=== PATIENT | male | born 1950 | race Caucasian/White ===

== ENCOUNTER → 2020-01-30 09:46 | Outpatient (BNVA) | payer MEDICARE, SELFPAY | PROVIDERS: PCP Internal Medicine; Visit Provider Internal Medicine | DX: I82.401 Acute embolism and thrombosis of unspecified deep veins of right lower extremity (principal); Z51.81 Encounter for therapeutic drug level monitoring; Z79.01 Long term (current) use of anticoagulants | CPT/HCPCS: 85610 ==

== ENCOUNTER → 2020-02-27 09:08 | Outpatient (BNVA) | payer MEDICARE, SELFPAY | PROVIDERS: PCP Internal Medicine; Visit Provider Internal Medicine | DX: I82.401 Acute embolism and thrombosis of unspecified deep veins of right lower extremity (principal); Z51.81 Encounter for therapeutic drug level monitoring; Z79.01 Long term (current) use of anticoagulants | CPT/HCPCS: 85610; 99211 ==

== ENCOUNTER → 2020-03-26 09:13 | Outpatient (BNVA) | payer MEDICARE, SELFPAY | PROVIDERS: PCP Internal Medicine; Visit Provider Internal Medicine | DX: I82.401 Acute embolism and thrombosis of unspecified deep veins of right lower extremity (principal); Z51.81 Encounter for therapeutic drug level monitoring; Z79.01 Long term (current) use of anticoagulants | CPT/HCPCS: 85610; 99211 ==

== ENCOUNTER → 2020-04-23 08:38 | Outpatient (BNVA) | payer MEDICARE, SELFPAY | PROVIDERS: PCP Internal Medicine; Visit Provider Internal Medicine | DX: I82.401 Acute embolism and thrombosis of unspecified deep veins of right lower extremity (principal); Z51.81 Encounter for therapeutic drug level monitoring; Z79.01 Long term (current) use of anticoagulants | CPT/HCPCS: 85610; 99211 ==

== ENCOUNTER → 2020-05-20 08:34 | Outpatient (BNVA) | payer MEDICARE, SELFPAY | PROVIDERS: PCP Internal Medicine; Visit Provider Internal Medicine | DX: I82.401 Acute embolism and thrombosis of unspecified deep veins of right lower extremity (principal); Z51.81 Encounter for therapeutic drug level monitoring; Z79.01 Long term (current) use of anticoagulants | CPT/HCPCS: 85610; 99211 ==

== ENCOUNTER → 2020-06-17 08:17 | Outpatient (BNVA) | payer MEDICARE, SELFPAY | PROVIDERS: PCP Internal Medicine; Visit Provider Internal Medicine | DX: I82.401 Acute embolism and thrombosis of unspecified deep veins of right lower extremity (principal); Z51.81 Encounter for therapeutic drug level monitoring; Z79.01 Long term (current) use of anticoagulants | CPT/HCPCS: 85610; 99211 ==

== ENCOUNTER → 2020-07-15 08:39 | Outpatient (BNVA) | payer MEDICARE, SELFPAY | PROVIDERS: PCP Internal Medicine; Visit Provider Internal Medicine | DX: I82.401 Acute embolism and thrombosis of unspecified deep veins of right lower extremity (principal); I48.0 Paroxysmal atrial fibrillation; Z79.01 Long term (current) use of anticoagulants; Z51.81 Encounter for therapeutic drug level monitoring | CPT/HCPCS: 85610; 99211 ==

== ENCOUNTER 2020-07-21 07:46 | Emergency (ER) | payer MEDICARE, SELFPAY ==
[2020-07-21 08:03] VITALS: BP 143/82; PULSE 135; RESP 19; O2SAT 95; BMI 30.5
[2020-07-21 08:18] LABS: MANUAL DIFF FLAG NO
[2020-07-21 08:21] LABS: Basophils Percent Auto 0.3 % (0-2); Eosinophils Absolute Auto 0.1 X10*3/uL (0.0-0.4); Eosinophils Percent Auto 2.4 % (0-4); Hematocrit 40.5 % (42-52); Hemoglobin 13.4 g/dl (14.0-18.0); Imm Gran Abs Auto 0.02 X10*3/uL (0.00-0.03); Imm Gran Pct Auto 0.3 % (0.0-0.4); Lymphocytes Absolute Auto 1.4 X10*3/uL (1.2-4.9); Lymphocytes Percent Auto 23.5 % (20-40); Mean Corpuscular HGB Conc 33.1 g/dl (31.0-36.0); Mean Corpuscular Hemoglobin 28.9 pg (27.0-33.0); Mean Corpuscular Volume 87.5 fL (80-98); Mean Platelet Volume 10.5 fL (9.4-12.4); Monocytes Absolute Auto 0.6 X10*3/uL (0.1-1.2); Monocytes Percent Auto 10.2 % (2-11); Neutrophils Absolute Auto 3.7 X10*3/uL (2.0-8.3); Neutrophils Percent Auto 63.3 % (45-73); Platelet Count 148 X10*3/uL (160-400); Red Blood Count 4.63 X10*6/uL (4.60-5.80); Red Cell Distribution Width 14.3 % (11.0-16.0); White Blood Count 5.9 X10*3/uL (4.8-10.8)
[2020-07-21 08:34] VITALS: BP 131/78; PULSE 73; RESP 17; O2SAT 96
--- NOTE | 2020-07-21 08:34 | PC.NURSE ---
RN NOTICED PT HR ON TELE WAS IN 70'S. REPEAT EKG BEING DONE AT THIS TIME. PATIENT FEELING IMPROVED.
[2020-07-21 08:49] LABS: Troponin-I High Sensitivity 6.7 ng/L (<3.5-35.0)
[2020-07-21 08:57] LABS: Anion Gap 13 (12-20); Blood Urea Nitrogen 24 mg/dL (9-16); Calcium 8.8 mg/dL (8.4-10.2); Carbon Dioxide 24 mmol/L (22-29); Chloride 107 mmol/L (96-108); Estimated Glomerular Filt Rate > 60; Glucose Fasting 102 mg/dL (60-99); Potassium 3.9 mmol/L (3.3-5.1); Sodium 140 mmol/L (135-145)
[2020-07-21 09:06] LABS: INTERNATIONAL NORM RATIO 2.8 (0.9-1.1); Prothrombin Time 33.2 SEC (10.8-13.0)
--- NOTE | 2020-07-21 09:15 | ED.GENADULT ---
HPI - General Adult General Chief complaint: Arrhythmia/Palpitations Stated complaint: rapid heartbeat Time Seen by Provider: 07/21/20 08:56 Source: patient Mode of arrival: ambulatory Limitations: no limitations History of Present Illness HPI narrative: 69-year-old male who presents emergency department for evaluation palpitations. Patient states that he got at 6:00 a.m. to go to the bathroom when he felt like his heart was beating fast and irregularly. He states that he has a history of atrial fibrillation but had an ablation and has not had any sustained episodes since the ablation. He states that he occasionally gets several beats palpitations that are irregular but has not had a sustained episode in some time. He states that he could feel his heart beat and it was rapid and irregular, he denied any associated chest pain, lightheadedness, dizziness, shortness of breath, dyspnea on exertion, neck, jaw, back or arm pain. His symptoms persisted therefore came to emergency department for evaluation. He denied being ill prior to the onset of his palpitations. Denied fever, chills, cough and myalgias or arthralgias. Related Data Home Medications Medication Instructions Recorded Confirmed colesevelam 625 mg tablet 1,250 mg PO BID 02/05/20 07/15/20 donepezil 5 mg tablet 5 mg PO DAILY 02/05/20 06/17/20 lisinopril 10 mg tablet 10 mg PO DAILY 02/05/20 07/15/20 metoprolol tartrate 25 mg tablet 25 mg PO BID 02/05/20 07/15/20 zmtedtqn-vby-zhogv acid 300 1 tab PO DAILY 02/05/20 07/15/20 mcg-lycopene 600 mcg-lutein 300 mcg tablet naproxen sodium 220 mg tablet 220 mg PO BID PRN 02/05/20 07/15/20 omeprazole 20 mg capsule,delayed 20 mg PO DAILY 02/05/20 07/15/20 release Previous Rx's Medication Instructions Recorded warfarin 2 mg tablet 8 mg PO DAILY #120 tab 06/07/20 Allergies Allergy/AdvReac Type Severity Reaction Status Date / Time Sgygoyd-Uhn-Nmp Reductase Allergy Intermediate MUSCULAR Verified 06/17/20 08:23 Inhibitor PAIN [[id number] REDUCTASE INHIBITOR] atorvastatin Allergy Unknown UNKNOWN Verified 06/17/20 08:23 pravastatin Allergy Unknown UNKNOWN Verified 06/17/20 08:23 simvastatin Allergy Unknown UNKNOWN Verified 06/17/20 08:23 Review of Systems Review of Systems: Yes all other systems are reviewed and are negative [facility] Past Medical History [facility] Narrative: The patient denies alcohol, tobacco or drug use. Medical History Carpal tunnel syndrome Chronic idiopathic thrombocytopenia Cognitive decline Colon cancer Depression GERD (gastroesophageal reflux disease) Hypercholesterolemia Hypertension Impaired fasting glucose Iron deficiency anemia Paroxysmal atrial fibrillation Peripheral neuropathy Rotator cuff tear Thrombocytopenia Surgical History H/O repair of rotator cuff History of appendectomy History of cardiac radiofrequency ablation History of carpal tunnel release History of cholecystectomy History of knee replacement procedure of right knee History of laminectomy History of left knee replacement History of neck surgery History of partial colectomy History of right hip replacement Family History Family History Father No problems noted. Mother Diabetes Social History Social History Smoking Status: Never smoker Smoked in Last 30 Days: No Use of substances other than those prescribed or required for medical reasons: No Advance Directives: No Advance Directives Information Provided: No Physical Exam Vital Signs: Vital Signs: Last Vital Signs Pulse 63 07/21/20 11:12 Resp 15 07/21/20 11:12 BP 109/68 07/21/20 11:12 Pulse Ox 96 07/21/20 11:12 Body Mass Index 30.5 Const: General: cooperative and healthy appearing Orientation/consciousness: oriented to person and oriented to place Limitations: no limitations HENMT: Head: Yes normal to inspection, Yes normocephalic and Yes atraumatic Ears: external ears normal General nose exam: Normal external nose present Face and sinus: Yes normal facial exam Mouth: Normal oral and palatal mucosa present Throat: Yes posterior oropharynx normal Eyes: Periorbital: periorbital findings normal Eyelids: Yes eyelids normal Conjunctivae: conjunctivae normal Sclerae: sclerae normal Corneas: corneas normal Pupils: Equal, round and reactive pupils present Direct Ophthalmoscopy: normal light reflex Neck: Neck: Yes full ROM, Yes no lymphadenopathy, Yes no meningeal signs, Yes trachea midline and Yes supple Chest: Chest palpation & inspection: normal inspection of the chest and normal palpation of entire chest wall Resp: Effort & Inspection: normal respiratory effort and able to speak in complete sentences Auscultation: clear to auscultation bilaterally Cardio: Rate: regular rate Rhythm: regular rhythm Heart sounds: S1 normal heart sound present, S2 normal heart sound present and no murmurs GI: Inspection: Yes normal to inspection Palpation (GI): Soft to palpation, nontender, no guarding, not rigid and No hepatosplenomegaly present : General: Yes no CVA tenderness Back/Spine/Pelvis: Back: no CVA tenderness Cervical Spine: normal cervical lordosis Thoracic/Lumbar Spine: thoracic and lumbar spine normal to inspection Skin: Lesions: no lesions Rashes: no rashes Wounds: no wounds Neuro: General: oriented to person, oriented to place and no meningeal signs Cranial nerves: Yes CN's II-XII intact bilaterally and Yes Equal, round and reactive pupils present Cognition (Neuro): normal cognition Motor exam (neuro): 5/5 motor strength present throughout Extrem: General: Yes normal to inspection and Yes full ROM Psych: Appearance: well kempt Mental Status: mental status grossly normal Speech and movement: Normal speech and movement present Affect: normal affect Attitude: cooperative Thought process: Normal thought process present Thought content: Normal thought content present Course Course Course Narrative: 69-year-old male who presents emergency department for evaluation palpitations which occurred this morning at 6:00 a.m. when he woke up. On presentation, the patient was found to have tachycardia with a pulse of 135 and a slightly elevated blood pressure of 143/82. By the time I evaluated the patient, his heart exam was normal however his initial EKG was consistent with atrial fibrillation with a ventricular response of 134. The patient spontaneously converted without treatment and his 2nd EKG revealed normal sinus rhythm with a rate of 74. The patient's laboratory evaluation revealed a non elevated, detectable troponin of 6 otherwise was unremarkable. The patient will be monitored and we will check a 3 hour troponin at 1115 to evaluate for possible cardiac injury. 1206: Patient's repeat 3 hour high sensitivity troponin was unchanged at 6.9. INR was therapeutic at 2.8. Patient had no other arrhythmias noted on the monitoring specialist and remains in normal sinus rhythm. 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 Medical Decision Making Lab Data Result diagrams: 07/21/20 08:14 07/21/20 08:12 Labs: Lab Results 07/21/20 07/21/20 07/21/20 Range/Units 08:12 08:13 08:13 WBC (4.8-10.8) X10*3/uL RBC (4.60-5.80) X10*6/uL Hgb (14.0-18.0) g/dl Hct (42-52) % MCV (80-98) fL MCH (27.0-33.0) pg MCHC (31.0-36.0) g/dl RDW (11.0-16.0) % Plt Count (160-400) X10*3/uL MPV (9.4-12.4) fL Immature Gran % (Auto) (0.0-0.4) % Neut % (Auto) (45-73) % Lymph % (Auto) (20-40) % [place] % (Auto) (2-11) % Eos % (Auto) (0-4) % Baso % (Auto) (0-2) % Lymph # (Auto) (1.2-4.9) X10*3/uL [place] # (Auto) (0.1-1.2) X10*3/uL Eos # (Auto) (0.0-0.4) X10*3/uL Baso # (Auto) (0.0-0.2) X10*3/uL Abs Immat Gran (auto) (0.00-0.03) X10*3/uL Absolute Neuts (auto) (2.0-8.3) X10*3/uL Absolute Nucleated RBC (0.0-0.012) X10*3/uL Nucleated RBC % (auto) (0.0-0.2) /100WBC PT 33.2 H (10.8-13.0) SEC INR 2.8 H (0.9-1.1) Hold Blue Top SEE NOTE Sodium 140 (135-145) mmol/L Potassium 3.9 (3.3-5.1) mmol/L Chloride 107 (96-108) mmol/L Carbon Dioxide 24 (22-29) mmol/L Anion Gap 13 (12-20) BUN 24 H (9-16) mg/dL Creatinine 0.90 (0.5-1.4) mg/dL Estim Creat Clear Calc 93.0 Estimated GFR > 60 Fasting Glucose 102 H (60-99) mg/dL Calcium 8.8 (8.4-10.2) mg/dL Troponin I High Sens 6.7 (<3.5-35.0) ng/L 07/21/20 07/21/20 Range/Units 08:14 11:16 WBC 5.9 (4.8-10.8) X10*3/uL RBC 4.63 (4.60-5.80) X10*6/uL Hgb 13.4 L (14.0-18.0) g/dl Hct 40.5 L (42-52) % MCV 87.5 (80-98) fL MCH 28.9 (27.0-33.0) pg MCHC 33.1 (31.0-36.0) g/dl RDW 14.3 (11.0-16.0) % Plt Count 148 L (160-400) X10*3/uL MPV 10.5 (9.4-12.4) fL Immature Gran % (Auto) 0.3 (0.0-0.4) % Neut % (Auto) 63.3 (45-73) % Lymph % (Auto) 23.5 (20-40) % [place] % (Auto) 10.2 (2-11) % Eos % (Auto) 2.4 (0-4) % Baso % (Auto) 0.3 (0-2) % Lymph # (Auto) 1.4 (1.2-4.9) X10*3/uL [place] # (Auto) 0.6 (0.1-1.2) X10*3/uL Eos # (Auto) 0.1 (0.0-0.4) X10*3/uL Baso # (Auto) 0.0 (0.0-0.2) X10*3/uL Abs Immat Gran (auto) 0.02 (0.00-0.03) X10*3/uL Absolute Neuts (auto) 3.7 (2.0-8.3) X10*3/uL Absolute Nucleated RBC 0.000 (0.0-0.012) X10*3/uL Nucleated RBC % (auto) 0.0 (0.0-0.2) /100WBC PT (10.8-13.0) SEC INR (0.9-1.1) Hold Blue Top Sodium (135-145) mmol/L Potassium (3.3-5.1) mmol/L Chloride (96-108) mmol/L Carbon Dioxide (22-29) mmol/L Anion Gap (12-20) BUN (9-16) mg/dL Creatinine (0.5-1.4) mg/dL Estim Creat Clear Calc Estimated GFR Fasting Glucose (60-99) mg/dL Calcium (8.4-10.2) mg/dL Troponin I High Sens 6.9 (<3.5-35.0) ng/L ECG Data Interpretation: EKG 1.: 0753: Atrial fibrillation with a rapid ventricular rate of 134, normal QRS and QTC intervals, no ST segment elevation or depression, no T-wave abnormalities, no old EKG for comparison EKG 2.: 0852: Normal sinus rhythm with a rate of 74, normal CT, S prolonged QRS of 100 milliseconds, normal QTC interval, no T-wave abnormalities, no ST segment elevation depression, this is a normal EKG. Discharge Plan Discharge Clinical Impression: AF (paroxysmal atrial fibrillation) Patient Disposition: Home, Self-Care Instructions: A-fib (Atrial Fibrillation) (ED) Additional Instructions: Your initial EKG revealed that your in atrial fibrillation with a ventricular rate of 134. Without any treatment, he spontaneously converted to a normal sinus rhythm with a rate of 74. Your laboratory evaluation revealed a detectable high sensitivity troponin at 6.7 but not elevated (less than 35), your repeat 3 hour high sensitivity troponin was 6.9 which is unchanged suggesting that you did not have any cardiac injury from your atrial fibrillation with rapid ventricular response. Your INR was therapeutic at 2.8. You should follow-up with the assembly line inspector discuss further treatment and management of your paroxysmal atrial tachycardia. Follow-up with your doctor in 2 days. Please return to the emergency department if your symptoms get worse or if you develop any symptoms that are concerning to you. Prescriptions: No Action warfarin 2 mg tablet 8 mg PO DAILY Qty: 120 RF: 3 metoprolol tartrate 25 mg tablet 25 mg PO BID RF: 0 lisinopril 10 mg tablet 10 mg PO DAILY RF: 0 omeprazole 20 mg capsule,delayed release(DR/EC) 20 mg PO DAILY RF: 0 Centrum Silver Ultra Men's 300-600-300 mcg tablet 1 tab PO DAILY RF: 0 naproxen sodium [Aleve] 220 mg tablet 220 mg PO BID PRN (Reason: Pain) RF: 0 colesevelam 625 mg tablet 1,250 mg PO BID RF: 0 donepezil [Aricept] 5 mg tablet 5 mg PO DAILY RF: 0
[2020-07-21 11:12] VITALS: BP 109/68; PULSE 63; RESP 15; O2SAT 96
[2020-07-21 11:46] LABS: Troponin-I High Sensitivity 6.9 ng/L (<3.5-35.0)
--- NOTE | 2020-07-21 12:04 | ECG_ITS ---
Test Reason : RAPID HEATRATE Blood Pressure : / mmHG Vent. Rate : 134 BPM Atrial Rate : 076 BPM P-R Int : 000 ms QRS Dur : 088 ms QT Int : 308 ms P-R-T Axes : 000 011 -25 degrees QTc Int : 459 ms Atrial fibrillation with rapid ventricular response Nonspecific ST and T wave abnormality Abnormal ECG When compared with ECG of 03-NOV-2014 20:20, Atrial fibrillation has replaced Sinus rhythm Vent. rate has increased BY [address] now depressed in Anterior leads T wave inversion more evident in Inferior leads Referred By: Narayan Corley Electronically Signed By:TERESA MALDONADO
--- NOTE | 2020-07-21 12:05 | ECG_ITS ---
Test Reason : RAPID HEARTRATE Blood Pressure : / mmHG Vent. Rate : 070 BPM Atrial Rate : 070 BPM P-R Int : 152 ms QRS Dur : 092 ms QT Int : 370 ms P-R-T Axes : 029 006 012 degrees QTc Int : 399 ms Normal sinus rhythm Normal ECG When compared with ECG of 21-JUL-2020 07:53, Sinus rhythm has replaced Atrial fibrillation Vent. rate has decreased BY 64 BPM T wave inversion less evident in Inferior leads Referred By: Narayan Corley Electronically Signed By:TERESA MALDONADO
== END 2020-07-21 12:25 | disposition home or self-care (01) ==
PROVIDERS: Emergency Provider Emergency Medicine Emergency Medical Services; PCP Internal Medicine
DX: I48.0 Paroxysmal atrial fibrillation (principal); R00.0 Tachycardia, unspecified; I10 Essential (primary) hypertension; K21.9 Gastro-esophageal reflux disease without esophagitis; Z85.038 Personal history of other malignant neoplasm of large intestine; Z79.01 Long term (current) use of anticoagulants; Z79.899 Other long term (current) drug therapy
CPT/HCPCS: 36415; 80048; 84484; 85025; 85610; 93005; 99283; 99284

== ENCOUNTER → 2020-07-31 09:09 | Outpatient (BNVA) | payer MEDICARE, SELFPAY | PROVIDERS: PCP Internal Medicine; Visit Provider Internal Medicine | DX: I82.401 Acute embolism and thrombosis of unspecified deep veins of right lower extremity (principal); Z79.01 Long term (current) use of anticoagulants; Z51.81 Encounter for therapeutic drug level monitoring | CPT/HCPCS: 85610; 99211 ==

== ENCOUNTER 2020-08-14 07:56 | Outpatient (REF) | payer MEDICARE, SELFPAY ==
[2020-08-14 09:10] LABS: MANUAL DIFF FLAG NO
[2020-08-14 09:22] LABS: Basophils Percent Auto 0.4 % (0-2); Eosinophils Absolute Auto 0.1 X10*3/uL (0.0-0.4); Eosinophils Percent Auto 2.6 % (0-4); Hematocrit 41.1 % (42-52); Hemoglobin 13.4 g/dl (14.0-18.0); Imm Gran Abs Auto 0.01 X10*3/uL (0.00-0.03); Imm Gran Pct Auto 0.2 % (0.0-0.4); Lymphocytes Absolute Auto 1.1 X10*3/uL (1.2-4.9); Lymphocytes Percent Auto 21.4 % (20-40); Mean Corpuscular HGB Conc 32.6 g/dl (31.0-36.0); Mean Corpuscular Hemoglobin 28.5 pg (27.0-33.0); Mean Corpuscular Volume 87.3 fL (80-98); Mean Platelet Volume 11.4 fL (9.4-12.4); Monocytes Absolute Auto 0.4 X10*3/uL (0.1-1.2); Monocytes Percent Auto 8.5 % (2-11); Neutrophils Absolute Auto 3.4 X10*3/uL (2.0-8.3); Neutrophils Percent Auto 66.9 % (45-73); Platelet Count 164 X10*3/uL (160-400); Red Blood Count 4.71 X10*6/uL (4.60-5.80); Red Cell Distribution Width 13.6 % (11.0-16.0); White Blood Count 5.1 X10*3/uL (4.8-10.8)
[2020-08-14 09:30] LABS: Estimated Average Glucose 114 mg/dL; Hemoglobin A1c % 5.6 %
[2020-08-14 10:08] LABS: Free T4 (Free Thyroxine) 1.06 ng/dL (0.71-1.85); Thyroid Stimulating Hormone 0.52 uIU/mL (0.32-4.0); Vitamin D 25-OH Total 24.1 ng/mL (>30)
[2020-08-14 10:14] LABS: Alanine Aminotransferase 26 U/L (0-40); Alkaline Phosphatase 87 U/L (39-117); Anion Gap 12 (12-20); Aspartate Amino Transferase 28 U/L (5-37); Bilirubin Total 0.6 mg/dL (0.0-1.0); Blood Urea Nitrogen 18 mg/dL (9-16); Calcium 9.1 mg/dL (8.4-10.2); Carbon Dioxide 26 mmol/L (22-29); Chloride 108 mmol/L (96-108); Cholesterol 175 mg/dL; Estimated Glomerular Filt Rate > 60; Glucose Random 98 mg/dL (60-115); HDL Cholesterol 31 mg/dL; LDL Cholesterol Calculated 108 mg/dl; Potassium 4.6 mmol/L (3.3-5.1); Sodium 141 mmol/L (135-145); Total Protein 6.9 g/dL (6.5-8.0); Triglycerides 181 mg/dL
[2020-08-14 11:21] LABS: Folate 19.1 ng/mL (> or = 4.0); Vitamin B12 654 pg/mL (200-900)
== END 2020-08-14 07:57 | disposition home or self-care (01) ==
LOC: HO.LAB 07:56
PROVIDERS: Absent Provider Internal Medicine; PCP Internal Medicine; Visit Provider Internal Medicine
DX: I82.401 Acute embolism and thrombosis of unspecified deep veins of right lower extremity (principal); E78.00 Pure hypercholesterolemia, unspecified; R73.01 Impaired fasting glucose; D69.3 Immune thrombocytopenic purpura; Z51.81 Encounter for therapeutic drug level monitoring; Z79.01 Long term (current) use of anticoagulants
CPT/HCPCS: 36415; 80053; 80061; 82306; 82607; 82746; 83036; 84439; 84443; 85025; 85610; 99211

== ENCOUNTER → 2020-08-28 08:55 | Outpatient (BNVA) | payer MEDICARE, SELFPAY | PROVIDERS: PCP Internal Medicine; Visit Provider Internal Medicine | DX: I82.401 Acute embolism and thrombosis of unspecified deep veins of right lower extremity (principal); Z51.81 Encounter for therapeutic drug level monitoring; Z79.01 Long term (current) use of anticoagulants | CPT/HCPCS: 85610; 99211 ==

== ENCOUNTER → 2020-09-11 08:01 | Outpatient (BNVA) | payer MEDICARE, SELFPAY | PROVIDERS: PCP Internal Medicine; Visit Provider Internal Medicine | DX: I82.401 Acute embolism and thrombosis of unspecified deep veins of right lower extremity (principal); Z51.81 Encounter for therapeutic drug level monitoring; Z79.01 Long term (current) use of anticoagulants | CPT/HCPCS: 85610; 99211 ==

== ENCOUNTER → 2020-10-09 09:13 | Outpatient (BNVA) | payer MEDICARE, SELFPAY | PROVIDERS: PCP Internal Medicine; Visit Provider Internal Medicine | DX: I82.401 Acute embolism and thrombosis of unspecified deep veins of right lower extremity (principal); Z51.81 Encounter for therapeutic drug level monitoring; Z79.01 Long term (current) use of anticoagulants | CPT/HCPCS: 85610; 99211 ==

== ENCOUNTER → 2020-11-06 09:21 | Outpatient (BNVA) | payer MEDICARE, SELFPAY | PROVIDERS: PCP Internal Medicine; Visit Provider Internal Medicine | DX: I82.401 Acute embolism and thrombosis of unspecified deep veins of right lower extremity (principal); Z51.81 Encounter for therapeutic drug level monitoring; Z79.01 Long term (current) use of anticoagulants | CPT/HCPCS: 85610; 99211 ==

== ENCOUNTER → 2020-12-04 09:17 | Outpatient (BNVA) | payer MEDICARE, SELFPAY | PROVIDERS: PCP Internal Medicine; Visit Provider Internal Medicine | DX: I82.401 Acute embolism and thrombosis of unspecified deep veins of right lower extremity (principal); Z51.81 Encounter for therapeutic drug level monitoring; Z79.01 Long term (current) use of anticoagulants | CPT/HCPCS: 85610; 99211 ==

== ENCOUNTER → 2021-01-01 09:13 | Outpatient (BNVA) | payer MEDICARE, SELFPAY | PROVIDERS: PCP Internal Medicine; Visit Provider Internal Medicine | DX: I82.401 Acute embolism and thrombosis of unspecified deep veins of right lower extremity (principal); Z51.81 Encounter for therapeutic drug level monitoring; Z79.01 Long term (current) use of anticoagulants | CPT/HCPCS: 85610; 99211 ==

== ENCOUNTER → 2021-01-29 09:17 | Outpatient (BNVA) | payer MEDICARE, SELFPAY | PROVIDERS: PCP Internal Medicine; Visit Provider Internal Medicine | DX: I82.401 Acute embolism and thrombosis of unspecified deep veins of right lower extremity (principal); Z51.81 Encounter for therapeutic drug level monitoring; Z79.01 Long term (current) use of anticoagulants | CPT/HCPCS: 85610; 99211 ==

== ENCOUNTER → 2021-02-05 09:41 | Outpatient (BNVA) | payer MEDICARE, SELFPAY | PROVIDERS: PCP Internal Medicine; Visit Provider Internal Medicine | DX: I82.401 Acute embolism and thrombosis of unspecified deep veins of right lower extremity (principal); Z51.81 Encounter for therapeutic drug level monitoring; Z79.01 Long term (current) use of anticoagulants | CPT/HCPCS: 85610; 99211 ==

== ENCOUNTER → 2021-02-12 09:51 | Outpatient (BNVA) | payer MEDICARE, SELFPAY | PROVIDERS: PCP Internal Medicine; Visit Provider Internal Medicine | DX: I82.401 Acute embolism and thrombosis of unspecified deep veins of right lower extremity (principal); Z51.81 Encounter for therapeutic drug level monitoring; Z79.01 Long term (current) use of anticoagulants | CPT/HCPCS: 85610; 99211 ==

== ENCOUNTER → 2021-02-26 10:50 | Outpatient (BNVA) | payer MEDICARE, SELFPAY | PROVIDERS: PCP Internal Medicine; Visit Provider Internal Medicine | DX: I82.401 Acute embolism and thrombosis of unspecified deep veins of right lower extremity (principal); Z51.81 Encounter for therapeutic drug level monitoring; Z79.01 Long term (current) use of anticoagulants | CPT/HCPCS: 85610; 99211 ==

== ENCOUNTER 2021-02-28 09:01 | Emergency (ER) | payer MEDICARE, SELFPAY ==
[2021-02-28 09:18] VITALS: BP 149/80; PULSE 68; RESP 18; TEMP 36.9; O2SAT 96; BMI 28.5
--- NOTE | 2021-02-28 11:53 | ED.MALEGU ---
HPI - Male Genitourinary General Chief complaint: Urogenital-Male Stated complaint: genital bleeding Time Seen by Provider: 02/28/21 11:51 Source: patient Mode of arrival: ambulatory Limitations: no limitations History of Present Illness HPI Narrative: 70 y/o male with a history paroxysmal afib on Coumadin, HTN, HLD, neuropathy with history of both bladder and bowel incontinence, hx colon cancer, iron deficiency anemia, RLE DVT after neck surgery s/p IVC filter placement 02/2018, hx thrombocytopenia who presents to the ER for evaluation of acute onset of hematuria that started 2 days ago. He reports he noticed small drops of blood in his underwear 2 days ago that progressed to red urine yesterday. It cleared last night and then restarted this morning. He denies history of the same. No dysuria, urgency or frequency. He also reports 2 days of non-bloody diarrhea. He was incontinent of stool this morning because he could not get to the bathroom in time. He reports this happens from time to time with his history of colon cancer. He denies fever, chills, N/V, abdominal pain. He reports he just had his Coumadin level drawn last week and it was therapeutic. MD Complaint: other (hematuria) Onset (ago): day(s) (2) Duration: intermittent Location: penis Severity: moderate Severity scale (1-10): 5 Relieving factors: none Exacerbating factors: urination Associated symptoms: Reports blood in urine and incontinence (chronic) Related Data Sexually active: No Home Medications Medication Instructions Recorded Confirmed metoprolol tartrate 25 mg tablet 25 mg PO BID 02/05/20 02/26/21 yyesxsbr-ggu-kryng acid 300 1 tab PO DAILY 02/05/20 02/26/21 mcg-lycopene 600 mcg-lutein 300 mcg tablet (Centrum Silver Ultra Men's) naproxen sodium 220 mg tablet 220 mg PO BID PRN 02/05/20 02/26/21 (Aleve) Previous Rx's Medication Instructions Recorded colesevelam 625 mg tablet 1,875 mg PO BID #540 tab 07/22/20 lisinopril 10 mg tablet 10 mg PO DAILY 90 Days #90 tab 10/17/20 omeprazole 20 mg capsule,delayed 20 mg PO DAILY #90 cap 01/16/21 release warfarin 2 mg tablet 8 mg PO DAILY #120 tab 02/15/21 Allergies Allergy/AdvReac Type Severity Reaction Status Date / Time Cvjqibq-LKN-StD Reductase Allergy Intermediate MUSCULAR Verified 02/28/21 09:18 Inhibitor PAIN [OVPLPNP-AFU-QKM REDUCTASE INHIBITOR] atorvastatin Allergy Unknown UNKNOWN Verified 02/28/21 09:18 pravastatin Allergy Unknown UNKNOWN Verified 02/28/21 09:18 simvastatin Allergy Unknown UNKNOWN Verified 02/28/21 09:18 Review of Systems Review of Systems: Constitutional: No Fever, No Chills ENT/Mouth: No sore throat, No Rhinorrhea, No Swallowing Difficulty Cardiovascular: No Chest Pain, No SOB, No Orthopnea, No Edema Respiratory: No Cough, No Sputum, No Wheezing, No dyspnea Gastrointestinal: No Nausea, No Vomiting, + Diarrhea, No abdominal Pain, No Hematochezia, No Melena Genitourinary: No Dysuria, No Urinary Frequency, + Hematuria Musculoskeletal: No joint pain, No Myalgias Skin: No Skin Lesions, No rash Neuro: No Weakness, No Numbness, No Dizziness, No Headache Psych: No Anxiety/Panic, No Depression Heme/Lymph: No Bruising, No Lymphadenopathy Endocrine: No Polyuria, No Polydipsia [facility] Past Medical History Medical History (Updated 02/28/21 @ 13:45 by SAMY Dietrich) Carpal tunnel syndrome Chronic idiopathic thrombocytopenia Cognitive decline Colon cancer Depression GERD (gastroesophageal reflux disease) Hypercholesterolemia Hypertension Impaired fasting glucose Iron deficiency anemia Paroxysmal atrial fibrillation Peripheral neuropathy Rotator cuff tear Thrombocytopenia Surgical History H/O repair of rotator cuff History of appendectomy History of cardiac radiofrequency ablation History of carpal tunnel release History of cholecystectomy History of knee replacement procedure of right knee History of laminectomy History of left knee replacement History of neck surgery History of partial colectomy History of right hip replacement Family History Family History Father No problems noted. Mother Diabetes Social History Social History (System 12/31/20 @ 15:37 by Lidia Flores) Housing: House Alcohol intake: current Alcohol intake frequency: holidays/special occasions only Patient Tobacco Use Status: Never used Tobacco e-Cigarette/Vaping Use: Never Used Second Hand Smoke Exposure: No Advance Directives: Yes Advance Directives Information Provided: Yes Advance Directives on File: No Current occupational status: retired Physical Exam Vital Signs: Vital Signs: Last Vital Signs Temp 98.4 F 02/28/21 09:18 Pulse 68 02/28/21 09:18 Resp 18 02/28/21 09:18 BP 149/80 H 02/28/21 09:18 Pulse Ox 96 02/28/21 09:18 Body Mass Index 28.5 Appearance: Alert. Oriented X3. No acute distress. Eyes: Pupils equal, round and reactive to light. ENT: Pharynx normal. Neck: Normal inspection. Neck supple. CVS: Normal heart rate and rhythm. Pulses normal. Respiratory: No respiratory distress. Breath sounds normal. Abdomen: Soft and nontender. +BS x4. Normal inspection of the external genitalia Skin: Skin warm and dry. Normal skin color. Normal skin turgor. No rashes. Extremities: No lower extremity edema. Neuro: Oriented X 3. No motor deficit. + sensory deficit LE>UE, chronic Course Course Course Narrative: 70 y/o male presenting with acute onset of painless hematuria x2 days, now resolved. He is on Coumadin with last INR 2.7 on 02/26. His urine here is clear yellow. He has no signs of symptoms of acute blood loss anemia. Will check basic labs and send urinalysis. Reevaluation(s) Reevaluation #1: UA with microscopic blood, clear yellow without signs of infection. H/H is stable. No further hematuria here. No symptoms of infection or other urinary symptoms. INR 2.8. Bleeding could have been from anticoagulation. No trauma. He has a Urologist in [place] that he just saw last week. He denies every having a cystoscopy in the past. Nonsmoker. At this time here is no indication for antibiotics and bleeding has significantly improved. He is stable for d/c home with plan to follow up with his Urologist and PCP. Pt and agreeable with plan. MDM - Male Genitourinary Lab Data Result diagrams: 02/28/21 12:54 02/28/21 12:54 Labs: Lab Results 02/28/21 02/28/21 02/28/21 Range/Units 12:54 12:54 12:54 WBC 5.7 (4.8-10.8) X10*3/uL RBC 4.58 L (4.60-5.80) X10*6/uL Hgb 13.4 L (14.0-18.0) g/dl Hct 39.4 L (42.0-52.0) % MCV 86.0 (80.0-98.0) fL MCH 29.3 (27.0-33.0) pg MCHC 34.0 (31.0-36.0) g/dl RDW 13.4 (11.0-16.0) % Plt Count 149 L (160-400) X10*3/uL MPV 11.2 (9.4-12.4) fL Immature Gran % (Auto) 0.2 (0.0-0.4) % Neut % (Auto) 71.2 (45-73) % Lymph % (Auto) 19.0 L (20-40) % [place] % (Auto) 8.5 (2-11) % Eos % (Auto) 0.9 (0-4) % Baso % (Auto) 0.2 (0-2) % Lymph # (Auto) 1.1 L (1.2-4.9) X10*3/uL [place] # (Auto) 0.5 (0.1-1.2) X10*3/uL Eos # (Auto) 0.1 (0.0-0.4) X10*3/uL Baso # (Auto) 0.0 (0.0-0.2) X10*3/uL Abs Immat Gran (auto) 0.01 (0.00-0.03) X10*3/uL Absolute Neuts (auto) 4.1 (2.0-8.3) x10*3/uL Absolute Nucleated RBC 0.000 (0.0-0.012) X10*3/uL Nucleated RBC % (auto) 0.0 (0.0-0.2) /100WBC PT 27.1 H (9.9-13.0) SEC INR 2.3 H (0.9-1.1) APTT 42.2 H (24.1-38.0) SEC Sodium 142 (135-145) mmol/L Potassium 4.1 (3.3-5.1) mmol/L Chloride 110 H (96-108) mmol/L Carbon Dioxide 25 (22-29) mmol/L Anion Gap 11 L (12-20) BUN 18 H (9-16) mg/dL Creatinine 0.79 (0.5-1.4) mg/dL Estim Creat Clear Calc 101.2 Estimated GFR > 60 Random Glucose 106 (60-115) mg/dL Calcium 9.0 (8.4-10.2) mg/dL Magnesium 2.1 (1.6-2.6) mg/dL Total Bilirubin 0.5 (0.0-1.0) mg/dL Direct Bilirubin 0.2 (0.0-0.5) mg/dL AST 33 (5-37) U/L ALT 42 H (0-40) U/L Alkaline Phosphatase 70 (39-117) U/L Total Protein 6.6 (6.5-8.0) g/dL Albumin 3.8 (3.5-5.0) g/dL Urine Color Urine Appearance Urine pH (5.0-8.0) Ur Specific [place] (1.005-1.025) Urine Protein (NEG-TRACE) MG/DL Urine Glucose (UA) (NEG) MG/DL Urine Ketones (NEG) MG/DL Urine Blood (NEG) Urine Nitrite (NEG) Ur Leukocyte Esterase (NEG) Urine RBC (0) /HPF Urine WBC (0-4) /HPF Ur Squamous Epith Cells /LPF Urine Bacteria /LPF COVID-19 (SHAWNA) (Negative) COVID-19 Clin Com 02/28/21 02/28/21 Range/Units 12:54 12:54 WBC (4.8-10.8) X10*3/uL RBC (4.60-5.80) X10*6/uL Hgb (14.0-18.0) g/dl Hct (42.0-52.0) % MCV (80.0-98.0) fL MCH (27.0-33.0) pg MCHC (31.0-36.0) g/dl RDW (11.0-16.0) % Plt Count (160-400) X10*3/uL MPV (9.4-12.4) fL Immature Gran % (Auto) (0.0-0.4) % Neut % (Auto) (45-73) % Lymph % (Auto) (20-40) % [place] % (Auto) (2-11) % Eos % (Auto) (0-4) % Baso % (Auto) (0-2) % Lymph # (Auto) (1.2-4.9) X10*3/uL [place] # (Auto) (0.1-1.2) X10*3/uL Eos # (Auto) (0.0-0.4) X10*3/uL Baso # (Auto) (0.0-0.2) X10*3/uL Abs Immat Gran (auto) (0.00-0.03) X10*3/uL Absolute Neuts (auto) (2.0-8.3) x10*3/uL Absolute Nucleated RBC (0.0-0.012) X10*3/uL Nucleated RBC % (auto) (0.0-0.2) /100WBC PT (9.9-13.0) SEC INR (0.9-1.1) APTT (24.1-38.0) SEC Sodium (135-145) mmol/L Potassium (3.3-5.1) mmol/L Chloride (96-108) mmol/L Carbon Dioxide (22-29) mmol/L Anion Gap (12-20) BUN (9-16) mg/dL Creatinine (0.5-1.4) mg/dL Estim Creat Clear Calc Estimated GFR Random Glucose (60-115) mg/dL Calcium (8.4-10.2) mg/dL Magnesium (1.6-2.6) mg/dL Total Bilirubin (0.0-1.0) mg/dL Direct Bilirubin (0.0-0.5) mg/dL AST (5-37) U/L ALT (0-40) U/L Alkaline Phosphatase (39-117) U/L Total Protein (6.5-8.0) g/dL Albumin (3.5-5.0) g/dL Urine Color YELLOW Urine Appearance CLEAR Urine pH 6.0 (5.0-8.0) Ur Specific [place] <= 1.005 (1.005-1.025) Urine Protein NEG (NEG-TRACE) MG/DL Urine Glucose (UA) NEG (NEG) MG/DL Urine Ketones NEG (NEG) MG/DL Urine Blood 2+ H (NEG) Urine Nitrite NEG (NEG) Ur Leukocyte Esterase NEG (NEG) Urine RBC 1-4 (0) /HPF Urine WBC 0 (0-4) /HPF Ur Squamous Epith Cells NONE /LPF Urine Bacteria NONE /LPF COVID-19 (SHAWNA) Negative (Negative) COVID-19 Clin Com See Note Discharge Plan Discharge Clinical Impression: Hematuria Qualifiers: Hematuria type: unspecified type Qualified Code(s): R31.9 - Hematuria, unspecified Patient Disposition: Home, Self-Care Instructions: Hematuria (ED) Additional Instructions: Your lab workup today was unremarkable. Your urine test did not show any evidence of infection and bleeding had improved. Your INR ws 2.8. Being on blood thinners can cause spontaneous bleeding. Monitor your urine output. Drink plenty of water and stay hydrated. Recommend following up with your Urologist for further evaluation. If you develop new or worsening symptoms call 911 or come back to the ER for further evaluation. Prescriptions: No Action colesevelam 625 mg tablet 1,875 mg PO BID Qty: 540 RF: 3 lisinopril 10 mg tablet 10 mg PO DAILY 90 Days Qty: 90 RF: 3 omeprazole 20 mg capsule,delayed release(DR/EC) 20 mg PO DAILY Qty: 90 RF: 3 warfarin 2 mg tablet 8 mg PO DAILY Qty: 120 RF: 3 metoprolol tartrate 25 mg tablet 25 mg PO BID RF: 0 Centrum Silver Ultra Men's 300-600-300 mcg tablet 1 tab PO DAILY RF: 0 naproxen sodium [Aleve] 220 mg tablet 220 mg PO BID PRN (Reason: Pain) RF: 0
[2021-02-28 12:58] LABS: MANUAL DIFF FLAG NO
[2021-02-28 13:00] LABS: Appearance Urine CLEAR; Basophils Percent Auto 0.2 % (0-2); Color Urine YELLOW; Eosinophils Absolute Auto 0.1 X10*3/uL (0.0-0.4); Eosinophils Percent Auto 0.9 % (0-4); Glucose Urine UA NEG (NEG); Hematocrit 39.4 % (42.0-52.0); Hemoglobin 13.4 g/dl (14.0-18.0); Imm Gran Abs Auto 0.01 X10*3/uL (0.00-0.03); Imm Gran Pct Auto 0.2 % (0.0-0.4); Leukocyte Esterase Urine NEG (NEG); Lymphocytes Absolute Auto 1.1 X10*3/uL (1.2-4.9); Mean Corpuscular Hemoglobin 29.3 pg (27.0-33.0); Mean Platelet Volume 11.2 fL (9.4-12.4); Monocytes Absolute Auto 0.5 X10*3/uL (0.1-1.2); Monocytes Percent Auto 8.5 % (2-11); Neutrophils Absolute Auto 4.1 x10*3/uL (2.0-8.3); Neutrophils Percent Auto 71.2 % (45-73); Nitrite Urine NEG (NEG); Platelet Count 149 X10*3/uL (160-400); Red Blood Count 4.58 X10*6/uL (4.60-5.80); Red Cell Distribution Width 13.4 % (11.0-16.0); Specific Gravity - Urine <= 1.005 (1.005-1.025); UACC Culture Trigger NO; Urine Blood 2+ (NEG); Urine Ketones NEG (NEG); Urine Protein NEG (NEG-TRACE); White Blood Count 5.7 X10*3/uL (4.8-10.8)
[2021-02-28 13:07] LABS: INTERNATIONAL NORM RATIO 2.3 (0.9-1.1); Prothrombin Time 27.1 SEC (9.9-13.0)
[2021-02-28 13:09] LABS: WBC Urine 0 /HPF (0-4)
[2021-02-28 13:10] LABS: Partial Thromboplastin Time 42.2 SEC (24.1-38.0)
[2021-02-28 13:14] LABS: COVID-19 Test Negative (Negative)
[2021-02-28 13:19] LABS: Alanine Aminotransferase 42 U/L (0-40); Albumin Level 3.8 g/dL (3.5-5.0); Alkaline Phosphatase 70 U/L (39-117); Anion Gap 11 (12-20); Aspartate Amino Transferase 33 U/L (5-37); Bilirubin Direct 0.2 mg/dL (0.0-0.5); Bilirubin Total 0.5 mg/dL (0.0-1.0); Blood Urea Nitrogen 18 mg/dL (9-16); Carbon Dioxide 25 mmol/L (22-29); Chloride 110 mmol/L (96-108); Creatinine Clr Calc Pharmacy 101.2; Estimated Glomerular Filt Rate > 60; Glucose Random 106 mg/dL (60-115); Magnesium 2.1 mg/dL (1.6-2.6); Potassium 4.1 mmol/L (3.3-5.1); Sodium 142 mmol/L (135-145); Total Protein 6.6 g/dL (6.5-8.0)
[2021-02-28 13:56] VITALS: BP 138/84; PULSE 63; RESP 20; O2SAT 96
== END 2021-02-28 14:12 | disposition home or self-care (01) ==
PROVIDERS: Physician Assistant; Emergency Provider Emergency Medicine; PCP Internal Medicine
DX: R31.9 Hematuria, unspecified (principal); Z20.822 Contact with and (suspected) exposure to COVID-19; I10 Essential (primary) hypertension; I48.0 Paroxysmal atrial fibrillation; Z79.01 Long term (current) use of anticoagulants; Z79.02 Long term (current) use of antithrombotics/antiplatelets
CPT/HCPCS: 36415; 80048; 80076; 81001; 81003; 83735; 85025; 85610; 85730; 87635; 99283; 99284

== ENCOUNTER → 2021-03-26 09:40 | Outpatient (BNVA) | payer MEDICARE, SELFPAY | PROVIDERS: PCP Internal Medicine; Visit Provider Internal Medicine | DX: I82.401 Acute embolism and thrombosis of unspecified deep veins of right lower extremity (principal); Z51.81 Encounter for therapeutic drug level monitoring; Z79.01 Long term (current) use of anticoagulants | CPT/HCPCS: 85610; 99211 ==

== ENCOUNTER → 2021-04-23 09:35 | Outpatient (BNVA) | payer MEDICARE, SELFPAY | PROVIDERS: PCP Internal Medicine; Visit Provider Internal Medicine | DX: I82.401 Acute embolism and thrombosis of unspecified deep veins of right lower extremity (principal); Z51.81 Encounter for therapeutic drug level monitoring; Z79.01 Long term (current) use of anticoagulants | CPT/HCPCS: 85610; 99211 ==

== ENCOUNTER 2021-04-24 14:41 | Outpatient (REF) | payer MEDICARE, SELFPAY ==
--- NOTE | ~2021-04-24 | MR_ITS ---
MR LUMBAR SPINE WITHOUT IV CONTRAST CLINICAL INFORMATION: The patient reports no feeling from the waist down and bilateral hands. COMPARISON: None available. TECHNIQUE: MRI of the lumbar spine was obtained using routine sequences without contrast. FINDINGS: There are 5 nonrib-bearing lumbar-type vertebral bodies. There is grade 1 degenerative anterolisthesis of L4 on L5 and to a lesser extent L5 on S1. There is grade 1 retrolisthesis of L1 on L2, L2 on L3, and L3 on L4. Artifact from a right hip prosthesis on the localizer series. Modic type I endplate signal changes at L4-L5. There is no additional bone marrow edema. There are no acute fractures. Vertebral body heights overall maintained. Mild disc volume loss at L4-L5 and L5-S1. Disc desiccation at all lumbar levels. L1-L2: There is grade 1 retrolisthesis. Diffuse annular disc bulge and mild to moderate bilateral facet arthropathy. Findings in concert result in left greater than right subarticular zone stenosis with mass effect on the traversing left L2 nerve root. No central canal stenosis. Mild foraminal encroachment bilaterally. L2-L3: There is grade 1 retrolisthesis. Diffuse annular disc bulge and moderate bilateral facet arthropathy and ligamentum thickening. Prominent dorsal epidural fat. Findings in concert result in moderate central canal stenosis, severe bilateral subarticular zone stenosis with resolution of the traversing L3 nerve roots bilaterally, and mild bilateral foraminal encroachment. L3-L4: Grade 1 retrolisthesis. Diffuse annular disc bulge and severe bilateral that arthropathy and ligamentum flavum giving. Findings in concert result in moderate to severe central canal stenosis, severe bilateral subarticular zone stenosis with mass effect on the traversing L4 nerve roots bilaterally, and mild to moderate bilateral foraminal stenosis with disc likely contacting the extraforaminal L3 nerve roots bilaterally. L4-L5: There is grade 1 degenerative anterolisthesis with uncovered disc osteophyte. Severe bilateral facet arthropathy and ligamentum flavum thickening. Findings in concert result in moderate central canal stenosis, left greater than right subarticular zone stenosis with compression of the traversing left greater than right L5 nerve roots, and severe bilateral foraminal stenosis with compression of the exiting L4 nerve roots bilaterally secondary to left greater than right foraminal disc protrusions and advanced facet arthropathy. L5-S1: Diffuse disc osteophyte complex and advanced bilateral facet arthropathy. Moderate bilateral foraminal stenosis with mass effect on the exiting L5 nerve roots bilaterally. No central canal stenosis. MR/MR lumbar spine wo con IMPRESSION: - At L5-S1, multifactorial degenerative changes result in moderate bilateral foraminal stenosis with mass effect on the exiting L5 nerve roots bilaterally. - At L4-L5, grade 1 degenerative anterolisthesis and advanced multifactorial degenerative changes result in moderate central canal stenosis, left greater than right subarticular zone stenosis with compression of the traversing left greater than right L5 nerve roots, and severe bilateral foraminal stenosis with compression of the exiting L4 nerve roots bilaterally secondary to left greater than right foraminal disc protrusions and advanced facet arthropathy. - At L3-L4, grade 1 retrolisthesis and multifactorial degenerative changes result in moderate to severe central canal stenosis, severe bilateral subarticular zone stenosis with mass effect on the traversing L4 nerve roots bilaterally, and mild to moderate bilateral foraminal stenosis with disc likely contacting the extraforaminal L3 nerve roots bilaterally. - At L2-L3, grade 1 retrolisthesis and multifactorial degenerative changes result in moderate central canal stenosis, severe bilateral subarticular zone stenosis with resolution of the traversing L3 nerve roots bilaterally, and mild bilateral foraminal encroachment. - At L1-L2, grade 1 retrolisthesis and multifactorial degenerative changes result in left greater than right subarticular zone stenosis with mass effect on the traversing left L2 nerve root.
== END 2021-04-24 14:42 | disposition home or self-care (01) ==
LOC: HO.MRI 14:41
PROVIDERS: Visit Provider Internal Medicine
DX: R29.898 Other symptoms and signs involving the musculoskeletal system (principal)
CPT/HCPCS: 72148

== ENCOUNTER → 2021-05-21 13:07 | Outpatient (BNVA) | payer MEDICARE, SELFPAY | PROVIDERS: PCP Internal Medicine; Visit Provider Internal Medicine | DX: I82.401 Acute embolism and thrombosis of unspecified deep veins of right lower extremity (principal); Z51.81 Encounter for therapeutic drug level monitoring; Z79.01 Long term (current) use of anticoagulants | CPT/HCPCS: 85610; 99211 ==

== ENCOUNTER → 2021-06-04 13:26 | Outpatient (BNVA) | payer MEDICARE, SELFPAY | PROVIDERS: PCP Internal Medicine; Visit Provider Internal Medicine | DX: I82.401 Acute embolism and thrombosis of unspecified deep veins of right lower extremity (principal); Z51.81 Encounter for therapeutic drug level monitoring; Z79.01 Long term (current) use of anticoagulants | CPT/HCPCS: 85610; 99211 ==

== ENCOUNTER 2021-06-26 09:37 | Outpatient (REF) | payer MEDICARE, SELFPAY ==
--- NOTE | 2021-06-26 09:41 | EMG_ITS ---
Bilateral median and ulnar motor and sensory studies were performed. Bilateral radial sensory studies were performed and paraspinal muscles were tested. IMPRESSION: 1. Moderate to severe bilateral median neuropathy across carpal tunnel. 2. 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 3. 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 MD CHAYITO Culp/RITU / [id number]
== END 2021-06-26 09:38 | disposition home or self-care (01) ==
LOC: HO.NEURO 09:37
PROVIDERS: Visit Provider Internal Medicine
DX: R20.0 Anesthesia of skin (principal)
CPT/HCPCS: 95886; 95911

== ENCOUNTER → 2021-07-18 08:51 | Outpatient (BNVA) | payer MEDICARE, SELFPAY | PROVIDERS: PCP Internal Medicine; Visit Provider Internal Medicine | DX: I82.401 Acute embolism and thrombosis of unspecified deep veins of right lower extremity (principal); Z51.81 Encounter for therapeutic drug level monitoring; Z79.01 Long term (current) use of anticoagulants | CPT/HCPCS: 85610; 99211 ==

== ENCOUNTER → 2021-08-11 09:21 | Outpatient (BNVA) | payer MEDICARE, SELFPAY | PROVIDERS: PCP Internal Medicine; Visit Provider Internal Medicine | DX: I82.401 Acute embolism and thrombosis of unspecified deep veins of right lower extremity (principal); Z79.01 Long term (current) use of anticoagulants; Z51.81 Encounter for therapeutic drug level monitoring | CPT/HCPCS: 85610; 99212 ==

== ENCOUNTER → 2021-09-12 10:00 | Outpatient (BNVA) | payer MEDICARE, SELFPAY | PROVIDERS: PCP Internal Medicine; Visit Provider Internal Medicine | DX: I82.401 Acute embolism and thrombosis of unspecified deep veins of right lower extremity (principal); Z79.01 Long term (current) use of anticoagulants; Z51.81 Encounter for therapeutic drug level monitoring | CPT/HCPCS: 85610; 99211 ==

== ENCOUNTER → 2021-09-15 14:33 | Outpatient (BNVA) | payer MEDICARE, SELFPAY | PROVIDERS: PCP Internal Medicine; Visit Provider Internal Medicine | DX: I82.401 Acute embolism and thrombosis of unspecified deep veins of right lower extremity (principal); Z79.01 Long term (current) use of anticoagulants; Z51.81 Encounter for therapeutic drug level monitoring | CPT/HCPCS: Q3014 ==

== ENCOUNTER → 2021-09-19 16:13 | Outpatient (BNVA) | payer MEDICARE, SELFPAY | PROVIDERS: PCP Internal Medicine; Visit Provider Internal Medicine | DX: I82.401 Acute embolism and thrombosis of unspecified deep veins of right lower extremity (principal); Z79.01 Long term (current) use of anticoagulants; Z51.81 Encounter for therapeutic drug level monitoring | CPT/HCPCS: Q3014 ==

== ENCOUNTER → 2021-09-22 11:34 | Outpatient (BNVA) | payer MEDICARE, SELFPAY | PROVIDERS: PCP Internal Medicine; Visit Provider Internal Medicine | DX: I82.401 Acute embolism and thrombosis of unspecified deep veins of right lower extremity (principal); Z79.01 Long term (current) use of anticoagulants; Z51.81 Encounter for therapeutic drug level monitoring | CPT/HCPCS: Q3014 ==

== ENCOUNTER → 2021-09-29 16:06 | Outpatient (BNVA) | payer MEDICARE, SELFPAY | PROVIDERS: PCP Internal Medicine; Visit Provider Internal Medicine | DX: I82.401 Acute embolism and thrombosis of unspecified deep veins of right lower extremity (principal); Z79.01 Long term (current) use of anticoagulants; Z51.81 Encounter for therapeutic drug level monitoring | CPT/HCPCS: Q3014 ==

== ENCOUNTER 2021-09-30 10:42 | Outpatient (REF) | payer MEDICARE, SELFPAY ==
[2021-09-30 11:07] LABS: Ammonia 22 umol/L (13-55)
[2021-09-30 11:54] LABS: Immature Retic Fraction 18.8 % (2.3-13.4); Retic HGB Equivalent 30.8 pg (30.0-35.0); Reticulocyte Percent 2.1 % (0.5-1.8); Reticulocytes Absolute 0.079 X10*6/uL (0.026-0.095)
[2021-09-30 12:16] LABS: B Type Natriuretic Peptide 47 pg/mL (<100)
[2021-09-30 12:34] LABS: Free T4 (Free Thyroxine) 1.07 ng/dL (0.71-1.85); Thyroid Stimulating Hormone 0.75 uIU/mL (0.32-4.0)
[2021-09-30 12:53] LABS: Folate 16.8 ng/mL (> or = 4.0); Vitamin B12 625 pg/mL (200-900)
[2021-09-30 13:27] LABS: Alanine Aminotransferase 28 U/L (0-40); Albumin Level 3.5 g/dL (3.5-5.0); Alkaline Phosphatase 71 U/L (39-117); Anion Gap 11 (12-20); Aspartate Amino Transferase 15 U/L (5-37); Bilirubin Total 0.4 mg/dL (0.0-1.0); Blood Urea Nitrogen 17 mg/dL (9-16); Calcium 8.6 mg/dL (8.4-10.2); Carbon Dioxide 25 mmol/L (22-29); Chloride 110 mmol/L (96-108); Estimated Glomerular Filt Rate > 60; Glucose Random 103 mg/dL (60-115); Iron 35 mcg/dL (45-160); Percent Iron Saturation 13 % (15-50); Potassium 4.8 mmol/L (3.3-5.1); Sodium 141 mmol/L (135-145); Total Iron Binding Capacity 277 mcg/dL (228-428); Total Protein 6.6 g/dL (6.5-8.0); Unsaturated Iron Binding 242 ug/dL
== END 2021-09-30 10:43 | disposition home or self-care (01) ==
LOC: HO.LAB 10:42
PROVIDERS: PCP Internal Medicine; Visit Provider Internal Medicine
DX: R79.89 Other specified abnormal findings of blood chemistry (principal); I10 Essential (primary) hypertension; R06.02 Shortness of breath
CPT/HCPCS: 36415; 80053; 82140; 82607; 82746; 83540; 83880; 84439; 84443; 85045

== ENCOUNTER → 2021-10-06 11:02 | Outpatient (BNVA) | payer MEDICARE, SELFPAY | PROVIDERS: PCP Internal Medicine; Visit Provider Internal Medicine | DX: I82.401 Acute embolism and thrombosis of unspecified deep veins of right lower extremity (principal); Z79.01 Long term (current) use of anticoagulants; Z51.81 Encounter for therapeutic drug level monitoring | CPT/HCPCS: 85610; 99211 ==

== ENCOUNTER → 2021-10-14 14:45 | Outpatient (BNVA) | payer MEDICARE, SELFPAY | PROVIDERS: PCP Internal Medicine; Visit Provider Internal Medicine | DX: I82.401 Acute embolism and thrombosis of unspecified deep veins of right lower extremity (principal); Z51.81 Encounter for therapeutic drug level monitoring; Z79.01 Long term (current) use of anticoagulants | CPT/HCPCS: Q3014 ==

== ENCOUNTER → 2021-10-22 15:12 | Outpatient (BNVA) | payer MEDICARE, SELFPAY | PROVIDERS: PCP Internal Medicine; Visit Provider Internal Medicine | DX: I82.401 Acute embolism and thrombosis of unspecified deep veins of right lower extremity (principal); Z51.81 Encounter for therapeutic drug level monitoring; Z79.01 Long term (current) use of anticoagulants | CPT/HCPCS: Q3014 ==

== ENCOUNTER 2021-10-29 11:48 | Outpatient (REF) | payer MEDICARE, SELFPAY ==
[2021-10-29 13:41] LABS: MANUAL DIFF FLAG NO
[2021-10-29 13:45] LABS: Basophils Percent Auto 0.3 % (0-2); Eosinophils Absolute Auto 0.1 X10*3/uL (0.0-0.4); Eosinophils Percent Auto 1.7 % (0-4); Hematocrit 39.4 % (42.0-52.0); Hemoglobin 12.8 g/dl (14.0-18.0); Imm Gran Abs Auto 0.01 X10*3/uL (0.00-0.03); Imm Gran Pct Auto 0.2 % (0.0-0.4); Lymphocytes Absolute Auto 1.3 X10*3/uL (1.2-4.9); Lymphocytes Percent Auto 22.2 % (20-40); Mean Corpuscular HGB Conc 32.5 g/dl (31.0-36.0); Mean Corpuscular Hemoglobin 28.7 pg (27.0-33.0); Mean Corpuscular Volume 88.3 fL (80.0-98.0); Mean Platelet Volume 10.7 fL (9.4-12.4); Monocytes Absolute Auto 0.6 X10*3/uL (0.1-1.2); Monocytes Percent Auto 10.4 % (2-11); Neutrophils Absolute Auto 3.9 x10*3/uL (2.0-8.3); Neutrophils Percent Auto 65.2 % (45-73); Platelet Count 171 X10*3/uL (160-400); Red Blood Count 4.46 X10*6/uL (4.60-5.80); Red Cell Distribution Width 14.5 % (11.0-16.0)
[2021-10-29 14:08] LABS: Alanine Aminotransferase 23 U/L (0-40); Albumin Level 3.9 g/dL (3.5-5.0); Alkaline Phosphatase 76 U/L (39-117); Anion Gap 9 (12-20); Aspartate Amino Transferase 20 U/L (5-37); Bilirubin Total 0.5 mg/dL (0.0-1.0); Blood Urea Nitrogen 17 mg/dL (9-16); Calcium 8.7 mg/dL (8.4-10.2); Carbon Dioxide 25 mmol/L (22-29); Chloride 111 mmol/L (96-108); Estimated Glomerular Filt Rate > 60; Glucose Random 96 mg/dL (60-115); Potassium 4.2 mmol/L (3.3-5.1); Sodium 141 mmol/L (135-145)
== END 2021-10-29 11:49 | disposition home or self-care (01) ==
LOC: HO.HMGCLDS 11:48
PROVIDERS: Visit Provider Physician Assistant
DX: R31.9 Hematuria, unspecified (principal)
CPT/HCPCS: 36415; 80053; 85025

== ENCOUNTER → 2021-11-05 13:18 | Outpatient (BNVA) | payer MEDICARE, SELFPAY | PROVIDERS: PCP Internal Medicine; Visit Provider Internal Medicine | DX: I82.401 Acute embolism and thrombosis of unspecified deep veins of right lower extremity (principal); Z79.01 Long term (current) use of anticoagulants; Z51.81 Encounter for therapeutic drug level monitoring | CPT/HCPCS: Q3014 ==

== ENCOUNTER → 2021-11-12 09:58 | Outpatient (BNVA) | payer MEDICARE, SELFPAY | PROVIDERS: PCP Internal Medicine; Visit Provider Internal Medicine | DX: I82.401 Acute embolism and thrombosis of unspecified deep veins of right lower extremity (principal); Z79.01 Long term (current) use of anticoagulants; Z51.81 Encounter for therapeutic drug level monitoring | CPT/HCPCS: 85610; 99211 ==

== ENCOUNTER → 2021-11-26 08:50 | Outpatient (BNVA) | payer MEDICARE, SELFPAY | PROVIDERS: PCP Internal Medicine; Visit Provider Internal Medicine | DX: I82.401 Acute embolism and thrombosis of unspecified deep veins of right lower extremity (principal); Z79.01 Long term (current) use of anticoagulants; Z51.81 Encounter for therapeutic drug level monitoring | CPT/HCPCS: 85610; 99211 ==

== ENCOUNTER → 2021-12-09 08:25 | Outpatient (BNVA) | payer MEDICARE, SELFPAY | PROVIDERS: PCP Internal Medicine; Visit Provider Internal Medicine | DX: I82.401 Acute embolism and thrombosis of unspecified deep veins of right lower extremity (principal); Z51.81 Encounter for therapeutic drug level monitoring; Z79.01 Long term (current) use of anticoagulants | CPT/HCPCS: 85610; 99211 ==

== ENCOUNTER → 2021-12-17 08:27 | Outpatient (BNVA) | payer MEDICARE, SELFPAY | PROVIDERS: PCP Internal Medicine; Visit Provider Internal Medicine | DX: I82.401 Acute embolism and thrombosis of unspecified deep veins of right lower extremity (principal); Z79.01 Long term (current) use of anticoagulants; Z51.81 Encounter for therapeutic drug level monitoring | CPT/HCPCS: 85610; 99211 ==

== ENCOUNTER → 2021-12-29 08:03 | Outpatient (BNVA) | payer MEDICARE, SELFPAY | PROVIDERS: PCP Internal Medicine; Visit Provider Internal Medicine | DX: I82.401 Acute embolism and thrombosis of unspecified deep veins of right lower extremity (principal); Z79.01 Long term (current) use of anticoagulants; Z51.81 Encounter for therapeutic drug level monitoring | CPT/HCPCS: 85610; 99211 ==

== ENCOUNTER 2022-01-12 07:22 | Outpatient (REF) | payer MEDICARE, SELFPAY ==
[2022-01-12 07:43] LABS: MANUAL DIFF FLAG NO
[2022-01-12 07:56] LABS: Basophils Percent Auto 0.3 % (0-2); Eosinophils Absolute Auto 0.1 X10*3/uL (0.0-0.4); Hematocrit 41.2 % (42.0-52.0); Hemoglobin 13.7 g/dl (14.0-18.0); Imm Gran Abs Auto 0.01 X10*3/uL (0.00-0.03); Imm Gran Pct Auto 0.2 % (0.0-0.4); Immature Retic Fraction 6.4 % (2.3-13.4); Lymphocytes Absolute Auto 1.3 X10*3/uL (1.2-4.9); Lymphocytes Percent Auto 22.1 % (20-40); Mean Corpuscular HGB Conc 33.3 g/dl (31.0-36.0); Mean Corpuscular Hemoglobin 28.9 pg (27.0-33.0); Mean Corpuscular Volume 86.9 fL (80.0-98.0); Mean Platelet Volume 10.4 fL (9.4-12.4); Monocytes Absolute Auto 0.6 X10*3/uL (0.1-1.2); Monocytes Percent Auto 9.3 % (2-11); Neutrophils Percent Auto 66.1 % (45-73); Platelet Count 156 X10*3/uL (160-400); Red Blood Count 4.74 X10*6/uL (4.60-5.80); Red Cell Distribution Width 13.9 % (11.0-16.0); Retic HGB Equivalent 35.5 pg (30.0-35.0); Reticulocytes Absolute 0.049 X10*6/uL (0.026-0.095)
[2022-01-12 08:05] LABS: Estimated Average Glucose 114 mg/dL; Hemoglobin A1c % 5.6 %
[2022-01-12 09:05] LABS: Alanine Aminotransferase 26 U/L (0-40); Albumin Level 4.1 g/dL (3.5-5.0); Alkaline Phosphatase 75 U/L (39-117); Anion Gap 13 (12-20); Aspartate Amino Transferase 23 U/L (5-37); Bilirubin Total 0.5 mg/dL (0.0-1.0); Blood Urea Nitrogen 19 mg/dL (9-16); Calcium 9.2 mg/dL (8.4-10.2); Carbon Dioxide 26 mmol/L (22-29); Chloride 108 mmol/L (96-108); Cholesterol 153 mg/dL; Estimated Glomerular Filt Rate > 60; Glucose Random 94 mg/dL (60-115); HDL Cholesterol 29 mg/dL; Iron 82 mcg/dL (45-160); LDL Cholesterol Calculated 94 mg/dl; Percent Iron Saturation 28 % (15-50); Potassium 4.1 mmol/L (3.3-5.1); Sodium 143 mmol/L (135-145); Total Iron Binding Capacity 293 mcg/dL (228-428); Total Protein 7.1 g/dL (6.5-8.0); Triglycerides 152 mg/dL; Unsaturated Iron Binding 211 ug/dL
[2022-01-12 09:28] LABS: Ferritin 74 ng/mL (20-250); Free T4 (Free Thyroxine) 1.12 ng/dL (0.71-1.85); Thyroid Stimulating Hormone 0.64 uIU/mL (0.32-4.0)
[2022-01-12 09:54] LABS: Folate 19.7 ng/mL (> or = 4.0); Vitamin B12 541 pg/mL (200-900)
== END 2022-01-12 07:23 | disposition home or self-care (01) ==
LOC: HO.LAB 07:22
PROVIDERS: PCP Internal Medicine; Visit Provider Internal Medicine
DX: I82.401 Acute embolism and thrombosis of unspecified deep veins of right lower extremity (principal); E78.00 Pure hypercholesterolemia, unspecified; R73.01 Impaired fasting glucose; Z51.81 Encounter for therapeutic drug level monitoring; Z79.01 Long term (current) use of anticoagulants; D64.9 Anemia, unspecified
CPT/HCPCS: 36415; 80053; 80061; 82607; 82728; 82746; 83036; 83540; 84439; 84443; 85025; 85045; 85610; 99211

== ENCOUNTER → 2022-01-26 08:07 | Outpatient (BNVA) | payer MEDICARE, SELFPAY | PROVIDERS: PCP Internal Medicine; Visit Provider Internal Medicine | DX: I82.401 Acute embolism and thrombosis of unspecified deep veins of right lower extremity (principal); Z79.01 Long term (current) use of anticoagulants; Z51.81 Encounter for therapeutic drug level monitoring | CPT/HCPCS: 85610; 99211 ==

== ENCOUNTER → 2022-02-09 08:03 | Outpatient (BNVA) | payer MEDICARE, SELFPAY | PROVIDERS: PCP Internal Medicine; Visit Provider Internal Medicine | DX: I82.401 Acute embolism and thrombosis of unspecified deep veins of right lower extremity (principal); Z79.01 Long term (current) use of anticoagulants; Z51.81 Encounter for therapeutic drug level monitoring | CPT/HCPCS: 85610; 99211 ==

== ENCOUNTER → 2022-03-09 08:09 | Outpatient (BNVA) | payer MEDICARE, SELFPAY | PROVIDERS: PCP Internal Medicine; Visit Provider Internal Medicine | DX: I82.401 Acute embolism and thrombosis of unspecified deep veins of right lower extremity (principal); Z51.81 Encounter for therapeutic drug level monitoring; Z79.01 Long term (current) use of anticoagulants | CPT/HCPCS: 85610; 99211 ==

== ENCOUNTER 2022-03-31 09:12 | Outpatient (REF) | payer MEDICARE, SELFPAY ==
--- NOTE | ~2022-03-31 | MR_ITS ---
EXAMINATION: MR BRAIN WITHOUT CONTRAST CLINICAL INFORMATION: Vertigo. COMPARISON: None. TECHNIQUE: Multiplanar, multisequence imaging of the brain was performed without contrast. FINDINGS: No diffusion abnormalities are identified to suggest an acute infarct. No evidence of hydrocephalus. No mass effect or midline shift is seen. Mild chronic white matter microangiopathic changes noted with moderate diffuse parenchymal volume loss. No extra-axial fluid collections are seen. The brainstem and cerebellum are normal. The gradient refocused acquisition demonstrates no pathologic magnetic susceptibility artifact to indicate underlying acute or chronic blood products. The craniovertebral junction, marrow signal, and midline structures are normal. The major intracranial flow voids at the level of the [place] are preserved. The dural venous sinus flow voids are maintained. There is mucosal opacification of the left frontal sinus. There are small proteinaceous retention cysts in the right maxillary antrum and left sphenoid sinus cavity. Mild mucosal thickening also noted in the ethmoid air cells and left maxillary sinus. Posterior fusion hardware partially visualized in the cervical spine at the C3-C4 level. MR/MR head/brain wo con IMPRESSION: No acute intracranial process. Moderate generalized parenchymal volume loss and mild chronic white matter microangiopathy. Mucosal opacification of the left frontal sinus with small proteinaceous retention cysts in the right maxillary and left sphenoid sinuses. Mild ethmoid sinus disease.
== END 2022-03-31 09:13 | disposition home or self-care (01) ==
LOC: HO.MRI 09:12
PROVIDERS: Visit Provider Internal Medicine
DX: H81.10 Benign paroxysmal vertigo, unspecified ear (principal)
CPT/HCPCS: 70551

== ENCOUNTER 2022-04-08 08:01 | Outpatient (REF) | payer MEDICARE, SELFPAY ==
[2022-04-08 08:55] LABS: Prothrombin Time 66.6 SEC (10.0-13.1)
[2022-04-08 08:57] LABS: INTERNATIONAL NORM RATIO 5.4 (0.9-1.1)
== END 2022-04-08 08:02 | disposition home or self-care (01) ==
LOC: HO.LAB 08:01
PROVIDERS: PCP Internal Medicine; Visit Provider Internal Medicine
DX: I82.401 Acute embolism and thrombosis of unspecified deep veins of right lower extremity (principal); Z51.81 Encounter for therapeutic drug level monitoring; Z79.01 Long term (current) use of anticoagulants
CPT/HCPCS: 36415; 85610; 99212

== ENCOUNTER → 2022-04-09 13:04 | Outpatient (BNVA) | payer MEDICARE, SELFPAY | PROVIDERS: PCP Internal Medicine; Visit Provider Internal Medicine | DX: I82.401 Acute embolism and thrombosis of unspecified deep veins of right lower extremity (principal); Z79.01 Long term (current) use of anticoagulants; Z51.81 Encounter for therapeutic drug level monitoring | CPT/HCPCS: 85610 ==

== ENCOUNTER → 2022-04-14 08:57 | Outpatient (BNVA) | payer MEDICARE, SELFPAY | PROVIDERS: PCP Internal Medicine; Visit Provider Internal Medicine | DX: I82.401 Acute embolism and thrombosis of unspecified deep veins of right lower extremity (principal); Z79.01 Long term (current) use of anticoagulants; Z51.81 Encounter for therapeutic drug level monitoring | CPT/HCPCS: 85610; 99211 ==

== ENCOUNTER → 2022-04-20 08:15 | Outpatient (BNVA) | payer MEDICARE, SELFPAY | PROVIDERS: PCP Internal Medicine; Visit Provider Internal Medicine | DX: I82.401 Acute embolism and thrombosis of unspecified deep veins of right lower extremity (principal); Z79.01 Long term (current) use of anticoagulants; Z51.81 Encounter for therapeutic drug level monitoring | CPT/HCPCS: 85610; 99211 ==

== ENCOUNTER → 2022-04-27 08:20 | Outpatient (BNVA) | payer MEDICARE, SELFPAY | PROVIDERS: PCP Internal Medicine; Visit Provider Internal Medicine | DX: I82.401 Acute embolism and thrombosis of unspecified deep veins of right lower extremity (principal); Z79.01 Long term (current) use of anticoagulants; Z51.81 Encounter for therapeutic drug level monitoring | CPT/HCPCS: 85610; 99211 ==

== ENCOUNTER 2022-04-30 08:01 | Outpatient (REF) | payer MEDICARE, SELFPAY ==
--- NOTE | ~2022-04-30 | CT_ITS ---
EXAMINATION: CT CHEST WITHOUT CONTRAST-HIGH RESOLUTION CLINICAL INFORMATION: Reason for Exam J84.9 - Interstitial pulmonary disease, unspecified . COMPARISON: 07/06/2009. TECHNIQUE: Multidetector volumetric imaging was performed from the thoracic inlet to below the diaphragm without intravenous contrast. Sagittal and coronal reformatted images were obtained on the technologist workstation. This CT examination was performed using dose optimization techniques as appropriate, variously including the following: *Automated exposure control *Adjustment of mA and/or kV according to patient size (this includes techniques or standardized protocols for targeted exams where dose is matched to indication/reason for exam; i.e. extremities or head) *Use of iterative reconstruction technique Total exam dose-length product 219 mGy-cm FINDINGS: LUNG: The central airways are patent. There is no consolidation. No honeycombing. Mild bronchiectasis in the lower lobes. Subtle subpleural reticulation and groundglass opacity in the lower lobes noted. This finding is new from 2009. No pulmonary nodules. PLEURA: No pleural effusion or pneumothorax. MEDIASTINUM: Borderline prominent heart size. No pericardial effusion. No hilar or mediastinal lymphadenopathy. VASCULAR: Normal caliber thoracic aorta. Mild coronary artery calcification. CHEST WALL/AXILLA: No axillary or internal mammary lymphadenopathy. UPPER ABDOMEN: Cholecystectomy. OSSEOUS STRUCTURES: Fusion hardware is seen at the upper thoracic spine. This was not present on prior imaging. The anterior plate is not flush with the vertebral bodies, with mild angulation and possible retraction at the T2 level. CT/CT chest wo con - High Res IMPRESSION: 1. Mild bronchiectasis in the lower lobes with subtle subpleural reticulation and groundglass opacity in the lower lobes. This is new from 2010. This could represent early fibrotic changes. No honeycombing. 2. Fusion hardware at the upper thoracic spine. The anterior plate is not flush with the vertebral bodies, with mild angulation and possible retraction at the T2 level.
== END 2022-04-30 08:02 | disposition home or self-care (01) ==
LOC: HO.CT 08:01
PROVIDERS: PCP Internal Medicine; Visit Provider Internal Medicine
DX: J84.9 Interstitial pulmonary disease, unspecified (principal)
CPT/HCPCS: 71250

== ENCOUNTER → 2022-05-11 08:03 | Outpatient (BNVA) | payer MEDICARE, SELFPAY | PROVIDERS: PCP Internal Medicine; Visit Provider Internal Medicine | DX: I82.401 Acute embolism and thrombosis of unspecified deep veins of right lower extremity (principal); Z79.01 Long term (current) use of anticoagulants; Z51.81 Encounter for therapeutic drug level monitoring | CPT/HCPCS: 85610; 99211 ==

== ENCOUNTER → 2022-05-19 08:02 | Outpatient (BNVA) | payer MEDICARE, SELFPAY | PROVIDERS: PCP Internal Medicine; Visit Provider Internal Medicine | DX: I82.401 Acute embolism and thrombosis of unspecified deep veins of right lower extremity (principal); Z79.01 Long term (current) use of anticoagulants; Z51.81 Encounter for therapeutic drug level monitoring | CPT/HCPCS: 85610; 99211 ==

== ENCOUNTER → 2022-05-29 08:13 | Outpatient (BNVA) | payer MEDICARE, SELFPAY | PROVIDERS: PCP Internal Medicine; Visit Provider Internal Medicine | DX: I82.401 Acute embolism and thrombosis of unspecified deep veins of right lower extremity (principal); Z79.01 Long term (current) use of anticoagulants; Z51.81 Encounter for therapeutic drug level monitoring | CPT/HCPCS: 85610; 99211 ==

== ENCOUNTER → 2022-06-02 09:00 | Outpatient (BNVA) | payer MEDICARE, SELFPAY | PROVIDERS: PCP Internal Medicine; Visit Provider Internal Medicine | DX: I82.401 Acute embolism and thrombosis of unspecified deep veins of right lower extremity (principal); Z79.01 Long term (current) use of anticoagulants; Z51.81 Encounter for therapeutic drug level monitoring | CPT/HCPCS: 85610; 99211 ==

== ENCOUNTER → 2022-06-10 08:29 | Outpatient (BNVA) | payer MEDICARE, SELFPAY | PROVIDERS: PCP Internal Medicine; Visit Provider Internal Medicine | DX: I82.401 Acute embolism and thrombosis of unspecified deep veins of right lower extremity (principal); Z79.01 Long term (current) use of anticoagulants; Z51.81 Encounter for therapeutic drug level monitoring | CPT/HCPCS: 85610; 99211 ==

== ENCOUNTER 2022-06-17 09:37 | Outpatient (REF) | payer MEDICARE, SELFPAY ==
[2022-06-17 11:02] LABS: Syphilis Screen Nonreactive (Nonreactive)
[2022-06-19 22:34] LABS: Prot Elec - Albumin 3.9 g/dL (3.8-4.8); Prot Elec - Alpha1 0.3 g/dL (0.2-0.3); Prot Elec - Alpha2 0.7 g/dL (0.5-0.9); Prot Elec - Beta 1 0.4 g/dL (0.4-0.6); Prot Elec - Beta 2 0.4 g/dL (0.2-0.5); Prot Elec - Gamma 1.2 g/dL (0.8-1.7); Prot Elec - Total Protein 6.9 g/dL (6.1-8.1)
== END 2022-06-17 09:38 | disposition home or self-care (01) ==
LOC: HO.LAB 09:37
PROVIDERS: Internal Medicine; PCP Internal Medicine; Visit Provider Psychiatry & Neurology Neurology
DX: G62.9 Polyneuropathy, unspecified (principal); R41.3 Other amnesia
CPT/HCPCS: 36415; 84165; 86780

== ENCOUNTER 2022-06-22 13:59 | Outpatient (REF) | payer MEDICARE, SELFPAY ==
[2022-06-22 14:35] LABS: INTERNATIONAL NORM RATIO 4.9 (0.9-1.1)
== END 2022-06-22 14:00 | disposition home or self-care (01) ==
LOC: HO.LAB 13:59
PROVIDERS: PCP Internal Medicine; Visit Provider Internal Medicine
DX: I82.401 Acute embolism and thrombosis of unspecified deep veins of right lower extremity (principal); Z51.81 Encounter for therapeutic drug level monitoring; Z79.01 Long term (current) use of anticoagulants
CPT/HCPCS: 36415; 85610; 99212

== ENCOUNTER → 2022-06-26 13:23 | Outpatient (BNVA) | payer MEDICARE, SELFPAY | PROVIDERS: PCP Internal Medicine; Visit Provider Internal Medicine | DX: I82.401 Acute embolism and thrombosis of unspecified deep veins of right lower extremity (principal); Z79.01 Long term (current) use of anticoagulants; Z51.81 Encounter for therapeutic drug level monitoring | CPT/HCPCS: 85610; 99211 ==

== ENCOUNTER → 2022-07-02 08:17 | Outpatient (BNVA) | payer MEDICARE, SELFPAY | PROVIDERS: PCP Internal Medicine; Visit Provider Internal Medicine | DX: I82.401 Acute embolism and thrombosis of unspecified deep veins of right lower extremity (principal); Z79.01 Long term (current) use of anticoagulants; Z51.81 Encounter for therapeutic drug level monitoring | CPT/HCPCS: 85610; 99211 ==

== ENCOUNTER → 2022-07-09 08:00 | Outpatient (BNVA) | payer MEDICARE, SELFPAY | PROVIDERS: PCP Internal Medicine; Visit Provider Internal Medicine | DX: I82.401 Acute embolism and thrombosis of unspecified deep veins of right lower extremity (principal); Z79.01 Long term (current) use of anticoagulants; Z51.81 Encounter for therapeutic drug level monitoring | CPT/HCPCS: 85610; 99211 ==

== ENCOUNTER → 2022-07-16 08:17 | Outpatient (BNVA) | payer MEDICARE, SELFPAY | PROVIDERS: PCP Internal Medicine; Visit Provider Internal Medicine | DX: I82.401 Acute embolism and thrombosis of unspecified deep veins of right lower extremity (principal); Z79.01 Long term (current) use of anticoagulants; Z51.81 Encounter for therapeutic drug level monitoring | CPT/HCPCS: 85610; 99211 ==

== ENCOUNTER → 2022-07-23 07:53 | Outpatient (BNVA) | payer MEDICARE, SELFPAY | PROVIDERS: PCP Internal Medicine; Visit Provider Internal Medicine | DX: I82.401 Acute embolism and thrombosis of unspecified deep veins of right lower extremity (principal); Z51.81 Encounter for therapeutic drug level monitoring; Z79.01 Long term (current) use of anticoagulants | CPT/HCPCS: 85610; 99211 ==

== ENCOUNTER 2022-08-02 08:10 | Emergency (ER) | payer MEDICARE, SELFPAY ==
[2022-08-02 08:12] VITALS: BP 150/82; PULSE 67; RESP 18; TEMP 36.5; O2SAT 98; BMI 29.6
[2022-08-02] MEDS: Lidocaine HCl 1 % MPF 5 ML VIAL SUBCUT ×2 (09:35)
[2022-08-02 10:15] LABS: INTERNATIONAL NORM RATIO 2.4 (0.9-1.1); Prothrombin Time 28.7 SEC (10.0-13.1)
--- NOTE | 2022-08-02 10:38 | ED.WOUNDLAC ---
HPI - Wound/Laceration General Chief Complaint: Wound/Laceration Stated Complaint: Infection on back Time Seen by Provider: 08/02/22 09:22 History of Present Illness HPI narrative: Patient complains of cyst on his back which is grown swollen and mildly painful, he has had cyst drained there before multiple times and eventually comes back again, he denies any fever he has no numbness weakness or tingling no radiation of pain no nausea or vomiting and otherwise feels in his normal state of health Related Data Home Medications Medication Instructions Recorded Confirmed metoprolol tartrate 25 mg tablet 25 mg PO BID 02/05/20 07/23/22 munsvdcf-oeu-jovkn acid 300 1 tab PO DAILY 02/05/20 07/23/22 mcg-lycopene 600 mcg-lutein 300 mcg tablet (Centrum Silver Ultra Men's) cholecalciferol (vitamin D3) PO 09/12/21 07/23/22 acetaminophen 325 mg tablet 325 mg PO QID PRN Pain, Moderate 09/30/21 07/23/22 Previous Rx's Medication Instructions Recorded bilateral custom AFO #1 ea 04/14/21 lisinopril 10 mg tablet 10 mg PO DAILY 90 days #90 tabs 08/18/21 compress.stocking,knee,reg,lrg #12 ea 09/30/21 ferrous sulfate 325 mg (65 mg 325 mg PO DAILY #30 tabs 09/30/21 iron) tablet (Feosol) colesevelam 625 mg tablet 1,875 mg PO BID #540 tabs 10/02/21 ascorbic acid (vitamin C) 500 mg 500 mg PO DAILY #90 tabs 12/21/21 tablet omeprazole 20 mg capsule,delayed 20 mg PO DAILY #90 caps 01/06/22 release warfarin 2 mg tablet 9 mg PO DAILY #120 tabs 06/30/22 doxycycline hyclate 100 mg tablet 100 mg PO BID 5 days #10 tabs 08/02/22 Allergies Allergy/AdvReac Type Severity Reaction Status Date / Time Hgfgxvc-DUR-LeA Reductase Allergy Intermediate MUSCULAR Verified 07/23/22 08:00 Inhibitor PAIN [SPOABQZ-HCD-IBJ REDUCTASE INHIBITOR] atorvastatin Allergy Unknown UNKNOWN Verified 07/23/22 08:00 pravastatin Allergy Unknown UNKNOWN Verified 07/23/22 08:00 simvastatin Allergy Unknown UNKNOWN Verified 07/23/22 08:00 [facility] Past Medical History Source: nursing notes reviewed Medical History (Updated 08/02/22 @ 10:42 by SAMY Yanez) Carpal tunnel syndrome Chronic idiopathic thrombocytopenia Cognitive decline Colon cancer Depression GERD (gastroesophageal reflux disease) Hypercholesterolemia Hypertension Hypertension Impaired fasting glucose Iron deficiency anemia Paroxysmal atrial fibrillation Peripheral neuropathy Radicular low back pain Rotator cuff tear Thrombocytopenia Surgical History H/O repair of rotator cuff History of appendectomy History of cardiac radiofrequency ablation History of carpal tunnel release History of cholecystectomy History of knee replacement procedure of right knee History of laminectomy History of left knee replacement History of neck surgery History of neck surgery History of partial colectomy History of right hip replacement Family History Family History Father No problems noted. Mother Diabetes Social History Social History Household Members: Spouse Housing: House Are you a primary in home caregiver to a significant other at home: No Do you presently have visiting nurse or other home services: Yes (Mauricio LARA) Alcohol intake: never Patient Tobacco Use Status: Never used Tobacco e-Cigarette/Vaping Use: Never Used Second Hand Smoke Exposure: No Advance Directives: No Advance Directives Information Provided: No service: No Current occupational status: retired Cognitive needs: Yes (walker) Hearing needs: Yes Vision needs: Yes Physical Exam Vital Signs: Vital Signs: Last Vital Signs Temp 97.7 F 08/02/22 08:12 Pulse 67 08/02/22 08:12 Resp 18 08/02/22 08:12 BP 150/82 H 08/02/22 08:12 Pulse Ox 98 08/02/22 08:12 O2 Del Method Room Air 08/02/22 08:12 BMI result Body Mass Index 29.6 General appearance comfortable cooperative no acute distress Head normocephalic atraumatic Neck is supple Respiratory no distress The back has full range of motion comfortably On the right lateral mid back there is an area of induration fluctuance and very mild tenderness which is red, there is no other surrounding erythema, skin is intact, the redness is only over the cyst Neurovascular intact distal Skin no other rash Course Course Course Narrative: Procedure note for work well-appearing patient with a cyst on his back with local erythema over the cyst but no other surrounding erythema The area of the cyst was cleansed with Betadine Anesthesia was 6 cc of 1% lidocaine A 1.5 cm incision was made with an 11 blade Probed with forceps with discharge of copious thick cheese like material consistent with sebaceous cyst contents, packing was placed Dressing was placed and well-appearing patient was discharged Medications Administered Discontinued Medications Generic Name Dose Route Start Last Admin Trade Name Jacey PRN Reason Stop Dose Admin Lidocaine HCl 5 ml 08/02/22 09:26 08/02/22 09:35 Lidocaine Hcl 1 % Mpf 5 Ml Vial SUBCUT 08/02/22 09:27 5 ml ONCE ONE Administration Lidocaine HCl 5 ml 08/02/22 09:27 08/02/22 09:35 Lidocaine Hcl 1 % Mpf 5 Ml Vial SUBCUT 08/02/22 09:28 5 ml ONCE ONE Administration Medical Decision Making Lab Data Labs: Lab Results 08/02/22 Range/Units 10:04 PT 28.7 H (10.0-13.1) SEC INR 2.4 H D (0.9-1.1) Discharge Plan Discharge Clinical Impression: Infected sebaceous cyst Patient Disposition: Home, Self-Care Additional Instructions: Return to the ER or your doctor's office in 2 days, Wednesday for packing removal wound check Return any time for spreading redness worse pain and swelling fever any sign of infection any worse condition or any concerns As this problem has occurred multiple times you may need a surgical procedure from a surgical doctor to better treat the problem so it does not come back, so follow with surgeon ANTIBIOTIC DOXYCYCLINE MAY AFFECT THE INR SO CALL YOUR COUMADIN CLINIC TOMORROW TO SEE WHEN THEY NEXT 1 TO CHECK THE INR, IT MAY NEED MORE FREQUENT CHECK BECAUSE OF THE ANTIBIOTIC Prescriptions: New doxycycline hyclate 100 mg tablet 100 mg PO BID 5 Days Qty: 10 0RF No Action (DME) bilateral custom AFO See Rx Instructions .Route .MEDSUPPLY Qty: 1 0RF Rx Instructions: As directed lisinopril 10 mg tablet 10 mg PO DAILY 90 Days Qty: 90 3RF Hold Instructions: Doctor's Order ferrous sulfate [Feosol] 325 mg (65 mg iron) tablet 325 mg PO DAILY Qty: 30 2RF colesevelam 625 mg tablet 1,875 mg PO BID Qty: 540 3RF ascorbic acid (vitamin C) 500 mg tablet 500 mg PO DAILY Qty: 90 3RF omeprazole 20 mg capsule,delayed release(DR/EC) 20 mg PO DAILY Qty: 90 3RF Hold Instructions: Doctor's Order warfarin 2 mg tablet 9 mg PO DAILY Qty: 120 3RF Protocol: Dose Management Condition: Wednesday (Week One) Dose/Route: 6 mg Instruction: 3 x 2 mg tablets Condition: Wednesday Dose/Route: 6 mg Instruction: 3 x 2 mg tablets Condition: Wednesday Dose/Route: 6 mg Instruction: 3 x 2 mg tablets Condition: Wednesday Dose/Route: 6 mg Instruction: 3 x 2 mg tablets Condition: Dose/Route: 4 mg Instruction: 2 x 2 mg tablets Condition: Wednesday Dose/Route: 6 mg Instruction: 3 x 2 mg tablets Condition: Wednesday Dose/Route: 6 mg Instruction: 3 x 2 mg tablets Condition: Wednesday (Week Two) Dose/Route: 6 mg Instruction: 3 x 2 mg tablets Condition: Wednesday Dose/Route: 6 mg Instruction: 3 x 2 mg tablets Condition: Wednesday Dose/Route: 6 mg Instruction: 3 x 2 mg tablets Condition: Wednesday Dose/Route: 6 mg Instruction: 3 x 2 mg tablets Condition: Dose/Route: 4 mg Instruction: 2 x 2 mg tablets Condition: Wednesday Dose/Route: 6 mg Instruction: 3 x 2 mg tablets Condition: Wednesday Dose/Route: 6 mg Instruction: 3 x 2 mg tablets Protocol Text: Adjustment Start Date: 07/23/22 INR Value: Pending INR Date: 07/23/22 Recheck Date: 08/06/22 Additional Instructions: EAT A MIX OF REDS AND GRE[place] metoprolol tartrate 25 mg tablet 25 mg PO BID Centrum Silver Ultra Men's 300-600-300 mcg tablet 1 tab PO DAILY acetaminophen 325 mg tablet 325 mg PO QID PRN (Reason: Pain, Moderate) (DME) compress.stocking,knee,reg,lrg Misc See Rx Instructions .Route Qty: 12 1RF Rx Instructions: As directed 20-30 mm HG cholecalciferol (vitamin D3) PO Referrals: Rafita Sánchez MD [Physician] - (RECURRENT SEBACEOUS CYST ON BACK)
[2022-08-02] MEDS: Doxycycline Monohydrate 100 MG CAPSULE PO (10:48)
== END 2022-08-02 10:53 | disposition home or self-care (01) ==
PROVIDERS: Physician Assistant Medical; Emergency Provider Emergency Medicine Emergency Medical Services; PCP Internal Medicine
DX: L72.3 Sebaceous cyst (principal); M54.50 Low back pain, unspecified; Z79.899 Other long term (current) drug therapy
CPT/HCPCS: 10060; 36415; 85610; 99283

== ENCOUNTER → 2022-08-03 10:43 | Outpatient (BNVA) | payer MEDICARE, SELFPAY | PROVIDERS: PCP Internal Medicine; Visit Provider Internal Medicine ==

== ENCOUNTER → 2022-08-06 08:09 | Outpatient (BNVA) | payer MEDICARE, SELFPAY | PROVIDERS: PCP Internal Medicine; Visit Provider Internal Medicine | DX: I82.401 Acute embolism and thrombosis of unspecified deep veins of right lower extremity (principal); Z79.01 Long term (current) use of anticoagulants; Z51.81 Encounter for therapeutic drug level monitoring; Z79.2 Long term (current) use of antibiotics; Z48.817 Encounter for surgical aftercare following surgery on the skin and subcutaneous tissue; Z87.2 Personal history of diseases of the skin and subcutaneous tissue | CPT/HCPCS: 85610; 99202; 99211 ==

== ENCOUNTER → 2022-08-13 08:02 | Outpatient (BNVA) | payer MEDICARE, SELFPAY | PROVIDERS: PCP Internal Medicine; Visit Provider Internal Medicine | DX: I82.401 Acute embolism and thrombosis of unspecified deep veins of right lower extremity (principal); Z79.01 Long term (current) use of anticoagulants; Z51.81 Encounter for therapeutic drug level monitoring | CPT/HCPCS: 85610; 99211 ==

== ENCOUNTER → 2022-08-20 08:36 | Outpatient (BNVA) | payer MEDICARE, SELFPAY | PROVIDERS: PCP Internal Medicine; Visit Provider Surgery | DX: L02.212 Cutaneous abscess of back [any part, except buttock and flank] (principal) | CPT/HCPCS: 99212 ==

== ENCOUNTER → 2022-08-27 07:57 | Outpatient (BNVA) | payer MEDICARE, SELFPAY | PROVIDERS: PCP Internal Medicine; Visit Provider Internal Medicine | DX: I82.401 Acute embolism and thrombosis of unspecified deep veins of right lower extremity (principal); Z79.01 Long term (current) use of anticoagulants; Z51.81 Encounter for therapeutic drug level monitoring | CPT/HCPCS: 85610; 99211 ==

== ENCOUNTER → 2022-09-10 08:13 | Outpatient (BNVA) | payer MEDICARE, SELFPAY | PROVIDERS: PCP Internal Medicine; Visit Provider Internal Medicine | DX: I82.401 Acute embolism and thrombosis of unspecified deep veins of right lower extremity (principal); Z79.01 Long term (current) use of anticoagulants; Z51.81 Encounter for therapeutic drug level monitoring | CPT/HCPCS: 85610; 99211 ==

== ENCOUNTER 2022-09-23 07:27 | Outpatient (REF) | payer MEDICARE, SELFPAY ==
[2022-09-23 07:38] LABS: MANUAL DIFF FLAG NO
[2022-09-23 09:34] LABS: Basophils Percent Auto 0.3 % (0-2); Eosinophils Absolute Auto 0.1 X10*3/uL (0.0-0.4); Eosinophils Percent Auto 2.1 % (0-4); Hematocrit 41.8 % (42.0-52.0); Hemoglobin 14.2 g/dl (14.0-18.0); Imm Gran Abs Auto 0.01 X10*3/uL (0.00-0.03); Imm Gran Pct Auto 0.2 % (0.0-0.4); Lymphocytes Absolute Auto 1.7 X10*3/uL (1.2-4.9); Lymphocytes Percent Auto 28.1 % (20-40); Mean Corpuscular Hemoglobin 30.5 pg (27.0-33.0); Mean Corpuscular Volume 89.9 fL (80.0-98.0); Mean Platelet Volume 11.7 fL (9.4-12.4); Monocytes Absolute Auto 0.5 X10*3/uL (0.1-1.2); Monocytes Percent Auto 8.4 % (2-11); Neutrophils Absolute Auto 3.8 x10*3/uL (2.0-8.3); Neutrophils Percent Auto 60.9 % (45-73); Platelet Count 129 X10*3/uL (160-400); Red Blood Count 4.65 X10*6/uL (4.60-5.80); Red Cell Distribution Width 13.2 % (11.0-16.0); White Blood Count 6.2 X10*3/uL (4.8-10.8)
[2022-09-23 09:38] LABS: Estimated Average Glucose 105 mg/dL; Hemoglobin A1c % 5.3 %
[2022-09-23 10:16] LABS: Alanine Aminotransferase 25 U/L (0-40); Alkaline Phosphatase 66 U/L (39-117); Anion Gap 11 (12-20); Aspartate Amino Transferase 22 U/L (5-37); Bilirubin Total 0.6 mg/dL (0.0-1.0); Blood Urea Nitrogen 16 mg/dL (9-16); Calcium 9.1 mg/dL (8.4-10.2); Carbon Dioxide 26 mmol/L (22-29); Chloride 111 mmol/L (96-108); Cholesterol 161 mg/dL; Estimated Glomerular Filt Rate > 60; Glucose Random 90 mg/dL (60-115); HDL Cholesterol 29 mg/dL; LDL Cholesterol Calculated 96 mg/dl; Sodium 144 mmol/L (135-145); Total Protein 7.3 g/dL (6.5-8.0); Triglycerides 181 mg/dL
[2022-09-23 10:34] LABS: Free T4 (Free Thyroxine) 1.03 ng/dL (0.71-1.85); Thyroid Stimulating Hormone 0.65 uIU/mL (0.32-4.0)
[2022-09-23 10:42] LABS: Folate 15.3 ng/mL (> or = 4.0); Vitamin B12 677 pg/mL (200-900)
== END 2022-09-23 07:28 | disposition home or self-care (01) ==
LOC: HO.LAB 07:27
PROVIDERS: PCP Internal Medicine; Visit Provider Internal Medicine
DX: I48.0 Paroxysmal atrial fibrillation (principal); E78.00 Pure hypercholesterolemia, unspecified; R73.02 Impaired glucose tolerance (oral)
CPT/HCPCS: 36415; 80053; 80061; 82607; 82746; 83036; 83735; 84439; 84443; 85025; 85610; 99211

== ENCOUNTER → 2022-10-15 07:48 | Outpatient (BNVA) | payer MEDICARE, SELFPAY | PROVIDERS: PCP Internal Medicine; Visit Provider Internal Medicine | DX: I82.401 Acute embolism and thrombosis of unspecified deep veins of right lower extremity (principal); Z79.01 Long term (current) use of anticoagulants; Z51.81 Encounter for therapeutic drug level monitoring | CPT/HCPCS: 85610; 99211 ==

== ENCOUNTER 2022-11-12 08:01 | Outpatient (AMB) | payer MEDICARE, SELFPAY ==
--- NOTE | 2022-11-12 08:31 | MHC.OFFVISCO ---
Intake Intake Visit Reasons: Anticoagulation Allergies Itqlljk-CBH-YbI Reductase Inhibitor [CVFBCHC-UZF-QFL REDUCTASE INHIBITOR] Allergy (Intermediate, Verified 11/12/22 08:31) MUSCULAR PAIN atorvastatin Allergy (Unknown, Verified 11/12/22 08:31) UNKNOWN pravastatin Allergy (Unknown, Verified 11/12/22 08:31) UNKNOWN simvastatin Allergy (Unknown, Verified 11/12/22 08:31) UNKNOWN Medication List - Last Reconciled 11/12/22 by Shereen Tinsley RN [bilateral custom AFO As directed] acetaminophen 325 mg PO QID PRN ascorbic acid (vitamin C) 500 mg PO DAILY cholecalciferol (vitamin D3) PO colesevelam 1,875 mg (3 x 625 mg) PO BID compress.stocking,knee,reg,lrg As directed 20-30 mm HG ferrous sulfate (Feosol) 325 mg PO DAILY lisinopril 10 mg PO DAILY 90 days metoprolol tartrate 25 mg PO BID [id number]-[id number]-hnzjob 766-19-477-300 mcg (Centrum Silver Ultra Men's) 1 tab PO DAILY omeprazole 20 mg PO DAILY warfarin 6 mg See Protocol PO DAILY 90 days Nursing Note INR: 2.3- in therapeutic range Medications and supplements reviewed No changes in health, diet, medications, or supplements, Denies any signs and symptoms of bleeding or bruising or clotting. 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
[2022-11-12 09:17] LABS: ~PT, ~INR - Anti Coag Clinic 2.3 (0.9-1.1)
== END 2022-11-12 08:34 | disposition home or self-care (01) ==
LOC: HO.ACS 08:01
PROVIDERS: PCP Internal Medicine; Visit Provider Internal Medicine
DX: Z79.01 Long term (current) use of anticoagulants (principal)

== ENCOUNTER → 2022-11-12 08:01 | Outpatient (BNVA) | payer MEDICARE, SELFPAY | PROVIDERS: PCP Internal Medicine; Visit Provider Internal Medicine | DX: I82.401 Acute embolism and thrombosis of unspecified deep veins of right lower extremity (principal); Z79.01 Long term (current) use of anticoagulants; Z51.81 Encounter for therapeutic drug level monitoring | CPT/HCPCS: 85610; 99211 ==

== ENCOUNTER 2022-12-09 08:07 | Outpatient (AMB) | payer MEDICARE, SELFPAY ==
[2022-12-09 08:15] LABS: Prothrombin Time Whole Bld POC 18.8 sec (11.1-13.5); ~PT, ~INR - Anti Coag Clinic 1.6 (0.9-1.1)
--- NOTE | 2022-12-09 08:23 | MHC.OFFVISCO ---
Intake Intake Visit Reasons: Anticoagulation Allergies Wyubpiq-FKP-LcO Reductase Inhibitor [ZSXOJCI-XEA-VEB REDUCTASE INHIBITOR] Allergy (Intermediate, Verified 12/09/22 08:10) MUSCULAR PAIN atorvastatin Allergy (Unknown, Verified 12/09/22 08:10) UNKNOWN pravastatin Allergy (Unknown, Verified 12/09/22 08:10) UNKNOWN simvastatin Allergy (Unknown, Verified 12/09/22 08:10) UNKNOWN Medication List - Last Reconciled 12/09/22 by Kimi Hooker RN [bilateral custom AFO As directed] acetaminophen 325 mg PO QID PRN ascorbic acid (vitamin C) 500 mg PO DAILY cholecalciferol (vitamin D3) PO colesevelam 1,875 mg (3 x 625 mg) PO BID compress.stocking,knee,reg,lrg As directed 20-30 mm HG ferrous sulfate (Feosol) 325 mg PO DAILY lisinopril 10 mg PO DAILY 90 days metoprolol tartrate 25 mg PO BID at-xae-fwkte-O2-zyevegz-jylboo [id number] mcg (Centrum Silver Ultra Men's) 1 tab PO DAILY omeprazole 20 mg PO DAILY warfarin 6 mg See Protocol PO DAILY 90 days Nursing Note PT.DENIES ANY MISSED DOSES,CP,SOB,DIET/MED CHANGES,FALLS OR SX OF BLEEDING. BOOSTER DOSE TODAY AND TOMORROW THEN RESUME USUAL DOSE AND FOLLOW-UP IN 2 WEEKS. GOOD UNDERSTANDING OF DOSING INSTR. 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
== END 2022-12-09 08:25 | disposition home or self-care (01) ==
LOC: HO.ACS 08:07
PROVIDERS: PCP Internal Medicine; Visit Provider Internal Medicine
DX: Z79.01 Long term (current) use of anticoagulants (principal)

== ENCOUNTER → 2022-12-09 08:07 | Outpatient (BNVA) | payer MEDICARE, SELFPAY | PROVIDERS: PCP Internal Medicine; Visit Provider Internal Medicine | DX: I82.401 Acute embolism and thrombosis of unspecified deep veins of right lower extremity (principal); Z79.01 Long term (current) use of anticoagulants; Z51.81 Encounter for therapeutic drug level monitoring | CPT/HCPCS: 85610; 99211 ==

== ENCOUNTER 2022-12-23 08:16 | Outpatient (AMB) | payer MEDICARE, SELFPAY ==
[2022-12-23 08:24] LABS: Prothrombin Time Whole Bld POC 30.6 sec (11.1-13.5); ~PT, ~INR - Anti Coag Clinic 2.6 (0.9-1.1)
--- NOTE | 2022-12-23 08:25 | MHC.OFFVISCO ---
Intake Intake Visit Reasons: Anticoagulation Allergies Yngijzu-GIC-IiJ Reductase Inhibitor [PKFEOGA-LSZ-BAJ REDUCTASE INHIBITOR] Allergy (Intermediate, Verified 12/23/22 08:16) MUSCULAR PAIN atorvastatin Allergy (Unknown, Verified 12/23/22 08:16) UNKNOWN pravastatin Allergy (Unknown, Verified 12/23/22 08:16) UNKNOWN simvastatin Allergy (Unknown, Verified 12/23/22 08:16) UNKNOWN Medication List - Last Reconciled 12/23/22 by Anai Silvestre RN [bilateral custom AFO As directed] acetaminophen 325 mg PO QID PRN ascorbic acid (vitamin C) 500 mg PO DAILY cholecalciferol (vitamin D3) PO colesevelam 1,875 mg (3 x 625 mg) PO BID compress.stocking,knee,reg,lrg As directed 20-30 mm HG ferrous sulfate (Feosol) 325 mg PO DAILY lisinopril 10 mg PO DAILY 90 days metoprolol tartrate 25 mg PO BID aq-avo-aciot-W8-miqhxma-wplexe [id number] mcg (Centrum Silver Ultra Men's) 1 tab PO DAILY omeprazole 20 mg PO DAILY warfarin 6 mg See Protocol PO DAILY 90 days Nursing Note INR: 2.6 in therapeutic range Medications and supplements reviewed No changes in health, diet, medications, or supplements, Denies any signs and symptoms of bleeding or bruising or clotting. 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
== END 2022-12-23 08:36 | disposition home or self-care (01) ==
LOC: HO.ACS 08:16
PROVIDERS: PCP Internal Medicine; Visit Provider Internal Medicine
DX: Z79.01 Long term (current) use of anticoagulants (principal)

== ENCOUNTER → 2022-12-23 08:16 | Outpatient (BNVA) | payer MEDICARE, SELFPAY | PROVIDERS: PCP Internal Medicine; Visit Provider Internal Medicine | DX: I82.401 Acute embolism and thrombosis of unspecified deep veins of right lower extremity (principal); Z79.01 Long term (current) use of anticoagulants; Z51.81 Encounter for therapeutic drug level monitoring | CPT/HCPCS: 85610; 99211 ==

== ENCOUNTER 2023-01-13 08:16 | Outpatient (AMB) | payer MEDICARE, SELFPAY ==
--- NOTE | 2023-01-13 08:21 | MHC.OFFVISCO ---
Intake Intake Visit Reasons: Anticoagulation Allergies Qeaaizq-YXY-BwC Reductase Inhibitor [SJLOLJH-WBJ-MCA REDUCTASE INHIBITOR] Allergy (Intermediate, Verified 01/13/23 08:17) MUSCULAR PAIN atorvastatin Allergy (Unknown, Verified 01/13/23 08:17) UNKNOWN pravastatin Allergy (Unknown, Verified 01/13/23 08:17) UNKNOWN simvastatin Allergy (Unknown, Verified 01/13/23 08:17) UNKNOWN Medication List - Last Reconciled 01/13/23 by Shereen Tinsley RN [bilateral custom AFO As directed] acetaminophen 325 mg PO QID PRN ascorbic acid (vitamin C) 500 mg PO DAILY cholecalciferol (vitamin D3) PO colesevelam 1,875 mg (3 x 625 mg) PO BID compress.stocking,knee,reg,lrg As directed 20-30 mm HG ferrous sulfate (Feosol) 325 mg PO DAILY lisinopril 10 mg PO DAILY 90 days metoprolol tartrate 25 mg PO BID [id number]-fyk-gebcn-R2-mvtncdg-ajzpnl [id number] mcg (Centrum Silver Ultra Men's) 1 tab PO DAILY omeprazole 20 mg PO DAILY warfarin 6 mg See Protocol PO DAILY 90 days Nursing Note INR: 2.2- in therapeutic range Medications and supplements reviewed No changes in health, diet, medications, or supplements, Denies any signs and symptoms of bleeding or bruising or clotting. Bleeding, bruising, clotting discussed Nutritional guidance given Dose: 4mg x 1, 6mg x 6 F/U INR: 3 weeks Patient verbalizes understanding of instructions given Anti-Coag Initial Assessment Social Hx Patient Tobacco Use Status: Never used Tobacco alcohol intake: never Coding Level of Care Code Est Patient Level 1 Diagnoses Current use of anticoagulant therapy Z79.01 Assessment & Plan Assessment & Plan (1) Current use of anticoagulant therapy: Code(s): Z79.01 - [facility] (current) use of 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
[2023-01-13 08:22] LABS: Prothrombin Time Whole Bld POC 26.6 sec (11.1-13.5); ~PT, ~INR - Anti Coag Clinic 2.2 (0.9-1.1)
== END 2023-01-13 08:27 | disposition home or self-care (01) ==
LOC: HO.ACS 08:16
PROVIDERS: PCP Internal Medicine; Visit Provider Internal Medicine
DX: Z79.01 Long term (current) use of anticoagulants (principal)

== ENCOUNTER → 2023-01-13 08:16 | Outpatient (BNVA) | payer MEDICARE, SELFPAY | PROVIDERS: PCP Internal Medicine; Visit Provider Internal Medicine | DX: I82.401 Acute embolism and thrombosis of unspecified deep veins of right lower extremity (principal); Z51.81 Encounter for therapeutic drug level monitoring; Z79.01 Long term (current) use of anticoagulants | CPT/HCPCS: 85610; 99211 ==

== ENCOUNTER 2023-01-19 08:48 | Outpatient (AMB) | payer MEDICARE, SELFPAY ==
[2023-01-19 08:54] VITALS: BP 130/68; PULSE 61; O2SAT 93; BMI 31.0
--- NOTE | 2023-01-19 08:54 | MHC.PC.OV ---
Vital Signs 01/19/23 08:54 Height 5 ft 9 in Weight 210 lb BMI 31.0 BP 130/68 Blood Pressure Location Lt brachial Position Sitting Pulse 61 Pulse Source Pulse Oximeter Pulse Oximetry (%) 93 Oxygen Delivery Method Room Air Intake Visit Reasons: PE Allergies Gwcvqzt-RJV-EfG Reductase Inhibitor [JKKQGEX-RAO-UWF REDUCTASE INHIBITOR] Allergy (Intermediate, Verified 01/19/23 08:55) MUSCULAR PAIN atorvastatin Allergy (Unknown, Verified 01/19/23 08:55) UNKNOWN pravastatin Allergy (Unknown, Verified 01/19/23 08:55) UNKNOWN simvastatin Allergy (Unknown, Verified 01/19/23 08:55) UNKNOWN Medication List - Last Reconciled 01/19/23 by Venkat Chilel MD [bilateral custom AFO As directed] acetaminophen 325 mg PO QID PRN cholecalciferol (vitamin D3) PO colesevelam 1,875 mg (3 x 625 mg) PO BID compress.stocking,knee,reg,lrg As directed 20-30 mm HG lisinopril 10 mg PO DAILY 90 days metoprolol tartrate 25 mg PO BID [id number] mcg (Centrum Silver Ultra Men's) 1 tab PO DAILY omeprazole 20 mg PO DAILY warfarin 6 mg See Protocol PO DAILY 90 days Tobacco use date assessed: 09/15/22 Fall risk assessment: No Falls in past year Last assessed Fall Risk: 01/19/23 Dental Screening Dental Screen Date: 01/19/23 Did you have a dental visit in the last 12 months?: Yes Did you have a dental problem in the last 6 months where you did not have access to dental care?: No Was dental information given to patient?: Patient has dentist HPI PE HPI Details 72-year-old obese male with radicular low back pain with 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 Patient is due for colonoscopy. Review of the notes. Patient follows up with urology October 2022 for the BPH with negative evaluation April 2021 PSA normal. coffee [facility] Medical History (Updated 01/19/23 @ 09:46 by Venkat Chilel MD) Impacted cerumen of right ear Back abscess Hypertension Radicular low back pain Bilateral hand numbness Peripheral neuropathy Chronic idiopathic thrombocytopenia Iron deficiency anemia Carpal tunnel syndrome Colon cancer Rotator cuff tear Thrombocytopenia Cognitive decline Depression GERD (gastroesophageal reflux disease) Hypercholesterolemia Hypertension Paroxysmal atrial fibrillation Impaired fasting glucose Surgical History History of neck surgery History of laminectomy History of cardiac radiofrequency ablation History of neck surgery History of carpal tunnel release H/O repair of rotator cuff History of knee replacement procedure of right knee History of left knee replacement History of appendectomy History of cholecystectomy History of partial colectomy History of right hip replacement Family History (Updated 09/15/22 @ 08:30 by Marika Miles CMA) Father No problems noted. Mother Diabetes Social History Household Members: Spouse Housing: House Are you a primary customer care team coach to a significant other at home: No Do you presently have visiting nurse or other home services: Yes (Mauricio LARA) Alcohol intake: never Patient Tobacco Use Status: Never used Tobacco e-Cigarette/Vaping Use: Never Used Second Hand Smoke Exposure: No service: No Current occupational status: retired Cognitive needs: Yes (walker) Hearing needs: Yes Vision needs: Yes Questionnaire PHQ-9 Over the last 2 weeks, how often have you been bothered by any of the following problems? 1. Little interest or pleasure in doing things: not at all 2. Feeling down, depressed, or hopeless: not at all 3. Trouble falling or staying asleep, or sleeping too much: not at all 4. Feeling tired or having little energy: not at all 5. Poor appetite or overeating: not at all 6. Feeling bad about yourself - or that you are a failure or have let yourself or your family down: not at all 7. Trouble concentrating on things, such as reading the newspaper or watching television: not at all 8. Moving or speaking so slowly that other people could have noticed. Or the opposite - being so fidgety or restless that you have been moving around a lot more than usual: not at all 9. Thoughts that you would be better off or of hurting yourself in some way: not at all Total score: 0 Depression Screening Interpretation: Negative Depression Screening Done: Yes Source: Developed by Drs. Eduar Candelaria, Thais Patel, Galdino Dias and colleagues, with an educational katey from [employer]. Thrive Questionnaire Date Thrive assessed: 09/15/22 AUDIT C Alcohol Use Questionnaire (AUDIT-C) 1. How often do you have a drink containing alcohol?: Monthly or less 2. How many drinks containing alcohol do you have on a typical day when you are drinking?: 1 or 2 3. How often do you have six or more drinks on one occasion?: Never Total Score: 1 HERMINIO-7 AMB Questionnaire HERMINIO-7 Date HERMINIO - 7 assessed: 09/15/22 Source: Developed by Drs. Eduar Candelaria, Thais Patel, Galdino Dias and colleagues, with an educational katey from [employer]. Review of Systems Const Denies poor appetite and Denies weakness Eyes Denies no additional complaints ENT Reports Normal hearing present, Denies dizziness, Denies nasal congestion, Denies tinnitus and Denies sore throat Card Denies chest pain, Denies syncope, Denies rapid heart rate and Denies dyspnea Resp Denies cough and Denies dyspnea GI Denies change in stool character, Reports constipation, Denies diarrhea, Denies nausea and Denies vomiting Denies dysuria and Denies urinary frequency Neuro Reports Normal hearing present, Denies confusion, Denies dizziness, Denies syncope and Denies weakness Psych Denies confusion Physical exam (Primary Care) Vital Signs: Last Vital Signs Pulse 61 01/19/23 08:54 BP 130/68 01/19/23 08:54 Pulse Ox 93 01/19/23 08:54 Oxygen Delivery Method Room Air 01/19/23 08:54 BMI result Body Mass Index 31.0 Tobacco/Smoking Status: Tobacco use Status Tobacco use date assessed 09/15/22 01/19/23 09:01 Patient Tobacco Use Status Never used Tobacco 01/19/23 09:01 e-Cigarette/Vaping Use Never Used 01/19/23 09:01 PHQ-9: PHQ-9 Score PHQ-9: Total score 0 01/19/23 09:01 Depression Screening Interpretation: Negative Thrive Assessment: Date of Thrive Assessment Date Thrive assessed 09/15/22 01/19/23 09:01 Const General: No confusion Orientation/consciousness: No confusion HENMT Other: R impacted cerumen, L clear Head: Yes normocephalic Ears: external ears normal Face and sinus: Yes normal facial exam Mouth: moist mucous membranes Throat: Yes tonsils normal Eyes Conjunctivae: conjunctivae normal Pupils: Equal, round and reactive pupils present and Pupil accommodation reflex normal Direct Ophthalmoscopy: normal light reflex Neck Neck: No lymphadenopathy Thyroid: Thyroid normal Chest Chest palpation & inspection: normal inspection of the chest Resp Effort & Inspection: normal respiratory effort and no audible wheezes Auscultation: clear to auscultation bilaterally, no crackles, no wheezes and lung sounds not diminished Cardio Rate: regular rate Rhythm: regular rhythm Peripheral pulses: radial pulses present and dorsalis pedis present GI Other: guaiac negative prostate N Palpation (GI): no masses Auscultation: normal bowel sounds and normoactive bowel sounds Male General Exam: Yes normal external exam Skin General skin exam: no rashes or lesions noted Rashes: no rashes Neuro General: No confusion Cranial nerves: Yes Equal, round and reactive pupils present and Yes Normal hearing present Cognition (Neuro): normal cognition Gait exam (Neuro): Normal gait present Motor exam (neuro): 5/5 motor strength present throughout Deep tendon reflexes (DTR's): Right brachioradialis reflex intensity grade: 2+, Left brachioradialis reflex intensity grade: 2+, Right patellar reflex intensity grade: 2+ and Left patellar reflex intensity grade: 2+ Extrem General: No edema Office Procedures Cerumen Removal From which ear canal was the cerumen removed: right Removal: otoscope w/curette and cerumen loop/spoon Notes: patient tolerated procedure well, no complications and ear canal clear [id number] Wax Removal by Spoon/Curette Flu Questionnaire Does the patient have a severe egg allergy?: No Does the patient have severe life threatening allergies?: No Does the patient have a fever or illness today?: No Has the patient ever had Guillain-Waskish Syndrome?: No Has the patient ever had any past reaction to a flu shot?: No Immunizations flu vacc [id number] 6mos up(PF) 60 mcg(15 mcgx4)/0.5 mL IM syringe Performing Provider: Venkat Chilel MD [facility] Documented (not given) by: Marika Miles CMA on 01/19/23 09:02 Reason Not Given: Patient Refused Assessment and Plan Assessment & Plan (1) Annual physical exam: Code(s): Z00.00 - Encounter for general adult medical examination without abnormal findings (2) Interstitial lung disease: Code(s): J84.9 - Interstitial pulmonary disease, unspecified (3) Paroxysmal atrial fibrillation: Comment: Cryoablation pulmonary veins Dr. Dominguez June 2016 Code(s): I48.0 - Paroxysmal atrial fibrillation Plan: Continue with anticoagulation with Coumadin (4) Hypertension: Code(s): I10 - Essential (primary) hypertension Qualifiers: Hypertension type: essential hypertension Qualified Code(s): I10 - Essential (primary) hypertension Plan: Continue with blood pressure medication. Decrease salt intake and exercise on metoprolol 25 mg twice a day lisinopril 10 mg once a day (5) Impaired fasting glucose: Code(s): R73.01 - Impaired fasting glucose Plan: Decrease the amount of carbohydrate intake, pasta, bread, rice and potatoes are all sugar and that is aside from all the sweet stuff, remember that fruits are good but they are Sweet also. (6) Hypercholesterolemia: Code(s): E78.00 - Pure hypercholesterolemia, unspecified Plan: Avoid fried foods, chicken skin, eggs, butter margarine, pastries and meat. Be it pork or beef they have a lot of cholesterol LDL goal of less than 130 and triglyceride of less than 150 patient on Welchol and cannot tolerate statins (7) GERD (gastroesophageal reflux disease): Code(s): K21.9 - Gastro-esophageal reflux disease without esophagitis Plan: Avoid the foods that causes that usually spicy foods, tomato products, juices, coffee, soda and foods that your sensitive to. After eating do not lie down, allow 3-4 hours before in lie down. And keep the head of bed above 30 degrees to avoid the acid from going up. (8) Colon cancer: Comment: Two [address] Dr. 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 Hale Code(s): M47.14 - Other spondylosis with myelopathy, thoracic region Plan: Conservative management (10) Foot drop, bilateral: Code(s): M21.371 - Foot drop, right foot; M21.372 - Foot drop, left foot (11) Recurrent major depression: Code(s): F33.9 - Major depressive disorder, recurrent, unspecified Plan: Decline any referral for counseling (12) Acute embolism and thrombosis of unspecified deep veins of right lower extremity: Comment: Right DVT February 2018 Code(s): I82.401 - Acute embolism and thrombosis of unspecified deep veins of right lower extremity Plan: Continue with anticoagulation with Coumadin (13) Impacted cerumen of right ear: Code(s): H61.21 - Impacted cerumen, right ear Plan: scoop use TM intact R ear Orders: Orders Influenza [id number] Immunization Today Z23 - Encounter for immunization Coding Level of Care Code Est Pt Prev Care >65y(03102) Diagnoses Annual physical exam Z00.00 Interstitial lung disease J84.9 Paroxysmal atrial fibrillation I48.0 Essential hypertension I10 Hypertension type: essential hypertension Impaired fasting glucose R73.01 Hypercholesterolemia E78.00 GERD (gastroesophageal reflux disease) K21.9 Colon cancer C18.9 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
== END 2023-01-19 09:57 | disposition home or self-care (01) ==
PROVIDERS: Visit Provider Internal Medicine
DX: H61.21 Impacted cerumen, right ear (principal)
CPT/HCPCS: 69210; 99397

== ENCOUNTER 2023-02-04 08:01 | Outpatient (AMB) | payer MEDICARE, SELFPAY ==
[2023-02-04 08:09] LABS: Prothrombin Time Whole Bld POC 22.6 sec (11.1-13.5); ~PT, ~INR - Anti Coag Clinic 1.9 (0.9-1.1)
--- NOTE | 2023-02-04 08:11 | MHC.OFFVISCO ---
Intake Intake Visit Reasons: Anticoagulation Allergies Wpyfapl-CMX-WeP Reductase Inhibitor [CFLKHIR-CEW-QQF REDUCTASE INHIBITOR] Allergy (Intermediate, Verified 02/04/23 08:02) MUSCULAR PAIN atorvastatin Allergy (Unknown, Verified 02/04/23 08:02) UNKNOWN pravastatin Allergy (Unknown, Verified 02/04/23 08:02) UNKNOWN simvastatin Allergy (Unknown, Verified 02/04/23 08:02) UNKNOWN Medication List - Last Reconciled 02/04/23 by Alondra Kc RN [bilateral custom AFO As directed] acetaminophen 325 mg PO QID PRN cholecalciferol (vitamin D3) PO colesevelam 1,875 mg (3 x 625 mg) PO BID compress.stocking,knee,reg,lrg As directed 20-30 mm HG lisinopril 10 mg PO DAILY 90 days metoprolol tartrate 25 mg PO BID [id number] mcg (Centrum Silver Ultra Men's) 1 tab PO DAILY omeprazole 20 mg PO DAILY warfarin 6 mg See Protocol PO DAILY 90 days Nursing Note Amb to ACS using walker, accomp by , feeling ok sometimes I remember things,sometimes I don't Medications and supplements reviewed No changes in health, diet, medications, or supplements Denies any unusual signs and symptoms of bruising, bleeding Denies any new Chest pain, SOB, or clotting INR: 1.9 below therapeutic range Nutritional guidance given: no greens today then balance greens and reds in diet (not a bog green eater) Dose: increase dose today to 6mg (vs 4mg) then resume usual dosing; 6mg x 6 days and 4mg x 1 day F/U INR: 3 weeks Patient verbalizes understanding of instructions given with accurate read back/ teach back of dosing Anti-Coag Initial Assessment Social Hx Patient Tobacco Use Status: Never used Tobacco alcohol intake: never Coding Level of Care Code Est Patient Level 1 Diagnoses Current use of anticoagulant therapy Z79.01 Time Spent (min) 15 Assessment & Plan Assessment & Plan (1) Current use of anticoagulant therapy: Code(s): 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
== END 2023-02-04 08:16 | disposition home or self-care (01) ==
LOC: HO.ACS 08:01
PROVIDERS: PCP Internal Medicine; Visit Provider Internal Medicine
DX: Z79.01 Long term (current) use of anticoagulants (principal)

== ENCOUNTER → 2023-02-04 08:01 | Outpatient (BNVA) | payer MEDICARE, SELFPAY | PROVIDERS: PCP Internal Medicine; Visit Provider Internal Medicine | DX: I82.401 Acute embolism and thrombosis of unspecified deep veins of right lower extremity (principal); Z79.01 Long term (current) use of anticoagulants; Z51.81 Encounter for therapeutic drug level monitoring | CPT/HCPCS: 85610; 99211 ==

== ENCOUNTER 2023-02-25 08:04 | Outpatient (AMB) | payer MEDICARE, SELFPAY ==
[2023-02-25 08:12] LABS: Prothrombin Time Whole Bld POC 28.6 sec (11.1-13.5); ~PT, ~INR - Anti Coag Clinic 2.4 (0.9-1.1)
--- NOTE | 2023-02-25 08:15 | MHC.OFFVISCO ---
Intake Intake Visit Reasons: Anticoagulation Allergies Wiojicm-HIX-YyX Reductase Inhibitor [CHBAKDJ-QAO-GEH REDUCTASE INHIBITOR] Allergy (Intermediate, Verified 02/04/23 08:02) MUSCULAR PAIN atorvastatin Allergy (Unknown, Verified 02/04/23 08:02) UNKNOWN pravastatin Allergy (Unknown, Verified 02/04/23 08:02) UNKNOWN simvastatin Allergy (Unknown, Verified 02/04/23 08:02) UNKNOWN Nursing Note INR: 2.4 in therapeutic range Medications and supplements reviewed No changes in health, diet, medications, or supplements, Denies any signs and symptoms of bleeding or bruising or clotting. Bleeding, bruising, clotting discussed Nutritional guidance given Dose: 4mg x 1 dayd/ 6mg x 6 days F/U INR: 4 weeks Patient verbalizes understanding of instructions given Anti-Coag Initial Assessment Social Hx Patient Tobacco Use Status: Never used Tobacco alcohol intake: never Coding Level of Care Code Est Patient Level 1 Diagnoses Current use of anticoagulant therapy Z79.01 Assessment & Plan Assessment & Plan (1) Current use of anticoagulant therapy: Code(s): Z79.01 - correction (current) use of 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
== END 2023-02-25 08:17 | disposition home or self-care (01) ==
LOC: HO.ACS 08:04
PROVIDERS: PCP Internal Medicine; Visit Provider Internal Medicine
DX: Z79.01 Long term (current) use of anticoagulants (principal)

== ENCOUNTER → 2023-02-25 08:04 | Outpatient (BNVA) | payer MEDICARE, SELFPAY | PROVIDERS: PCP Internal Medicine; Visit Provider Internal Medicine | DX: Z95.2 Presence of prosthetic heart valve (principal); Z79.01 Long term (current) use of anticoagulants; Z51.81 Encounter for therapeutic drug level monitoring | CPT/HCPCS: 85610; 99211 ==

== ENCOUNTER 2023-03-08 08:42 | Emergency (ER) | payer MEDICARE, SELFPAY ==
--- NOTE | ~2023-03-08 | CT_ITS ---
EXAMINATION: CT LUMBAR SPINE WITHOUT CONTRAST CLINICAL INFORMATION: Injury. Pain. COMPARISON: MRI lumbar spine 04/24/2021 TECHNIQUE: 2 mm thin axial and reformatted 2 mm thin sagittal and coronal images of lumbar spine were obtained without contrast. This CT examination was performed using dose optimization techniques as appropriate, variously including the following: *Automated exposure control *Adjustment of mA and/or kV according to patient size (this includes techniques or standardized protocols for targeted exams where dose is matched to indication/reason for exam; i.e. extremities or head) *Use of iterative reconstruction technique DLP; 524 mGy-cm FINDINGS: There is normal lumbar lordosis grade 1 retrolisthesis L1 over L2, L2 over L3 and L3 over L4 is noted. There is grade 1 anterolisthesis L4 over L5. There is loss of disc height at L1-L2, L4-L5 and L5-S1 disc levels with vacuum disc phenomena. The L1-L2 disc level appears unremarkable. L2-L2 disc level there is a broad-based diffuse bulge with central canal stenosis. The neural foramina are moderately narrowed bilaterally from mild bilateral facet joint arthropathy. At L3-L4 disc level is moderate to significant spinal canal stenosis from underlying diffuse bulge and mild facet joint arthropathy. There is bilateral narrowing of neural foramina from bilateral facet joint and ligamentum flavum hypertrophy. At L4-L5 disc level there is a broad-based diffuse bulge moderate to significant facet arthropathy resulting in transverse spinal canal stenosis. The neural foramina is patent bilaterally. At L5-S1 disc level there is no significant disc bulge, herniation or spinal stenosis. The neural foramina patent bilaterally. No aggressive lytic or sclerotic process seen. The paravertebral soft tissues are normal. CT/CT lumbar spine wo IV con IMPRESSION: Listhesis with degenerative disc changes and vacuum disc phenomena as described above. There is moderate spinal canal stenosis most prominent from L2-L3 to L4-L5 disc levels. Similar findings were described on previous MRI study 04/24/2021
--- NOTE | ~2023-03-08 | CT_ITS ---
EXAMINATION: CT HEAD WITHOUT CONTRAST CLINICAL INFORMATION: Dizziness. COMPARISON: 07/26/2019 TECHNIQUE: Contiguous axial imaging was performed from the skull base to vertex without intravenous administration of contrast. This CT examination was performed using dose optimization techniques as appropriate, variously including the following: *Automated exposure control *Adjustment of mA and/or kV according to patient size (this includes techniques or standardized protocols for targeted exams where dose is matched to indication/reason for exam; i.e. extremities or head) *Use of iterative reconstruction technique DLP: 674 mGy-cm FINDINGS: There is mild cerebral volume loss with prominence of the lateral and the third ventricles. The cortical sulci are widened appropriately. The fourth ventricle and basal cisterns are normally outlined. There is mild bilateral periventricular and central white matter diminished attenuation. There is no acute territorial defect, hemorrhage or midline shift. The extra-axial spaces are unremarkable. Calvarium: Intact. Maxillofacial sinuses and mastoids: There is a left frontal sinus opacity similar to prior. The remaining maxillofacial sinuses and mastoids are clear. CT/CT head/brain wo IV con IMPRESSION: Mild cerebral volume loss and mild bilateral periventricular and central white matter diminished attenuation which is nonspecific but likely to represent microvascular disease. No acute intracranial pathology. Chronic left frontal sinus opacity.
[2023-03-08 09:06] VITALS: BP 150/82; PULSE 60; RESP 16; TEMP 36.7; O2SAT 98; BMI 31.0
--- NOTE | 2023-03-08 09:14 | ECG_ITS ---
Test Reason : dizzy Blood Pressure : / mmHG Vent. Rate : 061 BPM Atrial Rate : 061 BPM P-R Int : 158 ms QRS Dur : 092 ms QT Int : 396 ms P-R-T Axes : 026 -09 005 degrees QTc Int : 398 ms Normal sinus rhythm RSR' or QR pattern in V1 suggests right ventricular conduction delay Otherwise normal ECG When compared with ECG of 21-JUL-2020 08:34, No significant change was found Referred By: Generic ED Physician Electronically Signed By:NIA SYLVESTER MD
[2023-03-08 10:12] LABS: MANUAL DIFF FLAG NO
[2023-03-08 10:16] LABS: Basophils Percent Auto 0.2 % (0-2); Eosinophils Absolute Auto 0.1 X10*3/uL (0.0-0.4); Eosinophils Percent Auto 1.9 % (0-4); Hemoglobin 14.2 g/dl (14.0-18.0); Imm Gran Abs Auto 0.01 X10*3/uL (0.00-0.03); Imm Gran Pct Auto 0.2 % (0.0-0.4); Lymphocytes Percent Auto 17.3 % (20-40); Mean Corpuscular HGB Conc 33.8 g/dl (31.0-36.0); Mean Corpuscular Hemoglobin 30.4 pg (27.0-33.0); Mean Corpuscular Volume 89.9 fL (80.0-98.0); Mean Platelet Volume 11.3 fL (9.4-12.4); Monocytes Absolute Auto 0.5 X10*3/uL (0.1-1.2); Monocytes Percent Auto 8.4 % (2-11); Neutrophils Absolute Auto 4.2 x10*3/uL (2.0-8.3); Platelet Count 133 X10*3/uL (160-400); Red Blood Count 4.67 X10*6/uL (4.60-5.80); Red Cell Distribution Width 12.8 % (11.0-16.0); White Blood Count 5.8 X10*3/uL (4.8-10.8)
[2023-03-08 10:19] LABS: INTERNATIONAL NORM RATIO 2.2 (0.9-1.1); Prothrombin Time 26.6 SEC (11.1-13.3)
[2023-03-08 10:32] LABS: Alanine Aminotransferase 27 U/L (0-40); Albumin Level 3.9 g/dL (3.5-5.0); Alkaline Phosphatase 69 U/L (39-117); Anion Gap 11 (12-20); Aspartate Amino Transferase 24 U/L (5-37); Bilirubin Total 0.5 mg/dL (0.0-1.0); Blood Urea Nitrogen 15 mg/dL (9-16); Calcium 9.2 mg/dL (8.4-10.2); Carbon Dioxide 27 mmol/L (22-29); Chloride 110 mmol/L (96-108); Creatinine Clr Calc Pharmacy 95.8; Estimated Glomerular Filt Rate > 60; Glucose Random 94 mg/dL (60-115); Potassium 4.1 mmol/L (3.3-5.1); Sodium 144 mmol/L (135-145); Total Protein 7.1 g/dL (6.5-8.0)
[2023-03-08 11:25] VITALS: BP 154/91; PULSE 65; RESP 16; TEMP 36.6; O2SAT 98
--- NOTE | 2023-03-08 12:33 | ED_ITS ---
HPI - Neuro Symptoms/Deficit General Chief Complaint: Neuro Symptoms/Deficit Stated Complaint: Dehydrated? Unable to walk Time Seen by Provider: 03/08/23 11:59 Source: EMS and RN notes reviewed Mode of arrival: EMS Limitations: other (dementia) History of Present Illness HPI Narrative: Patient brought in by EMS after called because patient is too weak at home. 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 Now too weak to help himself at home Onset (ago): month(s) Timing confirmed by: spouse History of same: Yes Related Data Home Medications Medication Instructions Recorded Confirmed metoprolol tartrate 25 mg tablet 25 mg PO BID 02/05/20 02/04/23 vhoigogx-rw-jythn 300 mcg-K 60 1 tab PO DAILY 02/05/20 02/04/23 mcg-lycop 600 mcg-lutein 300 mcg tablet (Centrum Silver Ultra Men's) cholecalciferol (vitamin D3) PO 09/12/21 02/04/23 acetaminophen 325 mg tablet 325 mg PO QID PRN Pain, Moderate 09/30/21 02/04/23 Previous Rx's Medication Instructions Recorded bilateral custom AFO #1 ea 04/14/21 compress.stocking,knee,reg,lrg #12 ea 09/30/21 lisinopril 10 mg tablet 10 mg PO DAILY 90 days #90 tabs 09/15/22 colesevelam 625 mg tablet 1,875 mg (3 x 625 mg) PO BID #540 10/11/22 tabs warfarin 2 mg tablet 6 mg PO DAILY 90 days #270 tabs 11/25/22 omeprazole 20 mg capsule,delayed 20 mg PO DAILY #90 caps 01/07/23 release Allergies Allergy/AdvReac Type Severity Reaction Status Date / Time Lvmjoyn-NDX-FlA Reductase Allergy Intermediate MUSCULAR Verified 02/04/23 08:02 Inhibitor PAIN [NDZRGDP-NWU-KMZ REDUCTASE INHIBITOR] atorvastatin Allergy Unknown UNKNOWN Verified 02/04/23 08:02 pravastatin Allergy Unknown UNKNOWN Verified 02/04/23 08:02 simvastatin Allergy Unknown UNKNOWN Verified 02/04/23 08:02 Review of Systems 2 Review of Systems: Yes Unobtainable due to mental status Neurologic: Denies Sensory deficit (Neuro) PMFSH Past Medical History Medical History Impacted cerumen of right ear Back abscess Hypertension Radicular low back pain Bilateral hand numbness Peripheral neuropathy Chronic idiopathic thrombocytopenia Iron deficiency anemia Carpal tunnel syndrome Colon cancer Rotator cuff tear Thrombocytopenia Cognitive decline Depression GERD (gastroesophageal reflux disease) Hypercholesterolemia Hypertension Paroxysmal atrial fibrillation Impaired fasting glucose Surgical History History of neck surgery History of laminectomy History of cardiac radiofrequency ablation History of neck surgery History of carpal tunnel release H/O repair of rotator cuff History of knee replacement procedure of right knee History of left knee replacement History of appendectomy History of cholecystectomy History of partial colectomy History of right hip replacement Family History Family History Father No problems noted. Mother Diabetes Social History Household Members: Spouse Housing: House Are you a primary managed care director to a significant other at home: No Do you presently have visiting nurse or other home services: Yes (Mauricio LARA) Alcohol intake: never Patient Tobacco Use Status: Never used Tobacco e-Cigarette/Vaping Use: Never Used Second Hand Smoke Exposure: No Advance Directives: No Advance Directives Information Provided: Yes service: No Current occupational status: retired Cognitive needs: Yes (walker) Hearing needs: Yes Vision needs: Yes Physical Exam 2 Vital Signs: Vital Signs: Last Vital Signs Temp 97.8 F 03/08/23 11:25 Pulse 62 03/08/23 14:21 Resp 16 03/08/23 14:21 BP 147/84 H 03/08/23 14:21 Pulse Ox 95 03/08/23 14:21 O2 Del Method Room Air 03/08/23 14:21 BMI result Body Mass Index 31.0 Const: Other: chronicallyl ill male Nutritional Appearance: average body habitus Orientation/consciousness: oriented to person Limitations: altered mental status (dementia) HEENT: Head: Yes normal to inspection Ears: external ears normal General nose exam: Normal external nose present Mouth: Normal oral and palatal mucosa present and oropharynx normal Throat: Yes posterior oropharynx normal Eyes: General: appearance normal, both eyes and all related structures Neck: Other: supple Neck: Yes normal visual inspection Chest: Chest palpation & inspection: normal inspection of the chest Resp: Auscultation: clear to auscultation bilaterally Cardio: Jugular venous distension: no JVD Rate: regular rate Rhythm: r egular rhythm Heart sounds: S1 normal heart sound present and S2 normal heart sound present GI: Inspection: Yes normal to inspection Palpation (GI): Soft to palpation, nontender and No hepatosplenomegaly present Auscultation: normal bowel sounds : General: Yes no CVA tenderness Back/Spine/Pelvis: Back: no CVA tenderness Skin: General skin exam: no rashes or lesions noted Neuro: Other: bilateral lower extremity weakness General: oriented to person Cranial nerves: Yes CN's II-XII intact bilaterally Sensory Exam: No Sensory deficit (Neuro) Extrem: General: Yes normal to inspection Psych: Appearance: grossly normal Course Reevaluation(s) Reevaluation #1: physician observation: at this time patient in physician observation to assess safety, he is to weak to ambulate. Physical therapy and case management to evaluate his safety Time: 17:03 Medical Decision Making Differential Diagnosis Differential Diagnoses: The differential diagnosis associated with the presentation includes (stroke, brain bleed, brain mass, uti, electrolyte abnormality were all considered) Admission/Observation Consideration of admission/observation: Escalation of care including admission/observation considered (upon arrival patient was considered for admission) Consult Healthcare Provider Management of the patient was discussed with: [facility] (physical therapy and case management) Lab Data MDM Lab Attestation statement: I reviewed the patient's lab results. 03/08/23 09:47 03/08/23 09:47 Labs: Lab Results 03/08/23 03/08/23 Range/Units 09:47 14:23 WBC 5.8 (4.8-10.8) X10*3/uL RBC 4.67 (4.60-5.80) X10*6/uL Hgb 14.2 (14.0-18.0) g/dl Hct 42.0 (42.0-52.0) % MCV 89.9 (80.0-98.0) fL MCH 30.4 (27.0-33.0) pg MCHC 33.8 (31.0-36.0) g/dl RDW 12.8 (11.0-16.0) % Plt Count 133 L (160-400) X10*3/uL MPV 11.3 (9.4-12.4) fL Immature Gran % (Auto) 0.2 (0.0-0.4) % Neut % (Auto) 72.0 (45-73) % Lymph % (Auto) 17.3 L (20-40) % [place] % (Auto) 8.4 (2-11) % Eos % (Auto) 1.9 (0-4) % Baso % (Auto) 0.2 (0-2) % Lymph # (Auto) 1.0 L (1.2-4.9) X10*3/uL [place] # (Auto) 0.5 (0.1-1.2) X10*3/uL Eos # (Auto) 0.1 (0.0-0.4) X10*3/uL Baso # (Auto) 0.0 (0.0-0.2) X10*3/uL Abs Immat Gran (auto) 0.01 (0.00-0.03) X10*3/uL Absolute Neuts (auto) 4.2 (2.0-8.3) x10*3/uL Absolute Nucleated RBC 0.000 (0.0-0.012) X10*3/uL Nucleated RBC % (auto) 0.0 (0.0-0.2) /100WBC PT 26.6 H (11.1-13.3) SEC INR 2.2 H (0.9-1.1) Sodium 144 (135-145) mmol/L Potassium 4.1 (3.3-5.1) mmol/L Chloride 110 H (96-108) mmol/L Carbon Dioxide 27 (22-29) mmol/L Anion Gap 11 L (12-20) BUN 15 (9-16) mg/dL Creatinine 0.77 (0.5-1.4) mg/dL Estim Creat Clear Calc 95.8 Estimated GFR > 60 Random Glucose 94 (60-115) mg/dL Calcium 9.2 (8.4-10.2) mg/dL Total Bilirubin 0.5 (0.0-1.0) mg/dL AST 24 (5-37) U/L ALT 27 (0-40) U/L Alkaline Phosphatase 69 (39-117) U/L Total Protein 7.1 (6.5-8.0) g/dL Albumin 3.9 (3.5-5.0) g/dL COVID-19 (SHAWNA) Negative (Negative) COVID-19 Clin Com See Note Independent Interpretation I performed an independent interpretation of an: EKG (sinus 60, no st or twave changes) and CT Scan (brain: significant atrophy) Radiology Impression Discussion of test interpretation with radiology: I have reviewed the radiologist's reading. Independent Historian Clinical information obtained from an independent historian. History obtained from or confirmed by: Spouse External Record Review External record reviewed: Office record and Outpatient record Chronic Conditions Patient?s care impacted by: Other (dementia) Discharge Plan Discharge Clinical Impression: Weakness Patient Disposition: Still a Patient Prescriptions: No Action (DME) bilateral custom AFO See Rx Instructions .Route .MEDSUPPLY Qty: 1 0RF Rx Instructions: As directed colesevelam 625 mg tablet 1,875 mg PO BID Qty: 540 3RF warfarin 2 mg tablet 6 mg PO DAILY 90 Days Qty: 270 3RF Protocol: Dose Management Condition: Wednesday (Week One) Dose/Route: 6 mg Instruction: 3 x 2 mg tablets Condition: Wednesday Dose/Route: 6 mg Instruction: 3 x 2 mg tablets Condition: Wednesday Dose/Route: 6 mg Instruction: 3 x 2 mg tablets Condition: Wednesday Dose/Route: 6 mg Instruction: 3 x 2 mg tablets Condition: Dose/Route: 4 mg Instruction: 2 x 2 mg tablets Condition: Wednesday Dose/Route: 6 mg Instruction: 3 x 2 mg tablets Condition: Wednesday Dose/Route: 6 mg Instruction: 3 x 2 mg tablets Condition: Wednesday (Week Two) Dose/Route: 6 mg Instruction: 3 x 2 mg tablets Condition: Wednesday Dose/Route: 6 mg Instruction: 3 x 2 mg tablets Condition: Wednesday Dose/Route: 6 mg Instruction: 3 x 2 mg tablets Condition: Wednesday Dose/Route: 6 mg Instruction: 3 x 2 mg tablets Condition: Dose/Route: 4 mg Instruction: 2 x 2 mg tablets Condition: Wednesday Dose/Route: 6 mg Instruction: 3 x 2 mg tablets Condition: Wednesday Dose/Route: 6 mg Instruction: 3 x 2 mg tablets Protocol Text: Adjustment Start Date: 02/25/23 INR Value: 2.4 INR Date: 02/25/23 Recheck Date: 03/25/23 Rx Instructions: or as directed omeprazole 20 mg capsule,delayed release(DR/EC) 20 mg PO DAILY Qty: 90 3RF Hold Instructions: Doctor's Order metoprolol tartrate 25 mg tablet 25 mg PO BID Centrum Silver Ultra Men's 300-600-300 mcg tablet 1 tab PO DAILY acetaminophen 325 mg tablet 325 mg PO QID PRN (Reason: Pain, Moderate) (DME) compress.stocking,knee,reg,lrg Misc See Rx Instructions .Route Qty: 12 1RF Rx Instructions: As directed 20-30 mm HG lisinopril 10 mg tablet 10 mg PO DAILY 90 Days Qty: 90 3RF Hold Instructions: Doctor's Order cholecalciferol (vitamin D3) PO
[2023-03-08 14:21] VITALS: BP 147/84; PULSE 62; RESP 16; O2SAT 95
[2023-03-08 14:50] LABS: COVID-19 Test Negative (Negative); IDNOW Serial# BCCEAD1C
--- NOTE | 2023-03-08 17:58 | PC.NURSE ---
pt from home, chief c/o increased weakness and inability to care for self independently. pt's reports early stage dementia which makes it more difficult to care for him. pt medically cleared but requests case management. pt now going to [facility] unit. report given to rn that will assume care of him.
--- NOTE | 2023-03-08 20:43 | PHA.MEDREC ---
Pharmacy Consult ? Medication Reconciliation Pharmacy has completed the medication reconciliation. Spoke to Oxana over phone ([phone]). She was able to review medication list with me over the phone and confirmed pt last dose of warfarin was 03/07/23.
[2023-03-08 22:34] VITALS: BP 137/85; PULSE 58; RESP 18; TEMP 36.4; O2SAT 95
--- NOTE | 2023-03-09 02:09 | PC.NURSE ---
CARE ASSUMED 7PM...AWAKE..ALERT...ORIENTED X3..VAGUE COMMENTS AT TIMES..RESPIRATIONS EASY..NO DISTRESS ON ROOM AIR...STATES REMAINS WITH NO SENSATION TO LOWER EXTREMETIES AT HOME AND IN ER DEPT....SOILED BRIEF REMOVED FOR URRINE AND SMEARING OF BROWN STOOL...VOIDING IN URINAL APPROX 200ml PER VOID...TOTAL 600ml from 7pm to present...VSS..RESTFUL...CURRENTLY DOZING AFTER WATCHING TV UNTIL 12AM...RESPIRATIONS EASY
[2023-03-09 05:26] VITALS: BP 133/74; PULSE 57; RESP 16; TEMP 36.2; O2SAT 95
--- NOTE | 2023-03-09 05:27 | MHC.EDTECH ---
rounding done Pt is awake watching television ,vitals taken ,pt slept most of the night ,550 ml urine empty from urinal .
--- NOTE | 2023-03-09 10:01 | PC.NURSE ---
Alert and responsive, seen by PT, pivot transfer to bedside commode, had large BM, denies pain, at bedside.
--- NOTE | 2023-03-09 10:03 | PC.NURSE ---
stating patient no longer taking iron, removed from med list.
--- NOTE | 2023-03-09 12:21 | MHC.CM.ED ---
Received case management consult overnight. Patient came to the ER due to diff ambulating. Work up essentially negative. Physical therapy eval completed. Short term rehab is recommended. Met with patient and , Oxana, in regards to discharge planning. Patient lives with Oxana, uses a cane on the stairs for mobility and a walker when ambulating. Patient has been going to outpatient phsyial therapy in [place]. PCP verified. Patient has a HCP at home. Oxana will provide a copy. Patient is vaxxed and boosted x2. List of facilities contracted with patient's insurance provided. Choices: 1)[facility] 2) [facility] Referral made via [facility]. Continue to monitor for d/c needs.
[2023-03-09 12:40] LABS: INTERNATIONAL NORM RATIO 1.9 (0.9-1.1)
[2023-03-09 14:47] VITALS: BP 146/81; PULSE 87; RESP 16; TEMP 36.5; O2SAT 96
[2023-03-09] MEDS: Warfarin Sodium 6 MG TABLET PO (18:06)
--- NOTE | 2023-03-09 19:50 | PC.NURSE ---
care assumed of patient at this time; sitting in bed watching TV. pt expressed concerns that he is not feeling any better;understands the wait for placement and for follow up care; urinal emptied; pt provided w/ clean urinal at bedside. call landeros within reach.
[2023-03-09] MEDS: Metoprolol Tartrate 25 MG TABLET PO (20:20)
[2023-03-10] MEDS: Omeprazole 20 MG CAPSULE.DR PO (06:12)
[2023-03-10 06:49] VITALS: BP 140/83; PULSE 63; RESP 16; TEMP 36.4; O2SAT 94
[2023-03-10 08:12] VITALS: BP 153/95; PULSE 75
[2023-03-10] MEDS: lisinopriL 10 MG TABLET PO (08:14)
[2023-03-10] MEDS: Ascorbic Acid 500 MG TABLET PO (08:14)
[2023-03-10] MEDS: Metoprolol Tartrate 25 MG TABLET PO (08:14)
[2023-03-10] MEDS: Multivitamin TABLET 1 TAB PO (08:14)
[2023-03-10] MEDS: Cholecalciferol (Vitamin D3) 25 MCG TABLET 50 MCG PO (08:15)
[2023-03-10 08:49] LABS: INTERNATIONAL NORM RATIO 1.7 (0.9-1.1); Prothrombin Time 20.5 SEC (11.1-13.3)
--- NOTE | 2023-03-10 09:21 | PC.NURSE ---
attempted to call pepper lawson to give nurse to nurse report, no answer form facility at this time.
--- NOTE | 2023-03-10 09:23 | MHC.CM.ED ---
Patient remains in ER overflow. Ins auth has been obtained by Kamla Naranjo. Patient can leave at 12pm. Krystal COATS booked. Med nec with chart. Patient, Harika Daigle RN and Siria PABLO aware. Continue to monitor for d/c needs.
--- NOTE | 2023-03-10 09:56 | MHC.EDTECH ---
Emptied patients urinal.
== END 2023-03-10 12:20 | disposition other institution (70) ==
PROVIDERS: Physician Assistant Medical; Emergency Provider Emergency Medicine; PCP Internal Medicine
DX: R53.1 Weakness (principal); G62.9 Polyneuropathy, unspecified; Z91.81 History of falling; Z11.52 Encounter for screening for COVID-19; I10 Essential (primary) hypertension; E78.00 Pure hypercholesterolemia, unspecified; I48.0 Paroxysmal atrial fibrillation; D50.9 Iron deficiency anemia, unspecified; G95.29 Other cord compression; M47.14 Other spondylosis with myelopathy, thoracic region; Z79.01 Long term (current) use of anticoagulants; Z79.899 Other long term (current) drug therapy
CPT/HCPCS: 36415; 70450; 72131; 80053; 85025; 85610; 87635; 93005; 97162; 99284; 99285

== ENCOUNTER 2023-05-12 14:20 | Outpatient (AMB) | payer MEDICARE, SELFPAY ==
--- NOTE | 2023-05-12 14:27 | A.OFFVIS_ITS ---
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 [employer] Required: No Allergies Bofoedo-KJU-HxS Reductase Inhibitor [MBPGANC-JMQ-VUB REDUCTASE INHIBITOR] Allergy (Intermediate, Verified 02/04/23 08:02) MUSCULAR PAIN atorvastatin Allergy (Unknown, Verified 02/04/23 08:02) UNKNOWN pravastatin Allergy (Unknown, Verified 02/04/23 08:02) UNKNOWN simvastatin Allergy (Unknown, Verified 02/04/23 08:02) UNKNOWN [facility] Medical History Impacted cerumen of right ear Back abscess Hypertension Radicular low back pain Bilateral hand numbness Peripheral neuropathy Chronic idiopathic thrombocytopenia Iron deficiency anemia Carpal tunnel syndrome Colon cancer Rotator cuff tear Thrombocytopenia Cognitive decline Depression GERD (gastroesophageal reflux disease) Hypercholesterolemia Hypertension Paroxysmal atrial fibrillation Impaired fasting glucose Surgical History History of neck surgery History of laminectomy History of cardiac radiofrequency ablation History of neck surgery History of carpal tunnel release H/O repair of rotator cuff History of knee replacement procedure of right knee History of left knee replacement History of appendectomy History of cholecystectomy History of partial colectomy History of right hip replacement Family History Father No problems noted. Mother Diabetes Social History Household Members: Spouse Housing: House Are you a primary career services coordinator to a significant other at home: No Do you presently have visiting nurse or other home services: Yes (Mauricio LARA) Alcohol intake: never Patient Tobacco Use Status: Never used Tobacco e-Cigarette/Vaping Use: Never Used Second Hand Smoke Exposure: No service: No Current occupational status: retired Cognitive needs: Yes (walker) Hearing needs: Yes Vision needs: Yes Assessment & Plan Assessment & Plan (1) Traumatic injury of spinal cord at T1-T6 level: Code(s): S24.101A - Unspecified injury at T1 level of thoracic spinal cord, initial encounter Qualifiers: Encounter type: initial encounter Qualified Code(s): S24.101A - Unspecified injury at T1 level of thoracic spinal cord, initial encounter Plan Dear colleague, On 05/12/2023, I saw patient Sean Arrington. He has a 72-year-old male underwent multiple spinal surgeries including a T1 corpectomy for spinal cord compression back in 2021. He he states that the last few months he was gradually having difficulty lifting up his feet. He had a fall in February and since that time is unable to move his legs. They are also very spastic. He is currently in rehab and baclofen is helping with the spasticity. The upper extremities are unchanged with dexterity loss of his hands and numbness. 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 There is no imaging for review. 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 I will order an MRI of the cervical and thoracic spine and will follow-up after the tests are done. Eugenio Hale MD, PhD Spine Fellowship Trained Neurosurgeon Director, [facility] Coding Level of Care Code Est Pt Level 3 (08060) Diagnoses Traumatic injury of spinal cord at T1-T6 level, initial encounter S24.101A Encounter type: initial encounter
--- NOTE | 2023-06-04 10:34 | HO.SPINEOV ---
Intake Intake Visit Reasons: hx of cervical surgery Allergies Juybswk-MHY-XyR Reductase Inhibitor [EAYTUNS-XJG-VYD REDUCTASE INHIBITOR] Allergy (Intermediate, Verified 02/04/23 08:02) MUSCULAR PAIN atorvastatin Allergy (Unknown, Verified 02/04/23 08:02) UNKNOWN pravastatin Allergy (Unknown, Verified 02/04/23 08:02) UNKNOWN simvastatin Allergy (Unknown, Verified 02/04/23 08:02) UNKNOWN Assessment & Plan Assessment & Plan (1) Traumatic injury of spinal cord at T1-T6 level: Code(s): S24.101A - Unspecified injury at T1 level of thoracic spinal cord, initial encounter Qualifiers: Encounter type: initial encounter Qualified Code(s): S24.101A - Unspecified injury at T1 level of thoracic spinal cord, initial encounter Orders: Orders MR thoracic spine wo con 05/12/23 S24.101A - Unspecified injury at T1 level of thoracic spinal cord, initial encounter Coding Diagnoses Traumatic injury of spinal cord at T1-T6 level, initial encounter S24.101A Encounter type: initial encounter
== END 2023-05-12 15:10 | disposition home or self-care (01) ==
PROVIDERS: PCP Internal Medicine; Visit Provider Neurological Surgery
DX: S24.101A Unspecified injury at T1 level of thoracic spinal cord, initial encounter (principal)
CPT/HCPCS: 99213

== ENCOUNTER → 2023-05-12 14:20 | Outpatient (BNVA) | payer MEDICARE, SELFPAY | PROVIDERS: PCP Internal Medicine; Visit Provider Neurological Surgery | DX: S24.101A Unspecified injury at T1 level of thoracic spinal cord, initial encounter (principal) | CPT/HCPCS: 99212 ==

== ENCOUNTER 2023-05-24 15:43 | Outpatient (REF) | payer MEDICARE, SELFPAY ==
--- NOTE | ~2023-05-24 | MR_ITS ---
EXAMINATION: MR THORACIC SPINE WITHOUT CONTRAST CLINICAL INFORMATION: Injury at T1 level of the thoracic spine. COMPARISON: CT scan of the chest 04/30/2022. TECHNIQUE: MRI of the thoracic spine was obtained using routine sequences without contrast. FINDINGS: There are chronic postoperative changes of an anterior spinal fusion at T1-T2. There is severe adjacent segment disease at the level of T2-T3 where there is loss of intervertebral disc height with associated type I signal changes involving the adjoining vertebral bodies. Disc osteophyte spurring in conjunction with facet degenerative change causes severe bilateral neuroforaminal encroachment at T2-T3. There is also at least moderate residual bilateral neuroforaminal encroachment at T1-T2. A bulging disc in conjunction with buckling of ligamenta flava at this level causes severe canal stenosis with compression of the upper thoracic spinal cord. Mild residual canal stenosis at C7-T1. A few shallow protrusions and a bulging disc are visualized at multiple additional levels within the thoracic spine. Otherwise no canal compromise is visualized elsewhere within the thoracic spine. Limited visualization of intrathoracic anatomy reveals no abnormal finding. Grossly no paraspinal soft tissue mass or collection. MR/MR thoracic spine wo con IMPRESSION: There are chronic postoperative changes of an anterior spinal fusion at T1-T2. There is severe adjacent segment spondylitic disease below the fusion at T2-T3 with type I signal changes involving the adjoining vertebral bodies. A bulging disc in conjunction with buckling of the ligamenta flava causes severe canal stenosis at T2-T3 with compression of the upper thoracic spinal cord. There is also severe bilateral neuroforaminal encroachment at this level. Mild residual canal stenosis at C7-T1. Otherwise no canal compromise is visualized elsewhere within the thoracic spine.
== END 2023-05-24 15:44 | disposition home or self-care (01) ==
LOC: HO.MRI 15:43
PROVIDERS: PCP Internal Medicine; Visit Provider Neurological Surgery
DX: S24.101A Unspecified injury at T1 level of thoracic spinal cord, initial encounter (principal); X58.XXXA Exposure to other specified factors, initial encounter; Y93.9 Activity, unspecified; Y92.9 Unspecified place or not applicable; Y99.9 Unspecified external cause status
CPT/HCPCS: 72146

== ENCOUNTER → 2023-06-04 10:00 | Outpatient (BNVA) | payer MEDICARE, SELFPAY | PROVIDERS: PCP Internal Medicine; Visit Provider Physician Assistant | DX: S24.101D Unspecified injury at T1 level of thoracic spinal cord, subsequent encounter (principal) | CPT/HCPCS: 99212 ==

== ENCOUNTER → 2023-06-14 08:38 | Day surgery (SDC) | payer MEDICARE, SELFPAY ==
[2023-06-11 11:38] VITALS: BMI 30.5
--- NOTE | 2023-06-11 11:44 | P.CONAN_ITS ---
Documented by User: Елена Knapp NP 06/11/23 11:52 HPI - Anesthesia Eval Consult details Narrative: 72yo M for T1-T2 Posterior Laminotomy with Instrumented Fusion [facility] resident (Sheri DONATO, chart review only) Coumadin for afib Follow[facility]. Last office visit 01/2023 (afib s/p cryoablation. 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 (Acute) Ulnar neuropathy (Acute) Peripheral neuropathy (Acute) Foot drop, bilateral (Acute) Lower extremity weakness (Acute) Hematuria (Acute) Ingrown toenail with infection (Acute) Recurrent major depression (Acute) Annual physical exam (Acute) Tick bite (Acute) Acute embolism and thrombosis of unspecified deep veins of right lower extremity (Chronic) Current use of anticoagulant therapy (Acute) Impacted cerumen of right ear (Acute) Back abscess (Acute) Radicular low back pain (Acute) Carpal tunnel syndrome (Acute) Colon cancer (Acute) Peripheral neuropathy (Acute) Chronic idiopathic thrombocytopenia (Acute) Iron deficiency anemia (Acute) Cognitive decline (Acute) Depression (Acute) GERD (gastroesophageal reflux disease) (Acute) Hypercholesterolemia (Acute) Hypertension (Acute) Paroxysmal atrial fibrillation (Acute) Impaired fasting glucose (Acute) Past Medical History Medical History Osteoarthritis Hx of deep venous thrombosis Personal history of COVID-19 (~03/2023) Slow to wake up after anesthesia Back abscess Hypertension Radicular low back pain Bilateral hand numbness Impacted cerumen of right ear Peripheral neuropathy Chronic idiopathic thrombocytopenia Iron deficiency anemia Carpal tunnel syndrome Rotator cuff tear Thrombocytopenia Cognitive decline Depression GERD (gastroesophageal reflux disease) Hypercholesterolemia Hypertension Paroxysmal atrial fibrillation Impaired fasting glucose Family History Family History Father No problems noted. Mother Diabetes Surgical History Surgical History (Updated 06/14/23 @ 09:39 by Luz Watson MD) Colon cancer Lumbar disc disease H/O colonoscopy S/P left rotator cuff repair H/O lateral meniscus repair of right knee S/P IVC filter History of neck surgery History of laminectomy History of cardiac radiofrequency ablation History of neck surgery History of carpal tunnel release H/O repair of rotator cuff History of knee replacement procedure of right knee History of left knee replacement History of appendectomy History of cholecystectomy History of partial colectomy History of right hip replacement Social History Social History Household Members: Spouse Housing: House Are you a primary intensive care unit registered nurse to a significant other at home: No Do you presently have visiting nurse or other home services: Yes (Mauricio LARA) Alcohol intake: never Patient Tobacco Use Status: Never used Tobacco e-Cigarette/Vaping Use: Never Used Second Hand Smoke Exposure: No service: No Current occupational status: retired Cognitive needs: Yes (walker) Hearing needs: Yes Vision needs: Yes Meds Allergies Allergy/AdvReac Type Severity Reaction Status Date / Time Pldexuc-VML-HcJ Reductase Allergy Intermediate MUSCULAR Verified 02/04/23 08:02 Inhibitor PAIN [[id number] REDUCTASE INHIBITOR] atorvastatin Allergy Unknown UNKNOWN Verified 02/04/23 08:02 pravastatin Allergy Unknown UNKNOWN Verified 02/04/23 08:02 simvastatin Allergy Unknown UNKNOWN Verified 02/04/23 08:02 Home Medications Medication Instructions Recorded Confirmed Last Taken Type metoprolol tartrate 25 mg tablet 25 mg PO BID 02/05/20 03/08/23 03/08/23 History syynbgzg-ze-fqvim 300 mcg-K 60 1 tab PO DAILY 02/05/20 03/08/23 03/08/23 History mcg-lycop 600 mcg-lutein 300 mcg tablet (Centrum Silver Ultra Men's) acetaminophen 325 mg tablet 325 mg PO QID PRN Pain, Moderate 09/30/21 03/08/23 Unknown History ascorbic acid (vitamin C) 500 mg 500 mg PO DAILY 03/08/23 03/08/23 03/08/23 History tablet cholecalciferol (vitamin D3) 50 50 mcg PO DAILY 03/08/23 03/08/23 03/08/23 History mcg (2,000 unit) capsule colesevelam 625 mg tablet 1,875 mg PO DAILY 03/08/23 03/08/2303/08/23 History omeprazole 20 mg capsule,delayed 20 mg PO DAILY@0630 03/08/23 03/08/23 03/08/23 History release warfarin 2 mg tablet 4 mg PO TH@1800 03/08/23 03/08/23 03/04/23 History warfarin 2 mg tablet 6 mg PO HAIDERTROSAMARIAA@1800 03/08/23 03/08/23 03/07/23 History Exam Height,Weight and Vital Signs: Height 5 ft 9 in Weight 93.621 kg Narrative Narrative: EKG 02/2023 Vent. Rate : 061 BPM Atrial Rate : 061 BPM P-R Int : 158 ms QRS Dur : 092 ms QT Int : 396 ms P-R-T Axes : 026 -09 005 degrees QTc Int : 398 ms Normal sinus rhythm RSR' or QR pattern in V1 suggests right ventricular conduction delay Otherwise normal ECG When compared with ECG of 21-JUL-2020 08:34, No significant change was found ECHO 2021 1. Nml LV size and function. Nml regional wall motion. LVEF 55-60%. Grade 2 DD 2. Mild conc LVH 3. Mild dilated LA 4. Enlarged RV. Nml RV global systolic function. 5. Thickened AV leaflets. Tri-leaflet aortic valve. No aortic stenosis. No aortic insufficiency. 6. Thickened mitral valve leaflets. Mild MAC. Mitral valve opens normally. Mild MR. 7. Tricuspid valve structurally and functionally nml with physiologic tricuspid regurg. PASP could not be obtained. 8. Ascending aorta (4.0cm) and transverse aorta (3.5cm) dilatation Assessment and Plan Assessment Anesthesia Assessment: Chart Reviewed Documented by User: Luz Watson MD 06/14/23 10:06 HPI - Anesthesia Eval Consult details Narrative: 72yo M for T1-T2 Posterior Laminotomy with Instrumented Fusion [facility] resident (No PAT, chart review only) Coumadin for afib Follow[facility]. Last office visit 01/2023 (afib s/p cryoablation. 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 (Acute) Ulnar neuropathy (Acute) Peripheral neuropathy (Acute) Foot drop, bilateral (Acute) Lower extremity weakness (Acute) Hematuria (Acute) Ingrown toenail with infection (Acute) Recurrent major depression (Acute) Acute embolism and thrombosis of unspecified deep veins of right lower extremity (Chronic) Current use of anticoagulant therapy (Acute) Back abscess (Acute) Radicular low back pain (Acute) Colon cancer (Acute) Peripheral neuropathy (Acute) Chronic idiopathic thrombocytopenia (Acute) Iron deficiency anemia (Acute) Cognitive decline (Acute) Depression (Acute) GERD (gastroesophageal reflux disease) (Acute) Hypercholesterolemia (Acute) Hypertension (Acute) Paroxysmal atrial fibrillation (Acute) Impaired fasting glucose (Acute) Past Medical History Medical History Osteoarthritis Hx of deep venous thrombosis Personal history of COVID-19 (~03/2023) Slow to wake up after anesthesia Back abscess Hypertension Radicular low back pain Bilateral hand numbness Impacted cerumen of right ear Peripheral neuropathy Chronic idiopathic thrombocytopenia Iron deficiency anemia Carpal tunnel syndrome Rotator cuff tear Thrombocytopenia Cognitive decline Depression GERD (gastroesophageal reflux disease) Hypercholesterolemia Hypertension Paroxysmal atrial fibrillation Impaired fasting glucose Family History Family History Father No problems noted. Mother Diabetes Family history of problems with anesthesia: No Surgical History Surgical History (Updated 06/14/23 @ 09:39 by Luz Watson MD) Colon cancer Lumbar disc disease H/O colonoscopy S/P left rotator cuff repair H/O lateral meniscus repair of right knee S/P IVC filter History of neck surgery History of laminectomy History of cardiac radiofrequency ablation History of neck surgery History of carpal tunnel release H/O repair of rotator cuff History of knee replacement procedure of right knee History of left knee replacement History of appendectomy History of cholecystectomy History of partial colectomy History of right hip replacement History of Problems with Anesthesia: Yes (Slow awakening. Decline in cognitive function ) Social History Social History Household Members: Spouse Housing: House Are you a primary intensive care unit registered nurse to a significant other at home: No Do you presently have visiting nurse or other home services: Yes (Mauricio LARA) Alcohol intake: never Patient Tobacco Use Status: Never used Tobacco e-Cigarette/Vaping Use: Never Used Second Hand Smoke Exposure: No service: No Current occupational status: retired Cognitive needs: Yes (walker) Hearing needs: Yes Vision needs: Yes Meds Allergies Allergy/AdvReac Type Severity Reaction Status Date / Time Qlwkkqd-TTU-SnC Reductase Allergy Intermediate MUSCULAR Verified 02/04/23 08:02 Inhibitor PAIN [[id number] REDUCTASE INHIBITOR] atorvastatin Allergy Unknown UNKNOWN Verified 02/04/23 08:02 pravastatin Allergy Unknown UNKNOWN Verified 02/04/23 08:02 simvastatin Allergy Unknown UNKNOWN Verified 02/04/23 08:02 Home Medications Medication Instructions Recorded Confirmed Last Taken Type metoprolol tartrate 25 mg tablet 25 mg PO BID 02/05/20 03/08/23 03/08/23 History hkbouhpz-zk-ojqeo 300 mcg-K 60 1 tab PO DAILY 02/05/20 03/08/23 03/08/23 History mcg-lycop 600 mcg-lutein 300 mcg tablet (Centrum Silver Ultra Men's) acetaminophen 325 mg tablet 325 mg PO QID PRN Pain, Moderate 09/30/21 03/08/23 Unknown History ascorbic acid (vitamin C) 500 mg 500 mg PO DAILY 03/08/23 03/08/23 03/08/23 His tory tablet cholecalciferol (vitamin D3) 50 50 mcg PO DAILY 03/08/23 03/08/23 03/08/23 History mcg (2,000 unit) capsule colesevelam 625 mg tablet 1,875 mg PO DAILY 03/08/23 03/08/23 03/08/23 History omeprazole 20 mg capsule,delayed 20 mg PO DAILY@0630 03/08/23 03/08/23 03/08/23 History release warfarin 2 mg tablet 4 mg PO TH@1800 03/08/23 03/08/23 03/04/23 History warfarin 2 mg tablet 6 mg PO HAIDERTUWMARIANGELA@1800 03/08/23 03/08/23 03/07/23 History Exam Height,Weight and Vital Signs: Height 5 ft 9 in Weight 93.621 kg Vital Signs Temp Pulse Resp BP Pulse Ox O2 Del Method 06/14/23 09:24 98.5 F 90 16 102/67 94 Room Air Pertinent Lab Results Pertinent Lab Results: Lab Results 06/14/23 Range/Units 09:06 PT 13.3 D (11.1-13.3) SEC INR 1.1 (0.9-1.1) Airway Mallampati Class: II TM Dist: >3cm Neck ROM: Full Loose/Missing/Broken Teeth: No (Denies broken, loose, missing teeth) Heart: RRR Lungs: CTAB Assessment and Plan Assessment Anesthesia Assessment: Anesthesia Plan Discussed and Chart Reviewed Final Anesthetic Review Family History of Problems with Anesthesia: No History of Problems with Anesthesia: Yes (Slow awakening. Decline in cognitive function ) NPO: Yes ASA Class: III Final Preanesthetic Review: No Changes in Pt Med Stat, Meds/Allgs Chart Reviewed, Consent Obtained/Reviewed and Anes Risks/Benef Reviewed Patient Risk: Intermediate Procedure Risk: Intermediate Assessment/Block/Sedation in : Assess/Block/Sedation- Anesthetic Plan Anesthetic Plan: GA and Other (Will discuss with Dr Hale- Not much feeling in LE, bilateral lower extremity contractures, bilateral LE non- healing wounds, dementia) Disposition: Standard PACU and Inp. Admit - [facility]
--- NOTE | 2023-06-14 07:07 | MHC.SHP ---
Pre-Procedural Eval Section A - 24 Hr Update-Section A only Date of Service: 06/14/23 Section B - Complete if H&P > 30 days Chief Complaint: Unspecified injury at T1 level of thoracic spinal Allergies: Allergies Allergy/AdvReac Type Severity Reaction Status Date / Time Obujlbg-USQ-ErV Reductase Allergy Intermediate MUSCULAR Verified 02/04/23 08:02 Inhibitor PAIN [[id number] REDUCTASE INHIBITOR] atorvastatin Allergy Unknown UNKNOWN Verified 02/04/23 08:02 pravastatin Allergy Unknown UNKNOWN Verified 02/04/23 08:02 simvastatin Allergy Unknown UNKNOWN Verified 02/04/23 08:02 Review of Systems Sugical H&P ROS: Negative: Constitution, Cardiovascular, Respiratory, Neurological, Psychiatric, Hem-Onc, Allergic/Immunologic, Gastrointestinal, Genitourinary, Musculoskeletal, Integumentary, Endocrine and Eyes/Ears/Nose/Throat Exam Surgical H&P Exam: Not Evaluated: HEENT, Not Evaluated: Heart, Not Evaluated: Lungs, Not Evaluated: Extremities, Not Evaluated: Abdomen, Not Evaluated: Skin and Not Evaluated: Neurological Plan Diagnosis/Plan: Unchanged T1-2 laminectomy with posterior instrumentation and fusion Time Spent With Patient Time: Total time managing care of this patient today __5__ minutes.
[2023-06-14 09:15] LABS: INTERNATIONAL NORM RATIO 1.1 (0.9-1.1); Prothrombin Time 13.3 SEC (11.1-13.3)
[2023-06-14 09:24] VITALS: BP 102/67; PULSE 90; RESP 16; TEMP 36.9; O2SAT 94
--- NOTE | 2023-06-14 11:18 | PC.NURSE ---
after evaluating patient at 930, surgeon states no surgery would be beneficial at this time. surgery cancelled and pt discharged back to rehab. rehab had been called earlier and i wasn't able to get through after leaving 2 messages. will try to call rehab also on way back there.
== END ==
PROVIDERS: Nurse Practitioner; Absent Provider Physician Assistant; PCP Internal Medicine; Visit Provider Neurological Surgery
DX: S24.101A Unspecified injury at T1 level of thoracic spinal cord, initial encounter (principal); Z53.8 Procedure and treatment not carried out for other reasons; I48.91 Unspecified atrial fibrillation; Z79.01 Long term (current) use of anticoagulants; Z88.8 Allergy status to other drugs, medicaments and biological substances; Y99.9 Unspecified external cause status
CPT/HCPCS: 36415; 85610; J0131; J0690

== ENCOUNTER 2023-09-02 17:02 | Inpatient (IN) | payer MEDICARE, SELFPAY ==
--- NOTE | ~2023-09-02 | XR_ITS ---
EXAMINATION: XR FOOT, RIGHT CLINICAL INFORMATION: Wound healing first metatarsal head COMPARISON: Right foot radiograph from 12/12/2019 TECHNIQUE: AP, lateral, and oblique views of the right foot. FINDINGS: No acute visible fracture or dislocation. Multi joint arthritic changes. Hallux valgus. Spurring the dorsal midfoot. Enthesopathy at the Achilles tendon insertion site. Redemonstrated linear radiopaque densities along the lateral aspect of the first distal phalanx and first proximal phalanx. Joint space alignment otherwise maintained. Soft tissue prominence throughout the foot without soft tissue gas noted. No cortical erosion suggest osteomyelitis. XR/XR foot RT min 3V IMPRESSION: 1. No acute visible fracture or dislocation. 2. Multi joint arthritic changes. 3. Redemonstrated linear radiopaque densities along the lateral aspect of the first distal phalanx and first proximal phalanx. 4. Soft tissue prominence throughout the foot without soft tissue gas noted. No cortical erosion to suggest osteomyelitis. If high clinical concern for osteomyelitis consider further evaluation with MRI.
--- NOTE | ~2023-09-02 | CT_ITS ---
EXAMINATION: CT FOOT WITHOUT CONTRAST, RIGHT CLINICAL INFORMATION: Right foot wound. Question osteomyelitis. Unable to do MRI COMPARISON: Radiographs dated 09/02/2023 TECHNIQUE: Multidetector volumetric imaging was obtained through the right foot without contrast. Multiplanar reformatted images in coronal and sagittal orientations were submitted. This CT examination was performed using dose optimization techniques as appropriate, variously including the following: *Automated exposure control *Adjustment of mA and/or kV according to patient size (this includes techniques or standardized protocols for targeted exams where dose is matched to indication/reason for exam; i.e. extremities or head) *Use of iterative reconstruction technique DLP: 319 mGy-cm FINDINGS: A plantar wound at the level of the calcaneal tuberosity measures 2.5 x 4 cm in area and is associated with subcutaneous gas. The gas extends to the level of the underlying bone at the calcaneal tuberosity. The cortex is eroded with bone loss and osteolysis over an area measuring 3 x 2 cm, consistent with osteomyelitis. The depth of involvement measures approximately 0.8 cm. No appreciable abscess in the surrounding soft tissues, though sensitivity is limited by CT. There is marked surrounding soft tissue swelling and subcutaneous edema. Bones are diffusely osteopenic. No additional sites of osteomyelitis are identified, though sensitivity is somewhat limited, particularly as result of the marked osteopenia. There is mild multifocal osteoarthritis in the midfoot and forefoot with nonuniform joint space narrowing and marginal osteophytes. Fatty atrophy is evident in the intrinsic foot musculature. Atherosclerotic calcifications are present within the arteries of the foot. CT/CT foot RT wo IV con IMPRESSION: 1. Osteomyelitis at the calcaneal tuberosity deep to the plantar wounds. No appreciable abscess, though sensitivity is limited by CT. 2. Marked diffuse osteopenia.
--- NOTE | ~2023-09-02 | CT_ITS ---
EXAMINATION: CT FOOT WITHOUT CONTRAST, RIGHT CLINICAL INFORMATION: Right heel ulcer. Evaluate for osteomyelitis. COMPARISON: X-ray of the right foot August 2023 TECHNIQUE: CT scan of the right foot is performed without contrast with reconstruction imaging performed at the acquisition workstation. This CT examination was performed using dose optimization techniques as appropriate, variously including the following: *Automated exposure control *Adjustment of mA and/or kV according to patient size (this includes techniques or standardized protocols for targeted exams where dose is matched to indication/reason for exam; i.e. extremities or head) *Use of iterative reconstruction technique DLP: 201 mGy-cm. FINDINGS: As before, there is a superficial ulceration/defect along the plantar medial aspect of the heel pad overlying the plantar medial aspect of the calcaneus. This defect measures at least 1 cm. There is gas present within the underlying subcutaneous soft tissues over an area measuring 3.3 x 1.5 x 2 cm, similar to prior. There is additional stranding in the surrounding calcaneal heel pad compatible with edema and/or cellulitis. There is persistent irregular lucency/osteolysis along the plantar aspect of the calcaneal tuberosity over an area measuring 3.3 cm craniocaudal, up to 7 mm in depth, and 2 cm transverse, not significantly changed compared to prior. There is generalized osteopenia. There is prominent arterial calcification throughout. Mild osteoarthritis in the midfoot, unchanged. Mild osteoarthritis of the first metatarsophalangeal joint complex. CT/CT foot RT wo IV con IMPRESSION: Persistent plantar ulceration with surrounding gas and cellulitis overlying the area of bone erosion/destruction of the calcaneal tuberosity, essentially unchanged. Findings most consistent with ulceration, cellulitis, and osteomyelitis.
[2023-09-02 17:10] VITALS: BP 100/70; BP 99/60; PULSE 75; PULSE 85; RESP 18; TEMP 37.5; O2SAT 100; O2SAT 97; BMI 26.5
[2023-09-02 17:36] LABS: MANUAL DIFF FLAG NO
[2023-09-02 17:37] VITALS: BP 118/73; PULSE 83; RESP 17; TEMP 36.9; O2SAT 98
[2023-09-02 17:38] LABS: Basophils Percent Auto 0.4 % (0-2); Eosinophils Absolute Auto 0.2 X10*3/uL (0.0-0.4); Eosinophils Percent Auto 2.2 % (0-4); Hematocrit 33.2 % (42.0-52.0); Hemoglobin 11.2 g/dl (14.0-18.0); Imm Gran Abs Auto 0.02 X10*3/uL (0.00-0.03); Imm Gran Pct Auto 0.2 % (0.0-0.4); Lymphocytes Absolute Auto 1.2 X10*3/uL (1.2-4.9); Lymphocytes Percent Auto 15.3 % (20-40); Mean Corpuscular HGB Conc 33.7 g/dl (31.0-36.0); Mean Corpuscular Hemoglobin 29.6 pg (27.0-33.0); Mean Corpuscular Volume 87.8 fL (80.0-98.0); Mean Platelet Volume 9.9 fL (9.4-12.4); Monocytes Absolute Auto 0.7 X10*3/uL (0.1-1.2); Monocytes Percent Auto 8.4 % (2-11); Neutrophils Absolute Auto 5.9 x10*3/uL (2.0-8.3); Neutrophils Percent Auto 73.5 % (45-73); Platelet Count 270 X10*3/uL (160-400); Red Blood Count 3.78 X10*6/uL (4.60-5.80); Red Cell Distribution Width 13.6 % (11.0-16.0)
--- NOTE | 2023-09-02 17:41 | ED.GENADULT ---
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 History difficult to obtain from patient due to dementia, patient's spouse provided history. states he first developed pressure ulcers of both feet shortly after entering [facility] in February 2023. She states he has not ambulated since that time. Patient began wearing pressure relieving boots and receiving wound care by staff at facility. Months ago podiatry began seeing him at facility as well. He has not been seen by wound care. states he received 5 day course of oral antibiotics for wounds, but she is unsure of what kind and the timeline. Today, they performed x-ray of right calcaneus at [facility] that showed concern for osteomyelitis, prompting ED visit. Unable to perform full ROS due to dementia. Patient states he feels no pain at this time. complaint: Chronic right heel wound Onset (ago): month(s) Location: right and lower extremity Related Data Home Medications ?Medication ?Instructions ?Recorded ?Confirmed metoprolol tartrate 25 mg tablet 25 mg PO BID 02/05/20 03/08/23 lsanamhj-ol-vrzba 300 mcg-K 60 1 tab PO DAILY 02/05/20 03/08/23 mcg-lycop 600 mcg-lutein 300 mcg tablet (Centrum Silver Ultra Men's) acetaminophen 325 mg tablet 325 mg PO QID PRN Pain, Moderate 09/30/21 03/08/23 ascorbic acid (vitamin C) 500 mg 500 mg PO DAILY 03/08/23 03/08/23 tablet cholecalciferol (vitamin D3) 50 50 mcg PO DAILY 03/08/23 03/08/23 mcg (2,000 unit) capsule colesevelam 625 mg tablet 1,875 mg PO DAILY 03/08/23 03/08/23 omeprazole 20 mg capsule,delayed 20 mg PO DAILY@0630 03/08/23 03/08/23 release warfarin 2 mg tablet 4 mg PO TH@1800 03/08/23 03/08/23 warfarin 2 mg tablet 6 mg PO SUMOTUWEFHUSSEINA@1800 03/08/23 03/08/23 Previous Rx's ?Medication ?Instructions ?Recorded bilateral custom AFO #1 ea 04/14/21 compress.stocking,knee,reg,lrg #12 ea 09/30/21 lisinopril 10 mg tablet 10 mg PO DAILY 90 days #90 tabs 09/15/22 Allergies Allergy/AdvReac Type Severity Reaction Status Date / Time Yvxuipt-ZLK-VnN Reductase Allergy Intermediate MUSCULAR Verified 09/02/23 17:20 Inhibitor PAIN [[id number] REDUCTASE INHIBITOR] atorvastatin Allergy Unknown UNKNOWN Verified 09/02/23 17:20 pravastatin Allergy Unknown UNKNOWN Verified 09/02/23 17:20 simvastatin Allergy Unknown UNKNOWN Verified 09/02/23 17:20 Review of Systems Review of Systems: Yes Unobtainable due to mental status (Alzheimer's dementia ) [facility] Past Medical History Medical History (Updated 09/02/23 @ 22:25 by SAMY Dietrich) Osteoarthritis Hx of deep venous thrombosis Personal history of COVID-19 (~03/2023) Slow to wake up after anesthesia Back abscess Hypertension Radicular low back pain Bilateral hand numbness Impacted cerumen of right ear Peripheral neuropathy Chronic idiopathic thrombocytopenia Iron deficiency anemia Carpal tunnel syndrome Rotator cuff tear Thrombocytopenia Cognitive decline Depression GERD (gastroesophageal reflux disease) Hypercholesterolemia Hypertension Paroxysmal atrial fibrillation Impaired fasting glucose Surgical History (Updated 06/14/23 @ 09:39 by Luz Watson MD) Colon cancer Lumbar disc disease H/O colonoscopy S/P left rotator cuff repair H/O lateral meniscus repair of right knee S/P IVC filter History of neck surgery History of laminectomy History of cardiac radiofrequency ablation History of neck surgery History of carpal tunnel release H/O repair of rotator cuff History of knee replacement procedure of right knee History of left knee replacement History of appendectomy History of cholecystectomy History of partial colectomy History of right hip replacement Family History Family History Father No problems noted. Mother Diabetes Social History Social History Household Members: Spouse Housing: House Are you a primary floor care technician to a significant other at home: No Do you presently have visiting nurse or other home services: Yes (Martínez JANE) Alcohol intake: never Patient Tobacco Use Status: Never used Tobacco e-Cigarette/Vaping Use: Never Used Second Hand Smoke Exposure: No Advance Directives: Yes Advance Directives on File: Yes Advance Directives Date on File: 03/09/23 service: No Current occupational status: retired Cognitive needs: Yes (walker) Hearing needs: Yes Vision needs: Yes Physical Exam ED Vital Signs: Vital Signs - 24 hr 09/02/23 17:10 09/02/23 17:37 09/02/23 20:34 Temperature 99.5 F 98.5 F Pulse Rate 85 83 86 Respiratory Rate 18 17 15 Blood Pressure 99/60 118/73 92/49 L Pulse Oximetry 97 98 97 Oxygen Delivery Method Room Air Room Air Room Air 09/02/23 21:53 Temperature Pulse Rate 82 Respiratory Rate 18 Blood Pressure 95/47 L Pulse Oximetry 99 Oxygen Delivery Method Room Air BMI result Body Mass Index 26.5 Appearance: Alert. No acute distress. Oriented to self. Confused to situation. Head: normocephalic, atraumatic. Eyes: Pupils equal, round and reactive to light. ENT: Pharynx normal. Neck: Normal inspection. Neck supple. CVS: Normal heart rate and rhythm. Pulses normal. Respiratory: No respiratory distress. Breath sounds normal. Abdomen: Soft and nontender. Skin: Skin warm and dry. Normal skin color. Normal skin turgor. No rashes. Extremities: RLE edema. No erythema. Necrotic ulceration of right calcaneus. Deep ulceration of posterior 1st metatarsal. Foul-smelling. Small abrasion of left hallux. Neuro/psych: Oriented to self only. No motor deficit. No sensory deficit. CN II-XII intact. Normal speech and cognition. Course Reevaluation(s) Reevaluation #1: Patient with mild low blood pressure, 92/46. 2nd L of IV fluids ordered. will monitor closely and reassess Time: 21:02 Reevaluation #2: Blood pressure 95/47. Patient is asymptomatic. Low blood pressure is not thought to be due to sepsis. Time: 22:23 Medications Administered Discontinued Medications Generic Name Dose Route Start Last Admin Trade Name Jacey PRN Reason Stop Dose Admin Vancomycin HCl 2,000 mg in 500 mls @ 250 mls/hr 09/02/23 18:09 09/02/23 19:34 Vancomycin/Ns IV 09/02/23 20:08 250 mls/hr ONCE ONE Administration Cefepime HCl 2 gm/ Sodium 50 mls @ 100 mls/hr 09/02/23 18:09 09/02/23 19:34 Chloride IV 09/02/23 18:38 Infused ONCE ONE Infusion Sodium Chloride 1,000 mls @ 999 mls/hr 09/02/23 18:15 09/02/23 19:35 Ns IV 09/02/23 19:15 Infused .Q1H1M ENIO Infusion Sodium Chloride 1,000 mls @ 999 mls/hr 09/02/23 21:00 09/02/23 21:06 Ns IV 09/02/23 22:00 999 mls/hr .Q1H1M ENIO Administration Medical Decision Making Medical Decision Making MDM Narrative: 72 yo male with PMH significant for but not limited to Alzheimer's disease, 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 XR done at SNF showing osteomyelitis Labs show no leukocytosis. Elevated ESR and CPR. Vitals with soft but stable BP. asymptomatic and nontoxic appearing. broad spectrum IV antibiotics ordered. wound culture ordered. will require admission for IV abx Differential Diagnosis Differential Diagnoses: The differential diagnosis associated with the presentation includes Osteomyelitis, septic arthritis, pressure ulceration Admission/Observation Consideration of admission/observation: Escalation of care including admission/observation considered Consult Healthcare Provider Management of the patient was discussed with: Hospitalist Dr. Cotter accepts Lab Data [facility] Lab Attestation statement: I reviewed the patient's lab results. No leukocytosis. ESR elevated to 74. CRP elevated to 9.04. 09/02/23 17:31 09/02/23 17:31 Labs: Lab Results 09/02/23 09/02/23 Range/Units 17:30 17:31 WBC 8.0 (4.8-10.8) X10*3/uL RBC 3.78 L (4.60-5.80) X10*6/uL Hgb 11.2 L D (14.0-18.0) g/dl Hct 33.2 L D (42.0-52.0) % MCV 87.8 (80.0-98.0) fL MCH 29.6 (27.0-33.0) pg MCHC 33.7 (31.0-36.0) g/dl RDW 13.6 (11.0-16.0) % Plt Count 270 D (160-400) X10*3/uL MPV 9.9 (9.4-12.4) fL Immature Gran % (Auto) 0.2 (0.0-0.4) % Neut % (Auto) 73.5 H (45-73) % Lymph % (Auto) 15.3 L (20-40) % Saline % (Auto) 8.4 (2-11) % Eos % (Auto) 2.2 (0-4) % Baso % (Auto) 0.4 (0-2) % Lymph # (Auto) 1.2 (1.2-4.9) X10*3/uL Saline # (Auto) 0.7 (0.1-1.2) X10*3/uL Eos # (Auto) 0.2 (0.0-0.4) X10*3/uL Baso # (Auto) 0.0 (0.0-0.2) X10*3/uL Abs Immat Gran (auto) 0.02 (0.00-0.03) X10*3/uL Absolute Neuts (auto) 5.9 (2.0-8.3) x10*3/uL Absolute Nucleated RBC 0.000 (0.0-0.012) X10*3/uL Nucleated RBC % (auto) 0.0 (0.0-0.2) /100WBC ESR 74 H (0-15) MM/HR Sodium 139 (135-145) mmol/L Potassium 4.0 (3.3-5.1) mmol/L Chloride 101 (96-108) mmol/L Carbon Dioxide 26 (22-29) mmol/L Anion Gap 16 (12-20) BUN 20 H (9-16) mg/dL Creatinine 0.71 (0.5-1.4) mg/dL Estim Creat Clear Calc 100.1 Estimated GFR > 60 Random Glucose 108 (60-115) mg/dL Lactic Acid 1.0 (0.5-2.0) mmol/L Calcium 8.9 (8.4-10.2) mg/dL Magnesium 1.6 (1.6-2.6) mg/dL Total Bilirubin 0.2 (0.0-1.0) mg/dL Direct Bilirubin < 0.2 (0.0-0.5) mg/dL AST 21 (5-37) U/L ALT 21 (0-40) U/L Alkaline Phosphatase 72 (39-117) U/L C-Reactive Protein 9.04 H (< or = 0.50) mg/dL Total Protein 7.7 (6.5-8.0) g/dL Albumin 3.2 L (3.5-5.0) g/dL Independent Interpretation I performed an independent interpretation of an: Plain X-Ray Interpretation: calcaneous area with moth eaten appearance, concerning for osteomyelitis Radiology Impression Discussion of test interpretation with radiology: I have reviewed the radiologist's reading. Radiologist Impression: EXAMINATION: XR FOOT, RIGHT CLINICAL INFORMATION: Wound healing first metatarsal head COMPARISON: Right foot radiograph from 12/12/2019 TECHNIQUE: AP, lateral, and oblique views of the right foot. FINDINGS: No acute visible fracture or dislocation. Multi joint arthritic changes. Hallux valgus. Spurring the dorsal midfoot. Enthesopathy at the Achilles tendon insertion site. Redemonstrated linear radiopaque densities along the lateral aspect of the first distal phalanx and first proximal phalanx. Joint space alignment otherwise maintained. Soft tissue prominence throughout the foot without soft tissue gas noted. No cortical erosion suggest osteomyelitis. XR/XR foot RT min 3V IMPRESSION: 1. No acute visible fracture or dislocation. 2. Multi joint arthritic changes. 3. Redemonstrated linear radiopaque densities along the lateral aspect of the first distal phalanx and first proximal phalanx. 4. Soft tissue prominence throughout the foot without soft tissue gas noted. No cortical erosion to suggest osteomyelitis. If high clinical concern for osteomyelitis consider further evaluation with MRI. Independent Historian Clinical information obtained from an independent historian. History obtained from or confirmed by: Spouse (Patient's at bedside ) External Record Review External record reviewed: Inpatient record, Office record and Outpatient record Tests considered The following testing was considered but not selected: CT scan of the foot considered - likely requires Prescription Management I considered prescription management with: Pain Medication and Antibiotic Chronic Conditions Patient?s care impacted by: Hypertension and Other Critical Care Time Critical Care Time Critical Care Time: Yes Total Critical Care Time: 49 Attestation: I have personally provided critical care time exclusive of time spent on separately billable procedures. Time includes review of lab data, radiology results, discussion with consultants, and monitoring for potential decompensation. Intervention performed as documented. Discharge Plan Discharge Clinical Impression: Osteomyelitis Patient Disposition: Admitted As Inpatient
[2023-09-02 17:57] LABS: Alanine Aminotransferase 21 U/L (0-40); Albumin Level 3.2 g/dL (3.5-5.0); Alkaline Phosphatase 72 U/L (39-117); Anion Gap 16 (12-20); Aspartate Amino Transferase 21 U/L (5-37); Bilirubin Direct < 0.2 mg/dL (0.0-0.5); Bilirubin Total 0.2 mg/dL (0.0-1.0); Blood Urea Nitrogen 20 mg/dL (9-16); C Reactive Protein 9.04 mg/dL (< or = 0.50); Calcium 8.9 mg/dL (8.4-10.2); Carbon Dioxide 26 mmol/L (22-29); Chloride 101 mmol/L (96-108); Creatinine Clr Calc Pharmacy 100.1; Estimated Glomerular Filt Rate > 60; Glucose Random 108 mg/dL (60-115); Magnesium 1.6 mg/dL (1.6-2.6); Sodium 139 mmol/L (135-145); Total Protein 7.7 g/dL (6.5-8.0)
[2023-09-02 18:14] LABS: Erythrocyte Sedimentation Rate 74 MM/HR (0-15)
[2023-09-02] MEDS: 0.9 % Sodium Chloride 1,000 ML 999 ML IV ×2 (18:31→21:06)
[2023-09-02] MEDS: cefEPime HCl 2 GM in 0.9 % Sodium Chloride 50 ML IV (18:31)
[2023-09-02] MEDS: vancomycin/NS 2,000 MG/500 ML PLAST..BAG 250 MG IV (19:34)
[2023-09-02 20:34] VITALS: BP 92/49; PULSE 86; RESP 15; O2SAT 97
[2023-09-02 21:53] VITALS: BP 95/47; PULSE 82; RESP 18; O2SAT 99
--- NOTE | 2023-09-02 22:10 | P.HPHOSP_ITS ---
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 Patient with advanced dementia at baseline and unable to provide meaningful HPI, which is instead obtained from who is at bedside and chart and provider review. states patient initially presented to [facility] in February of 2023 for rehab, but soon turned to long-term care after rehab insurance ran out. Patient began declining shortly thereafter, and has essentially been nonambulatory since beginning of the year. Unclear exactly when chronic right heel wound developed, but thinks sometime in late April or early June. Was seen by Podiatry at facility every Wednesday, and wound care completed by staff at facility. A few weeks ago patient was given a 5-day course of amoxicillin for potential infection. then spoke to streetcar dispatcher yesterday who noted foul-smelling discharge and that wound appeared larger than before. An x-ray was completed a which was concerning for osteomyelitis and patient was sent to the ED for further evaluation. Patient himself is unable to provide any significant ROS. In the ED pt with soft BP as low as 92/49, vitals otherwise WNL. Labs were significant for ESR 74, CRP 9.04, H&H 11.2/33.2, and albumin 3.2. XR of right foot showed no acute visible fracture or dislocation, or any cortical erosion to suggest osteomyelitis. Did show multi joint arthritic changes and redemonstrated linear radiopaque densities along lateral aspect of 1st distal phalanx and 1st proximal phalanx. Pt was treated with IVF, cefepime, and vancomycin. Pt will be admitted to the hospital for treatment and further evaluation of worsening chronic right foot ulcer concerning for osteomyelitis. Review of Systems 2 Review of Systems: Unable to obtain due to patient's mentation [facility] Medical History Osteoarthritis Hx of deep venous thrombosis Personal history of COVID-19 (~03/2023) Slow to wake up after anesthesia Back abscess Hypertension Radicular low back pain Bilateral hand numbness Impacted cerumen of right ear Peripheral neuropathy Chronic idiopathic thrombocytopenia Iron deficiency anemia Carpal tunnel syndrome Rotator cuff tear Thrombocytopenia Cognitive decline Depression GERD (gastroesophageal reflux disease) Hypercholesterolemia Hypertension Paroxysmal atrial fibrillation Impaired fasting glucose Family History Father No problems noted. Mother Diabetes Surgical History Colon cancer Lumbar disc disease H/O colonoscopy S/P left rotator cuff repair H/O lateral meniscus repair of right knee S/P IVC filter History of neck surgery History of laminectomy History of cardiac radiofrequency ablation History of neck surgery History of carpal tunnel release H/O repair of rotator cuff History of knee replacement procedure of right knee History of left knee replacement History of appendectomy History of cholecystectomy History of partial colectomy History of right hip replacement Social History Household Members: Spouse Housing: House Are you a primary clinical manager home care to a significant other at home: No Do you presently have visiting nurse or other home services: Yes (Mauricio LARA) Alcohol intake: never Patient Tobacco Use Status: Never used Tobacco e-Cigarette/Vaping Use: Never Used Second Hand Smoke Exposure: No Advance Directives: Yes Advance Directives on File: Yes Advance Directives Date on File: 03/09/23 service: No Current occupational status: retired Cognitive needs: Yes (walker) Hearing needs: Yes Vision needs: Yes Meds Allergies Allergy/AdvReac Type Severity Reaction Status Date / Time [id number]-TQP-PyH Reductase Allergy Intermediate MUSCULAR Verified 09/02/23 17:20 Inhibitor PAIN [[id number] REDUCTASE INHIBITOR] atorvastatin Allergy Unknown UNKNOWN Verified 09/02/23 17:20 pravastatin Allergy Unknown UNKNOWN Verified 09/02/23 17:20 simvastatin Allergy Unknown UNKNOWN Verified 09/02/23 17:20 Active Medications: Current Medications Acetaminophen (Acetaminophen 325 Mg Tablet) 650 mg PO Q6H PRN PRN Reason: Pain, Mild (Pain Scale 1-3) Albumin Human (Kedbumin 25 %) 100 mls @ 133.333 mls/hr IV Q1H ENIO Stop: 09/02/23 23:59 Piperacillin Sod/Tazobactam (Sod 3.375 gm/ Sodium Chloride) 50 mls @ 100 mls/hr IV Q6H [facility] Melatonin (Melatonin 3 Mg Tablet) 6 mg PO BEDTIME PRN PRN Reason: Insomnia Ondansetron HCl (Ondansetron Hcl 4 Mg/2 Ml Vial) 4 mg IVPUSH Q8H PRN PRN Reason: Nausea and Vomiting Pharmacy Consult (Consult Rx Vancomycin Dosing) 1 each MISCELLANE DAILY PRN PRN Reason: Consult order Sodium Chloride (0.9 % Sodium Chloride Flush 3 Ml Syringe) 3 ml IVFLUSH QSHIFT [facility] Home Medications ?Medication ?Instructions ?Recorded ?Confirmed ?Last Taken ?Type metoprolol tartrate 25 mg tablet 25 mg PO BID 02/05/20 03/08/23 03/08/23 History rosnozbd-xh-jlozj 300 mcg-K 60 1 tab PO DAILY 02/05/20 03/08/23 03/08/23 History mcg-lycop 600 mcg-lutein 300 mcg tablet (Centrum Silver Ultra Men's) acetaminophen 325 mg tablet 325 mg PO QID PRN Pain, Moderate 09/30/21 03/08/23 Unknown History ascorbic acid (vitamin C) 500 mg 500 mg PO DAILY 03/08/23 03/08/23 03/08/23 History tablet cholecalciferol (vitamin D3) 50 50 mcg PO DAILY 03/08/23 03/08/23 03/08/23 History mcg (2,000 unit) capsule colesevelam 625 mg tablet 1,875 mg PO DAILY 03/08/23 03/08/23 03/08/23 History omeprazole 20 mg capsule,delayed 20 mg PO DAILY@0630 03/08/23 03/08/23 03/08/23 History release warfarin 2 mg tablet 4 mg PO TH@1800 03/08/23 03/08/23 03/04/23 History warfarin 2 mg tablet 6 mg PO SUMOTUWEFRSA@1800 03/08/23 03/08/23 03/07/23 History Physical Exam 2 Vital Signs and Narrative: Vital Signs: Last Vital Signs Temp 98.5 F 09/02/23 17:37 Pulse 82 09/02/23 21:53 Resp 18 09/02/23 21:53 BP 95/47 L 09/02/23 21:53 Pulse Ox 99 09/02/23 21:53 O2 Del Method Room Air 09/02/23 21:53 BMI result Body Mass Index 26.5 Constitutional: Alert, pleasantly confused, in no acute distress. Mental Status: Oriented to person but not to time, place, or situation. Eyes: Pupils are equal, round, and reactive to light. Ear, Nose, and Throat: Oropharynx clear, mucous membranes moist. Ears and nose without deformities. Trachea midline. Respiratory: Clear to auscultation bilaterally. No wheezing, rales, or rhonchi. Cardiovascular: S1, S2 regular. 2/6 murmur heard at left sternal border. Gastrointestinal: Abdomen soft, non-tender, non-distended. Normal bowel sounds. Neurologic: Cranial nerves II-XII are grossly intact bilaterally. No focal neurological deficits. Moves all extremities spontaneously. Skin: Warm, dry. Musculoskeletal: No cyanosis or clubbing. Extremities: 2+ lower leg pitting edema bilaterally. Right foot with chronic non-healing ulcer at base of first digit on plantar aspect. Foul-smelling, large chronic wound on plantar aspect of right heel with obvious necrosis. As pictured below. Psychiatric: Pleasantly confused. Results Labs 09/02/23 17:31 09/02/23 17:31 Labs: Laboratory Results - last 24 hr 09/02/23 09/02/23 17:30 17:31 MCV 87.8 MCH 29.6 MCHC 33.7 RDW 13.6 Plt Count 270 D MPV 9.9 Immature Gran % (Auto) 0.2 Neut % (Auto) 73.5 H Lymph % (Auto) 15.3 L [place] % (Auto) 8.4 Eos % (Auto) 2.2 Baso % (Auto) 0.4 Lymph # (Auto) 1.2 [place] # (Auto) 0.7 Eos # (Auto) 0.2 Baso # (Auto) 0.0 Abs Immat Gran (auto) 0.02 Absolute Neuts (auto) 5.9 Absolute Nucleated RBC 0.000 Nucleated RBC % (auto) 0.0 ESR 74 H Anion Gap 16 Estim Creat Clear Calc 100.1 Estimated GFR > 60 Random Glucose 108 Lactic Acid 1.0 Calcium 8.9 Magnesium 1.6 Total Bilirubin 0.2 Direct Bilirubin < 0.2 AST 21 ALT 21 Alkaline Phosphatase 72 C-Reactive Protein 9.04 H Total Protein 7.7 Albumin 3.2 L Imaging Radiologist's Impressions: Impressions Foot X-Ray 09/02/23 18:45 IMPRESSION: 1. No acute visible fracture or dislocation. 2. Multi joint arthritic changes. 3. Redemonstrated linear radiopaque densities along the lateral aspect of the first distal phalanx and first proximal phalanx. 4. Soft tissue prominence throughout the foot without soft tissue gas noted. No cortical erosion to suggest osteomyelitis. If high clinical concern for osteomyelitis consider further evaluation with MRI. 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 Pt will be admitted to the hospital for treatment and further evaluation of worsening chronic right foot ulcer concerning for osteomyelitis. Nonhealing wound of right lower extremity with wet gangrene Wound with obvious necrosis, foul-smelling, yellowish discharge Concerning for osteomyelitis Elevated ESR, CRP; x-ray without obvious osseous erosions Patient not a diabetic; likely secondary to pressure ulcer/immobility Does not meet sepsis criteria: No leukocytosis, fever, tachycardia, or tachypnea; lactic acid WNL Patient given IVF and treated with broad-spectrum antibiotics in the ED Will treat with vancomycin and Zosyn, started 09/02/2023 Will get MRI of right foot Follow cultures Hypotension Patient's BP as low as 92/49 Treated with IVF in the ED Hold antihypertensives at this time Monitor BP Paroxysmal AFib Continue metoprolol Continue warfarin GERD PPI DNR/DNI Attending:?Dr. Cotter DVT Prophylaxis: On Warfarin Pt will require a hospitalization of at least two nights for treatment of?chronic nonhealing, nondiabetic right foot ulcer concerning for osteomyelitis. Patient will require hospitalization for administration of IV antibiotics. Quality Stroke Does the patient have a stroke diagnosis?: No VTE Prior VTE?: No VTE Risk Level:: Medical - moderate - high VTE Device Contraindication: Treatment Not Indicated VTE Drug Contraindication: N/A - Med Ordered
--- NOTE | 2023-09-02 22:20 | MHC.EDTECH ---
POC 134. RN and DR singh.
[2023-09-02] MEDS: Albumin Human 25 % 100 ML 133.33 ML IV ×2 (22:29→23:50)
[2023-09-03] VITALS (7 sets, daily range): BP systolic 92–113; BP diastolic 49–67; PULSE 66–77; RESP 17–22; TEMP 36.7–37.6; O2SAT 94–97
[2023-09-03] MEDS: Piperacillin Sodium/Tazobactam 3.375 GM in 0.9 % Sodium Chloride 50 ML IV ×4 (00:27→16:38)
--- NOTE | 2023-09-03 04:53 | MHC.EDTECH ---
This tech took over care of patient at 0400,hourly rounds and vitals completed. Patient was incont. of an XLG amount of urine and a small amount of soft stool,patient was cleaned,tigist-care given and linen changed. This tech applied a [place] Cath. to keep patient clean and dry. Belongings list completed and copy placed in chart,call landeros in reach
[2023-09-03 06:07] LABS: MANUAL DIFF FLAG NO
[2023-09-03 06:16] LABS: Basophils Percent Auto 0.3 % (0-2); Eosinophils Absolute Auto 0.1 X10*3/uL (0.0-0.4); Eosinophils Percent Auto 1.7 % (0-4); Hematocrit 28.4 % (42.0-52.0); Hemoglobin 9.4 g/dl (14.0-18.0); Imm Gran Abs Auto 0.02 X10*3/uL (0.00-0.03); Imm Gran Pct Auto 0.3 % (0.0-0.4); Lymphocytes Absolute Auto 1.2 X10*3/uL (1.2-4.9); Lymphocytes Percent Auto 18.8 % (20-40); Mean Corpuscular HGB Conc 33.1 g/dl (31.0-36.0); Mean Corpuscular Hemoglobin 28.7 pg (27.0-33.0); Mean Corpuscular Volume 86.9 fL (80.0-98.0); Mean Platelet Volume 10.5 fL (9.4-12.4); Monocytes Absolute Auto 0.5 X10*3/uL (0.1-1.2); Monocytes Percent Auto 8.5 % (2-11); Neutrophils Absolute Auto 4.5 x10*3/uL (2.0-8.3); Neutrophils Percent Auto 70.4 % (45-73); Platelet Count 213 X10*3/uL (160-400); Red Blood Count 3.27 X10*6/uL (4.60-5.80); Red Cell Distribution Width 13.5 % (11.0-16.0); White Blood Count 6.3 X10*3/uL (4.8-10.8)
[2023-09-03 06:28] LABS: Anion Gap 11 (12-20); Blood Urea Nitrogen 15 mg/dL (9-16); Calcium 8.9 mg/dL (8.4-10.2); Carbon Dioxide 24 mmol/L (22-29); Chloride 111 mmol/L (96-108); Creatinine Clr Calc Pharmacy 114.7; Estimated Glomerular Filt Rate > 60; Glucose Random 89 mg/dL (60-115); Potassium 3.7 mmol/L (3.3-5.1); Sodium 142 mmol/L (135-145)
[2023-09-03] MEDS: vancomycin HCL 1,000 MG in 0.9 % Sodium Chloride 250 ML 270 MG IV ×2 (07:28→20:00)
[2023-09-03] MEDS: 0.9 % Sodium Chloride Flush 3 ML SYRINGE IVFLUSH (07:52)
[2023-09-03] MEDS: 0.9 % Sodium Chloride 1,000 ML 150 ML IVCONT ×3 (09:13→21:17)
--- NOTE | 2023-09-03 09:32 | PC.NURSE ---
pt alert, oriented to self and situation but not specific place. Can describe where he lives and his family, but is a poor historian. Denies pain but reports numbness in lower extremities. perihelial pulses palpable. vanco infusing per mar, fluids also infusing at 150/hr.
--- NOTE | 2023-09-03 10:33 | HO.PM.IMPN ---
Subjective Subjective Date of Service: 09/03/23 Interval History: f/u on diabetic foot ulcer, concern for osteo confused but appears to be at baseline Physical Exam Vital Signs: Vital Signs: Last Vital Signs Temp 98.4 F 09/03/23 07:47 Pulse 70 09/03/23 07:47 Resp 22 H 09/03/23 07:47 BP 92/56 L 09/03/23 07:47 Pulse Ox 96 09/03/23 07:47 O2 Del Method Room Air 09/03/23 07:47 BMI result Body Mass Index 26.5 General: oriented to self, place otherwise confuse Resp: CTA bilateral CVS: S1,S2,RRR GI: +BS, NT, no distention Skin: No rash, right foot ulcer see pic in H and p Neuro: motor grossly intact Psych: appropriate affect Objective Data Active Medications Acetaminophen (Acetaminophen 325 Mg Tablet) 650 mg PO Q6H PRN PRN Reason: Pain, Mild (Pain Scale 1-3) Piperacillin Sod/Tazobactam (Sod 3.375 gm/ Sodium Chloride) 50 mls @ 100 mls/hr IV Q6H [facility] Last Infusion: 09/03/23 07:31 Dose: Infused Documented By: YOVANA Vancomycin HCl 1,000 mg/ (Sodium Chloride) 270 mls @ 270 mls/hr IV Q12H [facility] Last Infusion: 09/03/23 09:39 Dose: Infused Documented By: YOVANA Sodium Chloride (Ns) 1,000 mls @ 150 mls/hr IVCONT .Q6H40M [facility] Last Admin: 09/03/23 09:13 Dose: 150 mls/hr Documented By: YOVANA Melatonin (Melatonin 3 Mg Tablet) 6 mg PO BEDTIME PRN PRN Reason: Insomnia Ondansetron HCl (Ondansetron Hcl 4 Mg/2 Ml Vial) 4 mg IVPUSH Q8H PRN PRN Reason: Nausea and Vomiting Pharmacy Consult (Consult Rx Vancomycin Dosing) 1 each MISCELLANE DAILY PRN PRN Reason: Consult order Sodium Chloride (0.9 % Sodium Chloride Flush 3 Ml Syringe) 3 ml IVFLUSH QSHIFT [facility] Last Admin: 09/03/23 07:52 Dose: 3 ml Documented By: YOVANA Labs 09/03/23 05:18 09/03/23 05:18 Labs: Laboratory Results - last 24 hr 09/02/23 09/02/23 09/03/23 17:30 17:31 05:18 MCV 87.8 86.9 MCH 29.6 28.7 MCHC 33.7 33.1 RDW 13.6 13.5 Plt Count 270 D 213 MPV 9.9 10.5 Immature Gran % (Auto) 0.2 0.3 Neut % (Auto) 73.5 H 70.4 Lymph % (Auto) 15.3 L 18.8 L [place] % (Auto) 8.4 8.5 Eos % (Auto) 2.2 1.7 Baso % (Auto) 0.4 0.3 Lymph # (Auto) 1.2 1.2 [place] # (Auto) 0.7 0.5 Eos # (Auto) 0.2 0.1 Baso # (Auto) 0.0 0.0 Abs Immat Gran (auto) 0.02 0.02 Absolute Neuts (auto) 5.9 4.5 Absolute Nucleated RBC 0.000 0.000 Nucleated RBC % (auto) 0.0 0.0 ESR 74 H Anion Gap 16 11 L Estim Creat Clear Calc 100.1 114.7 Estimated GFR > 60 > 60 Random Glucose 108 89 Lactic Acid 1.0 Calcium 8.9 8.9 Magnesium 1.6 Total Bilirubin 0.2 Direct Bilirubin < 0.2 AST 21 ALT 21 Alkaline Phosphatase 72 C-Reactive Protein 9.04 H Total Protein 7.7 Albumin 3.2 L Microbiology Microbiology Results: Microbiology 09/02/23 20:06 Gram Stain - Final Foot Right Routine Culture - Preliminary Culture in progress. 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 Pt will be admitted to the hospital for treatment and further evaluation of worsening chronic right foot ulcer concerning for osteomyelitis. Nonhealing wound of right lower extremity with wet gangrene Wound with obvious necrosis, foul-smelling, yellowish discharge Concerning for osteomyelitis in light of elevated ESR and CRP Elevated ESR, CRP; x-ray without obvious osseous erosions Patient not a diabetic; likely secondary to pressure ulcer/immobility Does not meet sepsis criteria: No leukocytosis, fever, tachycardia, or tachypnea; lactic acid WNL Patient given IVF and treated with broad-spectrum antibiotics in the ED Will treat with vancomycin and Zosyn, started 09/02/2023 Unable to get MRI d/t being contracted and not able strech legs, get CT instead Follow cultures ID consult Hypotension--not due to sepsis Patient's BP as low as 92/49 Treated with IVF in the ED Hold antihypertensives (lisinopril and Metoprolol) at this time Monitor BP, give some IVF Paroxysmal AFib Continue metoprolol when bp better Continue warfarin GERD PPI DNR/DNI DVT Prophylaxis: On Warfarin need for inaptient: IV Abx for suspected osteomylitis in patient with diabetic foot ulcer, and osteo Quality Stroke Does the patient have a stroke diagnosis?: No VTE Prior VTE?: No VTE Risk Level:: Medical - moderate - high VTE Device Contraindication: Treatment Not Indicated VTE Drug Contraindication: N/A - Med Ordered
[2023-09-03 12:00] LABS: INTERNATIONAL NORM RATIO 2.9 (0.9-1.1); Prothrombin Time 35.2 SEC (11.1-13.3)
--- NOTE | 2023-09-03 12:01 | PHA.MEDREC ---
Pharmacy Consult ? Medication Reconciliation Pharmacy has completed the medication reconciliation.Completed med list brought from [facility] nursing. Called and spoke to nurse at facility she confirmed the patient is on Warfarin 7.5mg on Wed,,Wed,,Wed,Wed and 8mg . Patient did not get the 8mg dose on 09/02/2023 according to [place] [facility] but they stated he did recieve the 7.5mg dose on Wed09/01/23
--- NOTE | 2023-09-03 13:11 | PM.CNGS ---
History of Present Illness Consult details Consult date: 09/03/23 Reason for consult: wound care Narrative: Very pleasant 72-year-old gentleman presents for evaluation regarding nonhealing lower extremity ulcers. It is unclear what his overall status is. He is quite confused and has been trying to figure out his overall functional status. Was hard to direct him and he kept on talking about childhood memories. At the current time he seems contracted and bedbound to me Review of Systems Review of Systems: Yes Unobtainable due to mental status [facility] Past Medical History Medical History Osteoarthritis Hx of deep venous thrombosis Personal history of COVID-19 (~03/2023) Slow to wake up after anesthesia Back abscess Hypertension Radicular low back pain Bilateral hand numbness Impacted cerumen of right ear Peripheral neuropathy Chronic idiopathic thrombocytopenia Iron deficiency anemia Carpal tunnel syndrome Rotator cuff tear Thrombocytopenia Cognitive decline Depression GERD (gastroesophageal reflux disease) Hypercholesterolemia Hypertension Paroxysmal atrial fibrillation Impaired fasting glucose Family History Family History Father No problems noted. Mother Diabetes Surgical History Surgical History Colon cancer Lumbar disc disease H/O colonoscopy S/P left rotator cuff repair H/O lateral meniscus repair of right knee S/P IVC filter History of neck surgery History of laminectomy History of cardiac radiofrequency ablation History of neck surgery History of carpal tunnel release H/O repair of rotator cuff History of knee replacement procedure of right knee History of left knee replacement History of appendectomy History of cholecystectomy History of partial colectomy History of right hip replacement Social History Social History Household Members: Spouse Housing: House Are you a primary dog day care attendant to a significant other at home: No Do you presently have visiting nurse or other home services: Yes (Mauricio LARA) Alcohol intake: never Patient Tobacco Use Status: Never used Tobacco e-Cigarette/Vaping Use: Never Used Second Hand Smoke Exposure: No Advance Directives: Yes Advance Directives on File: Yes Advance Directives Date on File: 03/09/23 Nutrition Risks: No Nutritional Risk service: No Current occupational status: retired Cognitive needs: Yes (walker) Hearing needs: Yes Vision needs: Yes Meds Allergies Allergy/AdvReac Type Severity Reaction Status Date / Time [id number] Reductase Allergy Intermediate MUSCULAR Verified 09/02/23 17:20 Inhibitor PAIN [[id number] REDUCTASE INHIBITOR] atorvastatin Allergy Unknown UNKNOWN Verified 09/02/23 17:20 pravastatin Allergy Unknown UNKNOWN Verified 09/02/23 17:20 simvastatin Allergy Unknown UNKNOWN Verified 09/02/23 17:20 Active Medications: Current Medications Acetaminophen (Acetaminophen 325 Mg Tablet) 650 mg PO Q6H PRN PRN Reason: Pain, Mild (Pain Scale 1-3) Piperacillin Sod/Tazobactam (Sod 3.375 gm/ Sodium Chloride) 50 mls @ 100 mls/hr IV Q6H [facility] Last Admin: 09/03/23 11:05 Dose: 100 mls/hr Vancomycin HCl 1,000 mg/ (Sodium Chloride) 270 mls @ 270 mls/hr IV Q12H [facility] Last Infusion: 09/03/23 09:39 Dose: Infused Sodium Chloride (Ns) 1,000 mls @ 150 mls/hr IVCONT .Q6H40M [facility] Last Admin: 09/03/23 09:13 Dose: 150 mls/hr Melatonin (Melatonin 3 Mg Tablet) 6 mg PO BEDTIME PRN PRN Reason: Insomnia Ondansetron HCl (Ondansetron Hcl 4 Mg/2 Ml Vial) 4 mg IVPUSH Q8H PRN PRN Reason: Nausea and Vomiting Pharmacy Consult (Consult Rx Vancomycin Dosing) 1 each MISCELLANE DAILY PRN PRN Reason: Consult order Sodium Chloride (0.9 % Sodium Chloride Flush 3 Ml Syringe) [facility] Admin: 09/03/23 07:52 Dose: 3 ml Home Medications ?Medication ?Instructions ?Recorded ?Confirmed ?Last Taken ?Type metoprolol tartrate 25 mg tablet 25 mg PO BID 02/05/20 09/03/23 09/01/23 History imkmwqbx-gw-pomdh 300 mcg-K 60 1 tab PO DAILY 02/05/20 09/03/23 09/01/23 History mcg-lycop 600 mcg-lutein 300 mcg tablet (Centrum Silver Ultra Men's) acetaminophen 325 mg tablet 325 mg PO Q6H PRN Pain, Moderate 09/30/21 09/03/23 09/01/23 History ascorbic acid (vitamin C) 500 mg 500 mg PO DAILY 03/08/23 09/03/23 09/01/23 History tablet cholecalciferol (vitamin D3) 50 50 mcg PO DAILY 03/08/23 09/03/23 09/01/23 History mcg (2,000 unit) capsule colesevelam 625 mg tablet 1,875 mg PO DAILY 03/08/23 09/03/23 09/01/23 History omeprazole 20 mg capsule,delayed 20 mg PO DAILY@0630 03/08/23 09/03/23 09/01/23 History release baclofen 10 mg tablet 2 mg PO TID 09/03/23 09/03/23 09/01/23 History bisacodyl 10 mg rectal suppository 10 mg [place] DAILY PRN Constipation 09/03/23 09/03/23 09/01/23 History furosemide 20 mg tablet 40 mg PO DAILY 09/03/23 09/03/23 Unknown History gabapentin 100 mg capsule 200 mg PO TID 09/03/23 09/03/23 09/01/23 History ipratropium 0.5 mg-albuterol 3 mg 3 ml inhalation Q12H PRN SOB 09/03/23 09/03/23 09/01/23 History (2.5 mg base)/3 mL nebulization soln ipratropium 0.5 mg-albuterol 3 mg 3 ml inhalation Q12H PRN Shortness 09/03/23 09/03/23 Unknown History (2.5 mg base)/3 mL nebulization Of Breath Or Wheezing soln loratadine 10 mg tablet 10 mg PO DAILY PRN PRURITUS 09/03/23 09/03/23 Unknown History magnesium hydroxide 400 mg/5 mL 30 ml PO BEDTIME PRN Constipation 09/03/23 09/03/23 Unknown History oral suspension (Milk of Magnesia) melatonin 5 mg tablet 5 mg PO BEDTIME sleep aid 09/03/23 09/03/23 09/01/23 History sodium phosphates 19 gram-7 118 ml [place] DAILY PRN Constipation 09/03/23 09/03/23 09/01/23 History gram/118 mL enema (Fleet Enema) tramadol 50 mg tablet 50 mg PO Q12H PRN mod-sev pain 09/03/23 09/03/23 09/01/23 History warfarin 4 mg tablet 8 mg PO TH@1800 09/03/23 09/03/23 08/26/23 History warfarin 7.5 mg tablet 7.5 mg PO HAIDERTUWMARIANGELA@1800 09/03/23 09/03/23 09/01/23 History Physical Exam Vital Signs: Vital Signs: Last Vital Signs Temp 98.4 F 09/03/23 07:47 Pulse 70 09/03/23 07:47 Resp 22 H 09/03/23 07:47 BP 92/56 L 09/03/23 07:47 Pulse Ox 96 09/03/23 07:47 O2 Del Method Room Air 09/03/23 07:47 BMI result Body Mass Index 26.5 Const: General: cooperative, healthy appearing and no acute distress Orientation/consciousness: oriented to person, oriented to place and oriented to time HEENT: Head: Yes normal to inspection Neck: Carotids: no bruits Chest: Chest palpation & inspection: normal inspection of the chest Resp: Effort & Inspection: normal respiratory effort and able to speak in complete sentences Auscultation: clear to auscultation bilaterally Cardio: Rate: regular rate Heart sounds: S1 normal heart sound present and S2 normal heart sound present GI: Inspection: Yes normal to inspection Skin: General skin exam: no rashes or lesions noted Wounds: no wounds Neuro: General: oriented to person, oriented to place, oriented to time and CN's II-XI intact bilaterally Extrem: Other: Bilateral heels contracted. Right heel wet in boggy with a foul odor. General: Yes normal to inspection, Yes full ROM and Yes no clubbing, cyanosis or edema Psych: Appearance: grossly normal and well kempt Speech and movement: Normal speech and movement present Affect: normal affect Results Labs 09/03/23 05:18 09/03/23 05:18 Labs: Abnormal lab results 09/02/23 09/02/23 09/03/23 Range/Units 17:30 17:31 05:18 RBC 3.78 L 3.27 L (4.60-5.80) X10*6/uL Hgb 11.2 L D 9.4 L (14.0-18.0) g/dl Hct 33.2 L D 28.4 L (42.0-52.0) % Neut % (Auto) 73.5 H (45-73) % Lymph % (Auto) 15.3 L 18.8 L (20-40) % ESR 74 H (0-15) MM/HR PT (11.1-13.3) SEC INR (0.9-1.1) Chloride 111 H (96-108) mmol/L Anion Gap 11 L (12-20) BUN 20 H (9-16) mg/dL C-Reactive Protein 9.04 H (< or = 0.50) mg/dL Albumin 3.2 L (3.5-5.0) g/dL 09/03/23 Range/Units 11:44 RBC (4.60-5.80) X10*6/uL Hgb (14.0-18.0) g/dl Hct (42.0-52.0) % Neut % (Auto) (45-73) % Lymph % (Auto) (20-40) % ESR (0-15) MM/HR PT 35.2 H D (11.1-13.3) SEC INR 2.9 H (0.9-1.1) Chloride (96-108) mmol/L Anion Gap (12-20) BUN (9-16) mg/dL C-Reactive Protein (< or = 0.50) mg/dL Albumin (3.5-5.0) g/dL Short CBC 09/02/23 09/03/23 Range/Units 17:31 05:18 WBC 8.0 6.3 (4.8-10.8) X10*3/uL Hgb 11.2 L D 9.4 L (14.0-18.0) g/dl Hct 33.2 L D 28.4 L (42.0-52.0) % Plt Count 270 D 213 (160-400) X10*3/uL BMP 09/02/23 09/03/23 17:31 05:18 Sodium 139 142 Potassium 4.0 3.7 Chloride 101 111 H Carbon Dioxide 26 24 BUN 20 H 15 Creatinine 0.71 0.62 Calcium 8.9 8.9 Liver Function 09/02/23 Range/Units 17:31 Total Bilirubin 0.2 (0.0-1.0) mg/dL Direct Bilirubin < 0.2 (0.0-0.5) mg/dL AST 21 (5-37) U/L ALT 21 (0-40) U/L Alkaline Phosphatase 72 (39-117) U/L Albumin 3.2 L (3.5-5.0) g/dL All other labs normal. Assessment and Plan (1) Non-healing wound of right lower extremity: Status: Acute Plan In short it appears that he has a right lower extremity pressure ulcer. At the current time would continue with local wound care and antibiotics. He appears to be contracted and nonambulatory. Unfortunately the only thing I would offer him is an above knee amputation. We will continue to observe him. This was discussed with the hospitalist team. Thank you for allowing us to assist in his care. Wound care orders written Procedures Date of Service Date of Service: 09/03/23
[2023-09-03 14:34] LABS: Appearance Urine Cloudy; Color Urine Yellow; Glucose Urine UA Negative (Negative); Leukocyte Esterase Urine Large (3+) (Negative); Nitrite Urine Negative (Negative); Specific Gravity - Urine 1.015 (1.005-1.025); UMIC TRIGGER UACC YES; Urine Blood Negative (Negative); Urine Ketones Negative (Negative); Urine Protein Negative (Neg-Trace)
[2023-09-03 14:37] LABS: Bacteria Urine None Seen (None Seen); RBC Urine 0-2 /HPF (0-2); Squamous Epithelial Cell Urine 0-2 /HPF (0-2); UACC Culture Trigger YES; WBC Urine >50 /HPF (0-5)
[2023-09-03] MEDS: Gabapentin 100 MG CAPSULE 200 MG PO ×2 (16:35→21:10)
[2023-09-03 17:18] LABS: Vancomycin Random 15.4 mcg/mL (15-20)
--- NOTE | 2023-09-03 17:28 | HE.PHANOTE ---
Re: Vanco Trough returned at 15.4, trough is running two points higher than predicted. Continue current dose of 1000mg q12h, with predicted AUC 482, and 14.9. Next trough 09/02 at 1700.
[2023-09-03] MEDS: Baclofen 10 MG TABLET 20 MG PO ×2 (17:35→21:10)
[2023-09-03] MEDS: Warfarin Sodium 7.5 MG TABLET PO (17:36)
--- NOTE | 2023-09-03 19:33 | PC.NURSE ---
This RN assumed pt care @ 1900. Pt ca&ox4, no signs of distress. Pt requesting food. Urinal placed in reach Plan of care ongoing.
--- NOTE | 2023-09-03 20:22 | PC.NURSE ---
Pt medicated per jun. Pt requested and given food. Plan of care ongoing.
--- NOTE | 2023-09-03 20:53 | PC.NURSE ---
IV pump alarm for occlusion. Pt requesting and given water. Plan of care ongoing.
[2023-09-03] MEDS: Melatonin 3 MG TABLET 6 MG PO (21:10)
--- NOTE | 2023-09-03 21:20 | PC.NURSE ---
Pt medicated per jun. Plan of care ongoing.
--- NOTE | 2023-09-03 23:46 | P.CNID_ITS ---
History of Present Illness Data of Consult Service Date: 09/03/23 Requesting physician: Surjit Awan Primary Care Provider: Venkat Chilel MD HPI Reason for consult: right heel OM I talked to his . He has dementia and is living in [facility] and has had wound for month or more right heel. He has had regular wound care and last week wound became larger and more necrotic. It is not clear whether he is taking antibiotics. He has no fever or chills. Review of Systems 2 Review of Systems: Yes Unobtainable due to mental status PMFSH Past Medical History Medical History Osteoarthritis Hx of deep venous thrombosis Personal history of COVID-19 (~03/2023) Slow to wake up after anesthesia Back abscess Hypertension Radicular low back pain Bilateral hand numbness Impacted cerumen of right ear Peripheral neuropathy Chronic idiopathic thrombocytopenia Iron deficiency anemia Carpal tunnel syndrome Rotator cuff tear Thrombocytopenia Cognitive decline Depression GERD (gastroesophageal reflux disease) Hypercholesterolemia Hypertension Paroxysmal atrial fibrillation Impaired fasting glucose Family History Family History Father No problems noted. Mother Diabetes Surgical History Surgical History Colon cancer Lumbar disc disease H/O colonoscopy S/P left rotator cuff repair H/O lateral meniscus repair of right knee S/P IVC filter History of neck surgery History of laminectomy History of cardiac radiofrequency ablation History of neck surgery History of carpal tunnel release H/O repair of rotator cuff History of knee replacement procedure of right knee History of left knee replacement History of appendectomy History of cholecystectomy History of partial colectomy History of right hip replacement Social History Social History Household Members: Spouse Housing: House Are you a primary healthcare liaison to a significant other at home: No Do you presently have visiting nurse or other home services: Yes (Mauricio LARA) Alcohol intake: never Patient Tobacco Use Status: Never used Tobacco e-Cigarette/Vaping Use: Never Used Second Hand Smoke Exposure: No Advance Directives: Yes Advance Directives on File: Yes Advance Directives Date on File: 11/28/23 Nutrition Risks: No Nutritional Risk service: No Current occupational status: retired Cognitive needs: Yes (walker) Hearing needs: Yes Vision needs: Yes Meds Allergies Allergy/AdvReac Type Severity Reaction Status Date / Time [id number] Reductase Allergy Intermediate MUSCULAR Verified 09/02/23 17:20 Inhibitor PAIN [[id number] REDUCTASE INHIBITOR] atorvastatin Allergy Unknown UNKNOWN Verified 09/02/23 17:20 pravastatin Allergy Unknown UNKNOWN Verified 09/02/23 17:20 simvastatin Allergy Unknown UNKNOWN Verified 09/02/23 17:20 Active Medications: Current Medications Acetaminophen (Acetaminophen 325 Mg Tablet) 650 mg PO Q6H PRN PRN Reason: Pain, Mild (Pain Scale 1-3) Acetaminophen (Acetaminophen 325 Mg Tablet) 325 mg PO Q6H PRN PRN Reason: Pain, Moderate Albuterol/Ipratropium (Albuterol/Iprat 2.5/0.5mg 3 Ml Ampul.Neb) 3 ml INHALE RBID PRN PRN Reason: Shortness Of Breath Or Wheezing Albuterol/Ipratropium (Albuterol/Iprat 2.5/0.5mg 3 Ml Ampul.Neb) 3 ml INHALE RBID PRN PRN Reason: Shortness of Breath Ascorbic Acid (Ascorbic Acid 500 Mg Tablet) 500 mg PO DAILY [facility] Baclofen (Baclofen 10 Mg Tablet) 20 mg PO TID [facility] Last Admin: 09/03/23 21:10 Dose: 20 mg Bisacodyl (Bisacodyl 10 Mg Supp.Rect) 10 mg [place] DAILY PRN PRN Reason: Constipation Cholestyramine Resin (Cholestyramine (With Sugar) 4 Gm Powd.Pack) 4 gm PO TID [facility] Gabapentin (Gabapentin 100 Mg Capsule) 200 mg PO TID [facility] Last Admin: 09/03/23 21:10 Dose: 200 mg Piperacillin Sod/Tazobactam (Sod 3.375 gm/ Sodium Chloride) 50 mls @ 100 mls/hr IV Q6H [facility] Last Infusion: 09/03/23 17:35 Dose: Infused Vancomycin HCl 1,000 mg/ (Sodium Chloride) 270 mls @ 270 mls/hr IV Q12H [facility] Last Admin: 09/03/23 20:00 Dose: 270 mls/hr Sodium Chloride (Ns) 1,000 mls @ 150 mls/hr IVCONT .Q6H40M [facility] Last Admin: 09/03/23 21:17 Dose: 150 mls/hr Loratadine (Loratadine 10 Mg Tablet) 10 mg PO DAILY PRN PRN Reason: PRURITUS Magnesium Hydroxide (Milk Of Magnesia 30 Ml Oral.Susp) 30 ml PO BEDTIME PRN PRN Reason: Constipation Melatonin (Melatonin 3 Mg Tablet) 6 mg PO BEDTIME PRN PRN Reason: Insomnia Melatonin (Melatonin 3 Mg Tablet) 6 mg PO BEDTIME [facility] Last Admin: 09/03/23 21:10 Dose: 6 mg Multivitamins/Vitamin C (Multivitamin Tablet) 1 tab PO DAILY [facility] Omeprazole (Omeprazole 20 Mg Capsule.Dr) 20 mg PO DAILY@0630 [facility] Ondansetron HCl (Ondansetron Hcl 4 Mg/2 Ml Vial) 4 mg IVPUSH Q8H PRN PRN Reason: Nausea and Vomiting Pharmacy Consult (Consult Rx Vancomycin Dosing) 1 each MISCELLANE DAILY PRN PRN Reason: Consult order Sodium Biphosphate/Sodium Phosphate (Sodium Phosphate,[place]-Dibasic 133 Ml Enema) 118 ml [place] DAILY PRN PRN Reason: Constipation Sodium Chloride (0.9 % Sodium Chloride Flush 3 Ml Syringe) 3 ml IVFLUSH QSHIFT [facility] Last Admin: 09/03/23 16:37 Dose: Not Given Tramadol HCl (Tramadol Hcl 50 Mg Tablet) 50 mg PO Q12H PRN PRN Reason: mod-sev pain Vitamin D (Cholecalciferol (Vitamin D3) 25 Mcg Tablet) 50 mcg PO DAILY [facility] Warfarin Sodium (Warfarin Sodium 4 Mg Tablet) 8 mg PO TH@1800 [facility] Warfarin Sodium (Warfarin Sodium 7.5 Mg Tablet) 7.5 mg PO SUMOTUWEFRSA@1800 [facility] Last Admin: 09/03/23 17:36 Dose: 7.5 mg Home Medications ?Medication ?Instructions ?Recorded ?Confirmed ?Last Taken ?Type metoprolol tartrate 25 mg tablet 25 mg PO BID 02/05/20 09/03/23 09/01/23 History [id number] 300 mcg-K 60 1 tab PO DAILY 02/05/20 09/03/23 09/01/23 History mcg-lycop 600 mcg-lutein 300 mcg tablet (Centrum Silver Ultra Men's) acetaminophen 325 mg tablet 325 mg PO Q6H PRN Pain, Moderate 09/30/21 09/03/23 09/01/23 History ascorbic acid (vitamin C) 500 mg 500 mg PO DAILY 03/08/23 09/03/23 09/01/23 History tablet cholecalciferol (vitamin D3) 50 50 mcg PO DAILY 03/08/23 09/03/23 09/01/23 History mcg (2,000 unit) capsule colesevelam 625 mg tablet 1,875 mg PO DAILY 03/08/23 09/03/23 09/01/23 History omeprazole 20 mg capsule,delayed 20 mg PO DAILY@0630 03/08/23 09/03/23 09/01/23 History release baclofen 10 mg tablet 20 mg PO TID 09/03/23 09/03/23 09/01/23 History bisacodyl 10 mg rectal suppository 10 mg [place] DAILY PRN Constipation 09/03/23 09/03/23 09/01/23 History furosemide 20 mg tablet 40 mg PO DAILY 09/03/23 09/03/23 Unknown History gabapentin 100 mg capsule 200 mg PO TID 09/03/23 09/03/23 09/01/23 History ipratropium 0.5 mg-albuterol 3 mg 3 ml inhalation Q12H PRN SOB 09/03/23 09/03/23 09/01/23 History (2.5 mg base)/3 mL nebulization soln ipratropium 0.5 mg-albuterol 3 mg 3 ml inhalation Q12H PRN Shortness 09/03/23 09/03/23 Unknown History (2.5 mg base)/3 mL nebulization Of Breath Or Wheezing soln loratadine 10 mg tablet 10 mg PO DAILY PRN PRURITUS 09/03/23 09/03/23 Unknown History magnesium hydroxide 400 mg/5 mL 30 ml PO BEDTIME PRN Constipation 09/03/23 09/03/23 Unknown History oral suspension (Milk of Magnesia) melatonin 5 mg tablet 5 mg PO BEDTIME sleep aid 09/03/23 09/03/23 09/01/23 History sodium phosphates 19 gram-7 118 ml [place] DAILY PRN Constipation 09/03/23 09/03/23 09/01/23 History gram/118 mL enema (Fleet Enema) tramadol 50 mg tablet 50 mg PO Q12H PRN mod-sev pain 09/03/23 09/03/23 09/01/23 History warfarin 4 mg tablet 8 mg PO TH@1800 09/03/23 09/03/23 08/26/23 History warfarin 7.5 mg tablet 7.5 mg PO HAIDERTUWMARIANGELA@1800 09/03/23 09/03/23 09/01/23 History Physical Exam 2 Vital Signs: Vital Signs: Last Vital Signs Temp 99.2 F 09/03/23 18:26 Pulse 66 09/03/23 18:26 Resp 17 09/03/23 18:26 BP 94/51 L 09/03/23 18:26 Pulse Ox 94 09/03/23 18:26 O2 Del Method Room Air 09/03/23 18:26 BMI result Body Mass Index 26.5 Const: General: cooperative HEENT: Head: Yes normal to inspection Face and sinus: Yes normal facial exam Mouth: Normal oral and palatal mucosa present Teeth and gingiva: d entition normal Eyes: General: appearance normal, both eyes and all related structures P upils: Equal, round and reactive pupils present Resp: Effort & Inspection: normal respiratory effort Cardio: Rate: regular rate Rhythm: regular rhythm GI: Palpation (GI): Soft to palpation and nontender : General: Yes no CVA tenderness Back/Spine/Pelvis: Back: no CVA tenderness Skin: General skin exam: no rashes or lesions noted Neuro: General: moves all extremities Cranial nerves: Yes Equal, round and reactive pupils present Extrem: General: Yes normal to inspection Psych: Other: confused Results Labs 09/03/23 05:18 09/03/23 05:18 Labs: Short CBC 09/03/23 Range/Units 05:18 WBC 6.3 (4.8-10.8) X10*3/uL Hgb 9.4 L (14.0-18.0) g/dl Hct 28.4 L (42.0-52.0) % Plt Count 213 (160-400) X10*3/uL BMP 09/03/23 05:18 Sodium 142 Potassium 3.7 Chloride 111 H Carbon Dioxide 24 BUN 15 Creatinine 0.62 Calcium 8.9 Urine 09/03/23 Range/Units 14:25 Urine Color Yellow Urine Appearance Cloudy Urine pH 6.0 (5.0-9.0) Ur Specific [place] 1.015 (1.005-1.025) Urine Protein Negative (Neg-Trace) mg/dL Urine Glucose (UA) Negative (Negative) mg/dL Microbiology Microbiology Results: Microbiology 09/02/23 18:14 Blood - Venous Blood Culture - Preliminary No growth after 24 hours. 09/02/23 17:30 Blood - Venous Blood Culture - Preliminary No growth after 24 hours. 09/02/23 20:06 Foot Right Gram Stain - Final 09/02/23 20:06 Foot Right Routine Culture - Preliminary Culture in progress. Assessment and Plan (1) Non-healing wound of right lower extremity: Status: Acute (2) Osteomyelitis: Qualifiers: Laterality: right Osteomyelitis location: foot Osteomyelitis type: u nspecified type Qualified Code(s): M86.9 - Osteomyelitis, unspecified Status: Acute Plan Await cultures blood. Vancomycin and Zosyn appropriate for now and narrow down according to culture. Surgery or Vascular can evaluate eschar/?debridement?wound vac.
[2023-09-04] MEDS: 0.9 % Sodium Chloride 1,000 ML 150 ML IVCONT ×3 (04:31→23:32)
[2023-09-04 05:07] VITALS: BP 99/61; PULSE 59; RESP 18; TEMP 36.6; O2SAT 97
[2023-09-04] MEDS: Piperacillin Sodium/Tazobactam 3.375 GM in 0.9 % Sodium Chloride 50 ML IV ×5 (05:12→22:45)
--- NOTE | 2023-09-04 05:16 | PC.NURSE ---
Pt medicated per jun. Plan of care ongoing.
--- NOTE | 2023-09-04 07:50 | HO.PM.IMPN ---
Subjective Subjective Date of Service: 09/04/23 Interval History: f/u on diabetic foot ulcer, concern for confused but appears to be at baseline no complaint of pain Physical Exam Vital Signs: Vital Signs: Last Vital Signs Temp 98 F 09/04/23 05:07 Pulse 59 09/04/23 05:07 Resp 18 09/04/23 05:07 BP 99/61 09/04/23 05:07 Pulse Ox 97 09/04/23 05:07 O2 Del Method Room Air 09/04/23 05:07 BMI result Body Mass Index 26.5 exam unchanged from 09/02 Objective Data Active Medications Acetaminophen (Acetaminophen 325 Mg Tablet) 650 mg PO Q6H PRN PRN Reason: Pain, Mild (Pain Scale 1-3) Acetaminophen (Acetaminophen 325 Mg Tablet) 325 mg PO Q6H PRN PRN Reason: Pain, Moderate Albuterol/Ipratropium (Albuterol/Iprat 2.5/0.5mg 3 Ml Ampul.Neb) 3 ml INHALE RBID PRN PRN Reason: Shortness Of Breath Or Wheezing Albuterol/Ipratropium (Albuterol/Iprat 2.5/0.5mg 3 Ml Ampul.Neb) 3 ml INHALE RBID PRN PRN Reason: Shortness of Breath Ascorbic Acid (Ascorbic Acid 500 Mg Tablet) 500 mg PO DAILY [facility] Baclofen (Baclofen 10 Mg Tablet) 20 mg PO TID [facility] Last Admin: 09/03/23 21:10 Dose: 20 mg Documented By: KELLY Bisacodyl (Bisacodyl 10 Mg Supp.Rect) 10 mg [place] DAILY PRN PRN Reason: Constipation Cholestyramine Resin (Cholestyramine (With Sugar) 4 Gm Powd.Pack) 4 gm PO TID [facility] Gabapentin (Gabapentin 100 Mg Capsule) 200 mg PO TID [facility] Last Admin: 09/03/23 21:10 Dose: 200 mg Documented By: KELLY Piperacillin Sod/Tazobactam (Sod 3.375 gm/ Sodium Chloride) 50 mls @ 100 mls/hr IV Q6H [facility] Last Infusion: 09/04/23 05:45 Dose: Infused Documented By: KELLY Vancomycin HCl 1,000 mg/ (Sodium Chloride) 270 mls @ 270 mls/hr IV Q12H [facility] Last Infusion: 09/03/23 21:30 Dose: Infused Documented By: KELLY Sodium Chloride (Ns) 1,000 mls @ 150 mls/hr IVCONT .Q6H40M [facility] Last Admin: 09/04/23 04:31 Dose: 150 mls/hr Documented By: KELLY Loratadine (Loratadine 10 Mg Tablet) 10 mg PO DAILY PRN PRN Reason: PRURITUS Magnesium Hydroxide (Milk Of Magnesia 30 Ml Oral.Susp) 30 ml PO BEDTIME PRN PRN Reason: Constipation Melatonin (Melatonin 3 Mg Tablet) 6 mg PO BEDTIME PRN PRN Reason: Insomnia Melatonin (Melatonin 3 Mg Tablet) 6 mg PO BEDTIME [facility] Last Admin: 09/03/23 21:10 Dose: 6 mg Documented By: KELLY Multivitamins/Vitamin C (Multivitamin Tablet) 1 tab PO DAILY [facility] Omeprazole (Omeprazole 20 Mg Capsule.Dr) 20 mg PO DAILY@0630 [facility] Ondansetron HCl (Ondansetron Hcl 4 Mg/2 Ml Vial) 4 mg IVPUSH Q8H PRN PRN Reason: Nausea and Vomiting Pharmacy Consult (Consult Rx Vancomycin Dosing) 1 each MISCELLANE DAILY PRN PRN Reason: Consult order Sodium Biphosphate/Sodium Phosphate (Sodium Phosphate,[place]-Dibasic 133 Ml Enema) 118 ml [place] DAILY PRN PRN Reason: Constipation Sodium Chloride (0.9 % Sodium Chloride Flush 3 Ml Syringe) 3 ml IVFLUSH QSHIFT [facility] Last Admin: 09/04/23 01:00 Dose: Not Given Documented By: KLELY Non-Admin Reason: IV Running Tramadol HCl (Tramadol Hcl 50 Mg Tablet) 50 mg PO Q12H PRN PRN Reason: mod-sev pain Vitamin D (Cholecalciferol (Vitamin D3) 25 Mcg Tablet) 50 mcg PO DAILY [facility] Warfarin Sodium (Warfarin Sodium 4 Mg Tablet) 8 mg PO TH@1800 [facility] Warfarin Sodium (Warfarin Sodium 7.5 Mg Tablet) 7.5 mg PO SUMOTUWEFRSA@1800 [facility] Last Admin: 09/03/23 17:36 Dose: 7.5 mg Documented By: YOVANA Labs 09/03/23 05:18 09/03/23 05:18 Labs: Laboratory Results - last 24 hr 09/03/23 09/03/23 09/03/23 11:44 14:25 16:55 PT 35.2 H D INR 2.9 H Urine Color Yellow Urine Appearance Cloudy Urine pH 6.0 Ur Specific [place] 1.015 Urine Protein Negative Urine Glucose (UA) Negative Urine Ketones Negative Urine Blood Negative Urine Nitrite Negative Ur Leukocyte Esterase Large (3+) H Urine RBC 0-2 Urine WBC >50 H Ur Squamous Epith Cells 0-2 Urine Bacteria None Seen Hyaline Casts 3-5 Random Vancomycin 15.4 Microbiology Microbiology Results: Microbiology 09/02/23 18:14 Blood Culture - Preliminary Blood - Venous No growth after 24 hours. 09/02/23 17:30 Blood Culture - Preliminary Blood - Venous No growth after 24 hours. 09/02/23 20:06 Gram Stain - Final Foot Right Routine Culture - Preliminary Culture in progress. 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 Pt will be admitted to the hospital for treatment and further evaluation of worsening chronic right foot ulcer concerning for osteomyelitis. Nonhealing wound of right lower extremity with wet gangrene Wound with obvious necrosis, foul-smelling, yellowish discharge An outside xray showed OM Unable to do MRI d/t contracted status Seen by vascular surgery with recommendation for Abx and if fails then ampuation will hold CT as won't change continue Zosyn + Vanco 09/01 cultures so far negative. ID consult Hypotension--not due to sepsis, BP better on IVF Hold antihypertensives (lisinopril and Metoprolol) at this time Continue IvF Paroxysmal AFib Continue metoprolol when bp better Continue warfarin, goal of INR 2 to 3 GERD PPI DNR/DNI DVT Prophylaxis: On Warfarin need for inaptient: IV Abx for suspected osteomylitis in patient with diabetic foot ulcer, Quality Stroke Does the patient have a stroke diagnosis?: No VTE Prior VTE?: No VTE Risk Level:: Medical - moderate - high VTE Device Contraindication: Treatment Not Indicated VTE Drug Contraindication: N/A - Med Ordered
[2023-09-04] MEDS: vancomycin HCL 1,000 MG in 0.9 % Sodium Chloride 250 ML 270 MG IV ×2 (08:40→20:05)
[2023-09-04] MEDS: Cholecalciferol (Vitamin D3) 25 MCG TABLET 50 MCG PO (08:44)
[2023-09-04] MEDS: Baclofen 10 MG TABLET 20 MG PO ×3 (08:45→20:05)
[2023-09-04] MEDS: Gabapentin 100 MG CAPSULE 200 MG PO ×3 (08:45→20:05)
[2023-09-04] MEDS: Omeprazole 20 MG CAPSULE.DR PO (08:45)
[2023-09-04] MEDS: Ascorbic Acid 500 MG TABLET PO (08:45)
[2023-09-04] MEDS: Multivitamin TABLET 1 TAB PO (08:45)
[2023-09-04] MEDS: 0.9 % Sodium Chloride Flush 3 ML SYRINGE IVFLUSH ×3 (08:46→16:24)
[2023-09-04 09:35] LABS: INTERNATIONAL NORM RATIO 2.8 (0.9-1.1); Prothrombin Time 33.9 SEC (11.1-13.3)
[2023-09-04 09:43] LABS: Creatinine Clr Calc Pharmacy 106.1; Estimated Glomerular Filt Rate > 60
[2023-09-04] MEDS: Cholestyramine (With Sugar) 4 GM POWD.PACK PO ×3 (10:13→20:05)
[2023-09-04 10:34] VITALS: BP 100/55; PULSE 55; RESP 12; TEMP 36.4; O2SAT 98
[2023-09-04 16:00] VITALS: BP 119/57; PULSE 60; RESP 12; TEMP 36.6; O2SAT 97
--- NOTE | 2023-09-04 16:14 | MHC.CM.PN ---
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 [facility], HOWEVER HIS TRAY REPORTS CONCERNS THAT THEY ARE NOT PROVIDING GOOD CARE SHE SAYS HE SEES A WOUND MD AND NURSES AND NO ONE NOTED HIS FOOT WOUNDS WORSENING AND SHE JUST LEARNED HE MAY LOSE HIS FOOT SHE NOTES HE IS W/C BOUND AT AND REQUIRES A DOMINIC LIFT SHE IS AWARE THE PT MAY HAVE TO RETURN TO [facility], HOWEVER CM WILL MAKE REFERRALS TO LOCAL SNFS [facility] TRAY IS CURRENTLY PAYING PRIVATELY AND WORKING WITH A ITINERANT TEACHER ASSISTANT, MANDI SPENCE, TO GET PT ONTO [employer] SHE SAYS THE PT STILL SEES ISHAN LEYVA FOR PRIMARY CARE PT DOES HAVE DEMENTIA, BUT WILL NOT REQUIRE A SECURED UNIT IMM DELIVERED ON 09/03/23 DCP TBD BY BED OFFRERS S TRANSPORT Original Note: PT REPORTS HE THINKS HE WAS IN STR [employer] BUT CANNOT BE CERTAIN WHERE PT HAS A HCP ON FILE AND HIS PCP IS DR LEYVA PT WAS AT [facility] [employer] PT REPORTS HIS WILL RETURN TOMORROW CM WILL MEET WITH HER OR CALL HER THEN
[2023-09-04 17:33] LABS: Vancomycin Random 16.3 mcg/mL (15-20)
--- NOTE | 2023-09-04 17:36 | HE.PHANOTE ---
Re: Vanco Trough returned at 16.3, patient is therapeutic. Patient has good renal function. Continue current dose of 1000mg q12h with predicted AUC 492, and predicted trough of 15.3. Next trough 09/04 @1700.
[2023-09-04] MEDS: Warfarin Sodium 7.5 MG TABLET PO (17:54)
[2023-09-04 20:00] VITALS: BP 107/57; PULSE 65; RESP 18; TEMP 36.4; O2SAT 97
[2023-09-04] MEDS: Melatonin 3 MG TABLET 6 MG PO (20:05)
[2023-09-05 03:25] VITALS: BP 112/53; PULSE 65; RESP 20; TEMP 36.9; O2SAT 94
[2023-09-05] MEDS: Piperacillin Sodium/Tazobactam 3.375 GM in 0.9 % Sodium Chloride 50 ML IV ×4 (04:49→22:56)
[2023-09-05] MEDS: Omeprazole 20 MG CAPSULE.DR PO (06:06)
[2023-09-05 06:22] LABS: Estimated Glomerular Filt Rate > 60
[2023-09-05 06:28] LABS: INTERNATIONAL NORM RATIO 3.3 (0.9-1.1); Prothrombin Time 40.7 SEC (11.1-13.3)
--- NOTE | 2023-09-05 07:49 | HO.PM.IMPN ---
Subjective Subjective Date of Service: 09/05/23 Interval History: f/u on diabetic foot ulcer, concern for more coherent this morning, no new complaint Physical Exam Vital Signs: Vital Signs: Last Vital Signs Temp 98.4 F 09/05/23 03:25 Pulse 65 09/05/23 03:25 Resp 20 09/05/23 03:25 BP 112/53 L 09/05/23 03:25 Pulse Ox 94 09/05/23 03:25 O2 Del Method Room Air 09/05/23 03:25 BMI result Body Mass Index 26.5 General: AO X 2, no acute distress Resp: CTA bilateral CVS: S1,S2,RRR GI: +BS, NT, no distention Skin: right heel wound unchanged Neuro: motor grossly intact Psych: appropriate affect Objective Data Active Medications Acetaminophen (Acetaminophen 325 Mg Tablet) 650 mg PO Q6H PRN PRN Reason: Pain, Mild (Pain Scale 1-3) Acetaminophen (Acetaminophen 325 Mg Tablet) 325 mg PO Q6H PRN PRN Reason: Pain, Moderate Albuterol/Ipratropium (Albuterol/Iprat 2.5/0.5mg 3 Ml Ampul.Neb) 3 ml INHALE RBID PRN PRN Reason: Shortness Of Breath Or Wheezing Albuterol/Ipratropium (Albuterol/Iprat 2.5/0.5mg 3 Ml Ampul.Neb) 3 ml INHALE RBID PRN PRN Reason: Shortness of Breath Ascorbic Acid (Ascorbic Acid 500 Mg Tablet) 500 mg PO DAILY [facility] Last Admin: 09/04/23 08:45 Dose: 500 mg Documented By: PROMISE Baclofen (Baclofen 10 Mg Tablet) 20 mg PO TID [facility] Last Admin: 09/04/23 20:05 Dose: 20 mg Documented By: ZAHIDA Bisacodyl (Bisacodyl 10 Mg Supp.Rect) 10 mg [place] DAILY PRN PRN Reason: Constipation Cholestyramine Resin (Cholestyramine (With Sugar) 4 Gm Powd.Pack) 4 gm PO TID [facility] Last Admin: 09/04/23 20:05 Dose: 4 gm Documented By: ZAHIDA Gabapentin (Gabapentin 100 Mg Capsule) 200 mg PO TID [facility] Last Admin: 09/04/23 20:05 Dose: 200 mg Documented By: ZAHIDA Piperacillin Sod/Tazobactam (Sod 3.375 gm/ Sodium Chloride) 50 mls @ 100 mls/hr IV Q6H [facility] Last Infusion: 09/05/23 05:21 Dose: Infused Documented By: ZAHIDA Vancomycin HCl 1,000 mg/ (Sodium Chloride) 270 mls @ 270 mls/hr IV Q12H [facility] Last Infusion: 09/04/23 21:31 Dose: Infused Documented By: ZAHIDA Sodium Chloride (Ns) 1,000 mls @ 150 mls/hr IVCONT .Q6H40M [facility] Last Admin: 09/04/23 23:32 Dose: 150 mls/hr Documented By: ZAHIDA Loratadine (Loratadine 10 Mg Tablet) 10 mg PO DAILY PRN PRN Reason: PRURITUS Magnesium Hydroxide (Milk Of Magnesia 30 Ml Oral.Susp) 30 ml PO BEDTIME PRN PRN Reason: Constipation Melatonin (Melatonin 3 Mg Tablet) 6 mg PO BEDTIME PRN PRN Reason: Insomnia Melatonin (Melatonin 3 Mg Tablet) 6 mg PO BEDTIME [facility] Last Admin: 09/04/23 20:05 Dose: 6 mg Documented By: ZAHIDA Multivitamins/Vitamin C (Multivitamin Tablet) 1 tab PO DAILY [facility] Last Admin: 09/04/23 08:45 Dose: 1 tab Documented By: PROMISE Omeprazole (Omeprazole 20 Mg Capsule.Dr) 20 mg PO DAILY@0630 [facility] Last Admin: 09/05/23 06:06 Dose: 20 mg Documented By: ZAHIDA Ondansetron HCl (Ondansetron Hcl 4 Mg/2 Ml Vial) 4 mg IVPUSH Q8H PRN PRN Reason: Nausea and Vomiting Pharmacy Consult (Consult Rx Vancomycin Dosing) 1 each MISCELLANE DAILY PRN PRN Reason: Consult order Sodium Biphosphate/Sodium Phosphate (Sodium Phosphate,[place]-Dibasic 133 Ml Enema) 118 ml [place] DAILY PRN PRN Reason: Constipation Sodium Chloride (0.9 % Sodium Chloride Flush 3 Ml Syringe) 3 ml IVFLUSH QSHIFT [facility] Last Admin: 09/05/23 01:07 Dose: Not Given Documented By: ZAHIDA Non-Admin Reason: IV Running Tramadol HCl (Tramadol Hcl 50 Mg Tablet) 50 mg PO Q12H PRN PRN Reason: mod-sev pain Vitamin D (Cholecalciferol (Vitamin D3) 25 Mcg Tablet) 50 mcg PO DAILY [facility] Last Admin: 09/04/23 08:44 Dose: 50 mcg Documented By: PROMISE Warfarin Sodium (Warfarin Sodium 4 Mg Tablet) 8 mg PO TH@1800 [facility] Warfarin Sodium (Warfarin Sodium 7.5 Mg Tablet) 7.5 mg PO SUMOTUWEFRSA@1800 [facility] Last Admin: 09/04/23 17:54 Dose: 7.5 mg Documented By: PROMISE Labs 09/03/23 05:18 09/05/23 05:40 Labs: Laboratory Results - last 24 hr 09/04/23 09/04/23 09/05/23 07:58 17:03 05:40 Hold Purple Top SEE NOTE PT 33.9 H 40.7 H D INR 2.8 H 3.3 H Estim Creat Clear Calc 106.1 103.0 Estimated GFR > 60 > 60 Random Vancomycin 16.3 Microbiology Microbiology Results: Microbiology 09/02/23 20:06 Gram Stain - Final Foot Right Routine Culture - Preliminary Proteus mirabilis 09/02/23 18:14 Blood Culture - Preliminary Blood - Venous No growth after 48 hours. 09/02/23 17:30 Blood Culture - Preliminary Blood - Venous No growth after 48 hours. 09/03/23 14:25 Urine Culture - Preliminary Urine clean catch - Urine roberto top No growth to date. 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 Pt will be admitted to the hospital for treatment and further evaluation of worsening chronic right foot ulcer concerning for osteomyelitis. Nonhealing wound of right lower extremity with wet gangrene Wound with obvious necrosis, foul-smelling, yellowish discharge An outside xray showed OM Unable to do MRI d/t contracted status Seen by vascular surgery with recommendation for Abx and likely BKA in the future ID rec Zosyn+Vanc for now will get PICC or midline for alf antibiotics Hypotension--not due to sepsis, BP better on IVF Hold antihypertensives (lisinopril and Metoprolol) at this time BP is better so stop IVF Paroxysmal AFib-rate controlled, restart metoprolol 25 bid Continue warfarin, goal of INR 2 to 3 GERD PPI DNR/DNI DVT Prophylaxis: On Warfarin need for inaptient: IV Abx for suspected osteomylitis in patient with diabetic foot ulcer, Quality Stroke Does the patient have a stroke diagnosis?: No VTE Prior VTE?: No VTE Risk Level:: Medical - moderate - high VTE Device Contraindication: Treatment Not Indicated VTE Drug Contraindication: N/A - Med Ordered
[2023-09-05] MEDS: vancomycin HCL 1,000 MG in 0.9 % Sodium Chloride 250 ML 270 MG IV (07:58)
[2023-09-05 08:00] VITALS: BP 111/54; PULSE 85; RESP 12; TEMP 36.5; O2SAT 98
[2023-09-05] MEDS: 0.9 % Sodium Chloride Flush 3 ML SYRINGE IVFLUSH ×5 (08:00→22:57)
[2023-09-05] MEDS: Acetaminophen 325 MG TABLET PO (08:02)
[2023-09-05] MEDS: Gabapentin 100 MG CAPSULE 200 MG PO ×3 (08:02→20:09)
[2023-09-05] MEDS: Cholecalciferol (Vitamin D3) 25 MCG TABLET 50 MCG PO (08:02)
[2023-09-05] MEDS: Cholestyramine (With Sugar) 4 GM POWD.PACK PO ×3 (08:02→20:09)
[2023-09-05] MEDS: Multivitamin TABLET 1 TAB PO (08:03)
[2023-09-05] MEDS: Ascorbic Acid 500 MG TABLET PO (08:03)
[2023-09-05] MEDS: Baclofen 10 MG TABLET 20 MG PO ×3 (08:03→20:09)
[2023-09-05 08:32] LABS: Anion Gap 12 (12-20); Carbon Dioxide 18 mmol/L (22-29); Chloride 115 mmol/L (96-108); Potassium 3.3 mmol/L (3.3-5.1); Sodium 142 mmol/L (135-145)
[2023-09-05 08:37] LABS: Magnesium 1.4 mg/dL (1.6-2.6)
[2023-09-05] MEDS: Magnesium Sulfate/H2O 2 GM/50 ML PIGGYBACK IV (09:52)
[2023-09-05 16:00] VITALS: BP 131/68; PULSE 68; RESP 12; TEMP 37.1; O2SAT 97
[2023-09-05 17:35] LABS: Vancomycin Random 13.8 mcg/mL (15-20)
--- NOTE | 2023-09-05 17:43 | HE.PHANOTE ---
Re: Vanco Trough returned at 13.8. Good renal function. Treatment for osteo, would like trough 15-20. Dose increased to 1250 mg Q12H, with predicted AUC 559 mg/L, and predicted trough 16.1 mg/L. Next trough 09/05 @ 1700.
[2023-09-05] MEDS: vancomycin HCL 1,250 MG in 0.9 % Sodium Chloride 250 ML 166.67 MG IV (18:04)
--- NOTE | 2023-09-05 19:16 | PC.NURSE ---
Right heel dressing was changed today, pt. tolerated it well.
[2023-09-05 19:51] VITALS: BP 119/57; PULSE 68; RESP 18; TEMP 37.3; O2SAT 96
[2023-09-05] MEDS: Melatonin 3 MG TABLET 6 MG PO (20:09)
[2023-09-06 03:28] VITALS: BP 125/64; PULSE 88; RESP 18; TEMP 36.3; O2SAT 95
[2023-09-06] MEDS: Piperacillin Sodium/Tazobactam 3.375 GM in 0.9 % Sodium Chloride 50 ML IV ×4 (05:00→23:15)
[2023-09-06] MEDS: traMADoL HCL 50 MG TABLET PO (05:10)
[2023-09-06] MEDS: Omeprazole 20 MG CAPSULE.DR PO (05:12)
[2023-09-06 05:50] LABS: INTERNATIONAL NORM RATIO 3.9 (0.9-1.1); Prothrombin Time 47.9 SEC (11.1-13.3)
[2023-09-06 05:59] LABS: Creatinine Clr Calc Pharmacy 106.1; Estimated Glomerular Filt Rate > 60
[2023-09-06 06:10] VITALS: RESP 18
[2023-09-06] MEDS: vancomycin HCL 1,250 MG in 0.9 % Sodium Chloride 250 ML 166.67 MG IV (06:37)
[2023-09-06 07:34] VITALS: BP 144/83; PULSE 82; RESP 16; TEMP 36.9; O2SAT 95
[2023-09-06] MEDS: 0.9 % Sodium Chloride Flush 3 ML SYRINGE IVFLUSH ×3 (08:06→23:15)
[2023-09-06] MEDS: Ascorbic Acid 500 MG TABLET PO (08:25)
[2023-09-06] MEDS: Baclofen 10 MG TABLET 20 MG PO ×3 (08:25→21:09)
[2023-09-06] MEDS: Cholecalciferol (Vitamin D3) 25 MCG TABLET 50 MCG PO (08:25)
[2023-09-06] MEDS: Cholestyramine (With Sugar) 4 GM POWD.PACK PO ×3 (08:25→21:09)
[2023-09-06] MEDS: Multivitamin TABLET 1 TAB PO (08:25)
[2023-09-06] MEDS: Gabapentin 100 MG CAPSULE 200 MG PO ×3 (08:25→21:09)
--- NOTE | 2023-09-06 08:42 | P.PNIM_ITS ---
Subjective Subjective Date of Service: 09/06/23 Interval History: f/u on diabetic foot ulcer, concern for no new issues, alert and conversing well, but some level of confusion Physical Exam 2 Vital Signs: Vital Signs: Last Vital Signs Temp 98.4 F 09/06/23 07:34 Pulse 82 09/06/23 07:34 Resp 16 09/06/23 07:34 BP 144/83 H 09/06/23 07:34 Pulse Ox 95 09/06/23 07:34 O2 Del Method Room Air 09/06/23 07:34 BMI result Body Mass Index 26.5 General: AO X 2, no acute distress Resp: CTA bilateral CVS: S1,S2,RRR GI: +BS, NT, no distention Skin: right heel wound unchanged--see prior pictures Neuro: motor grossly intact Psych: appropriate affect Objective Data Active Medications Acetaminophen (Acetaminophen 325 Mg Tablet) 650 mg PO Q6H PRN PRN Reason: Pain, Mild (Pain Scale 1-3) Acetaminophen (Acetaminophen 325 Mg Tablet) 325 mg PO Q6H PRN PRN Reason: Pain, Moderate Last Admin: 09/05/23 08:02 Dose: 325 mg Documented By: PROMISE Albuterol/Ipratropium (Albuterol/Iprat 2.5/0.5mg 3 Ml Ampul.Neb) 3 ml INHALE RBID PRN PRN Reason: Shortness Of Breath Or Wheezing Albuterol/Ipratropium (Albuterol/Iprat 2.5/0.5mg 3 Ml Ampul.Neb) 3 ml INHALE RBID PRN PRN Reason: Shortness of Breath Ascorbic Acid (Ascorbic Acid 500 Mg Tablet) 500 mg PO DAILY [facility] Last Admin: 09/06/23 08:25 Dose: 500 mg Documented By: DEJAH Baclofen (Baclofen 10 Mg Tablet) 20 mg PO TID [facility] Last Admin: 09/06/23 08:25 Dose: 20 mg Documented By: DEJAH Bisacodyl (Bisacodyl 10 Mg Supp.Rect) 10 mg [place] DAILY PRN PRN Reason: Constipation Cholestyramine Resin (Cholestyramine (With Sugar) 4 Gm Powd.Pack) 4 gm PO TID [facility] Last Admin: 09/06/23 08:25 Dose: 4 gm Documented By: DEJAH Gabapentin (Gabapentin 100 Mg Capsule) 200 mg PO TID [facility] Last Admin: 09/06/23 08:25 Dose: 200 mg Documented By: DEJAH Piperacillin Sod/Tazobactam (Sod 3.375 gm/ Sodium Chloride) 50 mls @ 100 mls/hr IV Q6H [facility] Last Infusion: 09/06/23 05:30 Dose: Infused Documented By: BROOKS Vancomycin HCl 1,250 mg/ (Sodium Chloride) 250 mls @ 166.667 mls/hr IV Q12H [facility] Last Admin: 09/06/23 06:37 Dose: 166.67 mls/hr Documented By: BROOKS Loratadine (Loratadine 10 Mg Tablet) 10 mg PO DAILY PRN PRN Reason: PRURITUS Magnesium Hydroxide (Milk Of Magnesia 30 Ml Oral.Susp) 30 ml PO BEDTIME PRN PRN Reason: Constipation Melatonin (Melatonin 3 Mg Tablet) 6 mg PO BEDTIME PRN PRN Reason: Insomnia Melatonin (Melatonin 3 Mg Tablet) 6 mg PO BEDTIME [facility] Last Admin: 09/05/23 20:09 Dose: 6 mg Documented By: BROOKS Multivitamins/Vitamin C (Multivitamin Tablet) 1 tab PO DAILY [facility] Last Admin: 09/06/23 08:25 Dose: 1 tab Documented By: DEJAH Omeprazole (Omeprazole 20 Mg Capsule.) 20 mg PO DAILY@0630 [facility] Last Admin: 09/06/23 05:12 Dose: 20 mg Documented By: BROOKS Ondansetron HCl (Ondansetron Hcl 4 Mg/2 Ml Vial) 4 mg IVPUSH Q8H PRN PRN Reason: Nausea and Vomiting Pharmacy Consult (Consult Rx Vancomycin Dosing) 1 each MISCELLANE DAILY PRN PRN Reason: Consult order Sodium Biphosphate/Sodium Phosphate (Sodium Phosphate,[place]-Dibasic 133 Ml Enema) 118 ml MO DAILY PRN PRN Reason: Constipation Sodium Chloride (0.9 % Sodium Chloride Flush 3 Ml Syringe) 3 ml IVFLUSH QSHIFT [facility] Last Admin: 09/06/23 08:06 Dose: 3 ml Documented By: DEJAH Tramadol HCl (Tramadol Hcl 50 Mg Tablet) 50 mg PO Q12H PRN PRN Reason: mod-sev pain Last Admin: 09/06/23 05:10 Dose: 50 mg Documented By: HO.SEXK Vitamin D (Cholecalciferol (Vitamin D3) 25 Mcg Tablet) 50 mcg PO DAILY [facility] Last Admin: 09/06/23 08:25 Dose: 50 mcg Documented By: DEJAH Warfarin Sodium (Warfarin Sodium 4 Mg Tablet) 8 mg PO TH@1800 ENIO Warfarin Sodium (Warfarin Sodium 7.5 Mg Tablet) 7.5 mg PO SUMOTUWEFRSA@1800 [facility] Last Admin: 09/04/23 17:54 Dose: 7.5 mg Documented By: PROMISE Labs 09/03/23 05:18 09/06/23 05:08 Labs: Laboratory Results - last 24 hr 09/05/23 09/06/23 17:06 05:08 Hold Purple Top SEE NOTE PT 47.9 H INR 3.9 H Estim Creat Clear Calc 106.1 Estimated GFR > 60 Random Vancomycin 13.8 L Microbiology Microbiology Results: Microbiology 09/03/23 14:25 Urine Culture - Final Urine clean catch - Urine roberto top No growth. 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 Pt will be admitted to the hospital for treatment and further evaluation of worsening chronic right foot ulcer concerning for osteomyelitis. Nonhealing wound of right lower extremity with wet gangrene Wound with obvious necrosis, foul-smelling, yellowish discharge An outside xray showed OM Unable to do MRI d/t contracted status, CT to eval Seen by vascular surgery with recommendation for Abx and likely BKA in the future ID rec Zosyn+Vanc for now will get PICC or midline for skilled nursing antibiotics Hypotension--not due to sepsis, resolved with IVF and holding meds HTN--lisiniopril and Metoprolol were on hold, restart Paroxysmal AFib-rate controlled, restart metoprolol Continue warfarin, goal of INR 2 to 3, hold today GERD PPI DNR/DNI DVT Prophylaxis: On Warfarin need for inaptient: IV Abx for suspected osteomylitis in patient with diabetic foot ulcer, discussed with over the phone Quality Stroke Does the patient have a stroke diagnosis?: No VTE Prior VTE?: No VTE Risk Level:: Medical - moderate - high VTE Device Contraindication: Treatment Not Indicated VTE Drug Contraindication: N/A - Med Ordered
[2023-09-06 10:11] VITALS: BP 114/66; PULSE 78
[2023-09-06] MEDS: Metoprolol Tartrate 25 MG TABLET PO ×2 (10:11→21:09)
[2023-09-06] MEDS: lisinopriL 10 MG TABLET PO (10:11)
[2023-09-06 10:37] VITALS: BMI 26.5
--- NOTE | 2023-09-06 10:46 | MHC.CLN ---
NUTRITION DIET=CARDIAC (CARDIAC DIET INCLUDES 2 G SODIUM). ADDING ENSURE MAX BID TO PROMOTE WOUND HEALING. PROVIDES 300 KCALS, 60 G PROTEIN. SKIN WITH STAGE 2 TO LEFT BUTTOCK AND STAGE U TO RIGHT HEEL AND RIGHT GREAT TOE. INTAKE AT MEALS APPEARS TO BE VERY GOOD. FOLLOW FOR INTAKE AND WOUND HEALING. SEE CLINICAL NUTRITION ASSESSMENT 09/06/23.
[2023-09-06 15:27] VITALS: BP 118/72; PULSE 75; RESP 15; TEMP 36.6; O2SAT 94
[2023-09-06 17:37] LABS: Vancomycin Random 17.6 mcg/mL (15-20)
--- NOTE | 2023-09-06 17:50 | HE.PHANOTE ---
Addendum entered by Sherron [facility] 09/06/23 18:54: Seeing that patient's trough level is fluctuating between the doses of 1000 mg q12h and 1250 mg q12h, decided to change dose to 750 mg q8h to find an intermediate level (predicted BBG=721 and trough=16.6). Next random is still scheduled for 09/07/23 @1700. Original Note: RE: VANCO DOSING Random came back as 17.6 (predicted to be 15.7). Continue with dosing of 1250 mg q12h, next random is scheduled for 09/07/23 @1700.
[2023-09-06] MEDS: vancomycin HCL 750 MG in 0.9 % Sodium Chloride 250 ML 265 MG IV (19:30)
[2023-09-06 19:49] VITALS: BP 133/79; PULSE 74; RESP 14; TEMP 36.5; O2SAT 93
[2023-09-06] MEDS: Melatonin 3 MG TABLET 6 MG PO (21:09)
[2023-09-07] MEDS: vancomycin HCL 750 MG in 0.9 % Sodium Chloride 250 ML 265 MG IV ×3 (02:08→18:32)
[2023-09-07] MEDS: Piperacillin Sodium/Tazobactam 3.375 GM in 0.9 % Sodium Chloride 50 ML IV ×4 (03:59→22:28)
[2023-09-07 04:00] VITALS: BP 117/59; PULSE 74; RESP 18; TEMP 36.4; O2SAT 94
[2023-09-07] MEDS: Acetaminophen 325 MG TABLET 650 MG PO (04:45)
[2023-09-07] MEDS: Omeprazole 20 MG CAPSULE.DR PO (04:46)
[2023-09-07 06:28] LABS: INTERNATIONAL NORM RATIO 3.5 (0.9-1.1); Prothrombin Time 42.5 SEC (11.1-13.3)
[2023-09-07 06:34] LABS: Creatinine Clr Calc Pharmacy 109.4; Estimated Glomerular Filt Rate > 60
[2023-09-07 07:32] VITALS: BP 144/74; PULSE 74; RESP 20; TEMP 36.4; O2SAT 93
[2023-09-07] MEDS: 0.9 % Sodium Chloride Flush 3 ML SYRINGE IVFLUSH ×3 (07:48→19:46)
[2023-09-07 07:49] VITALS: BP 144/74; PULSE 74
[2023-09-07] MEDS: Multivitamin TABLET 1 TAB PO (07:49)
[2023-09-07] MEDS: Ascorbic Acid 500 MG TABLET PO (07:49)
[2023-09-07] MEDS: Cholecalciferol (Vitamin D3) 25 MCG TABLET 50 MCG PO (07:49)
[2023-09-07] MEDS: lisinopriL 10 MG TABLET PO (07:49)
[2023-09-07] MEDS: Metoprolol Tartrate 25 MG TABLET PO ×2 (07:49→20:21)
[2023-09-07] MEDS: Cholestyramine (With Sugar) 4 GM POWD.PACK PO ×3 (07:49→20:22)
[2023-09-07] MEDS: Gabapentin 100 MG CAPSULE 200 MG PO ×3 (07:49→20:21)
[2023-09-07] MEDS: Baclofen 10 MG TABLET 20 MG PO ×3 (07:50→20:21)
[2023-09-07] MEDS: traMADoL HCL 50 MG TABLET PO (07:50)
[2023-09-07 09:37] LABS: Magnesium 1.9 mg/dL (1.6-2.6)
--- NOTE | 2023-09-07 11:06 | HO.WOUND ---
Wound Consult: Initial 72yr old?[place] [facility] [place] See progress notes and H&P for detailed history.? Wound consult placed for Bilateral Heel Wounds POA.? Patient agreeable to assessment and photo documentation, however was talking nonsensical at times.? Per chart review this is not a new observation. Chart review reveals Dr. Disla saw the patient and recommends to paint with Betadine daily and wrap with dry gauze. There is concern for the eschar going to bone depth per his note and concerns for wound healing if debridement were to occur. Will defer topical recommendations to Dr. Disla for Betadine. ? Right Heel - Soft boggy eschar - foul smelling drainage. Defer to Dr. Disla who recommends betadine and dry dressing. Right Plantar - full thickness tissue loss marbled wound bed with red moist tissue and yellow slough. Defer to Dr. Disla who recommends betadine and dry dressing. Left Heel - Diabetic wound - resurfacing at this time. [place] with Betadine and leave open to air do not cover with foam dressing as this may donate moisture to wound bed and goal is to keep dry at this time. Recommendations: 1. Turn and Reposition every 2 hours and as needed for patient comfort.? Use pillows or wedges to support off loading positions. 2. Off Load all bony prominences with use of pillows and heel boots if needed.? Apply Preventative foams where needed. ? 3. Monitor for incontinence and moisture control, use barrier creams when needed for prevention and treatment. 4. Provide adequate and supplemental nutrition.? 5. Continue low air loss mattress. 6. Maintain blood glucose levels per Providers order. 7. Right heel and Plantar - Defer to Dr. Disla - continue use of heel protector boots. [place] with Betadine allow to dry. Cover with dry gauze, ABD pad and gauze wrap. Change Daily. Continue use of heel protector boots. 8. Left Heel - [place] with Betadine leave open to air. Use heel protector boots. Do not cover wound bed with foam dressing as this may donate moisture to the wound bed goal is to keep dry. Re-consult wound care Nurse for wound deterioration or wound changes.
--- NOTE | 2023-09-07 12:40 | P.PNIM_ITS ---
Subjective Subjective Date of Service: 09/07/23 Interval History: foot osteomyelitis Review of Systems no fever or chills Physical Exam 2 Vital Signs: Vital Signs: Last Vital Signs Temp 97.5 F 09/07/23 07:32 Pulse 74 09/07/23 07:49 Resp 20 09/07/23 07:32 BP 144/74 H 09/07/23 07:49 Pulse Ox 93 09/07/23 07:32 O2 Del Method Room Air 09/07/23 07:32 BMI result Body Mass Index 26.5 General: AO X 2, no acute distress Resp: CTA bilateral CVS: S1,S2,RRR GI: +BS, NT, no distention Skin: right heel wound unchanged( seems similar) Neuro: motor grossly intact Psych: appropriate affect Objective Data Active Medications Acetaminophen (Acetaminophen 325 Mg Tablet) 650 mg PO Q6H PRN PRN Reason: Pain, Mild (Pain Scale 1-3) Last Admin: 09/07/23 04:45 Dose: 650 mg Documented By: JAVID Acetaminophen (Acetaminophen 325 Mg Tablet) 325 mg PO Q6H PRN PRN Reason: Pain, Moderate Last Admin: 09/05/23 08:02 Dose: 325 mg Documented By: PROMISE Albuterol/Ipratropium (Albuterol/Iprat 2.5/0.5mg 3 Ml Ampul.Neb) 3 ml INHALE RBID PRN PRN Reason: Shortness Of Breath Or Wheezing Albuterol/Ipratropium (Albuterol/Iprat 2.5/0.5mg 3 Ml Ampul.Neb) 3 ml INHALE RBID PRN PRN Reason: Shortness of Breath Ascorbic Acid (Ascorbic Acid 500 Mg Tablet) 500 mg PO DAILY [facility] Last Admin: 09/07/23 07:49 Dose: 500 mg Documented By: LAVON Baclofen (Baclofen 10 Mg Tablet) 20 mg PO TID [facility] Last Admin: 09/07/23 07:50 Dose: 20 mg Documented By: LAVON Bisacodyl (Bisacodyl 10 Mg Supp.Rect) 10 mg IA DAILY PRN PRN Reason: Constipation Cholestyramine Resin (Cholestyramine (With Sugar) 4 Gm Powd.Pack) 4 gm PO TID [facility] Last Admin: 09/07/23 07:49 Dose: 4 gm Documented By: LAVON Gabapentin (Gabapentin 100 Mg Capsule) 200 mg PO TID [facility] Last Admin: 09/07/23 07:49 Dose: 200 mg Documented By: LAVON Piperacillin Sod/Tazobactam (Sod 3.375 gm/ Sodium Chloride) 50 mls @ 100 mls/hr IV Q6H [facility] Last Infusion: 09/07/23 10:58 Dose: Infused Documented By: LAVON Vancomycin HCl 750 mg/ Sodium (Chloride) 265 mls @ 265 mls/hr IV Q8H [facility] Last Infusion: 09/07/23 12:08 Dose: Infused Documented By: LAVON Lisinopril (Lisinopril 10 Mg Tablet) 10 mg PO DAILY [facility]; Protocol Last Admin: 09/07/23 07:49 Dose: 10 mg Documented By: LAVON Loratadine (Loratadine 10 Mg Tablet) 10 mg PO DAILY PRN PRN Reason: PRURITUS Magnesium Hydroxide (Milk Of Magnesia 30 Ml Oral.Susp) 30 ml PO BEDTIME PRN PRN Reason: Constipation Melatonin (Melatonin 3 Mg Tablet) 6 mg PO BEDTIME PRN PRN Reason: Insomnia Melatonin (Melatonin 3 Mg Tablet) 6 mg PO BEDTIME [facility] Last Admin: 09/06/23 21:09 Dose: 6 mg Documented By: JAVID Metoprolol Tartrate (Metoprolol Tartrate 25 Mg Tablet) 25 mg PO BID [facility]; Protocol Last Admin: 09/07/23 07:49 Dose: 25 mg Documented By: LAVON Multivitamins/Vitamin C (Multivitamin Tablet) 1 tab PO DAILY [facility] Last Admin: 09/07/23 07:49 Dose: 1 tab Documented By: LAVON Omeprazole (Omeprazole 20 Mg Capsule.Dr) 20 mg PO DAILY@0630 [facility] Last Admin: 09/07/23 04:46 Dose: 20 mg Documented By: JAIVD Ondansetron HCl (Ondansetron Hcl 4 Mg/2 Ml Vial) 4 mg IVPUSH Q8H PRN PRN Reason: Nausea and Vomiting Pharmacy Consult (Consult Rx Vancomycin Dosing) 1 each MISCELLANE DAILY PRN PRN Reason: Consult order Sodium Biphosphate/Sodium Phosphate (Sodium Phosphate,[place]-Dibasic 133 Ml Enema) 118 ml [place] DAILY PRN PRN Reason: Constipation Sodium Chloride (0.9 % Sodium Chloride Flush 3 Ml Syringe) 3 ml IVFLUSH QSHIFT [facility] Last Admin: 09/07/23 07:48 Dose: 3 ml Documented By: LAVON Tramadol HCl (Tramadol Hcl 50 Mg Tablet) 50 mg PO Q12H PRN PRN Reason: mod-sev pain Last Admin: 09/07/23 07:50 Dose: 50 mg Documented By: LAVON Vitamin D (Cholecalciferol (Vitamin D3) 25 Mcg Tablet) 50 mcg PO DAILY [facility] Last Admin: 09/07/23 07:49 Dose: 50 mcg Documented By: LAVON Warfarin Sodium (Warfarin Sodium 4 Mg Tablet) 8 mg PO TH@1800 [facility] Warfarin Sodium (Warfarin Sodium 7.5 Mg Tablet) 7.5 mg PO SUMOTUWEFRSA@1800 [facility] Last Admin: 09/04/23 17:54 Dose: 7.5 mg Documented By: PROMISE Labs 09/03/23 05:18 09/07/23 05:42 Labs: Laboratory Results - last 24 hr 09/06/23 09/07/23 09/07/23 17:01 05:42 08:52 Hold Purple Top SEE NOTE PT 42.5 H INR 3.5 H Estim Creat Clear Calc 109.4 Estimated GFR > 60 Magnesium 1.9 Random Vancomycin 17.6 Microbiology Microbiology Results: Microbiology 09/02/23 20:06 Gram Stain - Final Foot Right Routine Culture - Final Proteus mirabilis Staphylococcus aureus Assessment and Plan (1) Non-healing wound of right lower extremity: Status: Acute (2) Osteomyelitis: Status: Acute Plan 72-year-old male with a PMH significant for?unspecified dementia, paroxysmal AFib on warfarin, HTN, HLD, 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 Pt will be admitted to the hospital for treatment and further evaluation of worsening chronic right foot ulcer concerning for osteomyelitis. Nonhealing wound of right lower extremity with wet gangrene Wound with obvious necrosis, foul-smelling, yellowish discharge An outside xray showed OM Unable to do MRI d/t contracted status, CT to eval Seen by vascular surgery with recommendation for Abx and likely BKA in the future ID rec Zosyn+Vanc for now will get PICC or midline for usp antibiotics Hypotension--not due to sepsis, resolved with IVF and holding meds HTN--lisiniopril and Metoprolol were on hold, restart Paroxysmal AFib-rate controlled, restart metoprolol Continue warfarin, goal of INR 2 to 3, hold today GERD PPI DNR/DNI DVT Prophylaxis: On Warfarin need for inaptient: IV Abx for suspected osteomylitis in patient with diabetic foot ulcer, need picc line . discussed with over the phone Quality Stroke Does the patient have a stroke diagnosis?: No VTE Prior VTE?: No VTE Risk Level:: Medical - moderate - high VTE Device Contraindication: Treatment Not Indicated VTE Drug Contraindication: N/A - Med Ordered
[2023-09-07 15:20] VITALS: BP 122/83; PULSE 75; RESP 18; TEMP 36.2; O2SAT 94
[2023-09-07 17:37] LABS: Vancomycin Random 18.8 mcg/mL (15-20)
--- NOTE | 2023-09-07 17:56 | HE.PHANOTE ---
RE: VANCO DOSING Random came back as 18.8. Continue with 750 mg q8h. Next random is scheduled for 09/08/23 @0900 (after 2 doses) in case it's supratherapeutic.
--- NOTE | 2023-09-07 18:01 | P.PICC_ITS ---
PICC Line Insertion NPICC Diagnosis: Osteomyelitis Indication: usp ABT Pertinent Labs: reviewed Technique: Following informed consent including risks, benefits and alternatives and using sterile technique including cap and mask, sterile gown, glove and drape, the right arm was prepped and draped in the usual sterile fashion of full barrier technique with CHG. Following completion of [place] Protocol the skin and soft tissues were anesthetized with 1% Lidocaine plain. Using ultrasound guidance, right basilic vein access was obtained. Over an 0.018 wire through peel-away sheath, a 4fr single lumen PASV PICC line was positioned. Catheter length is 42cm internal length, 0cm external length, for a total trimmed length of 42cm. The procedure was performed in rm [id number]. Tip verification was performed by Domingo Moore with Sherlock 3CG. Tip located in SVC. Ultrasound was used to document vein patency and for needle entry. A formal ultrasound picture and cardiac rhythm strip was recorded. [employer] has released the line for use and it is currently dressed with a StatLock, Tegaderm, and CHG disc. Verification has been performed for blood return and line patency. Arm Circumference: 30cm Equipment: CORD:USE Cord Blood Bank PowerPICC SOLO catheter with Sherlock 3CG Catheter Type: 4FR single lumen PASV PICC Lot #: [id number]
[2023-09-07 19:42] VITALS: BP 141/86; PULSE 75; RESP 18; TEMP 36.9; O2SAT 98
[2023-09-07] MEDS: 0.9 % Sodium Chloride Flush 10 ML SYRINGE 5 ML IVFLUSH (19:46)
[2023-09-07 20:21] VITALS: BP 141/86; PULSE 75
[2023-09-07] MEDS: Melatonin 3 MG TABLET 6 MG PO (20:22)
[2023-09-08] MEDS: vancomycin HCL 750 MG in 0.9 % Sodium Chloride 250 ML 265 MG IV ×2 (02:14→11:13)
[2023-09-08 03:21] VITALS: BP 136/76; PULSE 69; RESP 18; TEMP 37.7; O2SAT 93
[2023-09-08] MEDS: Piperacillin Sodium/Tazobactam 3.375 GM in 0.9 % Sodium Chloride 50 ML IV ×2 (04:38→10:17)
[2023-09-08] MEDS: Omeprazole 20 MG CAPSULE.DR PO (05:35)
[2023-09-08 06:25] LABS: INTERNATIONAL NORM RATIO 2.2 (0.9-1.1); Prothrombin Time 26.8 SEC (11.1-13.3)
[2023-09-08 06:39] LABS: Creatinine Clr Calc Pharmacy 100.1; Estimated Glomerular Filt Rate > 60
[2023-09-08 08:00] VITALS: BP 134/80; PULSE 65; RESP 16; TEMP 36.4; O2SAT 93
[2023-09-08] MEDS: 0.9 % Sodium Chloride Flush 10 ML SYRINGE 5 ML IVFLUSH ×2 (08:42→14:59)
[2023-09-08 08:43] VITALS: BP 134/80; PULSE 65
[2023-09-08] MEDS: Cholecalciferol (Vitamin D3) 25 MCG TABLET 50 MCG PO (08:43)
[2023-09-08] MEDS: Metoprolol Tartrate 25 MG TABLET PO ×2 (08:43→20:29)
[2023-09-08] MEDS: Ascorbic Acid 500 MG TABLET PO (08:43)
[2023-09-08] MEDS: Multivitamin TABLET 1 TAB PO (08:43)
[2023-09-08] MEDS: Gabapentin 100 MG CAPSULE 200 MG PO ×2 (08:43→14:58)
[2023-09-08] MEDS: Baclofen 10 MG TABLET 20 MG PO ×2 (08:43→14:59)
[2023-09-08 08:44] VITALS: BP 134/80
[2023-09-08] MEDS: Cholestyramine (With Sugar) 4 GM POWD.PACK PO ×3 (08:44→20:29)
[2023-09-08] MEDS: lisinopriL 10 MG TABLET PO (08:44)
--- NOTE | 2023-09-08 09:44 | MHC.CLN ---
F/U DIET=CARDIAC. ENSURE MAX BID TO PROMOTE WOUND HEALING. PROVIDES 300 KCALS, 60 G PROTEIN. SKIN WITH STAGE 2 TO LEFT BUTTOCK AND STAGE U TO RIGHT HEEL, RIGHT GREAT TOE AND LEFT GREAT TOE. INTAKE AT MEALS 50-100%. FOLLOW FOR INTAKE AND WOUND HEALING.
[2023-09-08 09:56] LABS: Hematocrit 28.7 % (42.0-52.0); Hemoglobin 9.6 g/dl (14.0-18.0); Mean Corpuscular HGB Conc 33.4 g/dl (31.0-36.0); Mean Corpuscular Hemoglobin 29.3 pg (27.0-33.0); Mean Corpuscular Volume 87.5 fL (80.0-98.0); Mean Platelet Volume 10.4 fL (9.4-12.4); Platelet Count 239 X10*3/uL (160-400); Red Blood Count 3.28 X10*6/uL (4.60-5.80); Red Cell Distribution Width 14.2 % (11.0-16.0); White Blood Count 10.2 X10*3/uL (4.8-10.8)
[2023-09-08 10:08] LABS: Vancomycin Random 18.5 mcg/mL (15-20)
[2023-09-08 10:10] LABS: Anion Gap 9 (12-20); Blood Urea Nitrogen 11 mg/dL (9-16); Calcium 8.1 mg/dL (8.4-10.2); Carbon Dioxide 23 mmol/L (22-29); Chloride 114 mmol/L (96-108); Creatinine Clr Calc Pharmacy 97.4; Estimated Glomerular Filt Rate > 60; Glucose Random 99 mg/dL (60-115); Potassium 3.4 mmol/L (3.3-5.1); Sodium 143 mmol/L (135-145)
--- NOTE | 2023-09-08 14:32 | MHC.CM.PN ---
per rounds pt will go rehab possible dc today
--- NOTE | 2023-09-08 15:00 | HO.PM.IMPN ---
Subjective Subjective Date of Service: 09/08/23 Interval History: foot osteomyelitis Review of Systems no new c/o Physical Exam Vital Signs: Vital Signs: Last Vital Signs Temp 97.6 F 09/08/23 08:00 Pulse 65 09/08/23 08:43 Resp 16 09/08/23 08:00 BP 134/80 09/08/23 08:44 Pulse Ox 93 09/08/23 08:00 O2 Del Method Room Air 09/08/23 08:00 BMI result Body Mass Index 26.5 General: AO X 2, was some agitated this morning Resp: CTA bilateral CVS: S1,S2,RRR GI: +BS, NT, no distention Skin: right heel wound unchanged( seems similar) Neuro: motor grossly intact Psych: appropriate affect Objective Data Active Medications Acetaminophen (Acetaminophen 325 Mg Tablet) 650 mg PO Q6H PRN PRN Reason: Pain, Mild (Pain Scale 1-3) Last Admin: 09/07/23 04:45 Dose: 650 mg Documented By: JAVID Acetaminophen (Acetaminophen 325 Mg Tablet) 325 mg PO Q6H PRN PRN Reason: Pain, Moderate Last Admin: 09/05/23 08:02 Dose: 325 mg Documented By: PROMISE Albuterol/Ipratropium (Albuterol/Iprat 2.5/0.5mg 3 Ml Ampul.Neb) 3 ml INHALE RBID PRN PRN Reason: Shortness Of Breath Or Wheezing Albuterol/Ipratropium (Albuterol/Iprat 2.5/0.5mg 3 Ml Ampul.Neb) 3 ml INHALE RBID PRN PRN Reason: Shortness of Breath Ascorbic Acid (Ascorbic Acid 500 Mg Tablet) 500 mg PO DAILY [facility] Last Admin: 09/08/23 08:43 Dose: 500 mg Documented By: LAVON Baclofen (Baclofen 10 Mg Tablet) 20 mg PO TID [facility] Last Admin: 09/08/23 08:43 Dose: 20 mg Documented By: LAVON Bisacodyl (Bisacodyl 10 Mg Supp.Rect) 10 mg [place] DAILY PRN PRN Reason: Constipation Cholestyramine Resin (Cholestyramine (With Sugar) 4 Gm Powd.Pack) 4 gm PO TID [facility] Last Admin: 09/08/23 08:44 Dose: 4 gm Documented By: LAVON Gabapentin (Gabapentin 100 Mg Capsule) 200 mg PO TID [facility] Last Admin: 09/08/23 08:43 Dose: 200 mg Documented By: LAVON Piperacillin Sod/Tazobactam (Sod 3.375 gm/ Sodium Chloride) 50 mls @ 100 mls/hr IV Q6H [facility] Last Infusion: 09/08/23 10:48 Dose: Infused Documented By: LAVON Vancomycin HCl 750 mg/ Sodium (Chloride) 265 mls @ 265 mls/hr IV Q8H [facility] Last Infusion: 09/08/23 12:19 Dose: Infused Documented By: LAVON Lisinopril (Lisinopril 10 Mg Tablet) 10 mg PO DAILY [facility]; Protocol Last Admin: 09/08/23 08:44 Dose: 10 mg Documented By: LAVON Loratadine (Loratadine 10 Mg Tablet) 10 mg PO DAILY PRN PRN Reason: PRURITUS Magnesium Hydroxide (Milk Of Magnesia 30 Ml Oral.Susp) 30 ml PO BEDTIME PRN PRN Reason: Constipation Melatonin (Melatonin 3 Mg Tablet) 6 mg PO BEDTIME PRN PRN Reason: Insomnia Melatonin (Melatonin 3 Mg Tablet) 6 mg PO BEDTIME [facility] Last Admin: 09/07/23 20:22 Dose: 6 mg Documented By: LILIANE Metoprolol Tartrate (Metoprolol Tartrate 25 Mg Tablet) 25 mg PO BID [facility]; Protocol Last Admin: 09/08/23 08:43 Dose: 25 mg Documented By: LAVON Multivitamins/Vitamin C (Multivitamin Tablet) 1 tab PO DAILY [facility] Last Admin: 09/08/23 08:43 Dose: 1 tab Documented By: LAVON Omeprazole (Omeprazole 20 Mg Capsule.Dr) 20 mg PO DAILY@0630 [facility] Last Admin: 09/08/23 05:35 Dose: 20 mg Documented By: LILIANE Ondansetron HCl (Ondansetron Hcl 4 Mg/2 Ml Vial) 4 mg IVPUSH Q8H PRN PRN Reason: Nausea and Vomiting Pharmacy Consult (Consult Rx Vancomycin Dosing) 1 each MISCELLANE DAILY PRN PRN Reason: Consult order Sodium Biphosphate/Sodium Phosphate (Sodium Phosphate,[place]-Dibasic 133 Ml Enema) 118 ml [place] DAILY PRN PRN Reason: Constipation Sodium Chloride (0.9 % Sodium Chloride Flush 3 Ml Syringe) 3 ml IVFLUSH QSHIFT [facility] Last Admin: 09/08/23 08:43 Dose: Not Given Documented By: LAVON Non-Admin Reason: Duplicate Order Sodium Chloride (0.9 % Sodium Chloride Flush 10 Ml Syringe) 5 ml IVFLUSH TID [facility] Last Admin: 09/08/23 08:42 Dose: 5 ml Documented By: LAVON Vitamin D (Cholecalciferol (Vitamin D3) 25 Mcg Tablet) 50 mcg PO DAILY [facility] Last Admin: 09/08/23 08:43 Dose: 50 mcg Documented By: LAVON Warfarin Sodium (Warfarin Sodium 4 Mg Tablet) 8 mg PO TH@1800 [facility] Warfarin Sodium (Warfarin Sodium 7.5 Mg Tablet) 7.5 mg PO SUMOTUWEFRSA@1800 [facility] Last Admin: 09/04/23 17:54 Dose: 7.5 mg Documented By: PROMISE Labs 09/08/23 09:27 09/08/23 09:27 Labs: Laboratory Results - last 24 hr 09/07/23 09/08/23 09/08/23 17:07 05:50 09:27 MCV 87.5 MCH 29.3 MCHC 33.4 RDW 14.2 Plt Count 239 MPV 10.4 Absolute Nucleated RBC 0.000 Nucleated RBC % (auto) 0.0 PT 26.8 H D INR 2.2 H Anion Gap 9 L Estim Creat Clear Calc 100.1 97.4 Estimated GFR > 60 > 60 Random Glucose 99 Calcium 8.1 L D Random Vancomycin 18.8 18.5 Microbiology Microbiology Results: Microbiology 09/02/23 18:14 Blood Culture - Final Blood - Venous No growth after 5 days. 09/02/23 17:30 Blood Culture - Final Blood - Venous No growth after 5 days. 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 Pt will be admitted to the hospital for treatment and further evaluation of worsening chronic right foot ulcer concerning for osteomyelitis. Nonhealing wound of right lower extremity with wet gangrene Wound with obvious necrosis, foul-smelling, yellowish discharge An outside xray showed OM Unable to do MRI d/t contracted status, CT to eval Seen by vascular surgery with recommendation for Abx and likely BKA in the future ID rec Zosyn+Vanc for now will get PICC or midline for fdc antibiotics Hypotension--not due to sepsis, resolved with IVF and holding meds HTN--stable. on lisiniopril and Metoprolol . Paroxysmal AFib-rate controlled, restart metoprolol Continue warfarin, goal of INR 2 to 3, warfrain restarted. GERD PPI DNR/DNI DVT Prophylaxis: On Warfarin need for inaptient: IV Abx-need rehab placement . discussed with over the phone Quality Stroke Does the patient have a stroke diagnosis?: No VTE Prior VTE?: No VTE Risk Level:: Medical - moderate - high VTE Device Contraindication: Treatment Not Indicated VTE Drug Contraindication: N/A - Med Ordered
[2023-09-08 15:32] VITALS: BP 144/78; PULSE 67; RESP 18; TEMP 36.8; O2SAT 96
--- NOTE | 2023-09-08 15:45 | MHC.CM.PN ---
family spoke wit[facility] waitng to hear acceptance from [facility]
[2023-09-08] MEDS: Warfarin Sodium 7.5 MG TABLET PO (18:07)
[2023-09-08 18:51] VITALS: BP 133/81; PULSE 75; RESP 16; TEMP 36.6; O2SAT 95
[2023-09-08] MEDS: Acetaminophen 325 MG TABLET 650 MG PO (20:29)
[2023-09-08] MEDS: Baclofen 10 MG TABLET PO (20:30)
[2023-09-08] MEDS: 0.9 % Sodium Chloride Flush 3 ML SYRINGE IVFLUSH (20:30)
[2023-09-08] MEDS: Gabapentin 100 MG CAPSULE PO (20:30)
[2023-09-08] MEDS: Melatonin 3 MG TABLET 6 MG PO (20:30)
[2023-09-09] VITALS (7 sets, daily range): BP systolic 130–143; BP diastolic 69–92; PULSE 71–82; RESP 18; TEMP 36.3–36.8; O2SAT 93–97
[2023-09-09] MEDS: Omeprazole 20 MG CAPSULE.DR PO (05:10)
[2023-09-09 05:37] LABS: INTERNATIONAL NORM RATIO 2.1 (0.9-1.1); Prothrombin Time 25.9 SEC (11.1-13.3)
[2023-09-09 05:46] LABS: Estimated Glomerular Filt Rate > 60
[2023-09-09] MEDS: 0.9 % Sodium Chloride Flush 10 ML SYRINGE 5 ML IVFLUSH ×3 (07:43→20:19)
[2023-09-09] MEDS: Gabapentin 100 MG CAPSULE PO ×3 (09:11→20:20)
[2023-09-09] MEDS: lisinopriL 10 MG TABLET PO (09:11)
[2023-09-09] MEDS: Cholecalciferol (Vitamin D3) 25 MCG TABLET 50 MCG PO (09:11)
[2023-09-09] MEDS: Multivitamin TABLET 1 TAB PO (09:11)
[2023-09-09] MEDS: Baclofen 10 MG TABLET PO ×4 (09:11→20:20)
[2023-09-09] MEDS: Cholestyramine (With Sugar) 4 GM POWD.PACK PO ×3 (09:11→20:20)
[2023-09-09] MEDS: Metoprolol Tartrate 25 MG TABLET PO ×2 (09:11→20:20)
[2023-09-09] MEDS: Ascorbic Acid 500 MG TABLET PO (09:11)
--- NOTE | 2023-09-09 12:33 | HO.WOUND ---
Wound Consult: Follow up 72yr old?Male admitted to [facility] on 09/02/23 - See progress notes and H&P for detailed history.? Wound consult placed for Bilateral Heel Wounds POA.? Patient agreeable to assessment and photo documentation, however was talking nonsensical at times.? Per chart review this is not a new observation. Chart review reveals Dr. Disla saw the patient and recommends to paint with Betadine daily and wrap with dry gauze. There is concern for the eschar going to bone depth per his note and concerns for wound nonhealing if debridement were to occur. Will defer topical recommendations to Dr. Disla for Betadine. 09/09/23 Right Heel - Diabetic Wound - Soft boggy eschar - less foul smelling drainage. Defer to Dr. Disla who recommends betadine and dry dressing. Right Plantar - Diabetic full thickness tissue loss marbled wound bed with red moist tissue and yellow slough. Defer to Dr. Disla who recommends betadine and dry dressing. Left Heel - Diabetic wound - resurfacing at this time. [place] with Betadine and leave open to air do not cover with foam dressing as this may donate moisture to wound bed and goal is to keep dry at this time. No new topical recommendations need at this time. Recommendations: 1. Turn and Reposition every 2 hours and as needed for patient comfort.? Use pillows or wedges to support off loading positions. 2. Off Load all bony prominences with use of pillows and heel boots if needed.? Apply Preventative foams where needed. ? 3. Monitor for incontinence and moisture control, use barrier creams when needed for prevention and treatment. 4. Provide adequate and supplemental nutrition.? 5. Continue low air loss mattress. 6. Maintain blood glucose levels per Providers order. 7. Right heel and Plantar - Defer to Dr. Disla - continue use of heel protector boots. [place] with Betadine allow to dry. Cover with dry gauze, ABD pad and gauze wrap. Change Daily. Continue use of heel protector boots. 8. Left Heel - [place] with Betadine leave open to air. Use heel protector boots. Do not cover wound bed with foam dressing as this may donate moisture to the wound bed goal is to keep dry. Re-consult wound care Nurse for wound deterioration or wound changes.
--- NOTE | 2023-09-09 12:48 | P.PNIM_ITS ---
Subjective Subjective Date of Service: 09/09/23 Interval History: foot osteomyelitis Review of Systems no new c/o Physical Exam 2 Vital Signs: Vital Signs: Last Vital Signs Temp 98.3 F 09/09/23 11:59 Pulse 74 09/09/23 09:11 Resp 18 09/09/23 07:55 BP 141/77 H 09/09/23 09:11 Pulse Ox 93 09/09/23 07:55 O2 Del Method Room Air 09/09/23 07:55 BMI result Body Mass Index 26.5 General: AO X 2, seems calm, not in distress Resp: CTA bilateral CVS: S1,S2,RRR GI: +BS, NT, no distention Skin: right heel wound unchanged( seems similar) Neuro: motor grossly intact Psych: appropriate affect Objective Data Active Medications Acetaminophen (Acetaminophen 325 Mg Tablet) 650 mg PO Q6H PRN PRN Reason: Pain, Mild (Pain Scale 1-3) Last Admin: 09/08/23 20:29 Dose: 650 mg Documented By: JAVID Acetaminophen (Acetaminophen 325 Mg Tablet) 325 mg PO Q6H PRN PRN Reason: Pain, Moderate Last Admin: 09/05/23 08:02 Dose: 325 mg Documented By: PROMISE Albuterol/Ipratropium (Albuterol/Iprat 2.5/0.5mg 3 Ml Ampul.Neb) 3 ml INHALE RBID PRN PRN Reason: Shortness Of Breath Or Wheezing Albuterol/Ipratropium (Albuterol/Iprat 2.5/0.5mg 3 Ml Ampul.Neb) 3 ml INHALE RBID PRN PRN Reason: Shortness of Breath Ascorbic Acid (Ascorbic Acid 500 Mg Tablet) 500 mg PO DAILY [facility] Last Admin: 09/09/23 09:11 Dose: 500 mg Documented By: LAVON Baclofen (Baclofen 10 Mg Tablet) 10 mg PO QID [facility] Last Admin: 09/09/23 09:11 Dose: 10 mg Documented By: LAVON Bisacodyl (Bisacodyl 10 Mg Supp.Rect) 10 mg [place] DAILY PRN PRN Reason: Constipation Cholestyramine Resin (Cholestyramine (With Sugar) 4 Gm Powd.Pack) 4 gm PO TID [facility] Last Admin: 09/09/23 09:11 Dose: 4 gm Documented By: LAVON Gabapentin (Gabapentin 100 Mg Capsule) 100 mg PO TID [facility] Last Admin: 09/09/23 09:11 Dose: 100 mg Documented By: LAVON Meropenem 1 gm/ Sodium (Chloride) 100 mls @ 200 mls/hr IV Q8H [facility] Last Infusion: 09/09/23 08:36 Dose: Infused Documented By: LAVON Lisinopril (Lisinopril 10 Mg Tablet) 10 mg PO DAILY [facility]; Protocol Last Admin: 09/09/23 09:11 Dose: 10 mg Documented By: LAVON Loratadine (Loratadine 10 Mg Tablet) 10 mg PO DAILY PRN PRN Reason: PRURITUS Magnesium Hydroxide (Milk Of Magnesia 30 Ml Oral.Susp) 30 ml PO BEDTIME PRN PRN Reason: Constipation Melatonin (Melatonin 3 Mg Tablet) 6 mg PO BEDTIME PRN PRN Reason: Insomnia Melatonin (Melatonin 3 Mg Tablet) 6 mg PO BEDTIME [facility] Last Admin: 09/08/23 20:30 Dose: 6 mg Documented By: JAVID Metoprolol Tartrate (Metoprolol Tartrate 25 Mg Tablet) 25 mg PO BID [facility]; Protocol Last Admin: 09/09/23 09:11 Dose: 25 mg Documented By: LAVON Multivitamins/Vitamin C (Multivitamin Tablet) 1 tab PO DAILY [facility] Last Admin: 09/09/23 09:11 Dose: 1 tab Documented By: LAVON Omeprazole (Omeprazole 20 Mg Capsule.Dr) 20 mg PO DAILY@0630 [facility] Last Admin: 09/09/23 05:10 Dose: 20 mg Documented By: JAVID Ondansetron HCl (Ondansetron Hcl 4 Mg/2 Ml Vial) 4 mg IVPUSH Q8H PRN PRN Reason: Nausea and Vomiting Sodium Biphosphate/Sodium Phosphate (Sodium Phosphate,[place]-Dibasic 133 Ml Enema) 118 ml [place] DAILY PRN PRN Reason: Constipation Sodium Chloride (0.9 % Sodium Chloride Flush 3 Ml Syringe) 3 ml IVFLUSH QSHIFT [facility] Last Admin: 09/09/23 07:42 Dose: Not Given Documented By: LAVON Non-Admin Reason: picc line Sodium Chloride (0.9 % Sodium Chloride Flush 10 Ml Syringe) 5 ml IVFLUSH TID [facility] Last Admin: 09/09/23 07:43 Dose: 5 ml Documented By: LAVON Vitamin D (Cholecalciferol (Vitamin D3) 25 Mcg Tablet) 50 mcg PO DAILY [facility] Last Admin: 09/09/23 09:11 Dose: 50 mcg Documented By: LAVON Warfarin Sodium (Warfarin Sodium 4 Mg Tablet) 8 mg PO TH@1800 [facility] Warfarin Sodium (Warfarin Sodium 7.5 Mg Tablet) 7.5 mg PO SUMOTUWEFRSA@1800 [facility] Last Admin: 09/08/23 18:07 Dose: 7.5 mg Documented By: LAVON Labs 09/08/23 09:27 09/09/23 05:04 Labs: Laboratory Results - last 24 hr 09/09/23 05:04 Hold Purple Top SEE NOTE PT 25.9 H INR 2.1 H Estim Creat Clear Calc 103.0 Estimated GFR > 60 Assessment and Plan (1) Non-healing wound of right lower extremity: Status: Acute (2) Osteomyelitis: Status: Acute Plan 72-year-old male with a PMH significant for?unspecified dementia, paroxysmal AFib on warfarin, HTN, HLD, 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 Pt will be admitted to the hospital for treatment and further evaluation of worsening chronic right foot ulcer concerning for osteomyelitis. Nonhealing wound of right lower extremity with wet gangrene Wound with obvious necrosis, foul-smelling, yellowish discharge An outside xray showed OM Unable to do MRI d/t contracted status, CT to eval Seen by vascular surgery with recommendation for Abx and likely BKA in the future ID rec Zosyn+Vanc for now will get PICC or midline for [facility] antibiotics Hypotension--not due to sepsis, resolved with IVF and holding meds HTN--stable. on lisiniopril and Metoprolol . Paroxysmal AFib-rate controlled, restart metoprolol Continue warfarin, goal of INR 2 to 3, warfrain restarted. GERD PPI DNR/DNI DVT Prophylaxis: On Warfarin need for inaptient: IV Abx-need rehab placement . discussed with over the phone Quality Stroke Does the patient have a stroke diagnosis?: No VTE Prior VTE?: No VTE Risk Level:: Medical - moderate - high VTE Device Contraindication: Treatment Not Indicated VTE Drug Contraindication: N/A - Med Ordered
[2023-09-09] MEDS: 0.9 % Sodium Chloride Flush 3 ML SYRINGE IVFLUSH ×2 (16:50→23:41)
[2023-09-09] MEDS: Warfarin Sodium 4 MG TABLET 8 MG PO (17:28)
[2023-09-09] MEDS: Melatonin 3 MG TABLET 6 MG PO (20:20)
[2023-09-10] VITALS (7 sets, daily range): BP systolic 135–140; BP diastolic 73–83; PULSE 70–81; RESP 17–20; TEMP 36.4–37.2; O2SAT 94–95
[2023-09-10] MEDS: Omeprazole 20 MG CAPSULE.DR PO (05:37)
[2023-09-10 06:06] LABS: INTERNATIONAL NORM RATIO 1.9 (0.9-1.1); Prothrombin Time 23.7 SEC (11.1-13.3)
[2023-09-10 06:15] LABS: Creatinine Clr Calc Pharmacy 106.1; Estimated Glomerular Filt Rate > 60
[2023-09-10] MEDS: Ascorbic Acid 500 MG TABLET PO (07:57)
[2023-09-10] MEDS: Metoprolol Tartrate 25 MG TABLET PO ×2 (07:57→20:01)
[2023-09-10] MEDS: Baclofen 10 MG TABLET PO ×4 (07:57→20:00)
[2023-09-10] MEDS: Multivitamin TABLET 1 TAB PO (07:57)
[2023-09-10] MEDS: Cholestyramine (With Sugar) 4 GM POWD.PACK PO ×3 (07:58→20:00)
[2023-09-10] MEDS: Gabapentin 100 MG CAPSULE PO ×3 (07:58→20:00)
[2023-09-10] MEDS: lisinopriL 10 MG TABLET PO (07:58)
[2023-09-10] MEDS: Cholecalciferol (Vitamin D3) 25 MCG TABLET 50 MCG PO (07:58)
[2023-09-10] MEDS: 0.9 % Sodium Chloride Flush 3 ML SYRINGE IVFLUSH (07:58)
[2023-09-10] MEDS: 0.9 % Sodium Chloride Flush 10 ML SYRINGE 5 ML IVFLUSH ×3 (08:00→20:02)
--- NOTE | 2023-09-10 10:29 | MHC.CLN ---
F/U DIET=CARDIAC. ENSURE MAX BID TO PROMOTE WOUND HEALING. PROVIDES 300 KCALS, 60 G PROTEIN. SKIN WITH STAGE 2 TO LEFT BUTTOCK AND STAGE U RIGHT GREAT TOE, DM ULCERS TO LEFT AND RIGHT HEELS. INTAKE AT MEALS MOSTLY 100%. FOLLOW FOR INTAKE AND WOUND HEALING.
--- NOTE | 2023-09-10 14:33 | P.PNID_ITS ---
Subjective Subjective Date of Service: 09/09/23 Critical Care Time (minutes): 15 Comment: he has eschar right foot Objective Data Labs 09/08/23 09:27 09/10/23 05:54 Labs: Laboratory Results - last 24 hr 09/10/23 05:54 PT 23.7 H INR 1.9 H Creatinine 0.67 Estim Creat Clear Calc 106.1 Estimated GFR > 60 Microbiology Microbiology Results: Microbiology 09/02/23 18:14 Blood - Venous Blood Culture - Final No growth after 5 days. 09/02/23 17:30 Blood - Venous Blood Culture - Final No growth after 5 days. 09/02/23 20:06 Foot Right Gram Stain - Final 09/02/23 20:06 Foot Right Routine Culture - Final Proteus mirabilis Staphylococcus aureus 09/03/23 14:25 Urine clean catch - Urine roberto top Urine Culture - Final No growth. Physical Exam 2 Vital Signs: Vital Signs: Last Vital Signs Temp 97.5 F 09/10/23 07:16 Pulse 70 09/10/23 07:57 Resp 17 09/10/23 07:16 BP 140/75 H 09/10/23 07:58 Pulse Ox 94 09/10/23 07:16 O2 Del Method Room Air 09/10/23 07:16 BMI result Body Mass Index 26.5 Const: General: cooperative HEENT: Head: Yes normal to inspection Face and sinus: Yes normal facial exam Mouth: Normal oral and palatal mucosa present Teeth and gingiva: d entition normal Eyes: General: appearance normal, both eyes and all related structures P upils: Equal, round and reactive pupils present Resp: Effort & Inspection: normal respiratory effort Cardio: Rate: regular rate Rhythm: regular rhythm GI: Palpation (GI): Soft to palpation and nontender : General: Yes no CVA tenderness Back/Spine/Pelvis: Back: no CVA tenderness Skin: General skin exam: no rashes or lesions noted Neuro: General: moves all extremities Cranial nerves: Yes Equal, round and reactive pupils present Extrem: Other: right eschar foot om Psych: Appearance: grossly normal Assessment and Plan Assessment and plan (1) Non-healing wound of right lower extremity: Problem details: He has right om Status: Acute (2) Osteomyelitis: Status: Acute Assessment and Plan: OM right heel Can do suppressive Ertapenem as outpatient,done October 12 and possibley po after. Can see outpatient. Time Spent With Patient Time: Total time managing care of this patient today ____ minutes.
--- NOTE | 2023-09-10 14:34 | HO.PM.IMPN ---
Subjective Subjective Date of Service: 09/10/23 Interval History: foot osteomyelitis Review of Systems no new c/o Physical Exam Vital Signs: Vital Signs: Last Vital Signs Temp 97.5 F 09/10/23 07:16 Pulse 70 09/10/23 07:57 Resp 17 09/10/23 07:16 BP 140/75 H 09/10/23 07:58 Pulse Ox 94 09/10/23 07:16 O2 Del Method Room Air 09/10/23 07:16 BMI result Body Mass Index 26.5 General: AO X 2, seems calm, not in distress Resp: CTA bilateral CVS: S1,S2,RRR GI: +BS, NT, no distention Skin: right heel wound unchanged( seems similar) Neuro: motor grossly intact Psych: appropriate affect Objective Data Active Medications Acetaminophen (Acetaminophen 325 Mg Tablet) 650 mg PO Q6H PRN PRN Reason: Pain, Mild (Pain Scale 1-3) Last Admin: 09/08/23 20:29 Dose: 650 mg Documented By: JAVID Acetaminophen (Acetaminophen 325 Mg Tablet) 325 mg PO Q6H PRN PRN Reason: Pain, Moderate Last Admin: 09/05/23 08:02 Dose: 325 mg Documented By: PROMISE Ascorbic Acid (Ascorbic Acid 500 Mg Tablet) 500 mg PO DAILY [facility] Last Admin: 09/10/23 07:57 Dose: 500 mg Documented By: THIEN Baclofen (Baclofen 10 Mg Tablet) 10 mg PO QID [facility] Last Admin: 09/10/23 07:57 Dose: 10 mg Documented By: THIEN Bisacodyl (Bisacodyl 10 Mg Supp.Rect) 10 mg [place] DAILY PRN PRN Reason: Constipation Cholestyramine Resin (Cholestyramine (With Sugar) 4 Gm Powd.Pack) 4 gm PO TID [facility] Last Admin: 09/10/23 07:58 Dose: 4 gm Documented By: THIEN Gabapentin (Gabapentin 100 Mg Capsule) 100 mg PO TID [facility] Last Admin: 09/10/23 07:58 Dose: 100 mg Documented By: THIEN Meropenem 1 gm/ Sodium (Chloride) 100 mls @ 200 mls/hr IV Q8H [facility] Last Infusion: 09/10/23 08:54 Dose: Infused Documented By: THIEN Lisinopril (Lisinopril 10 Mg Tablet) 10 mg PO DAILY [facility]; Protocol Last Admin: 09/10/23 07:58 Dose: 10 mg Documented By: THIEN Loratadine (Loratadine 10 Mg Tablet) 10 mg PO DAILY PRN PRN Reason: PRURITUS Magnesium Hydroxide (Milk Of Magnesia 30 Ml Oral.Susp) 30 ml PO BEDTIME PRN PRN Reason: Constipation Melatonin (Melatonin 3 Mg Tablet) 6 mg PO BEDTIME PRN PRN Reason: Insomnia Melatonin (Melatonin 3 Mg Tablet) 6 mg PO BEDTIME [facility] Last Admin: 09/09/23 20:20 Dose: 6 mg Documented By: ODRISGail Metoprolol Tartrate (Metoprolol Tartrate 25 Mg Tablet) 25 mg PO BID [facility]; Protocol Last Admin: 09/10/23 07:57 Dose: 25 mg Documented By: THIEN Multivitamins/Vitamin C (Multivitamin Tablet) 1 tab PO DAILY [facility] Last Admin: 09/10/23 07:57 Dose: 1 tab Documented By: THIEN Omeprazole (Omeprazole 20 Mg Capsule.) 20 mg PO DAILY@0630 [facility] Last Admin: 09/10/23 05:37 Dose: 20 mg Documented By: ANTJOLEEN Ondansetron HCl (Ondansetron Hcl 4 Mg/2 Ml Vial) 4 mg IVPUSH Q8H PRN PRN Reason: Nausea and Vomiting Sodium Biphosphate/Sodium Phosphate (Sodium Phosphate,[place]-Dibasic 133 Ml Enema) 118 ml [place] DAILY PRN PRN Reason: Constipation Sodium Chloride (0.9 % Sodium Chloride Flush 3 Ml Syringe) 3 ml IVFLUSH QSHIFT [facility] Last Admin: 09/10/23 07:58 Dose: 3 ml Documented By: THIEN Sodium Chloride (0.9 % Sodium Chloride Flush 10 Ml Syringe) 5 ml IVFLUSH TID [facility] Last Admin: 09/10/23 08:00 Dose: 5 ml Documented By: THIEN Vitamin D (Cholecalciferol (Vitamin D3) 25 Mcg Tablet) 50 mcg PO DAILY [facility] Last Admin: 09/10/23 07:58 Dose: 50 mcg Documented By: THIEN Warfarin Sodium (Warfarin Sodium 4 Mg Tablet) 8 mg PO TH@1800 [facility] Last Admin: 09/09/23 17:28 Dose: 8 mg Documented By: RACHELE Warfarin Sodium (Warfarin Sodium 7.5 Mg Tablet) 7.5 mg PO DANIEL@1800 [facility] Last Admin: 09/08/23 18:07 Dose: 7.5 mg Documented By: LAVON Labs 09/08/23 09:27 09/10/23 05:54 Labs: Laboratory Results - last 24 hr 09/10/23 05:54 PT 23.7 H INR 1.9 H Estim Creat Clear Calc 106.1 Estimated GFR > 60 Assessment and Plan (1) Non-healing wound of right lower extremity: Status: Acute (2) Osteomyelitis: Status: Acute Plan 72-year-old male with a PMH significant for?unspecified dementia, paroxysmal AFib on warfarin, HTN, HLD, 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 Pt will be admitted to the hospital for treatment and further evaluation of worsening chronic right foot ulcer concerning for osteomyelitis. Nonhealing wound of right lower extremity with wet gangrene Wound with obvious necrosis, foul-smelling, yellowish discharge An outside xray showed OM Unable to do MRI d/t contracted status, CT to eval Seen by vascular surgery with recommendation for Abx and likely BKA in the future ID-s/p picc line ,added meropenem day2 Hypotension--not due to sepsis, resolved with IVF and holding meds HTN--stable. on lisiniopril and Metoprolol . Paroxysmal AFib-rate controlled, restart metoprolol Continue warfarin, goal of INr 1.9 ,continue warfrain. GERD PPI wound care: right heel/planter eschar: Left Heel - Diabetic wound - resurfacing at this time. wound care rec: Turn and Reposition every 2 hours and as needed for patient comfort.? Use pillows or wedges to support off loading positions. 2. Off Load all bony prominences with use of pillows and heel boots if needed.? Apply Preventative foams where needed. ? 3. Monitor for incontinence and moisture control, use barrier creams when needed for prevention and treatment. 4. Provide adequate and supplemental nutrition.? 5. Continue low air loss mattress. 6. Maintain blood glucose levels per Providers order. 7. Right heel and Plantar - Defer to Dr. Disla - continue use of heel protector boots. [place] with Betadine allow to dry. Cover with dry gauze, ABD pad and gauze wrap. Change Daily. Continue use of heel protector boots. 8. Left Heel - [place] with Betadine leave open to air. Use heel protector boots. Do not cover wound bed with foam dressing as this may donate moisture to the wound bed goal is to keep dry. DNR/DNI DVT Prophylaxis: On Warfarin need for inaptient: IV Abx-need rehab placement . discussed with over the phone Quality Stroke Does the patient have a stroke diagnosis?: No VTE Prior VTE?: No VTE Risk Level:: Medical - moderate - high VTE Device Contraindication: Treatment Not Indicated VTE Drug Contraindication: N/A - Med Ordered
[2023-09-10] MEDS: Warfarin Sodium 7.5 MG TABLET PO (17:46)
[2023-09-10] MEDS: Melatonin 3 MG TABLET 6 MG PO (20:01)
[2023-09-11] VITALS (8 sets, daily range): BP systolic 124–150; BP diastolic 68–83; PULSE 74–85; RESP 15–18; TEMP 36.5–37.2; O2SAT 94–95
[2023-09-11] MEDS: 0.9 % Sodium Chloride Flush 3 ML SYRINGE IVFLUSH (00:05)
[2023-09-11] MEDS: Omeprazole 20 MG CAPSULE.DR PO (06:01)
[2023-09-11 06:17] LABS: INTERNATIONAL NORM RATIO 2.1 (0.9-1.1); Prothrombin Time 25.4 SEC (11.1-13.3)
[2023-09-11 06:25] LABS: Creatinine Clr Calc Pharmacy 112.9; Estimated Glomerular Filt Rate > 60
--- NOTE | 2023-09-11 08:41 | PC.NURSE ---
Swelling of scrotum and penis, made aware,
[2023-09-11] MEDS: 0.9 % Sodium Chloride Flush 10 ML SYRINGE 5 ML IVFLUSH ×3 (08:45→20:37)
[2023-09-11] MEDS: Cholestyramine (With Sugar) 4 GM POWD.PACK PO ×3 (08:45→20:38)
[2023-09-11] MEDS: Gabapentin 100 MG CAPSULE PO ×3 (08:46→20:38)
[2023-09-11] MEDS: lisinopriL 10 MG TABLET PO (08:46)
[2023-09-11] MEDS: Ascorbic Acid 500 MG TABLET PO (08:47)
[2023-09-11] MEDS: Multivitamin TABLET 1 TAB PO (08:47)
[2023-09-11] MEDS: Cholecalciferol (Vitamin D3) 25 MCG TABLET 50 MCG PO (08:47)
[2023-09-11] MEDS: Baclofen 10 MG TABLET PO ×4 (08:47→20:38)
[2023-09-11] MEDS: Metoprolol Tartrate 25 MG TABLET PO ×2 (08:47→20:38)
--- NOTE | 2023-09-11 10:33 | P.PNIM_ITS ---
Subjective Subjective Date of Service: 09/11/23 Interval History: foot osteomyelitis Review of Systems seems similar has groin area rash , also has penis glass skin redness/mild swelling-urinating ok ,not much pain with palpation. Physical Exam 2 Vital Signs: Vital Signs: Last Vital Signs Temp 97.7 F 09/11/23 07:08 Pulse 82 09/11/23 08:47 Resp 16 09/11/23 07:08 BP 150/83 H 09/11/23 08:47 Pulse Ox 94 09/11/23 07:08 O2 Del Method Room Air 09/11/23 07:08 BMI result Body Mass Index 26.5 General: AO X 2, seems calm, not in distress Resp: CTA bilateral CVS: S1,S2,RRR GI: +BS, NT, no distention Skin: right heel wound unchanged( seems similar) Neuro: motor grossly intact Psych: appropriate affect Objective Data Active Medications Acetaminophen (Acetaminophen 325 Mg Tablet) 650 mg PO Q6H PRN PRN Reason: Pain, Mild (Pain Scale 1-3) Last Admin: 09/08/23 20:29 Dose: 650 mg Documented By: JAVID Acetaminophen (Acetaminophen 325 Mg Tablet) 325 mg PO Q6H PRN PRN Reason: Pain, Moderate Last Admin: 09/05/23 08:02 Dose: 325 mg Documented By: PROMISE Ascorbic Acid (Ascorbic Acid 500 Mg Tablet) 500 mg PO DAILY [facility] Last Admin: 09/11/23 08:47 Dose: 500 mg Documented By: DEJAH Baclofen (Baclofen 10 Mg Tablet) 10 mg PO QID [facility] Last Admin: 09/11/23 08:47 Dose: 10 mg Documented By: DEJAH Bisacodyl (Bisacodyl 10 Mg Supp.Rect) 10 mg [place] DAILY PRN PRN Reason: Constipation Cholestyramine Resin (Cholestyramine (With Sugar) 4 Gm Powd.Pack) 4 gm PO TID [facility] Last Admin: 09/11/23 08:45 Dose: 4 gm Documented By: DEJAH Clotrimazole (Clotrimazole 1 % Cream 15 Gm Tube) 1 appl TOPICAL BID [facility]; Protocol Gabapentin (Gabapentin 100 Mg Capsule) 100 mg PO TID [facility] Last Admin: 09/11/23 08:46 Dose: 100 mg Documented By: DEJAH Meropenem 1 gm/ Sodium (Chloride) 100 mls @ 200 mls/hr IV Q8H [facility] Last Infusion: 09/11/23 09:20 Dose: Infused Documented By: DJEAH Lisinopril (Lisinopril 10 Mg Tablet) 10 mg PO DAILY [facility]; Protocol Last Admin: 09/11/23 08:46 Dose: 10 mg Documented By: DEJAH Loratadine (Loratadine 10 Mg Tablet) 10 mg PO DAILY PRN PRN Reason: PRURITUS Magnesium Hydroxide (Milk Of Magnesia 30 Ml Oral.Susp) 30 ml PO BEDTIME PRN PRN Reason: Constipation Melatonin (Melatonin 3 Mg Tablet) 6 mg PO BEDTIME PRN PRN Reason: Insomnia Melatonin (Melatonin 3 Mg Tablet) 6 mg PO BEDTIME [facility] Last Admin: 09/10/23 20:01 Dose: 6 mg Documented By: RAMESH Metoprolol Tartrate (Metoprolol Tartrate 25 Mg Tablet) 25 mg PO BID [facility]; Protocol Last Admin: 09/11/23 08:47 Dose: 25 mg Documented By: DEJAH Multivitamins/Vitamin C (Multivitamin Tablet) 1 tab PO DAILY [facility] Last Admin: 09/11/23 08:47 Dose: 1 tab Documented By: DEJAH Nystatin (Nystatin Powder 15 Gm Bottle) 1 appl TOPICAL TID [facility]; Protocol Omeprazole (Omeprazole 20 Mg Capsule.Dr) 20 mg PO DAILY@0630 [facility] Last Admin: 09/11/23 06:01 Dose: 20 mg Documented By: RAMESH Ondansetron HCl (Ondansetron Hcl 4 Mg/2 Ml Vial) 4 mg IVPUSH Q8H PRN PRN Reason: Nausea and Vomiting Sodium Biphosphate/Sodium Phosphate (Sodium Phosphate,[place]-Dibasic 133 Ml Enema) 118 ml [place] DAILY PRN PRN Reason: Constipation Sodium Chloride (0.9 % Sodium Chloride Flush 3 Ml Syringe) 3 ml IVFLUSH QSHIFT [facility] Last Admin: 09/11/23 08:44 Dose: Not Given Documented By: DEJAH Non-Admin Reason: pt has a PICC line Sodium Chloride (0.9 % Sodium Chloride Flush 10 Ml Syringe) 5 ml IVFLUSH TID [facility] Last Admin: 09/11/23 08:45 Dose: 5 ml Documented By: DEJAH Vitamin D (Cholecalciferol (Vitamin D3) 25 Mcg Tablet) 50 mcg PO DAILY [facility] Last Admin: 09/11/23 08:47 Dose: 50 mcg Documented By: DEJAH Warfarin Sodium (Warfarin Sodium 4 Mg Tablet) 8 mg PO TH@1800 [facility] Last Admin: 09/09/23 17:28 Dose: 8 mg Documented By: RACHELE Warfarin Sodium (Warfarin Sodium 7.5 Mg Tablet) 7.5 mg PO SUMOTUWEFRSA@1800 [facility] Last Admin: 09/10/23 17:46 Dose: 7.5 mg Documented By: THIEN Labs 09/08/23 09:27 09/11/23 05:34 Labs: Laboratory Results - last 24 hr 09/11/23 05:34 Hold Purple Top SEE NOTE PT 25.4 H INR 2.1 H Estim Creat Clear Calc 112.9 Estimated GFR > 60 Assessment and Plan (1) Non-healing wound of right lower extremity: Status: Acute (2) Osteomyelitis: Status: Acute Plan 72-year-old male with a PMH significant for?unspecified dementia, paroxysmal AFib on warfarin, HTN, HLD, 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 Pt will be admitted to the hospital for treatment and further evaluation of worsening chronic right foot ulcer concerning for osteomyelitis. Nonhealing wound of right lower extremity with wet gangrene Wound with obvious necrosis, foul-smelling, yellowish discharge An outside xray showed OM Unable to do MRI d/t contracted status, CT to eval Seen by vascular surgery with recommendation for Abx and likely BKA in the future ID-s/p picc line ,added meropenem day2 Hypotension--not due to sepsis, resolved with IVF and holding meds HTN--stable. on lisiniopril and Metoprolol . Paroxysmal AFib-rate controlled, restart metoprolol Continue warfarin, goal of INr 1.9 ,continue warfrain. GERD PPI groin rash possible fungal: added nystatin powder /cream freq turnin, placed pillow between lower ext to avoid moister,pad changed. also has possible Paraphimosis, penile swelling : penis glass skin redness/mild swelling-urinating ok ,not much pain with palpation. added urology eval wound care: right heel/planter eschar: Left Heel - Diabetic wound - resurfacing at this time. wound care rec: Turn and Reposition every 2 hours and as needed for patient comfort.? Use pillows or wedges to support off loading positions. 2. Off Load all bony prominences with use of pillows and heel boots if needed.? Apply Preventative foams where needed. ? 3. Monitor for incontinence and moisture control, use barrier creams when needed for prevention and treatment. 4. Provide adequate and supplemental nutrition.? 5. Continue low air loss mattress. 6. Maintain blood glucose levels per Providers order. 7. Right heel and Plantar - Defer to Dr. Disla - continue use of heel protector boots. [place] with Betadine allow to dry. Cover with dry gauze, ABD pad and gauze wrap. Change Daily. Continue use of heel protector boots. 8. Left Heel - [place] with Betadine leave open to air. Use heel protector boots. Do not cover wound bed with foam dressing as this may donate moisture to the wound bed goal is to keep dry. DNR/DNI DVT Prophylaxis: On Warfarin need for inaptient: IV Abx-need rehab placement . discussed with over the phone Quality Stroke Does the patient have a stroke diagnosis?: No VTE Prior VTE?: No VTE Risk Level:: Medical - moderate - high VTE Device Contraindication: Treatment Not Indicated VTE Drug Contraindication: N/A - Med Ordered
[2023-09-11] MEDS: Nystatin Powder 15 GM BOTTLE 1 APPL TOPICAL ×3 (11:09→20:42)
[2023-09-11] MEDS: Clotrimazole 1 % Cream 15 GM TUBE 1 APPL TOPICAL ×2 (11:09→20:42)
[2023-09-11] MEDS: Warfarin Sodium 7.5 MG TABLET PO (17:34)
[2023-09-11] MEDS: Melatonin 3 MG TABLET 6 MG PO (20:38)
[2023-09-12] VITALS (7 sets, daily range): BP systolic 123–143; BP diastolic 69–75; PULSE 69–86; RESP 16–18; TEMP 36.3–37.2; O2SAT 92–96
[2023-09-12] MEDS: 0.9 % Sodium Chloride Flush 3 ML SYRINGE IVFLUSH ×4 (00:19→22:58)
[2023-09-12] MEDS: Omeprazole 20 MG CAPSULE.DR PO (06:01)
[2023-09-12 07:15] LABS: Creatinine Clr Calc Pharmacy 104.6; Estimated Glomerular Filt Rate > 60
[2023-09-12 07:19] LABS: INTERNATIONAL NORM RATIO 2.2 (0.9-1.1); Prothrombin Time 26.2 SEC (11.1-13.3)
[2023-09-12] MEDS: Gabapentin 100 MG CAPSULE PO ×3 (09:50→20:30)
[2023-09-12] MEDS: Multivitamin TABLET 1 TAB PO (09:50)
[2023-09-12] MEDS: Cholecalciferol (Vitamin D3) 25 MCG TABLET 50 MCG PO (09:50)
[2023-09-12] MEDS: Ascorbic Acid 500 MG TABLET PO (09:50)
[2023-09-12] MEDS: Cholestyramine (With Sugar) 4 GM POWD.PACK PO ×3 (09:50→20:30)
[2023-09-12] MEDS: Clotrimazole 1 % Cream 15 GM TUBE 1 APPL TOPICAL ×2 (09:51→20:34)
[2023-09-12] MEDS: Nystatin Powder 15 GM BOTTLE 1 APPL TOPICAL ×3 (09:51→20:34)
[2023-09-12] MEDS: Baclofen 10 MG TABLET PO ×4 (09:51→20:30)
[2023-09-12] MEDS: Metoprolol Tartrate 25 MG TABLET PO ×2 (09:53→20:30)
[2023-09-12] MEDS: lisinopriL 10 MG TABLET PO (09:54)
--- NOTE | 2023-09-12 13:25 | P.PNIM_ITS ---
Subjective Subjective Date of Service: 09/12/23 Interval History: foot osteomyelitis Review of Systems has groin area rash , also has penis glass skin redness/mild swelling-urinating ok ,not much pain with palpation. Physical Exam 2 Vital Signs: Vital Signs: Last Vital Signs Temp 97.3 F 09/12/23 07:23 Pulse 79 09/12/23 09:53 Resp 16 09/12/23 07:23 BP 123/74 09/12/23 09:54 Pulse Ox 94 09/12/23 07:23 O2 Del Method Room Air 09/12/23 07:23 BMI result Body Mass Index 26.5 General: AO X 2, seems calm, not in distress Resp: CTA bilateral CVS: S1,S2,RRR GI: +BS, NT, no distention Skin: right heel wound unchanged( seems similar) Neuro: motor grossly intact Psych: appropriate affect Objective Data Active Medications Acetaminophen (Acetaminophen 325 Mg Tablet) 650 mg PO Q6H PRN PRN Reason: Pain, Mild (Pain Scale 1-3) Last Admin: 09/08/23 20:29 Dose: 650 mg Documented By: JAVID Acetaminophen (Acetaminophen 325 Mg Tablet) 325 mg PO Q6H PRN PRN Reason: Pain, Moderate Last Admin: 09/05/23 08:02 Dose: 325 mg Documented By: PROMISE Ascorbic Acid (Ascorbic Acid 500 Mg Tablet) 500 mg PO DAILY [facility] Last Admin: 09/12/23 09:50 Dose: 500 mg Documented By: RACHELE Baclofen (Baclofen 10 Mg Tablet) 10 mg PO QID [facility] Last Admin: 09/12/23 09:51 Dose: 10 mg Documented By: RACHELE Bisacodyl (Bisacodyl 10 Mg Supp.Rect) 10 mg [place] DAILY PRN PRN Reason: Constipation Cholestyramine Resin (Cholestyramine (With Sugar) 4 Gm Powd.Pack) 4 gm PO TID [facility] Last Admin: 09/12/23 09:50 Dose: 4 gm Documented By: RACHELE Clotrimazole (Clotrimazole 1 % Cream 15 Gm Tube) 1 appl TOPICAL BID [facility]; Protocol Last Admin: 09/12/23 09:51 Dose: 1 appl Documented By: RACHELE Gabapentin (Gabapentin 100 Mg Capsule) 100 mg PO TID [facility] Last Admin: 09/12/23 09:50 Dose: 100 mg Documented By: RACHELE Meropenem 1 gm/ Sodium (Chloride) 100 mls @ 200 mls/hr IV Q8H [facility] Last Infusion: 09/12/23 06:49 Dose: Infused Documented By: OTTO Lisinopril (Lisinopril 10 Mg Tablet) 10 mg PO DAILY [facility]; Protocol Last Admin: 09/12/23 09:54 Dose: 10 mg Documented By: RACHELE Loratadine (Loratadine 10 Mg Tablet) 10 mg PO DAILY PRN PRN Reason: PRURITUS Magnesium Hydroxide (Milk Of Magnesia 30 Ml Oral.Susp) 30 ml PO BEDTIME PRN PRN Reason: Constipation Melatonin (Melatonin 3 Mg Tablet) 6 mg PO BEDTIME PRN PRN Reason: Insomnia Melatonin (Melatonin 3 Mg Tablet) 6 mg PO BEDTIME [facility] Last Admin: 09/11/23 20:38 Dose: 6 mg Documented By: LILIANE Metoprolol Tartrate (Metoprolol Tartrate 25 Mg Tablet) 25 mg PO BID [facility]; Protocol Last Admin: 09/12/23 09:53 Dose: 25 mg Documented By: RACHELE Multivitamins/Vitamin C (Multivitamin Tablet) 1 tab PO DAILY [facility] Last Admin: 09/12/23 09:50 Dose: 1 tab Documented By: RACHELE Nystatin (Nystatin Powder 15 Gm Bottle) 1 appl TOPICAL TID [facility]; Protocol Last Admin: 09/12/23 09:51 Dose: 1 appl Documented By: RACHELE Omeprazole (Omeprazole 20 Mg Capsule.Dr) 20 mg PO DAILY@0630 [facility] Last Admin: 09/12/23 06:01 Dose: 20 mg Documented By: OTTO Ondansetron HCl (Ondansetron Hcl 4 Mg/2 Ml Vial) 4 mg IVPUSH Q8H PRN PRN Reason: Nausea and Vomiting Sodium Biphosphate/Sodium Phosphate (Sodium Phosphate,[place]-Dibasic 133 Ml Enema) 118 ml [place] DAILY PRN PRN Reason: Constipation Sodium Chloride (0.9 % Sodium Chloride Flush 3 Ml Syringe) 3 ml IVFLUSH QSHIFT [facility] Last Admin: 09/12/23 09:51 Dose: 3 ml Documented By: RACHELE Sodium Chloride (0.9 % Sodium Chloride Flush 10 Ml Syringe) 5 ml IVFLUSH TID [facility] Last Admin: 09/12/23 09:52 Dose: Not Given Documented By: RACHELE Non-Admin Reason: Previously Administered Vitamin D (Cholecalciferol (Vitamin D3) 25 Mcg Tablet) 50 mcg PO DAILY [facility] Last Admin: 09/12/23 09:50 Dose: 50 mcg Documented By: RACHELE Warfarin Sodium (Warfarin Sodium 4 Mg Tablet) 8 mg PO TH@1800 [facility] Last Admin: 09/09/23 17:28 Dose: 8 mg Documented By: RACHELE Warfarin Sodium (Warfarin Sodium 7.5 Mg Tablet) 7.5 mg PO SUMOTUWEFRSA@1800 [facility] Last Admin: 09/11/23 17:34 Dose: 7.5 mg Documented By: DEJAH Labs 09/08/23 09:27 09/12/23 06:09 Labs: Laboratory Results - last 24 hr 09/12/23 06:09 PT 26.2 H INR 2.2 H Estim Creat Clear Calc 104.6 Estimated GFR > 60 Assessment and Plan (1) Osteomyelitis: Status: Acute Plan 72-year-old male with a PMH significant for?unspecified dementia, paroxysmal AFib on warfarin, HTN, HLD, 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 Pt will be admitted to the hospital for treatment and further evaluation of worsening chronic right foot ulcer concerning for osteomyelitis. Nonhealing wound of right lower extremity with wet gangrene Wound with obvious necrosis, foul-smelling, yellowish discharge An outside xray showed OM Unable to do MRI d/t contracted status, CT to eval Seen by vascular surgery with recommendation for Abx and likely BKA in the future ID-s/p picc line ,added meropenem day2 Hypotension--not due to sepsis, resolved with IVF and holding meds HTN--stable. on lisiniopril and Metoprolol . Paroxysmal AFib-rate controlled, restart metoprolol Continue warfarin, goal of INr 1.9 ,continue warfrain. GERD PPI groin rash possible fungal: added nystatin powder /cream freq turnin, placed pillow between lower ext to avoid moister,pad changed. also has possible Paraphimosis, penile swelling : penis glass skin redness/mild swelling-urinating ok ,not much pain with palpation. added urology eval wound care: right heel/planter eschar: Left Heel - Diabetic wound - resurfacing at this time. wound care rec: Turn and Reposition every 2 hours and as needed for patient comfort.? Use pillows or wedges to support off loading positions. 2. Off Load all bony prominences with use of pillows and heel boots if needed.? Apply Preventative foams where needed. ? 3. Monitor for incontinence and moisture control, use barrier creams when needed for prevention and treatment. 4. Provide adequate and supplemental nutrition.? 5. Continue low air loss mattress. 6. Maintain blood glucose levels per Providers order. 7. Right heel and Plantar - Defer to Dr. Disla - continue use of heel protector boots. [place] with Betadine allow to dry. Cover with dry gauze, ABD pad and gauze wrap. Change Daily. Continue use of heel protector boots. 8. Left Heel - [place] with Betadine leave open to air. Use heel protector boots. Do not cover wound bed with foam dressing as this may donate moisture to the wound bed goal is to keep dry. DNR/DNI DVT Prophylaxis: On Warfarin need for inaptient: IV Abx-need rehab placement . discussed with over the phone Quality Stroke Does the patient have a stroke diagnosis?: No VTE Prior VTE?: No VTE Risk Level:: Medical - moderate - high VTE Device Contraindication: Treatment Not Indicated VTE Drug Contraindication: N/A - Med Ordered
[2023-09-12] MEDS: 0.9 % Sodium Chloride Flush 10 ML SYRINGE 5 ML IVFLUSH ×2 (16:08→20:34)
[2023-09-12] MEDS: Warfarin Sodium 7.5 MG TABLET PO (17:53)
[2023-09-12] MEDS: Melatonin 3 MG TABLET 6 MG PO (20:30)
[2023-09-13 03:46] VITALS: BP 123/69; PULSE 69; RESP 18; TEMP 36.2; O2SAT 94
--- NOTE | 2023-09-13 05:59 | PC.NURSE ---
Pt is not diabetic but some documentation need correction. most of night pt slept well. pt, still AOx1, he can't give me a his . he talks but it doesn't make any sense. he using the I.S, but still diminished. will cont. monitor.
[2023-09-13 06:18] LABS: Prothrombin Time 24.4 SEC (11.1-13.3)
[2023-09-13] MEDS: Omeprazole 20 MG CAPSULE.DR PO (06:26)
[2023-09-13 07:19] VITALS: BP 141/70; PULSE 77; RESP 18; TEMP 36.2; O2SAT 97
[2023-09-13] MEDS: 0.9 % Sodium Chloride Flush 10 ML SYRINGE 5 ML IVFLUSH ×2 (07:30→14:05)
[2023-09-13] MEDS: Cholestyramine (With Sugar) 4 GM POWD.PACK PO ×2 (08:19→14:05)
[2023-09-13] MEDS: Multivitamin TABLET 1 TAB PO (08:20)
[2023-09-13] MEDS: Gabapentin 100 MG CAPSULE PO ×2 (08:20→14:05)
[2023-09-13] MEDS: Ascorbic Acid 500 MG TABLET PO (08:21)
[2023-09-13] MEDS: Cholecalciferol (Vitamin D3) 25 MCG TABLET 50 MCG PO (08:21)
[2023-09-13] MEDS: lisinopriL 10 MG TABLET PO (08:21)
[2023-09-13] MEDS: Metoprolol Tartrate 25 MG TABLET PO (08:21)
[2023-09-13] MEDS: Baclofen 10 MG TABLET PO ×2 (08:22→12:23)
[2023-09-13] MEDS: Nystatin Powder 15 GM BOTTLE 1 APPL TOPICAL ×2 (08:22→14:05)
[2023-09-13] MEDS: Clotrimazole 1 % Cream 15 GM TUBE 1 APPL TOPICAL (08:22)
--- NOTE | 2023-09-13 09:07 | MHC.CLN ---
F/U DIET=CARDIAC. ENSURE MAX BID TO PROMOTE WOUND HEALING. PROVIDES 300 KCALS, 60 G PROTEIN. SEE WOUND RN NOTE 09/09/23. DM ULCERS TO LEFT AND RIGHT HEELS. INTAKE AT MEALS USUALLY 75-100%. FOLLOW FOR INTAKE AND WOUND HEALING.
--- NOTE | 2023-09-13 14:31 | P.DS_ITS ---
DS: Providers Provider Date of Service: 09/13/23 Date of admission: 09/02/23 22:01 Date of discharge: 09/13/23 Primary care physician: Venkat Chilel MD Consults: 09/02/23 22:04 Consult to Vascular Surgery Routine Consulting Provider: [facility] [place] [facility] Reason for consultation: right foot wet gangrene 09/03/23 15:23 Consult to Infectious Diseases Stat Consulting Provider: [facility] [place] [facility] Reason for consultation: osteomyltis of the rifh heel Has provider been notified: No 09/05/23 08:29 Consult to Wound Care Routine Reason for consultation: wound Has provider been notified: Yes 09/11/23 08:38 Consult to Urology Routine Consulting Provider: Juan Askew Reason for consultation: Paraphimosis Has provider been notified: No Attending physician on discharge: Oscar Borja Discharging clinician: Oscar Borja DS: Diagnosis Discharge Diagnosis (1) Osteomyelitis: Status: Acute DS: Summary Hospital Course Hospital Course: 72-year-old male with a PMH significant for?unspecified dementia, paroxysmal AFib on warfarin, HTN, HLD, 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 Patient with advanced dementia at baseline and unable to provide meaningful HPI, which is instead obtained from who is at bedside and chart and provider review. states patient initially presented to SNF in February of 2023 for rehab, but soon turned to long-term care after rehab insurance ran out. Patient began declining shortly thereafter, and has essentially been nonambulatory since beginning of the year. Unclear exactly when chronic right heel wound developed, but thinks sometime in late April or early June. Was seen by Podiatry at facility every Wednesday, and wound care completed by staff at facility. A few weeks ago patient was given a 5-day course of amoxicillin for potential infection. then spoke to stringer machine tender yesterday who noted foul-smelling discharge and that wound appeared larger than before. An x-ray was completed a which was concerning for osteomyelitis and patient was sent to the ED for further evaluation. Patient himself is unable to provide any significant ROS. In the ED pt with soft BP as low as 92/49, vitals otherwise WNL. Labs were significant for ESR 74, CRP 9.04, H&H 11.2/33.2, and albumin 3.2. XR of right foot showed no acute visible fracture or dislocation, or any cortical erosion to suggest osteomyelitis. Did show multi joint arthritic changes and redemonstrated linear radiopaque densities along lateral aspect of 1st distal phalanx and 1st proximal phalanx. Pt was treated with IVF, cefepime, and vancomycin. Pt will be admitted to the hospital for treatment and further evaluation of worsening chronic right foot ulcer concerning for osteomyelitis. Hospital course: Patient came to the hospital because of worsening right foot wound, admitted for nonhealing wound of the right lower extremity, outside x-ray showed osteomyelitis: Patient was started on IV antibiotics, blood cultures sent, Unable to do MRI d/t contracted status, CT of right foot was done shows consistent osteomyelitis, patient has no fever or leukocytosis, Blood culture negative. Seen by ID: Recommended IV ertapenem 1 g daily for 6 weeks,already got 1 week meropenem -last date of ertapenem will be end on 10/17/23. wound care -please see above instructions. Initially also had borderline BP: Which seems to be improved with IV fluid and holding outpatient medications now currently back on his BP medications. BF: Rate controlled, continue home warfarin dose, INR therapeutic,moniter outaptient. Consider monitoring CBC, BMP, LFTs, ESR, CRP Q weekly while patient is on antibiotics. Patient is follow-up out patiently with PCP and vascular. plan: ertapenem will be 10/17/23. Consider monitoring CBC, BMP, LFTs, ESR, CRP Q weekly while patient is on antibiotics. Patient is follow-up out patiently with PCP and vascular Above management discussed with the patient in detail length, time spent 40 minute. Time Attestation Total time managing care of this patient today: 40 mintues. Discharge Coordination Time (in mins): 40 min Quality: Safe Use of Opioids Does Pt have an Active Cancer Diagnosis on the Problem List?: No Quality: Stroke Does the patient have a stroke diagnosis?: No Physical Exam Vital Signs: Vital Signs: Last Vital Signs Temp 97.2 F 09/13/23 07:19 Pulse 77 09/13/23 07:19 Resp 18 09/13/23 07:19 BP 141/70 H 09/13/23 07:19 Pulse Ox 97 09/13/23 07:19 O2 Del Method Room Air 09/13/23 07:19 BMI result Body Mass Index 26.5 General: awake alert ,calm ,at baseline per . Resp: CTA bilateral CVS: S1,S2,RRR GI: +BS, NT, no distention Skin: right heel wound -wound has eschar ,no discharge . Neuro: motor grossly intact Psych: appropriate affect DS: Data Data Completed and Pending Labs on day of discharge: Laboratory Results - last 24 hr 09/13/23 05:57 PT 24.4 H INR 2.0 H Imaging Chest x-ray: Radiologist's impression: ITS Impressions Foot X-Ray 09/02/23 18:45 IMPRESSION: 1. No acute visible fracture or dislocation. 2. Multi joint arthritic changes. 3. Redemonstrated linear radiopaque densities along the lateral aspect of the first distal phalanx and first proximal phalanx. 4. Soft tissue prominence throughout the foot without soft tissue gas noted. No cortical erosion to suggest osteomyelitis. If high clinical concern for osteomyelitis consider further evaluation with MRI. Foot CT 09/03/23 12:58 IMPRESSION: 1. Osteomyelitis at the calcaneal tuberosity deep to the plantar wounds. No appreciable abscess, though sensitivity is limited by CT. 2. Marked diffuse osteopenia. Foot CT 09/06/23 11:12 IMPRESSION: Persistent plantar ulceration with surrounding gas and cellulitis overlying the area of bone erosion/destruction of the calcaneal tuberosity, essentially unchanged. Findings most consistent with ulceration, cellulitis, and osteomyelitis. Discharge Plan Discharge Anticipated Discharge Date/Time: 09/13/23 14:05 Patient Disposition: Xfer SNF Discharge Diagnosis: osteomyelitis Referrals: Venkat Chilel MD [Primary Care Provider] - 1 Week Scotty Disla MD [Physician] - 1 Week Discharge Medications: New ertapenem 1 gram Recon Soln 1 g IV DAILY Qty: 35 0RF Rx Instructions: continue ertapenem 1 gm iv qdaily (end date will be 10/17/23). Continued (DME) bilateral custom AFO See Rx Instructions .Route .MEDSUPPLY Qty: 1 0RF Rx Instructions: As directed ipratropium-albuterol 0.5 mg-3 mg(2.5 mg base)/3 mL solution for nebulization 3 ml inhalation Q12H PRN (Reason: SOB) warfarin 7.5 mg Tablet 7.5 mg PO SUMOTUWEFRSA@1800 warfarin 4 mg Tablet 8 mg PO TH@1800 baclofen 10 mg tablet 20 mg PO TID bisacodyl 10 mg Suppository 10 mg NC DAILY PRN (Reason: Constipation) Rx Instructions: Use if no results from milk of magnesia and no BM. furosemide 20 mg tablet 40 mg PO DAILY gabapentin 100 mg capsule 200 mg PO TID magnesium hydroxide [Milk of Magnesia] 400 mg/5 mL Suspension 30 ml PO BEDTIME PRN (Reason: Constipation) Fleet Enema 19-7 gram/118 mL Enema 118 ml NC DAILY PRN (Reason: Constipation) loratadine 10 mg Tablet 10 mg PO DAILY PRN (Reason: PRURITUS) melatonin 5 mg Tablet 5 mg PO BEDTIME tramadol 50 mg tablet 50 mg PO Q12H PRN (Reason: mod-sev pain) ipratropium-albuterol [DuoNeb] 0.5 mg-3 mg(2.5 mg base)/3 mL Solution For Nebulization 3 ml INHALATION Q12H PRN (Reason: Shortness Of Breath Or Wheezing) ascorbic acid (vitamin C) 500 mg tablet 500 mg PO DAILY omeprazole 20 mg capsule,delayed release(DR/EC) 20 mg PO DAILY@0630 cholecalciferol (vitamin D3) 50 mcg (2,000 unit) Capsule 50 mcg PO DAILY colesevelam 625 mg tablet 1,875 mg PO DAILY metoprolol tartrate 25 mg tablet 25 mg PO BID Centrum Silver Ultra Men's 300-600-300 mcg tablet 1 tab PO DAILY acetaminophen 325 mg tablet 325 mg PO Q6H PRN (Reason: Pain, Moderate) (DME) compress.stocking,knee,reg,lrg Misc See Rx Instructions .Route Qty: 12 1RF Rx Instructions: As directed 20-30 mm HG lisinopril 10 mg tablet 10 mg PO DAILY 90 Days Qty: 90 3RF Hold Instructions: Doctor's Order Discharge Orders: Discharge Order (Routine); Ordered 09/13/23 Ordered By: Oscar Borja Diet: Advance to usual diet Activity on Discharge: As tolerated Stand Alone Forms: Patient Portal Discharge page Print Language: Vincentian Care Plan Goals: Patient came to the hospital because of worsening right foot wound, admitted for nonhealing wound of the right lower extremity, outside x-ray showed osteomyelitis: Patient was started on IV antibiotics, blood cultures sent, Unable to do MRI d/t contracted status, CT of right foot was done shows consistent osteomyelitis, patient has no fever or leukocytosis, Blood culture negative. Seen by ID: Recommended IV ertapenem 1 g daily for 6 weeks,already got 1 week meropenem -last date of ertapenem will be 10/17/23. wound care -please see above instructions. Initially also had borderline BP: Which seems to be improved with IV fluid and holding outpatient medications now currently back on his BP medications. BF: Rate controlled, continue home warfarin dose, INR therapeutic Consider monitoring CBC, BMP, LFTs, ESR, CRP Q weekly while patient is on antibiotics. Patient is follow-up out patiently with PCP and vascular. Above management discussed with the patient in detail length, time spent 40 minute. Health Concerns: As above. Plan of Treatment: As above. Assessment: As above.
[2023-09-13] MEDS: Ertapenem Sodium 1 GM in 0.9 % Sodium Chloride 50 ML IV (14:41)
--- NOTE | 2023-09-13 15:19 | MHC.CM.PN ---
IMM 09/13/23 KEVIN DELIVERED TO PT'S TRAY AT BEDSIDE D/T ADVANCED DEMENTIA, PT MEDICALLY CLEARED FOR DC BACK TO [facility] FOR PRIVATE PAY LTC, [facility] WILL STILL WORK W/TRAY ON TRANSFER TO FACILITY, [facility] FOR BLS TRANSPORT PT HAS HNE PLAN.
[2023-09-13 15:22] VITALS: BP 138/82; PULSE 78; RESP 18; TEMP 36.4; O2SAT 96
== END 2023-09-13 16:53 | disposition skilled nursing facility (03) | DRG 300 ==
LOC: HO.ED 21:00 → HO.EDOVER 22:18 → HO.S3 09-04 06:04
PROVIDERS: Internal Medicine; Physician Assistant; Admitting Provider Student in an Organized Health Care Education/Training Program; Emergency Provider Emergency Medicine; PCP Internal Medicine; Visit Provider Internal Medicine
DX: I96 Gangrene, not elsewhere classified (principal); M86.9 Osteomyelitis, unspecified; I10 Essential (primary) hypertension; K21.9 Gastro-esophageal reflux disease without esophagitis; B96.4 Proteus (mirabilis) (morganii) as the cause of diseases classified elsewhere; N47.2 Paraphimosis; B35.6 Tinea cruris; S24.102S Unspecified injury at T2-T6 level of thoracic spinal cord, sequela; X58.XXXS Exposure to other specified factors, sequela; F03.90 Unspecified dementia, unspecified severity, without behavioral disturbance, psychotic disturbance, mood disturbance, and anxiety; Z66 Do not resuscitate; I48.0 Paroxysmal atrial fibrillation; L89.619 Pressure ulcer of right heel, unspecified stage; Z86.718 Personal history of other venous thrombosis and embolism; Z74.01 Bed confinement status; Z79.01 Long term (current) use of anticoagulants; Z79.899 Other long term (current) drug therapy
CPT/HCPCS: 36415; 36573; 73630; 73700; 80048; 80051; 80076; 80202; 81001; 82565; 83605; 83735; 85025; 85027; 85610; 85652; 86140; 87040; 87070; 87077; 87086; 87186; 87205; 99285; J0692; J1335; J2185; J2543; J3370; J3371; J3475; P9047

== ENCOUNTER → 2023-09-02 22:01 | Outpatient (BNV) | payer MEDICARE, SELFPAY | PROVIDERS: Admitting Provider Student in an Organized Health Care Education/Training Program; Emergency Provider Emergency Medicine; PCP Internal Medicine; Visit Provider Surgery Vascular Surgery | DX: S81.801A Unspecified open wound, right lower leg, initial encounter (principal) | CPT/HCPCS: 99222 ==

== ENCOUNTER → 2023-09-02 22:01 | Outpatient (BNV) | payer MEDICARE, SELFPAY | PROVIDERS: Admitting Provider Student in an Organized Health Care Education/Training Program; Emergency Provider Emergency Medicine; PCP Internal Medicine; Visit Provider Internal Medicine | DX: S81.801A Unspecified open wound, right lower leg, initial encounter (principal); M86.9 Osteomyelitis, unspecified | CPT/HCPCS: 99222; 99232 ==

== ENCOUNTER → 2023-09-02 22:01 | Outpatient (BNV) | payer MEDICARE, SELFPAY | PROVIDERS: Admitting Provider Student in an Organized Health Care Education/Training Program; Emergency Provider Emergency Medicine; PCP Internal Medicine; Visit Provider Student in an Organized Health Care Education/Training Program | DX: S81.801A Unspecified open wound, right lower leg, initial encounter (principal); M86.9 Osteomyelitis, unspecified | CPT/HCPCS: 99223; 99231; 99232; 99239 ==

== ENCOUNTER 2023-10-25 13:56 | Outpatient (AMB) | payer MEDICARE, SELFPAY ==
--- NOTE | 2023-10-25 14:55 | MHC.OFFVIS ---
Vital Signs 10/25/23 15:12 Pulse 96 Temp 99.8 F Temp Source Oral Pulse Oximetry (%) 98 Oxygen Delivery Method Room Air Intake Visit Reasons: reff [facility] rehab/osteo heel/ Allergies Vwhrhix-BGL-MeE Reductase Inhibitor [JQBIGLL-UGX-DXG REDUCTASE INHIBITOR] Allergy (Intermediate, Verified 10/25/23 15:12) MUSCULAR PAIN atorvastatin Allergy (Unknown, Verified 10/25/23 15:12) UNKNOWN pravastatin Allergy (Unknown, Verified 10/25/23 15:12) UNKNOWN simvastatin Allergy (Unknown, Verified 10/25/23 15:12) UNKNOWN [facility]PI [facility]: Details: He has been receiving IV antibiotics,Ertapenem OM right heel since 09/09. He is done with it on 10/12. Foot looks better. [facility] Medical History Osteoarthritis Hx of deep venous thrombosis Personal history of COVID-19 (~03/2023) Slow to wake up after anesthesia Back abscess Hypertension Radicular low back pain Bilateral hand numbness Impacted cerumen of right ear Peripheral neuropathy Chronic idiopathic thrombocytopenia Iron deficiency anemia Carpal tunnel syndrome Rotator cuff tear Thrombocytopenia Cognitive decline Depression GERD (gastroesophageal reflux disease) Hypercholesterolemia Hypertension Paroxysmal atrial fibrillation Impaired fasting glucose Surgical History Colon cancer Lumbar disc disease H/O colonoscopy S/P left rotator cuff repair H/O lateral meniscus repair of right knee S/P IVC filter History of neck surgery History of laminectomy History of cardiac radiofrequency ablation History of neck surgery History of carpal tunnel release H/O repair of rotator cuff History of knee replacement procedure of right knee History of left knee replacement History of appendectomy History of cholecystectomy History of partial colectomy History of right hip replacement Family History Father No problems noted. Mother Diabetes Social History Household Members: Spouse Housing: House Are you a primary health care consultant to a significant other at home: No Do you presently have visiting nurse or other home services: Yes (Mauricio LARA) Alcohol intake: never Comment: bed bound Patient Tobacco Use Status: Never used Tobacco e-Cigarette/Vaping Use: Never Used Second Hand Smoke Exposure: No Advance Directives Date on File: 03/09/23 service: No Current occupational status: retired Cognitive needs: Yes (walker) Hearing needs: Yes Vision needs: Yes Review of Systems Const All systems reviewed & are unremarkable except as noted in HPI and below Physical Exam Vital Signs: Last Vital Signs Temp 99.8 F 10/25/23 15:12 Pulse 96 10/25/23 15:12 Pulse Ox 98 10/25/23 15:12 Oxygen Delivery Method Room Air 10/25/23 15:12 Const Other: General: cooperative Orientation/consciousness: patient oriented x3 HEENT Head: Yes normal to inspection Mouth: Normal oral and palatal mucosa present Eyes General: appearance normal, both eyes and all related structures Pupils: Equal, round and reactive pupils present Resp Effort & Inspection: normal respiratory effort Cardio Rate: regular rate Rhythm: regular rhythm GI Palpation (GI): Soft to palpation and nontender General: Yes no CVA tenderness Back/Spine/Pelvis Back: no CVA tenderness Skin General skin exam: no rashes or lesions noted Neuro General: patient oriented x3 Cranial nerves: Yes CN's II-XII intact bilaterally and Yes Equal, round and reactive pupils present Extrem General: Yes normal to inspection Psych Appearance: grossly normal Assessment & Plan Assessment & Plan (1) Non-healing wound of right lower extremity: Comment: He has right om Area looks improved Code(s): S81.801A - Unspecified open wound, right lower leg, initial encounter Category: Medical Plan: Follow Wound Care. No further antibiotics at this time. See prn need. Coding Level of Care Code Est Pt Level 3 (33402) Diagnoses Non-healing wound of right lower extremity S81.801A
[2023-10-25 15:12] VITALS: PULSE 96; TEMP 37.7; O2SAT 98
== END 2023-10-25 15:30 | disposition home or self-care (01) ==
LOC: HO.HID 13:56
PROVIDERS: PCP Internal Medicine; Visit Provider Internal Medicine
DX: S81.801A Unspecified open wound, right lower leg, initial encounter (principal)
CPT/HCPCS: 99213

== ENCOUNTER → 2023-10-25 13:56 | Outpatient (BNVA) | payer MEDICARE, SELFPAY | PROVIDERS: PCP Internal Medicine; Visit Provider Internal Medicine | DX: S81.801A Unspecified open wound, right lower leg, initial encounter (principal) | CPT/HCPCS: 99212 ==

== ENCOUNTER 2024-05-13 22:39 | Emergency (ER) | payer MEDICARE, MEDICAID, SELFPAY ==
--- NOTE | ~2024-05-13 | CT_ITS ---
CLINICAL HISTORY: fall, anticoagulated, unreliable historian. warfar CT head without contrast Comparison: CT/REG/SR - CT HEAD/BRAIN WO IV CON - 03/08/23 13:19 EST Findings: No intracranial hemorrhage, mass effect or midline shift. Moderate cerebral atrophy and compensatory ventriculomegaly. Low attenuation in the periventricular white matter consistent with chronic small-vessel ischemic gliosis. Total opacification of the left frontal sinus, Unchanged from prior. The orbits are unremarkable. There is no acute fracture. IMPRESSION: 1. No acute intracranial findings. 2. Unchanged total opacification of the left frontal sinus which may be due to chronic sinusitis. This document has been electronically signed by: Gamal Goldberg MD on 05/14/2024 01:36:20
[2024-05-13 22:55] VITALS: BP 111/73; BP 114/70; PULSE 56; PULSE 60; RESP 16; TEMP 36.8; O2SAT 96; BMI 32.4
[2024-05-13 22:59] VITALS: BP 111/73; PULSE 56; RESP 16; TEMP 36.8; O2SAT 96
--- OUTSIDE RECORDS SUMMARY | 2024-05-13 23:39 | XMS_ITS | Encounter Summary ---
Author Organization [facility] Address [address] [place] [address] Care Team Providers Care Nuclear Fuel Processing Technician Name Role Phone Venkat Chilel MD Primary Care Provider [phone] Encounter Details Date Type Department Care Team (Late st Contact Info) Description 03/14/2024 Lab Requisition [facility] - Main Lab [address] [facility] [place] [address] Juan Antonio Mckeon MD [address] [place] [id number] Unspecified atrial fibrillation (CMS/HCC) Social History Tobacco Use Types Packs/Day Years Used Date Smoking Tobacco: Passive Smo ke Exposure - Never Smoker Smokeless Tobacco: Never Alcohol Use Standard Drinks/Week Comments Not Currently 0 (1 standard drink = 0.6 oz pur e alcohol) Sex and Gender Information Value Date Recorded Sex Assigned at Not on file Gender Identity Not on file Sexual Orientation Not on file Job Start Date Occupation Industry Not on file Not on file Not on file documented as of this encounter Plan of Treatment Upcoming Encounters Date Type Department Care Team (Late st Contact Info) Description 07/12/2024 1:10 PM EDT Office Visit [facility] - [address] [place] [id number] Ana Cristina West NP [address] [place], [place] [phone] documented as of this encounter Procedures Procedure Name Priority Date/Time Associated Diagnosis Comments PROTHROMBIN TIME WITH INR Routine 03/14/2024 5:33 AM EST Unspecified atrial fibrillation (CMS/HCC) documented in this encounter Results * (ABNORMAL) Prothrombin time with INR (03/14/2024 5:33 AM EST) Protime 38.1(H) 10.6 - 13.9 sec LAB COAGULATION METHOD 03/14/2024 9:[address] [facility] INR 3.0 LAB COAGULATION METHOD 03/14/2024 9:[address] [facility] Blood Venous blood specimen / Unknown Venipuncture / Unknown 03/14/2024 5:33 AM EST 03/14/2024 9:17 AM EST Juan Antonio Mckeon MD LAB BLOOD ORDERABLES [facility] [address] [place] [address], documented in this encounter Visit Diagnoses Diagnosis Unspecified atrial fibrillation (CMS/HCC) documented in this encounter Additional Health Concerns Infection Onset Date Last Indicated Resolved Time Respiratory Rule-Out 04/16/2024 04/15/2024 025 1:31 PM EST documented as of this encounter Care Teams Nuclear Fuel Processing Technician Relationship Specialty Start Date End Date Venkat Chilel MD [address] [place] [address] [address] [facility] [place] [address] PCP - General Internal Medicine 02/03/18 documented as of this encounter
--- OUTSIDE RECORDS SUMMARY | 2024-05-13 23:39 | XMS_ITS | Encounter Summary ---
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 Social History Tobacco Use Types Packs/Day Years [...] Description 07/12/2024 1:10 PM EDT Office Visit [facility] - [facility] [address] [facility] [address] [place] [address] Ana Cristina West NP [address] [place], [place] [phone] documented as of this encounter Procedures Procedure Name Priority Date/Time Associated Diagnosis Comments PROTHROMBIN TIME WITH INR Routine 03/02/2024 7:06 AM EST 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 documented in this encounter Results * (ABNORMAL) Prothrombin time with INR (03/02/2024 7:06 AM EST) Protime 42.6(H) 10.6 - 13.9 sec LAB COAGULATION METHOD 03/02/2024 9:30 AM EST [facility] INR 3.4 LAB COAGULATION METHOD 03/02/2024 9:30 AM EST [facility] Blood Venous blood specimen / Unknown Venipuncture / Unknown 03/02/2024 7:06 AM EST 03/02/2024 8:27 AM EST Juan Antonio Mckeon MD LAB BLOOD ORDERABLES [facility] [address] [place] [address], documented in this encounter Visit Diagnoses Diagnosis 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
--- OUTSIDE RECORDS SUMMARY | 2024-05-13 23:39 | XMS_ITS | Encounter Summary ---
Author Organization [facility] Address [address] [place] [address] Care Team Providers Care Catering Cook Name Role Phone Venkat Chilel MD Primary Care Provider [phone] Encounter Details Date Type Department Care Team (Late st Contact Info) Description 02/29/2024 Lab Requisition [facility] - Main Lab [address] [facility] [place] [address] Juan Antonio Mckeon MD [address] [place] [phone] Unspecified atrial fibrillation (CMS/HCC) Social History Tobacco [...] Description 07/12/2024 1:10 PM EDT Office Visit [facility] - [address] [place] [address] Ana Cristina West NP [address] [place], [place] [phone] documented as of this encounter Procedures Procedure Name Priority Date/Time Associated Diagnosis Comments PROTHROMBIN TIME WITH INR Routine 02/29/2024 7:20 AM EST Unspecified atrial fibrillation (CMS/HCC) documented in this encounter Results * (ABNORMAL) Prothrombin time with INR (02/29/2024 7:20 AM EST) Protime 43.2(H) 10.6 - 13.9 sec LAB COAGULATION METHOD 02/29/2024 9:24 AM EST [facility] INR 3.4 LAB COAGULATION METHOD 02/29/2024 9:24 AM EST [facility] Blood Venous blood specimen / Unknown Venipuncture / Unknown 02/29/2024 7:20 AM EST 02/29/2024 8:20 AM EST Juan Antonio Mckeon MD LAB BLOOD ORDERABLES [facility] [address] [place] [address], documented in this encounter Visit Diagnoses Diagnosis Unspecified atrial fibrillation (CMS/HCC) documented in this encounter Additional Health Concerns Infection Onset Date Last Indicated Resolved Time Respiratory Rule-Out 04/16/2024 04/15/2024 025 1:31 PM EST documented as of this encounter Care Teams Catering Cook Relationship Specialty Start Date End Date Venkat Chilel MD [address] [place] [address] Dr [address] [facility] [place] [address] PCP - General Internal Medicine 02/03/18 documented as of this encounter
--- OUTSIDE RECORDS SUMMARY | 2024-05-13 23:39 | XMS_ITS | Encounter Summary ---
Author Organization [facility] Address [address] [place] [address] Care Team Providers Care Software Quality Test Engineer Name Role Phone Venkat Chilel MD Primary Care Provider [phone] Encounter Details Date Type Department Care Team (Latest Contact Info) Description 03/06/2024 Lab Requisition [facility] - Main Lab [address] 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 Social History Tobacco [...] Description 07/12/2024 1:10 PM EDT Office Visit [facility] - [facility] [address] [facility] [address] [place] [address] Ana Cristina West NP [address] [place], [place] [phone] documented as of this encounter Procedures Procedure Name Priority Date/Time Associated Diagnosis Comments PROTHROMBIN TIME WITH INR Routine 03/06/2024 5:09 AM EST 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 INR 1.8 LAB COAGULATION METHOD 03/06/2024 10:[address] [facility] Blood Venous blood specimen / Unknown Venipuncture / Unknown 03/06/2024 5:09 AM EST 03/06/2024 10:05 AM EST Juan Antonio Mckeon MD LAB BLOOD ORDERABLES 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
--- OUTSIDE RECORDS SUMMARY | 2024-05-13 23:39 | XMS_ITS | Encounter Summary ---
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 Social History Tobacco [...] Description 07/12/2024 1:10 PM EDT Office Visit [facility] - [facility] [address] [facility] [address] [place] [address] Ana Cristina West NP [address] [place], [place] [phone] documented as of this encounter Procedures Procedure Name Priority Date/Time Associated Diagnosis Comments PROTHROMBIN TIME WITH INR Routine 03/21/2024 7:21 AM EST 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 documented in this encounter Results * (ABNORMAL) Prothrombin time with INR (03/21/2024 7:21 AM EST) Protime 50.8(H) 10.6 - 13.9 sec LAB COAGULATION METHOD 03/21/2024 12:31 PM EST [facility] LAB INR 4.0 LAB COAGULATION METHOD 03/21/2024 12:31 PM EST [facility] LAB Blood Venous blood specimen / Unknown Venipuncture / Unknown 03/21/2024 7:21 AM EST 03/21/2024 10:41 AM EST Juan Antonio Mckeon MD LAB BLOOD ORDERABLES [facility] LAB [address] [place] [address], documented in this encounter Visit 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
--- OUTSIDE RECORDS SUMMARY | 2024-05-13 23:39 | XMS_ITS | Encounter Summary ---
Author Organization [facility] Address [address] [place] [address] Care Team Providers Care Property Consultant Name Role Phone Venkat Chilel MD Primary Care Provider [phone] Encounter Details Date Type Department Care Team (Late st Contact Info) Description 02/28/2024 Lab Requisition [facility] - Main Lab 299 [facility] [place] [address] Juan Antonio Mckeon MD [address] [place] [address] Unspecified atrial fibrillation (CMS/HCC); Peripheral vascular disease, unspecified (CMS/HCC) Social History Tobacco Use Types Packs/Day [...] Description 07/12/2024 1:10 PM EDT Office Visit [facility] Associates - [facility] [address] [facility] [address] [place] [address] Ana Cristina West NP [address] [place], [place] [phone] documented as of this encounter Procedures Procedure Name Priority Date/Time Associated Diagnosis Comments PROTHROMBIN TIME WITH INR Routine 02/28/2024 7:35 AM EST Unspecified atrial fibrillation (CMS/HCC) Peripheral vascular disease, unspecified (CMS/HCC) documented in this encounter Results * (ABNORMAL) Prothrombin time with INR (02/28/2024 7:35 AM EST) Protime 45.2(H) 10.6 - 13.9 sec LAB COAGULATION METHOD 02/28/2024 10:31 AM EST [facility] LAB INR 3.6 LAB COAGULATION METHOD 02/28/2024 10:31 AM EST [facility] LAB Blood Venous blood specimen / Unknown Venipuncture / Unknown 02/28/2024 7:35 AM EST 02/28/2024 9:12 AM EST Juan Antonio Mckeon MD LAB BLOOD ORDERABLES [facility] LAB 299 [place], [place] [address] [phone] documented in this encounter Visit Diagnoses Diagnosis Unspecified atrial fibrillation (CMS/HCC) Peripheral vascular disease, unspecified (CMS/HCC) Peripheral vascular disease, unspecified documented in this encounter Additional Health Concerns Infection Onset Date Last Indicated Resolved Time Respiratory Rule-Out 04/16/2024 04/15/2024 025 1:31 PM EST documented as of this encounter Care Teams Property Consultant Relationship Specialty Start Date End Date Venkat Chilel MD [address] [place] [address] Dr Gastelum 101 [facility] [place] [address] PCP - General Internal Medicine 02/03/18 documented as of this encounter
--- OUTSIDE RECORDS SUMMARY | 2024-05-13 23:39 | XMS_ITS | Encounter Summary ---
Author Organization [facility] Address [address] [place] [address] Care Team Providers Care Grade Recorder Name Role Phone Venkat Chilel MD Primary Care Provider [phone] Encounter Details Date Type Department Care Team (Latest Contact Info) Description 03/09/[address] 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 Social History Tobacco [...] Description 07/12/2024 1:10 PM EDT Office Visit [facility] Associates - [facility] [address] [facility] [address] [place] [address] Ana Cristina West NP [address] [place], [place] [phone] documented as of this encounter Procedures Procedure Name Priority Date/Time Associated Diagnosis Comments PROTHROMBIN TIME WITH INR Routine 03/09/2024 5:39 AM EST 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 documented in this encounter Results * (ABNORMAL) Prothrombin time with INR (03/09/2024 5:39 AM EST) Protime 30.2(H) 10.6 - 13.9 sec LAB COAGULATION METHOD 03/09/2024 7:02 AM EST [facility] LAB INR 2.4 LAB COAGULATION METHOD 03/09/2024 7:02 AM EST [facility] LAB Blood Venous blood specimen / Unknown Venipuncture / Unknown 03/09/2024 5:39 AM EST 03/09/2024 6:19 AM EST Juan Antonio Mckeon MD LAB BLOOD ORDERABLES [facility] LAB 299 [place] [address], documented in this encounter Visit Diagnoses 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
--- OUTSIDE RECORDS SUMMARY | 2024-05-13 23:39 | XMS_ITS | Encounter Summary ---
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 Social History [...] Description 07/12/2024 1:10 PM EDT Office Visit [facility] Card[facility] Associates - [facility] [address] [facility] [address] [place] [address] Ana Cristina West NP [address] [place], [place] [phone] documented as of this encounter Procedures Procedure Name Priority Date/Time Associated Diagnosis Comments PROTHROMBIN TIME WITH INR Routine 03/13/2024 8:21 AM EST 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 documented in this encounter Results * (ABNORMAL) Prothrombin time with INR (03/13/2024 8:21 AM EST) Protime 43.0(H) 10.6 - 13.9 sec LAB COAGULATION METHOD 03/13/2024 11:11 AM EST [facility] LAB INR 3.4 LAB COAGULATION METHOD 03/13/2024 11:11 AM EST [facility] LAB Blood Venous blood specimen / Unknown Venipuncture / Unknown 03/13/2024 8:21 AM EST 03/13/2024 10:13 AM EST Juan Antonio Mckeon MD LAB BLOOD ORDERABLES [facility] LAB 299 [place] [address], documented in this encounter Visit Diagnoses Diagnosis 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
--- OUTSIDE RECORDS SUMMARY | 2024-05-13 23:39 | XMS_ITS | Encounter Summary ---
Author Organization [facility] Address [address] [place] [address] Care Team Providers Care Quality Control Microbiology Supervisor Name Role Phone Venkat Chilel MD Primary Care Provider [phone] Encounter Details Date Type Department Care Team (Late st Contact Info) Description 02/21/2024 Lab Requisition [facility] - Main Lab 299 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 Social History Tobacco Use Types Packs/Day Years [...] Description 07/12/2024 1:10 PM EDT Office Visit [facility] - [facility] [address] [facility] [address] [place] [address] Ana Cristina West NP [address] [place], [place] [phone] documented as of this encounter Procedures Procedure Name Priority Date/Time Associated Diagnosis Comments PROTHROMBIN TIME WITH INR Routine 02/21/2024 7:10 AM EST 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 exterminator termite (current) drug therapy documented in this encounter Results * (ABNORMAL) Prothrombin time with INR (02/21/2024 7:10 AM EST) Protime 38.8(H) 10.6 - 13.9 sec LAB COAGULATION METHOD 02/21/2024 11:06 AM EST [facility] LAB INR 3.1 LAB COAGULATION METHOD 02/21/2024 11:06 AM EST [facility] LAB Blood Venous blood specimen / Unknown Venipuncture / Unknown 02/21/2024 7:10 AM EST 02/21/2024 10:13 AM EST Juan Antonio Mckeon MD LAB BLOOD ORDERABLES [facility] LAB 299 [place] [address], documented in this encounter Visit Diagnoses Diagnosis Other residential (current) drug therapy documented in this encounter Additional Health Concerns Infection Onset Date Last Indicated Resolved Time Respiratory Rule-Out 04/16/2024 04/15/2024 025 1:31 PM EST documented as of this encounter Care Teams Quality Control Microbiology Supervisor Relationship Specialty Start Date End Date Venkat Chilel MD [address] [place] [address] Dr Gastelum 101 [facility] [place] [address] PCP - General Internal Medicine 02/03/18 documented as of this encounter
--- OUTSIDE RECORDS SUMMARY | 2024-05-13 23:39 | XMS_ITS | Encounter Summary ---
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 Social History Tobacco [...] Description 07/12/2024 1:10 PM EDT Office Visit [facility] Cardiology Associates - [facility] [address] [facility] [address] [place] [address] Ana Cristina West NP [address] [place], [place] [phone] documented as of this encounter Procedures Procedure Name Priority Date/Time Associated Diagnosis Comments PROTHROMBIN TIME WITH INR Routine 03/15/2024 7:14 AM EST 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 documented in this encounter Results * (ABNORMAL) Prothrombin time with INR (03/15/2024 7:14 AM EST) Protime 35.3(H) 10.6 - 13.9 sec LAB COAGULATION METHOD 03/15/2024 9:47 AM EST [facility] LAB INR 2.8 LAB COAGULATION METHOD 03/15/2024 9:47 AM EST [facility] LAB Blood Venous blood specimen / Unknown Venipuncture / Unknown 03/15/2024 7:14 AM EST 03/15/2024 9:15 AM EST Juan Antonio Mckeon MD LAB BLOOD ORDERABLES [facility] LAB [address] [place] [address], documented in this encounter Visit Diagnoses Diagnosis 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
--- OUTSIDE RECORDS SUMMARY | 2024-05-13 23:39 | XMS_ITS | Encounter Summary ---
Author Organization [facility] Address [address] [place] [address] Care Team Providers Care Screen Roller Name Role Phone Venkat Chilel MD Primary Care Provider [phone] Encounter Details Date Type Department Care Team (Late st Contact Info) Description 02/24/2024 Lab Requisition [facility] - Main Lab 299 [facility] [place] [address] Juan Antonio Mckeon MD [address] [place] [address] Unspecified atrial fibrillation (CMS/HCC) Social History Tobacco [...] Description 07/12/2024 1:10 PM EDT Office Visit [facility] - [address] [place] [address] Ana Cristina West NP [address] [place], [place] [phone] documented as of this encounter Procedures Procedure Name Priority Date/Time Associated Diagnosis Comments PROTHROMBIN TIME WITH INR Routine 02/24/2024 8:33 AM EST Unspecified atrial fibrillation (CMS/HCC) COMPLETE BLOOD COUNT Routine 02/24/2024 8:33 AM EST Unspecified atrial fibrillation (CMS/HCC) BASIC METABOLIC PANEL Routine 02/24/2024 8:33 AM EST Unspecified atrial fibrillation (CMS/HCC) documented in this encounter Results * (ABNORMAL) Basic metabolic panel (02/24/2024 8:33 AM EST) Sodium 139 133 - 145 mmol/L LAB CHEMISTRY METHOD 02/24/2024 1:32 PM [facility] LAB Potassium 4.1 3.5 - 5.5 mmol/L LAB CHEMISTRY METHOD 02/24/2024 1:32 PM [facility] Chloride 107 96 - 110 mmol/L LAB CHEMISTRY METHOD 02/24/2024 1:32 PM [facility] CO2 26 21 - 32 mmol/L LAB CHEMISTRY METHOD 02/24/2024 1:32 PM [facility] Anion Gap 6 3 - 11 LAB CHEMISTRY METHOD 02/24/2024 1:32 PM [facility] Glucose 120(H) 70 - 100 mg/dL LAB CHEMISTRY METHOD 02/24/2024 1:32 PM [facility] BUN 14 5 - 25 mg/dL LAB CHEMISTRY METHOD 02/24/2024 1:32 PM [facility] Creatinine 0.59(L) 0.70 - 1.30 mg/dL LAB CHEMISTRY METHOD 02/24/2024 1:32 PM [facility] LAB eGFR 101 >=60 mL/min/1. 73m2 LAB CHEMISTRY METHOD 02/24/2024 1:32 PM [facility] LAB Comment:Calculation based on the??Chronic Kidney Disease Epidemiology Collaboration (CKD-EPI) equation refit??without adjustment for race. BUN/Creatinine Ratio 23.7 LAB CHEMISTRY METHOD 02/24/2024 1:32 PM [facility] Calcium 8.8 8.5 - 10.5 mg/dL LAB CHEMISTRY METHOD 02/24/2024 1:32 PM EST [facility] Blood Venous blood specimen / Unknown Venipuncture / Unknown 02/24/2024 8:33 AM EST 02/24/2024 11:13 AM EST Juan Antonio Mckeon MD LAB BLOOD ORDERABLES Performing Organization Address City/[facility]/ZIP Co de Phone Number [facility] [address] [place] [address], [place] [phone] * (ABNORMAL) Prothrombin time with INR (02/24/2024 8:33 AM EST) [facility] Protime 24.0(H) 10.6 - 13.9 sec LAB COAGULATION METHOD 02/24/2024 1:35 PM EST [facility] INR 1.9 LAB COAGULATION METHOD 02/24/2024 1:35 PM [facility] Blood Venous blood specimen / Unknown Venipuncture / Unknown 02/24/2024 8:33 AM EST 02/24/2024 11:13 AM EST Juan Antonio Mckeon MD LAB BLOOD ORDERABLES Performing Organization Address City/[facility]/ZIP Co de Phone Number [facility] [address] [place] [address], [place] [phone] * (ABNORMAL) Complete blood count (02/24/2024 8:33 AM EST) [facility] WBC 10.4 4.8 - 10.8 K/mcL LAB HEMETOLOGY METHOD 02/24/2024 1:22 PM EST [facility] RBC 4.40(L) 4.50 - 5.50 M/mcL LAB HEMETOLOGY METHOD 02/24/2024 1:22 PM [facility] Hemoglobin 12.0(L) 13.5 - 17.5 g/dL LAB HEMETOLOGY METHOD 02/24/2024 1:22 PM EST [facility] Hematocrit 38.0(L) 42.0 - 54.0 % LAB HEMETOLOGY METHOD 02/24/2024 1:22 PM [facility] MCV 85.8 79.0 - 98.0 FL LAB HEMETOLOGY METHOD 02/24/2024 1:22 PM [facility] MCH 27.1 27.0 - 32.0 pcg LAB HEMETOLOGY METHOD 02/24/2024 1:22 PM [facility] MCHC 31.6(L) 32.0 - 37.0 g/dL LAB HEMETOLOGY METHOD 02/24/2024 1:22 PM [facility] RDW 16.3(H) 11.0 - 15.0 % LAB HEMETOLOGY METHOD 02/24/2024 1:22 PM [facility] Platelets 219 130 - 400 K/mcL LAB HEMETOLOGY METHOD 02/24/2024 1:22 PM [facility] MPV 11.4(H) 7.0 - 11.0 FL LAB HEMETOLOGY METHOD 02/24/2024 1:22 PM [facility] NRBC 0.0 <1.0 % LAB HEMETOLOGY METHOD 02/24/2024 1:22 PM [facility] NRBC Absolute 0.00 <0.10 K/mcL LAB HEMETOLOGY METHOD 02/24/2024 1:22 PM [facility] Blood Venous blood specimen / Unknown Venipuncture / Unknown 02/24/2024 8:33 AM EST 02/24/2024 11:13 AM EST Juan Antonio Mckeon MD LAB BLOOD ORDERABLES [facility] [address] [place] [address], documented in this encounter Visit Diagnoses Diagnosis Unspecified atrial fibrillation (CMS/HCC) documented in this encounter Additional Health Concerns Infection Onset Date Last Indicated Resolved Time Respiratory Rule-Out 04/16/2024 04/15/2024 025 1:31 PM EST documented as of this encounter Care Teams Screen Roller Relationship Specialty Start Date End Date Venkat Chilel MD [address] [place] [address] [address] [facility] [place] [address] PCP - General Internal Medicine 02/03/18 documented as of this encounter
--- OUTSIDE RECORDS SUMMARY | 2024-05-13 23:40 | XMS_ITS | Encounter Summary ---
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 Social History Tobacco [...] Description 07/12/2024 1:10 PM EDT Office Visit [facility] - [facility] [address] [facility] [address] [place] [address] Ana Cristina West NP [address] [place], [place] [phone] documented as of this encounter Procedures Procedure Name Priority Date/Time Associated Diagnosis Comments PROTHROMBIN TIME WITH INR Routine 04/27/2024 6:11 AM EST 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 documented in this encounter Results * (ABNORMAL) Prothrombin time with INR (04/27/2024 6:11 AM EST) Protime 35.8(H) 10.6 - 13.9 sec LAB COAGULATION METHOD 04/27/2024 10:03 AM EST [facility] INR 2.8 LAB COAGULATION METHOD 04/27/2024 10:03 AM EST [facility] Blood Venous blood specimen / Unknown Venipuncture / Unknown 04/27/2024 6:11 AM EST 04/27/2024 9:04 AM EST Juan Antonio Mckeon MD LAB BLOOD ORDERABLES [facility] [address] [place] [address], documented in this encounter Visit Diagnoses Diagnosis 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
--- OUTSIDE RECORDS SUMMARY | 2024-05-13 23:40 | XMS_ITS | Clinical Summary ---
Author Organization [address] Address [address] [place] [phone] Phone Care Team Providers Care Tool Repairer Name Role Phone Venkat Chilel MD Primary Care Provider [phone] Allergies Active Allergy Reactions Criticality Noted Date Comments Atorvastatin 08/16/2020 Donepezil Hcl 08/16/2020 Pravastatin 08/16/2020 Simvastatin 08/16/2020 Ixkwijl-Ojk-Btn Reductase Inhibitors 03/29/2018 Medications Medication Sig Dispensed Refills Start Date End Date Status colesevelam (WELCHOL) 625 mg tablet Take 625 mg by mouth daily. Active lisinopriL (PRINIVIL,ZESTRIL) 10 mg tablet Take 10 mg by mouth daily. Active metoprolol tartrate (LOPRESSOR) 25 mg tablet TAKE 1 TABLET BY MOUTH TWICE A DAY 06/18/2023 Active naproxen sodium 220 mg capsule as needed. Active omeprazole (PriLOSEC) [address] capsule Take 20 mg by mouth daily. Active pantoprazole (PROTONIX) 40 mg EC tablet Take 40 mg by mouth daily. Active warfarin (COUMADIN) 2 mg tablet Managed by the pcp Active multivit-min/iron/foli c acid/K (ADULTS MULTIVITAMIN ORAL) Multiple Vitamin (Multivitamin Adult) Tab Active Active Problems Problem Noted Date Diagnosed Date Ascending aortic aneurysm 01/15/2023 Overview (04/11/2024): Last Assessment & Plan: I reviewed the echo findings with the patient and his . The acing aorta is mildly dilated at 4.0 cm. We will repeat his echocardiogram. Murmur 10/31/2021 Overview (04/11/2024): Last Assessment & Plan: He does have a soft I/ LUIS. I do not think this is indicative of significant aortic stenosis. He may have some aortic sclerosis. I am going to order an echocardiogram. Cervical myelopathy 07/11/2021 Overview (04/11/2024): Last Assessment & Plan: Mr. Arrington is a 70-year-old man who describes a 6 to 7-month history of being numb from the neck down. He says that it really started from the feet went up his body towards the torso and then down the arms. It has been much worse over the past 3 months. He has had prior C4-5 anterior cervical discectomy and fusion with Dr. Sevilla in 2016, C3-4 anterior cervical discectomy and fusion with Dr. Hale, and C3- [address] Hale both in 2018. He says that he was a little bit better after each of those procedures but things have gotten much worse over the past 3 months. He has significant degenerative changes in the lumbar spine with stenosis most pronounced at L4-5 and to a lesser degree at L3-4, but this would not explain upper extremity symptoms or as he describes it numbness from the neck down. I will order plain x-rays of the cervical spine to evaluate the status of his C3-4 and C4-5 fusions, and an MRI of the cervical spine to see if there is a unifying diagnosis for his numbness that seems to involve the whole body below the neck. Gastroesophageal reflux disease 07/10/2021 Overview (04/11/2024): Gastroesophageal reflux disease Hyperlipidemia 07/10/2021 Overview (04/11/2024): Hyperlipidemia Osteoarthrosis 07/10/2021 Overview (04/11/2024): Osteoarthritis Hypertension 08/16/2020 Overview (04/11/2024): Last Assessment & Plan: 116/70 in office today, well-controlled. Continue lisinopril and metoprolol. Paroxysmal A-fib 08/16/2020 Overview (04/11/2024): Last Assessment & Plan: Patient did undergo a A-fib ablation in the past. Today he is in a sinus bradycardia. He has been on anticoagulation with warfarin. I did tell if he started having falling problems to let us know. Encounters Date Type Department Care Team Description 05/08/2024 Lab Requisition [facility] [address] [place] [phone] Juan Antonio Mckeon MD long-term (current) use of anticoagulants 05/01/2024 Lab Requisition [facility] [address] [place] [phone] Juan Antonio Mckeon MD Unspecified atrial fibrillation (CMS/HCC) 04/28/2024 Lab Requisition [facility] [address] [place] [phone] Juan Antonio Mckeon MD long-term (current) use of anticoagulants; Other thrombophilia (CMS/HCC) 04/27/2024 Lab Requisition [facility] [address] [place] [phone] Juan Antonio Mckeon MD long-term (current) use of anticoagulants 04/26/2024 Lab Requisition [facility] [address] [place] [address] Juan Antonio Mckeon MD terminal operations manager (current) use of anticoagulants 04/24/2024 Lab Requisition [facility] [address] [place] [phone] Juan Antonio Mckeon MD Unspecified atrial fibrillation (CMS/HCC); long-term (current) use of anticoagulants 04/20/2024 Lab Requisition [facility] [address] [place] [address] Juan Antonio Mckeon MD Unspecified atrial fibrillation (CMS/HCC) 04/17/2024 Lab Requisition [facility] [address] [place] [address] Juan Antonio Mckeon MD Unspecified atrial fibrillation ([facility]/HCC) 04/16/2024 Lab Requisition [facility] [address] [place] [address] Juan Antonio Mckeon MD Acute cough 04/14/2024 Lab Requisition [facility] [address] [place] [address] Juan Antonio Mckeon MD Hyperlipidemia, unspecified; Unspecified atrial fibrillation (CMS/HCC) 04/13/2024 Lab Requisition [facility] [address] [place] [address] Juan Antonio Mckeon MD long-term (current) use of anticoagulants 04/11/2024 Lab Requisition [facility] [address] [place] [address] Juan Antonio Mckeon MD Unspecified atrial fibrillation ([facility]/HCC) 04/10/2024 Lab Requisition [facility] [address] [place] [phone] Juan Antonio Mckeon MD long-term (current) use of anticoagulants 04/07/2024 Lab Requisition [facility] [address] [place] [address] Juan Antonio Mckeon MD long-term (current) use of anticoagulants 04/03/2024 Lab Requisition [facility] [address] [place] [phone] Juan Antonio Mckeon MD Unspecified atrial fibrillation ([facility]/HCC) 03/30/2024 Lab Requisition [facility] [address] [place] [address] Juan Antonio Mckeon MD long-term (current) use of anticoagulants 03/28/2024 Lab Requisition [facility] [address] [place] [phone] Juan Antonio Mckeon MD Heart failure, unspecified ([facility]); Unspecified atrial fibrillation ([facility]) 03/27/2024 Lab Requisition [facility] [address] [place] [phone] Juan Antonio Mckeon MD terminal operations manager (current) use of anticoagulants 03/23/2024 Lab Requisition [facility] [address] [place] [phone] Juan Antonio Mckeon MD Unspecified atrial fibrillation ([facility]) 03/22/2024 Lab Requisition [facility] [address] [place] [phone] Juan Antonio Mckeon MD Unspecified atrial fibrillation ([facility]) 03/21/2024 Lab Requisition [facility] [address] [place] [phone] Juan Antonio Mckeon MD terminal operations manager (current) use of anticoagulants 03/15/2024 Lab Requisition [facility] [address] [place] [phone] Juan Antonio Mckeon MD terminal operations manager (current) use of anticoagulants 03/14/2024 Lab Requisition [facility] [address] [place] [phone] Juan Antonio Mckeon MD Unspecified atrial fibrillation ([facility]) 03/13/2024 Lab Requisition [facility] [address] [place] [phone] Juan Antonio Mckeon MD terminal operations manager (current) use of anticoagulants 03/09/2024 Lab Requisition [facility] [address] [place] [phone] Juan Antonio Mckeon MD terminal operations manager (current) use of anticoagulants 03/06/2024 Lab Requisition [facility] [address] [place] [phone] Juan Antonio Mckeon MD terminal operations manager (current) use of anticoagulants 03/02/2024 Lab Requisition [facility] [address] [place] [phone] Juan Antonio Mckeon MD long-term (current) use of anticoagulants 02/29/2024 Lab Requisition [facility] [address] [place] [phone] Juan Antonio Mckeon MD Unspecified atrial fibrillation (CMS/HCC) 02/28/2024 Lab Requisition [facility] [address] [place] [phone] Juan Antonio Mckeon MD Unspecified atrial fibrillation (CMS/HCC); Peripheral vascular disease, unspecified (CMS/HCC) 02/24/2024 Lab Requisition [facility] [address] [place] [phone] Juan Antonio Mckeon MD Unspecified atrial fibrillation (CMS/HCC) 02/21/2024 Lab Requisition [facility] [address] [place] [phone] Juan Antonio Mckeon MD Other terminal operations manager (current) drug therapy 02/18/2024 Lab Requisition [facility] [address] [place] [phone] Juan Antonio Mckeon MD long-term (current) use of anticoagulants 02/15/2024 Lab Requisition [facility] [address] [place] [phone] Juan Antonio Mckeon MD Unspecified atrial fibrillation (CMS/HCC) 02/12/2024 Lab Requisition [facility] [address] [place] [phone] Juan Antonio Mckeon MD Osteomyelitis, unspecified (CMS/HCC) from Last 3 Months Immunizations Name Administration Dates Next Due Tdap Tetanus diptheria acell ular pertussis (Boostrix; Adacel) 7yo and older 12/12/2019 Surgical History Surgery Date Site/Laterality Comments ROTATOR CUFF REPAIR Bilateral PROCEDURE: HISTORICAL ROTATOR CUFF REPAIR KNEE ARTHROSCOPY W/ MENISCAL REPAIR Left PROCEDURE: AL ARTHROSCOPY KNEE W/MENISCUS RPR MEDIAL/LATERAL HIP ARTHROPLASTY PROCEDURE: HISTORICAL HIP REPLACEMENT OTHER SURGICAL HISTORY PROCEDURE: HISTORY OTHER; COMMENT: Colectomy OTHER SURGICAL HISTORY PROCEDURE: HISTORY OTHER; COMMENT: 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 OTHER SURGICAL HISTORY PROCEDURE: HISTORY OTHER; COMMENT: History of IVC filter placement Medical History Medical History Date Comments Acute deep vein thrombosis ( DVT) of left lower extremity (CMS/HCC) DX:Acute deep vein thro mbosis (DVT) of left lower extremity (HCC) GERD (gastroesophageal reflu x disease) DX:GERD (gastroesophageal re flux disease) Thoracic myelopathy DX:Thoracic myelopathy; 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 DVT, lower extremity, distal , acute, left (CMS/HCC) 10/28/2021 DX:DVT, lower extremity, dis lamar, acute, left (HCC) Family History Relation Name Status Comments Father Mother Social History Tobacco Use Types Packs/Day Years [...] file Not on file Not on file Obstetrics History Last Filed Vital Signs Vital Sign Reading Time Taken Comments Blood Pressure 120/72 01/15/2023 9:49 AM EDT Sitting R Arm Pulse 59 01/15/2023 9:49 AM EDT Temperature - - Respiratory Rate - - Oxygen Saturation - - Inhaled Oxygen Concentration - - Weight 95.9 kg (211 lb 6.4 oz) 01/15/2023 9:49 AM EDT Height 175.3 cm (5' 9 ) 01/15/2023 9:49 AM EDT Body Mass Index 31.22 01/15/2023 9:49 AM EDT Plan of Treatment Upcoming Encounters Date Type Department Care Team (Late st Contact Info) Description 07/12/2024 1:10 PM EDT Office Visit [facility] [address] [facility] [address] [place] [phone] Ana Cristina West NP [address] [address] Health Maintenance Due Date Last Done Comments Zoster Vaccines (1 of 2) 1998 Pneumococcal Vaccine: 65+ Years (1 of 1 - PCV) 2013 Abdominal Aortic Aneurysm (AAA) Screen 03/15/2022 Cholesterol Screening (Lipid Panel) 03/15/2022 Colorectal Cancer Screening: Colonoscopy 03/15/2022 Depression Screening 03/15/2022 Falls Risk Assessment 03/15/2022 Hepatitis C Screening 03/15/2022 Medicare Annual Wellness Visit 03/15/2022 Social Influencers of Health Screening 03/15/2022 RSV Immunization Patients 60+ Years Old (1 - 1-dose 75+ series) 11/20/2023 COVID-19 Vaccine (3 - season) 2023 06/21/2020, 05/29/2020 Influenza Vaccine (#1) 2023 Hypertension/CHF/CAD Annual BMP Blood Test 04/17/2025 04/17/2024, 04/14/2024, 03/28/2024, Additional history exists DTaP,Tdap,and Td Vaccines (2 - Td or Tdap) 12/11/2029 12/12/2019 HIB Vaccines Aged Out No longer eligi ble based on patient's age to complete this topic HPV Vaccines Aged Out No longer eligi ble based on patient's age to complete this topic Hepatitis A Vaccines Aged Out No long er eligible based on patient's age to complete this topic Hepatitis B Vaccines Aged Out No long er eligible based on patient's age to complete this topic IPV Vaccines Aged Out No longer eligi ble based on patient's age to complete this topic MMR Vaccines Aged Out No longer eligi ble based on patient's age to complete this topic Meningococcal ACWY Vaccine Aged Out N o longer eligible based on patient's age to complete this topic RSV Immunization Patients Under 20 months Aged Out No longer eligible based on patient's age to complete this topic Varicella Vaccines Aged Out No longer eligible based on patient's age to complete this topic Procedures Procedure Name Priority Date/Time Associated Diagnosis Comments PROTHROMBIN TIME WITH INR Routine 05/08/2024 7:18 AM EST terminal operations manager (current) use of anticoagulants PROTHROMBIN TIME WITH INR Routine 05/01/2024 7:37 AM EST Unspecified atrial fibrillation (CMS/HCC) PROTHROMBIN TIME WITH INR Routine 04/28/2024 8:01 AM EST terminal operations manager (current) use of anticoagulants Other thrombophilia (CMS/HCC) PROTHROMBIN TIME WITH INR Routine 04/27/2024 6:11 AM EST long-term (current) use of anticoagulants PROTHROMBIN TIME WITH INR Routine 04/26/2024 7:01 AM EST terminal operations manager (current) use of anticoagulants PROTHROMBIN TIME WITH INR Routine 04/24/2024 8:23 AM EST Unspecified atrial fibrillation (CMS/HCC) long-term (current) use of anticoagulants PROTHROMBIN TIME WITH INR Routine 04/20/2024 8:30 AM EST Unspecified atrial fibrillation (CMS/HCC) COMPLETE BLOOD COUNT Routine 04/20/2024 8:30 AM EST Unspecified atrial fibrillation (CMS/HCC) BASIC METABOLIC PANEL Routine 04/17/2024 8:23 AM EST Unspecified atrial fibrillation (CMS/HCC) PROTHROMBIN TIME WITH INR Routine 04/17/2024 8:23 AM EST Unspecified atrial fibrillation (CMS/HCC) [id number], RSV, FLU A AND B QUALITATIVE RT-PCR, LOCAL REFERENCE LAB Routine 04/15/2024 3:00 PM EST Acute cough BASIC METABOLIC PANEL Routine 04/14/2024 6:24 AM EST Hyperlipidemia, unspecified Unspecified atrial fibrillation (CMS/HCC) COMPLETE BLOOD COUNT Routine 04/14/2024 6:24 AM EST Hyperlipidemia, unspecified Unspecified atrial fibrillation (CMS/HCC) PROTHROMBIN TIME WITH INR Routine 04/13/2024 8:19 AM EST terminal operations manager (current) use of anticoagulants PROTHROMBIN TIME WITH INR Routine 04/11/2024 7:45 AM EST Unspecified atrial fibrillation (CMS/HCC) PROTHROMBIN TIME WITH INR Routine 04/10/2024 7:50 AM EST long-term (current) use of anticoagulants PROTHROMBIN TIME WITH INR Routine 04/07/2024 6:14 AM EST terminal operations manager (current) use of anticoagulants PROTHROMBIN TIME WITH INR Routine 04/03/2024 6:45 AM EST Unspecified atrial fibrillation (CMS/HCC) PROTHROMBIN TIME WITH INR Routine 03/30/2024 6:33 AM EST terminal operations manager (current) use of anticoagulants BASIC METABOLIC PANEL Routine 03/28/2024 7:54 AM EST Heart failure, unspecified (CMS/HCC) Unspecified atrial fibrillation (CMS/HCC) COMPLETE BLOOD COUNT Routine 03/28/2024 7:54 AM EST Heart failure, unspecified (CMS/HCC) Unspecified atrial fibrillation (CMS/HCC) PROTHROMBIN TIME WITH INR Routine 03/27/2024 5:03 AM EST long-term (current) use of anticoagulants PROTHROMBIN TIME WITH INR Routine 03/23/2024 7:33 AM EST Unspecified atrial fibrillation (CMS/HCC) PROTHROMBIN TIME WITH INR Routine 03/22/2024 5:27 AM EST Unspecified atrial fibrillation (CMS/HCC) PROTHROMBIN TIME WITH INR Routine 03/21/2024 7:21 AM EST long-term (current) use of anticoagulants PROTHROMBIN TIME WITH INR Routine 03/15/2024 7:14 AM EST terminal operations manager (current) use of anticoagulants PROTHROMBIN TIME WITH INR Routine 03/14/2024 5:33 AM EST Unspecified atrial fibrillation (CMS/HCC) PROTHROMBIN TIME WITH INR Routine 03/13/2024 8:21 AM EST terminal operations manager (current) use of anticoagulants PROTHROMBIN TIME WITH INR Routine 03/09/2024 5:39 AM EST long-term (current) use of anticoagulants PROTHROMBIN TIME WITH INR Routine 03/06/2024 5:09 AM EST terminal operations manager (current) use of anticoagulants PROTHROMBIN TIME WITH INR Routine 03/02/2024 7:06 AM EST terminal operations manager (current) use of anticoagulants PROTHROMBIN TIME WITH INR Routine 02/29/2024 7:20 AM EST Unspecified atrial fibrillation (CMS/HCC) PROTHROMBIN TIME WITH INR Routine 02/28/2024 7:35 AM EST Unspecified atrial fibrillation (CMS/HCC) Peripheral vascular disease, unspecified (CMS/HCC) BASIC METABOLIC PANEL Routine 02/24/2024 8:33 AM EST Unspecified atrial fibrillation (CMS/HCC) PROTHROMBIN TIME WITH INR Routine 02/24/2024 8:33 AM EST Unspecified atrial fibrillation (CMS/HCC) COMPLETE BLOOD COUNT Routine 02/24/2024 8:33 AM EST Unspecified atrial fibrillation (CMS/HCC) PROTHROMBIN TIME WITH INR Routine 02/21/2024 7:10 AM EST Other alf (current) drug therapy PROTHROMBIN TIME WITH INR Routine 02/18/2024 6:20 AM EST terminal operations manager (current) use of anticoagulants TRAVEL PHLEBOTOMY FEE Routine 02/15/2024 8:54 AM EST Unspecified atrial fibrillation (CMS/HCC) PROTHROMBIN TIME WITH INR Routine 02/15/2024 8:54 AM EST Unspecified atrial fibrillation (CMS/HCC) CBC WITH AUTO DIFFERENTIAL Routine 02/12/2024 7:23 AM EDT Osteomyelitis, unspecified (CMS/HCC) TRAVEL PHLEBOTOMY FEE Routine 02/12/2024 7:23 AM EDT Osteomyelitis, unspecified (CMS/HCC) VANCOMYCIN, TROUGH Routine 02/12/2024 7: 23 AM EDT Osteomyelitis, unspecified (CMS/HCC) CREATININE, SERUM Routine 02/12/2024 7:2 3 AM EDT Osteomyelitis, unspecified (CMS/HCC) BUN Routine 02/12/2024 7:23 AM EDT Osteomyelitis, unspecified (CMS/HCC) CBC AND DIFFERENTIAL Routine 02/12/2024 7:23 AM EDT Osteomyelitis, unspecified (CMS/HCC) from Last 3 Months Results * (ABNORMAL) Prothrombin time with INR (05/08/2024 7:18 AM EST) Only the most recent of30 resultswithin the time period is included. Protime 22.8(H) 10.6 - 13.9 sec LAB COAGULATION METHOD 05/08/2024 11:08 AM EST [facility] INR 1.8 LAB COAGULATION METHOD 05/08/2024 11:08 AM EST [facility] Blood Venous blood specimen / Unknown Venipuncture / Unknown 05/08/2024 7:18 AM EST 05/08/2024 9:38 AM EST Juan Antonio Mckeon MD LAB BLOOD ORDERABLES [facility] [address] [place] [address], * (ABNORMAL) Complete blood count (04/20/2024 8:30 AM EST) Only the most recent of4 resultswithin the time period is included. WBC 8.4 4.8 - 10.8 K/mcL LAB HEMETOLOGY METHOD 04/20/2024 11:50 AM [facility] RBC 3.80(L) 4.50 - 5.50 M/mcL LAB HEMETOLOGY METHOD 04/20/2024 11:50 AM [facility] Hemoglobin 9.9(L) 13.5 - 17.5 g/dL LAB HEMETOLOGY METHOD 04/20/2024 11:50 AM [facility] Hematocrit 32.3(L) 42.0 - 54.0 % LAB HEMETOLOGY METHOD 04/20/2024 11:50 AM [facility] MCV 85.0 79.0 - 98.0 FL LAB HEMETOLOGY METHOD 04/20/2024 11:50 AM [facility] MCH 26.1(L) 27.0 - 32.0 pcg LAB HEMETOLOGY METHOD 04/20/2024 11:50 AM [facility] MCHC 30.7(L) 32.0 - 37.0 g/dL LAB HEMETOLOGY METHOD 04/20/2024 11:50 AM [facility] RDW 16.3(H) 11.0 - 15.0 % LAB HEMETOLOGY METHOD 04/20/2024 11:50 AM [facility] Platelets 400 130 - 400 K/mcL LAB HEMETOLOGY METHOD 04/20/2024 11:50 AM [facility] MPV 10.7 7.0 - 11.0 FL LAB HEMETOLOGY METHOD 04/20/2024 11:50 AM [facility] NRBC 0.0 <1.0 % LAB HEMETOLOGY METHOD 04/20/2024 11:50 AM [facility] NRBC Absolute 0.00 <0.10 K/mcL LAB HEMETOLOGY METHOD 04/20/2024 11:50 AM [facility] Blood Venous blood specimen / Unknown Venipuncture / Unknown 04/20/2024 8:30 AM EST 04/20/2024 11:17 AM EST Juan Antonio Mckeon MD LAB BLOOD ORDERABLES [facility] [address] [place] [address], * (ABNORMAL) Basic metabolic panel (04/17/2024 8:23 AM EST) Only the most recent of4 resultswithin the time period is included. Sodium 138 133 - 145 mmol/L LAB CHEMISTRY METHOD 04/17/2024 11:49 AM [facility] Potassium 3.8 3.5 - 5.5 mmol/L LAB CHEMISTRY METHOD 04/17/2024 11:49 AM [facility] Chloride 106 96 - 110 mmol/L LAB CHEMISTRY METHOD 04/17/2024 11:49 AM [facility] CO2 27 21 - 32 mmol/L LAB CHEMISTRY METHOD 04/17/2024 11:49 AM [facility] Anion Gap 5 3 - 11 LAB CHEMISTRY METHOD 04/17/2024 11:49 AM [facility] Glucose 99 70 - 100 mg/dL LAB CHEMISTRY METHOD 04/17/2024 11:49 AM [facility] BUN 11 5 - 25 mg/dL LAB CHEMISTRY METHOD 04/17/2024 11:49 AM [facility] Creatinine 0.55(L) 0.70 - 1.30 mg/dL LAB CHEMISTRY METHOD 04/17/2024 11:49 AM [facility] eGFR 103 >=60 mL/min/1. 73m2 LAB CHEMISTRY METHOD 04/17/2024 11:49 AM [facility] Comment:Calculation based on the??Chronic Kidney Disease Epidemiology Collaboration (CKD-EPI) equation refit??without adjustment for race. BUN/Creatinine Ratio 20.0 LAB CHEMISTRY METHOD 04/17/2024 11:49 AM [facility] Calcium 8.5 8.5 - 10.5 mg/dL LAB CHEMISTRY METHOD 04/17/2024 11:49 AM [facility] Blood Venous blood specimen / Unknown Venipuncture / Unknown 04/17/2024 8:23 AM EST 04/17/2024 10:42 AM EST Juan Antonio Mckeon MD LAB BLOOD ORDERABLES [facility] [address] [place] [address], * [id number], RSV, Influenza A and B qualitative RT-PCR (04/15/2024 3:00 PM EST) Pathologist [facility] [place] SARS COV-2 Not Detected Not Detected LAB MOLECULAR DIAGNOSTICS METHOD 04/16/2024 1:31 PM [facility] Comment: Disclaimer: The manner in which this information is used to guide patient care is the responsibility of the healthcare provider. Testing was performed using the [employer] m SARS-CoV-2 test. This test has been authorized by FDA under an Emergency Use Authorization (EUA). This test is only authorized for the duration of time the declaration that circumstances exist justifying the authorization of the emergency use of in vitro diagnostic tests for detection of SARS-CoV-2 virus and/or diagnosis of COVID-19 infection under section 564(b)(1) of the Act, 21 U.S.C. 360bbb- 3(b)(1), unless the authorization is terminated or revoked sooner. Fact sheet for Healthcare Providers can be found at: https://www.fda.gov/media/574197/download Fact sheet for Patients can be found at: https://www.fda.gov/media/317183/download Influenza A PCR Not Detected Not Detected LAB MOLECULAR DIAGNOSTICS METHOD 04/16/2024 1:31 PM [facility] Influenza B PCR Not Detected Not Detected LAB MOLECULAR DIAGNOSTICS METHOD 04/16/2024 1:31 PM EST [facility] RSV PCR Not Detected Not Detected LAB MOLECULAR DIAGNOSTICS METHOD 04/16/2024 1:31 PM EST [facility] Swab Nasopharyngeal structure / Unknown Non-blood Collection / Unknown 04/15/2024 3:00 PM EST 04/16/2024 10:48 AM EST Juan Antonio Mckeon MD LAB MICROBIOLOGY - G ENERAL ORDERABLES [facility] [address] [place] [address], [place] [phone] * Travel phlebotomy fee (02/15/2024 8:54 AM EST) Only the most recent of2 resultswithin the time period is included. [facility] TRAVEL PHLEBOTOMY FEE Completed 02/15/2024 10:02 AM EST [facility] Blood Venous blood specimen / Unknown Venipuncture / Unknown 02/15/2024 8:54 AM EST 02/15/2024 9:54 AM EST Juan Antonio Mckeon MD LAB BLOOD ORDERABLES [facility] [address] [place] [address], [place] [phone] * (ABNORMAL) CBC auto differential (02/12/2024 7:23 AM EDT) [facility] WBC 6.2 4.8 - 10.8 K/mcL LAB HEMETOLOGY METHOD 02/12/2024 2:06 PM EDT [facility] RBC 4.28(L) 4.50 - 5.50 M/mcL LAB HEMETOLOGY METHOD 02/12/2024 2:06 PM EDT [facility] Hemoglobin 11.7(L) 13.5 - 17.5 g/dL LAB HEMETOLOGY METHOD 02/12/2024 2:[address] [facility] Hematocrit 37.7(L) 42.0 - 54.0 % LAB HEMETOLOGY METHOD 02/12/2024 2:[address] [facility] MCV 88.1 79.0 - 98.0 FL LAB HEMETOLOGY METHOD 02/12/2024 2:[address] [facility] MCH 27.3 27.0 - 32.0 pcg LAB HEMETOLOGY METHOD 02/12/2024 2:[address] [facility] MCHC 31.0(L) 32.0 - 37.0 g/dL LAB HEMETOLOGY METHOD 02/12/2024 2:[address] [facility] RDW 17.0(H) 11.0 - 15.0 % LAB HEMETOLOGY METHOD 02/12/2024 2:[address] [facility] Platelets 189 130 - 400 K/mcL LAB HEMETOLOGY METHOD 02/12/2024 2:[address] [facility] MPV 11.6(H) 7.0 - 11.0 FL LAB HEMETOLOGY METHOD 02/12/2024 2:[address] [facility] NRBC 0.0 <1.0 % LAB HEMETOLOGY METHOD 02/12/2024 2:[address] [facility] NRBC Absolute 0.00 <0.10 K/mcL LAB HEMETOLOGY METHOD 02/12/2024 2:[address] [facility] Neutrophils Relative 64.2 % LAB HEMETOLOGY METHOD 02/12/2024 2:[address] [facility] Lymphocytes Relative 20.7 % LAB HEMETOLOGY METHOD 02/12/2024 2:[address] [facility] Monocytes Relative 7.9 % LAB HEMETOLOGY METHOD 02/12/2024 2:[address] [facility] Eosinophils Relative 6.3 % LAB HEMETOLOGY METHOD 02/12/2024 2:06 PM EDT [facility] Basophils Relative 0.6 % LAB HEMETOLOGY METHOD 02/12/2024 2:06 PM EDT [facility] Immature Granulocytes Relative 0.3 % LAB HEMETOLOGY METHOD 02/12/2024 2:06 PM EDT [facility] Neutrophils Absolute 3.95 1.50 - 7.00 K/mcL LAB HEMETOLOGY METHOD 02/12/2024 2:06 PM EDT [facility] Lymphocytes Absolute 1.28 1.00 - 5.00 K/mcL LAB HEMETOLOGY METHOD 02/12/2024 2:06 PM EDT [facility] Monocytes Absolute 0.49 0.20 - 1.00 K/mcL LAB HEMETOLOGY METHOD 02/12/2024 2:06 PM EDT [facility] Eosinophils Absolute 0.39 0.00 - 0.50 K/mcL LAB HEMETOLOGY METHOD 02/12/2024 2:06 PM EDT [facility] Basophils Absolute 0.04 0.00 - 0.20 K/mcL LAB HEMETOLOGY METHOD 02/12/2024 2:06 PM EDT [facility] Immature Granulocytes Absolute 0.02 0.00 - 0.03 K/mcL LAB HEMETOLOGY METHOD 02/12/2024 2:06 PM EDT [facility] Blood Venous blood specimen / Unknown Venipuncture / Unknown 02/12/2024 7:23 AM EDT 02/12/2024 9:06 AM EDT Juan Antonio Mckeon MD LAB BLOOD ORDERABLES [facility] [address] [place] [address], * (ABNORMAL) Creatinine (02/12/2024 7:23 AM EDT) Creatinine 0.64(L) 0.70 - 1.30 mg/dL LAB CHEMISTRY METHOD 02/12/2024 9:46 AM EDT [facility] eGFR 99 >=60 mL/min/1. 73m2 LAB CHEMISTRY METHOD 02/12/2024 9:46 AM EDT [facility] Comment:Calculation based on the??Chronic Kidney Disease Epidemiology Collaboration (CKD-EPI) equation refit??without adjustment for race. Blood Venous blood specimen / Unknown Venipuncture / Unknown 02/12/2024 7:23 AM EDT 02/12/2024 9:06 AM EDT Juan Antonio Mckeon MD LAB BLOOD ORDERABLES Performing Organization Address [facility]/ZIP Co de Phone Number [facility] [address] [place] [address], * BUN (02/12/2024 7:23 AM EDT) Pathologist [facility] [place] BUN 12 5 - 25 mg/dL LAB CHEMISTRY METHOD 02/12/2024 9:46 AM EDT [facility] Blood Venous blood specimen / Unknown Venipuncture / Unknown 02/12/2024 7:23 AM EDT 02/12/2024 9:06 AM EDT Juan Antonio Mckeon MD LAB BLOOD ORDERABLES [facility] [address] [place] [address], * Vancomycin, trough (02/12/2024 7:23 AM EDT) Pathologist [facility] [place] Vancomycin Trough 10.3 10.0 - 20.0 mcg/mL LAB CHEMISTRY METHOD 02/12/2024 9:46 AM EDT [facility] Blood Venous blood specimen / Unknown Venipuncture / Unknown 02/12/2024 7:23 AM EDT 02/12/2024 9:06 AM EDT Juan Antonio Mckeon MD LAB BLOOD ORDERABLES [facility] [address] [place] [address], from Last 3 Months Advance Directives Documents on File Type Date Recorded Patient Customer Retention Specialist Expl anation Health Care Decision (hx) 08/25/2021 AD CORDOVA DIRECTIVE Health Care Decision (hx) 08/25/2021 AD CORDOVA DIRECTIVE Health Care Decision (hx) 08/25/2021 AD CORDOVA DIRECTIVE Health Care Decision (hx) 08/25/2021 AD CORDOVA DIRECTIVE Health Care Decision (hx) 08/25/2021 AD CORDOVA DIRECTIVE Health Care Decision (hx) 08/25/2021 AD CORDOVA DIRECTIVE Health Care Decision (hx) 08/25/2021 AD CORDOVA DIRECTIVE Health Care Decision (hx) 08/25/2021 AD CORDOVA DIRECTIVE Care Teams Tool Repairer Relationship Specialty Start Date End Date Venkat Chilel MD [address] [place] [address] [address] [facility] [place] [address] PCP - General Internal Medicine 02/03/18
--- OUTSIDE RECORDS SUMMARY | 2024-05-13 23:40 | XMS_ITS | Encounter Summary ---
Author Organization [facility] Address [address] [place] [address] Care Team Providers Care Child Advocate Name Role Phone Venkat Chilel MD Primary Care Provider [phone] Encounter Details Date Type Department Care Team (Latest Contact Info) Description 04/07/2024 Lab Requisition [facility] - Main Lab [address] [facility] [place] [address] Juan Antonio Mckeon MD [address] [place] [id number] bit sander (current) use of anticoagulants Social History Tobacco [...] Description 07/12/2024 1:10 PM EDT Office Visit [facility] - [facility] [address] [facility] [address] [place] [address] Ana Cristina West NP [address] [place], [place] [phone] documented as of this encounter Procedures Procedure Name Priority Date/Time Associated Diagnosis Comments PROTHROMBIN TIME WITH INR Routine 04/07/2024 6:14 AM EST bit sander (current) use of anticoagulants documented in this encounter Results * (ABNORMAL) Prothrombin time with INR (04/07/2024 6:14 AM EST) Protime 38.0(H) 10.6 - 13.9 sec LAB COAGULATION METHOD 04/07/2024 10:[address] [facility] INR 3.0 LAB COAGULATION METHOD 04/07/2024 10:[address] [facility] Blood Venous blood specimen / Unknown Venipuncture / Unknown 04/07/2024 6:14 AM EST 04/07/2024 9:15 AM EST Juan Antonio Mckeon MD LAB BLOOD ORDERABLES [facility] [address] [place] [address], documented in this encounter Visit Diagnoses Diagnosis bit sander (current) use of anticoagulants Long-term (current) use of anticoagulants documented in this encounter Additional Health Concerns Infection Onset Date Last Indicated Resolved Time Respiratory Rule-Out 04/16/2024 04/15/2024 025 1:31 PM EST documented as of this encounter Care Teams Child Advocate Relationship Specialty Start Date End Date Venkat Chilel MD [address] [place] [address] Dr Gastel[address] [facility] [place] [address] PCP - General Internal Medicine 02/03/18 documented as of this encounter
--- OUTSIDE RECORDS SUMMARY | 2024-05-13 23:40 | XMS_ITS | Encounter Summary ---
Author Organization [facility] Address [address] [place] [address] Care Team Providers Care Departure Clerk Name Role Phone Venkat Chilel MD Primary Care Provider [phone] Encounter Details Date Type Department Care Team (Late st Contact Info) Description 04/14/2024 Lab Requisition [facility] - Main Lab [address] [facility] [place] [address] Juan Antonio Mckeon MD [address] [place] [id number] Hyperlipidemia, unspecified; Unspecified atrial fibrillation (CMS/HCC) Social History Tobacco [...] Description 07/12/2024 1:10 PM EDT Office Visit [facility] [address] [place] [phone] Ana Cristina West NP [address] [place], [place] [phone] documented as of this encounter Procedures Procedure Name Priority Date/Time Associated Diagnosis Comments COMPLETE BLOOD COUNT Routine 04/14/2024 6:24 AM EST Hyperlipidemia, unspecified Unspecified atrial fibrillation (CMS/HCC) BASIC METABOLIC PANEL Routine 04/14/2024 6:24 AM EST Hyperlipidemia, unspecified Unspecified atrial fibrillation (CMS/HCC) documented in this encounter Results * (ABNORMAL) Basic metabolic panel (04/14/2024 6:24 AM EST) Sodium 136 133 - 145 mmol/L LAB CHEMISTRY METHOD 04/14/2024 11:[address] [facility] Potassium 3.4(L) 3.5 - 5.5 mmol/L LAB CHEMISTRY METHOD 04/14/2024 11:[address] [facility] Chloride 101 96 - 110 mmol/L LAB CHEMISTRY METHOD 04/14/2024 11:[address] [facility] CO2 29 21 - 32 mmol/L LAB CHEMISTRY METHOD 04/14/2024 11:[address] [facility] Anion Gap 6 3 - 11 LAB CHEMISTRY METHOD 04/14/2024 11:[address] [facility] Glucose 93 70 - 100 mg/dL LAB CHEMISTRY METHOD 04/14/2024 11:[address] [facility] BUN 14 5 - 25 mg/dL LAB CHEMISTRY METHOD 04/14/2024 11:[address] [facility] Creatinine 0.66(L) 0.70 - 1.30 mg/dL LAB CHEMISTRY METHOD 04/14/2024 11:[address] [facility] eGFR 98 >=60 mL/min/1. 73m2 LAB CHEMISTRY METHOD 04/14/2024 11:[address] [facility] Comment:Calculation based on the??Chronic Kidney Disease Epidemiology Collaboration (CKD-EPI) equation refit??without adjustment for race. BUN/Creatinine Ratio 21.2 LAB CHEMISTRY METHOD 04/14/2024 11:[address] [facility] Calcium 8.2(L) 8.5 - 10.5 mg/dL LAB CHEMISTRY METHOD 04/14/2024 11:[address] [facility] Blood Venous blood specimen / Unknown Venipuncture / Unknown 04/14/2024 6:24 AM EST 04/14/2024 10:20 AM EST Juan Antonio Mckeon MD LAB BLOOD ORDERABLES [facility] [address] [place] [address], * (ABNORMAL) Complete blood count (04/14/2024 6:24 AM EST) WBC 10.9(H) 4.8 - 10.8 K/mcL LAB HEMETOLOGY METHOD 04/14/2024 11:[address] [facility] RBC 3.80(L) 4.50 - 5.50 M/mcL LAB HEMETOLOGY METHOD 04/14/2024 11:[address] [facility] Hemoglobin 10.0(L) 13.5 - 17.5 g/dL LAB HEMETOLOGY METHOD 04/14/2024 11:[address] [facility] Hematocrit 32.3(L) 42.0 - 54.0 % LAB HEMETOLOGY METHOD 04/14/2024 11:[address] [facility] MCV 85.2 79.0 - 98.0 FL LAB HEMETOLOGY METHOD 04/14/2024 11:[address] [facility] MCH 26.4(L) 27.0 - 32.0 pcg LAB HEMETOLOGY METHOD 04/14/2024 11:[address] [facility] MCHC 31.0(L) 32.0 - 37.0 g/dL LAB HEMETOLOGY METHOD 04/14/2024 11:[address] [facility] RDW 16.1(H) 11.0 - 15.0 % LAB HEMETOLOGY METHOD 04/14/2024 11:[address] [facility] Platelets 306 130 - 400 K/mcL LAB HEMETOLOGY METHOD 04/14/2024 11:13 AM EST [facility] MPV 10.7 7.0 - 11.0 FL LAB HEMETOLOGY METHOD 04/14/2024 11:13 AM EST [facility] NRBC 0.0 <1.0 % LAB HEMETOLOGY METHOD 04/14/2024 11:13 AM EST [facility] NRBC Absolute 0.00 <0.10 K/mcL LAB HEMETOLOGY METHOD 04/14/2024 11:13 AM EST [facility] Blood Venous blood specimen / Unknown Venipuncture / Unknown 04/14/2024 6:24 AM EST 04/14/2024 10:20 AM EST Juan Antonio Mckeon MD LAB BLOOD ORDERABLES [facility] [address] [place], [place] [address] [phone] documented in this encounter Visit Diagnoses Diagnosis Hyperlipidemia, unspecified Unspecified atrial fibrillation (CMS/HCC) documented in this encounter Additional Health Concerns Infection Onset Date Last Indicated Resolved Time Respiratory Rule-Out 04/16/2024 04/15/2024 025 1:31 PM EST documented as of this encounter Care Teams Departure Clerk Relationship Specialty Start Date End Date Venkat Chilel MD [address] [place] [address] Dr Gastelum [address] [facility] [place] [address] PCP - General Internal Medicine 02/03/18 documented as of this encounter
--- OUTSIDE RECORDS SUMMARY | 2024-05-13 23:40 | XMS_ITS | Encounter Summary ---
Author Organization [facility] Address [address] [place] [address] Care Team Providers Care History Card Clerk Name Role Phone Venkat Chilel MD Primary Care Provider [phone] Encounter Details Date Type Department Care Team (Latest Contact Info) Description 05/08/[address] [facility] - Main Lab 299 [facility] [place] [address] Juan Antonio Mckeon MD [address] [place] [phone] meterman (current) use of anticoagulants Social History Tobacco [...] Description 07/12/2024 1:10 PM EDT Office Visit [facility] - [facility] [address] [facility] [address] [place] [address] Ana Cristina West NP [address] [place], [place] [phone] documented as of this encounter Procedures Procedure Name Priority Date/Time Associated Diagnosis Comments PROTHROMBIN TIME WITH INR Routine 05/08/2024 7:18 AM EST meterman (current) use of anticoagulants documented in this encounter Results * (ABNORMAL) Prothrombin time with INR (05/08/2024 7:18 AM EST) Protime 22.8(H) 10.6 - 13.9 sec LAB COAGULATION METHOD 05/08/2024 11:08 AM EST [facility] INR 1.8 LAB COAGULATION METHOD 05/08/2024 11:08 AM EST [facility] Blood Venous blood specimen / Unknown Venipuncture / Unknown 05/08/2024 7:18 AM EST 05/08/2024 9:38 AM EST Juan Antonio Mckeon MD LAB BLOOD ORDERABLES [facility] [address] [place] [address], documented in this encounter Visit Diagnoses Diagnosis meterman (current) use of anticoagulants Long-term (current) use of anticoagulants documented in this encounter Care Teams History Card Clerk Relationship Specialty Start Date End Date Venkat Chilel MD [address] [place] [address] Dr Gastelum [address] [place] [facility] [place] [address] PCP - General Internal Medicine 02/03/18 documented as of this encounter
--- OUTSIDE RECORDS SUMMARY | 2024-05-13 23:40 | XMS_ITS | Encounter Summary ---
Author Organization [facility] Address [address] [place] [address] Care Team Providers Care Hospice Bereavement Coordinator Name Role Phone Venkat Chilel MD Primary Care Provider [phone] Encounter Details Date Type Department Care Team (Late st Contact Info) Description 03/28/2024 Lab Requisition [facility] - Main Lab 299 [facility] [place] [address] Juan Antonio Mckeon MD [address] [place] [address] Heart failure, unspecified (CMS/HCC); Unspecified atrial fibrillation (CMS/HCC) Social History Tobacco [...] Description 07/12/2024 1:10 PM EDT Office Visit [facility] - [address] [facility] [address] [place] [address] Ana Cristina West NP [address] [place], [place] [phone] documented as of this encounter Procedures Procedure Name Priority Date/Time Associated Diagnosis Comments COMPLETE BLOOD COUNT Routine 03/28/2024 7:54 AM EST Heart failure, unspecified (CMS/HCC) Unspecified atrial fibrillation (CMS/HCC) BASIC METABOLIC PANEL Routine 03/28/2024 7:54 AM EST Heart failure, unspecified (CMS/HCC) Unspecified atrial fibrillation (CMS/HCC) documented in this encounter Results * (ABNORMAL) Basic metabolic panel (03/28/2024 7:54 AM EST) Sodium 142 133 - 145 mmol/L LAB CHEMISTRY METHOD 03/28/2024 1:57 PM [facility] Potassium 3.6 3.5 - 5.5 mmol/L LAB CHEMISTRY METHOD 03/28/2024 1:57 PM [facility] Chloride 108 96 - 110 mmol/L LAB CHEMISTRY METHOD 03/28/2024 1:57 PM [facility] CO2 28 21 - 32 mmol/L LAB CHEMISTRY METHOD 03/28/2024 1:57 PM [facility] Anion Gap 6 3 - 11 LAB CHEMISTRY METHOD 03/28/2024 1:57 PM [facility] Glucose 94 70 - 100 mg/dL LAB CHEMISTRY METHOD 03/28/2024 1:57 PM [facility] BUN 9 5 - 25 mg/dL LAB CHEMISTRY METHOD 03/28/2024 1:57 PM [facility] Creatinine 0.58(L) 0.70 - 1.30 mg/dL LAB CHEMISTRY METHOD 03/28/2024 1:57 PM [facility] eGFR 102 >=60 mL/min/1. 73m2 LAB CHEMISTRY METHOD 03/28/2024 1:57 PM [facility] Comment:Calculation based on the??Chronic Kidney Disease Epidemiology Collaboration (CKD-EPI) equation refit??without adjustment for race. BUN/Creatinine Ratio 15.5 LAB CHEMISTRY METHOD 03/28/2024 1:57 PM [facility] Calcium 8.7 8.5 - 10.5 mg/dL LAB CHEMISTRY METHOD 03/28/2024 1:57 PM [facility] Blood Venous blood specimen / Unknown Venipuncture / Unknown 03/28/2024 7:54 AM EST 03/28/2024 11:59 AM EST Juan Antonio Mckeon MD LAB BLOOD ORDERABLES [facility] [address] [place] [address], * (ABNORMAL) Complete blood count (03/28/2024 7:54 AM EST) WBC 8.6 4.8 - 10.8 K/mcL LAB HEMETOLOGY METHOD 03/28/2024 12:56 PM [facility] RBC 4.00(L) 4.50 - 5.50 M/mcL LAB HEMETOLOGY METHOD 03/28/2024 12:56 PM [facility] Hemoglobin 10.7(L) 13.5 - 17.5 g/dL LAB HEMETOLOGY METHOD 03/28/2024 12:56 PM [facility] Hematocrit 33.4(L) 42.0 - 54.0 % LAB HEMETOLOGY METHOD 03/28/2024 12:56 PM [facility] MCV 83.9 79.0 - 98.0 FL LAB HEMETOLOGY METHOD 03/28/2024 12:56 PM [facility] MCH 26.9(L) 27.0 - 32.0 pcg LAB HEMETOLOGY METHOD 03/28/2024 12:56 PM [facility] MCHC 32.0 32.0 - 37.0 g/dL LAB HEMETOLOGY METHOD 03/28/2024 12:56 PM [facility] RDW 16.2(H) 11.0 - 15.0 % LAB HEMETOLOGY METHOD 03/28/2024 12:56 PM [facility] Platelets 290 130 - 400 K/mcL LAB HEMETOLOGY METHOD 03/28/2024 12:56 PM EST [facility] MPV 10.3 7.0 - 11.0 FL LAB HEMETOLOGY METHOD 03/28/2024 12:56 PM EST [facility] NRBC 0.0 <1.0 % LAB HEMETOLOGY METHOD 03/28/2024 12:56 PM EST [facility] NRBC Absolute 0.00 <0.10 K/mcL LAB HEMETOLOGY METHOD 03/28/2024 12:56 PM EST [facility] Blood Venous blood specimen / Unknown Venipuncture / Unknown 03/28/2024 7:54 AM EST 03/28/2024 11:59 AM EST Juan Antonio Mckeon MD LAB BLOOD ORDERABLES [facility] [address] [place] [address], documented in this encounter Visit Diagnoses Diagnosis Heart failure, unspecified (CMS/HCC) Heart failure, unspecified Unspecified atrial fibrillation (CMS/HCC) documented in this encounter Additional Health Concerns Infection Onset Date Last Indicated Resolved Time Respiratory Rule-Out 04/16/2024 04/15/2024 025 1:31 PM EST documented as of this encounter Care Teams Hospice Bereavement Coordinator Relationship Specialty Start Date End Date Venkat Chilel MD [address] [place] [address] Dr Gastelum [address] [facility] [place] [address] PCP - General Internal Medicine 02/03/18 documented as of this encounter
--- OUTSIDE RECORDS SUMMARY | 2024-05-13 23:40 | XMS_ITS | Encounter Summary ---
Author Organization [facility] Address [address] [place] [address] Care Team Providers Care Teaching Manager Name Role Phone Venkat Chilel MD Primary Care Provider [phone] Encounter Details Date Type Department Care Team (Late st Contact Info) Description 02/15/2024 Lab Requisition [facility] - Main Lab 299 [facility] [place] [address] Juan Antonio Mckeon MD [address] [place] [phone] Unspecified atrial fibrillation (CMS/HCC) Social History Tobacco [...] Description 07/12/2024 1:10 PM EDT Office Visit [facility] - [address] [place] [address] Ana Cristina West NP [address] [place], [place] [phone] documented as of this encounter Procedures Procedure Name Priority Date/Time Associated Diagnosis Comments TRAVEL PHLEBOTOMY FEE Routine 02/15/2024 8:54 AM EST Unspecified atrial fibrillation (CMS/HCC) PROTHROMBIN TIME WITH INR Routine 02/15/2024 8:54 AM EST Unspecified atrial fibrillation (CMS/HCC) documented in this encounter Results * Travel phlebotomy fee (02/15/2024 8:54 AM EST) [facility] TRAVEL PHLEBOTOMY FEE Completed 02/15/2024 10:02 AM EST [facility] Blood Venous blood specimen / Unknown Venipuncture / Unknown 02/15/2024 8:54 AM EST 02/15/2024 9:54 AM EST Juan Antonio Mckeon MD LAB BLOOD ORDERABLES Performing Organization Address City/[facility]/ZIP Co de Phone Number [facility] [address] [place] [address], [place] [phone] * (ABNORMAL) Prothrombin time with INR (02/15/2024 8:54 AM EST) [facility] Protime 18.9(H) 10.6 - 13.9 sec LAB COAGULATION METHOD 02/15/2024 11:08 AM EST [facility] INR 1.5 LAB COAGULATION METHOD 02/15/2024 11:08 AM EST [facility] Blood Venous blood specimen / Unknown Venipuncture / Unknown 02/15/2024 8:54 AM EST 02/15/2024 9:54 AM EST Juan Antonio Mckeon MD LAB BLOOD ORDERABLES Performing Organization Address City/[facility]/ZIP Co de Phone Number [facility] [address] [place] [address], [place] [phone] documented in this encounter Visit Diagnoses Diagnosis Unspecified atrial fibrillation (CMS/HCC) documented in this encounter Additional Health Concerns Infection Onset Date Last Indicated Resolved Time Respiratory Rule-Out 04/16/2024 04/15/2024 025 1:31 PM EST documented as of this encounter Care Teams Teaching Manager Relationship Specialty Start Date End Date Venkat Chilel MD [address] [facility] [address] [facility] [place] [address] PCP - General Internal Medicine 02/03/18 documented as of this encounter
--- OUTSIDE RECORDS SUMMARY | 2024-05-13 23:40 | XMS_ITS | Encounter Summary ---
Author Organization [facility] Address [address] [place] [address] Care Team Providers Care Transportation Inspector Name Role Phone Venkat Chilel MD Primary Care Provider [phone] Encounter Details Date Type Department Care Team (Late st Contact Info) Description 04/17/2024 Lab Requisition [facility] - Main Lab 299 [facility] [place] [address] Juan Antonio Mckeon MD [address] [place] [address] Unspecified atrial fibrillation (CMS/HCC) Social History Tobacco [...] Description 07/12/2024 1:10 PM EDT Office Visit [facility] - [address] [place] [phone] Ana Cristina West NP [address] [place], [place] [phone] documented as of this encounter Procedures Procedure Name Priority Date/Time Associated Diagnosis Comments PROTHROMBIN TIME WITH INR Routine 04/17/2024 8:23 AM EST Unspecified atrial fibrillation (CMS/HCC) BASIC METABOLIC PANEL Routine 04/17/2024 8:23 AM EST Unspecified atrial fibrillation (CMS/HCC) documented in this encounter Results * (ABNORMAL) Basic metabolic panel (04/17/2024 8:23 AM EST) Sodium 138 133 - 145 mmol/L LAB CHEMISTRY METHOD 04/17/2024 11:49 AM [facility] Potassium 3.8 3.5 - 5.5 mmol/L LAB CHEMISTRY METHOD 04/17/2024 11:49 AM [facility] Chloride 106 96 - 110 mmol/L LAB CHEMISTRY METHOD 04/17/2024 11:49 AM [facility] CO2 27 21 - 32 mmol/L LAB CHEMISTRY METHOD 04/17/2024 11:49 AM [facility] Anion Gap 5 3 - 11 LAB CHEMISTRY METHOD 04/17/2024 11:49 AM [facility] Glucose 99 70 - 100 mg/dL LAB CHEMISTRY METHOD 04/17/2024 11:49 AM [facility] BUN 11 5 - 25 mg/dL LAB CHEMISTRY METHOD 04/17/2024 11:49 AM [facility] Creatinine 0.55(L) 0.70 - 1.30 mg/dL LAB CHEMISTRY METHOD 04/17/2024 11:49 AM [facility] eGFR 103 >=60 mL/min/1. 73m2 LAB CHEMISTRY METHOD 04/17/2024 11:49 AM [facility] Comment:Calculation based on the??Chronic Kidney Disease Epidemiology Collaboration (CKD-EPI) equation refit??without adjustment for race. BUN/Creatinine Ratio 20.0 LAB CHEMISTRY METHOD 04/17/2024 11:49 AM [facility] Calcium 8.5 8.5 - 10.5 mg/dL LAB CHEMISTRY METHOD 04/17/2024 11:49 AM [facility] Blood Venous blood specimen / Unknown Venipuncture / Unknown 04/17/2024 8:23 AM EST 04/17/2024 10:42 AM EST Juan Antonio Mckeon MD LAB BLOOD ORDERABLES Performing Organization Address City/[facility]/ZIP Co de Phone Number [facility] LAB [address] [place] [address], [place] [phone] * (ABNORMAL) Prothrombin time with INR (04/17/2024 8:23 AM EST) Protime 40.0(H) 10.6 - 13.9 sec LAB COAGULATION METHOD 04/17/2024 11:23 AM EST [facility] INR 3.2 LAB COAGULATION METHOD 04/17/2024 11:23 AM EST [facility] Blood Venous blood specimen / Unknown Venipuncture / Unknown 04/17/2024 8:23 AM EST 04/17/2024 10:42 AM EST Juan Antonio Mckeon MD LAB BLOOD ORDERABLES Performing Organization Address [facility]/ZIP Co de Phone Number [facility] [address] [place] [address], [place] [phone] documented in this encounter Visit Diagnoses Diagnosis Unspecified atrial fibrillation (CMS/HCC) documented in this encounter Care Teams Transportation Inspector Relationship Specialty Start Date End Date Venkat Chilel MD [address] [place] [address] Dr Gast[address] [facility] [place] [address] PCP - General Internal Medicine 02/03/18 documented as of this encounter
--- OUTSIDE RECORDS SUMMARY | 2024-05-13 23:40 | XMS_ITS | Encounter Summary ---
Author Organization [facility] Address [address] [place] [address] Care Team Providers Care Engine Watchman Name Role Phone Venkat Chilel MD Primary Care Provider [phone] Encounter Details Date Type Department Care Team (Late Contact Info) Description 04/16/2024 Lab Requisition [facility] - Main Lab 299 [facility] [place] [address] Juan Antonio Mckeon MD [address] [place] [address] Acute cough Social History Tobacco Use Types Packs/Day Years [...] Encounters Date Type Department Care Team (Late Contact Info) Description 07/12/2024 1:10 PM EDT Office Visit [facility]iology Associates - [facility] [address] 300 [facility] 102 [place] [phone] Ana Cristina West NP [address] [place], [place] [phone] documented as of this encounter Procedures Procedure Name Priority Date/Time Associated Diagnosis Comments [id number], RSV, FLU A AND B QUALITATIVE RT-PCR, LOCAL REFERENCE LAB Routine 04/15/2024 3:00 PM EST Acute cough documented in this encounter Results * [id number], RSV, Influenza A and B qualitative RT-PCR (04/15/2024 3:00 PM EST) SARS COV-2 Not Detected Not Detected LAB MOLECULAR DIAGNOSTICS METHOD 04/16/2024 1:31 PM [facility] Comment: Disclaimer: The manner in which this information is used to guide patient care is the responsibility of the healthcare provider. Testing was performed using the [employer] m SARS-CoV-2 test. This test has [...] for Healthcare Providers can be found at: https://www.fda.gov/media/893947/download Fact sheet for Patients can be found at: https://www.fda.gov/media/682672/download Influenza A PCR Not Detected Not Detected LAB MOLECULAR DIAGNOSTICS METHOD 04/16/2024 1:31 PM EST [facility] Influenza B PCR Not Detected Not Detected LAB MOLECULAR DIAGNOSTICS METHOD 04/16/2024 1:31 PM EST [facility] RSV PCR Not Detected Not Detected LAB MOLECULAR DIAGNOSTICS METHOD 04/16/2024 1:31 PM [facility] Swab Nasopharyngeal structure / Unknown Non-blood Collection / Unknown 04/15/2024 3:00 PM EST 04/16/2024 10:48 AM EST Juan Antonio Mckeon MD LAB MICROBIOLOGY - G ENERAL ORDERABLES [facility] 299 [place] [address], documented in this encounter Visit Diagnoses Diagnosis Acute cough documented in this encounter Additional Health Concerns Infection Onset Date Last Indicated Resolved Time Respiratory Rule-Out 04/16/2024 04/15/2024 025 1:31 PM EST documented as of this encounter Care Teams Engine Watchman Relationship Specialty Start Date End Date Venkat Chilel MD [address] [place] [address] [address] [facility] [place] [address] PCP - General Internal Medicine 02/03/18 documented as of this encounter
--- OUTSIDE RECORDS SUMMARY | 2024-05-13 23:40 | XMS_ITS | Encounter Summary ---
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 Social History [...] Description 07/12/2024 1:10 PM EDT Office Visit [facility] Associates - [facility] [address] [facility] [address] [place] [address] Ana Cristina West NP [address] [place], [place] [phone] documented as of this encounter Procedures Procedure Name Priority Date/Time Associated Diagnosis Comments PROTHROMBIN TIME WITH INR Routine 04/10/2024 7:50 AM EST 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 documented in this encounter Results * (ABNORMAL) Prothrombin time with INR (04/10/2024 7:50 AM EST) Protime 39.8(H) 10.6 - 13.9 sec LAB COAGULATION METHOD 04/10/2024 10:17 AM EST [facility] INR 3.2 LAB COAGULATION METHOD 04/10/2024 10:17 AM EST [facility] Blood Venous blood specimen / Unknown Venipuncture / Unknown 04/10/2024 7:50 AM EST 04/10/2024 9:15 AM EST Juan Antonio Mckeon MD LAB BLOOD ORDERABLES [facility] 299 [place] [address], documented in this encounter Visit Diagnoses 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
--- OUTSIDE RECORDS SUMMARY | 2024-05-13 23:40 | XMS_ITS | Encounter Summary ---
Author Organization [facility] Address [address] [place] [address] Care Team Providers Care Cmm Operator Name Role Phone Venkat Chilel MD Primary Care Provider [phone] Encounter Details Date Type Department Care Team (Latest Contact Info) Description 04/28/2024 Lab Requisition [facility] - Main Lab 299 [facility] [place] [address] Juan Antonio Mckeon MD [address] [place] [address] regional cra (current) use of anticoagulants; Other thrombophilia (CMS/HCC) Social History Tobacco Use Types Packs/Day [...] 07/12/2024 1:10 PM EDT Office Visit [facility] Associates - [facility] [address] [facility] [address] [place] [address] Ana Cristina West NP [address] [place], [place] [phone] documented as of this encounter Procedures Procedure Name Priority Date/Time Associated Diagnosis Comments PROTHROMBIN TIME WITH INR Routine 04/28/2024 8:01 AM EST regional cra (current) use of anticoagulants Other thrombophilia (CMS/HCC) documented in this encounter Results * (ABNORMAL) Prothrombin time with INR (04/28/2024 8:01 AM EST) Protime 29.3(H) 10.6 - 13.9 sec LAB COAGULATION METHOD 04/28/2024 11:06 AM EST [facility] INR 2.3 LAB COAGULATION METHOD 04/28/2024 11:06 AM EST [facility] Blood Venous blood specimen / Unknown Venipuncture / Unknown 04/28/2024 8:01 AM EST 04/28/2024 10:21 AM EST Juan Antonio Mckeon MD LAB BLOOD ORDERABLES [facility] 299 [place] [address], documented in this encounter Visit Diagnoses Diagnosis regional cra (current) use of anticoagulants Long-term (current) use of anticoagulants Other thrombophilia (CMS/HCC) documented in this encounter Care Teams Cmm Operator Relationship Specialty Start Date End Date Venkat Chilel MD [address] [place] [address] Dr [address] [facility] [place] [address] PCP - General Internal Medicine 02/03/18 documented as of this encounter
--- OUTSIDE RECORDS SUMMARY | 2024-05-13 23:40 | XMS_ITS | Encounter Summary ---
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 Social History Tobacco [...] Visit [facility] - [facility] [address] [facility] [address] [place] [address] Ana Cristina West NP [address] [place], [place] [phone] documented as of this encounter Procedures Procedure Name Priority Date/Time Associated Diagnosis Comments PROTHROMBIN TIME WITH INR Routine 03/27/2024 5:03 AM EST 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 documented in this encounter Results * (ABNORMAL) Prothrombin time with INR (03/27/2024 5:03 AM EST) Protime 36.0(H) 10.6 - 13.9 sec LAB COAGULATION METHOD 03/27/2024 9:58 AM EST [facility] INR 2.9 LAB COAGULATION METHOD 03/27/2024 9:58 AM EST [facility] Blood Venous blood specimen / Unknown Venipuncture / Unknown 03/27/2024 5:03 AM EST 03/27/2024 9:14 AM EST Juan Antonio Mckeon MD LAB BLOOD ORDERABLES [facility] [address] [place] [address], documented in this encounter Visit Diagnoses 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
--- OUTSIDE RECORDS SUMMARY | 2024-05-13 23:40 | XMS_ITS | Encounter Summary ---
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 Social History Tobacco [...] Description 07/12/2024 1:10 PM EDT Office Visit [facility]iology Associates - [facility] [address] [facility] [address] [place] [address] Ana Cristina West NP [address] [place], [place] [phone] documented as of this encounter Procedures Procedure Name Priority Date/Time Associated Diagnosis Comments PROTHROMBIN TIME WITH INR Routine 04/13/2024 8:19 AM EST superintendent 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 documented in this encounter Results * (ABNORMAL) Prothrombin time with INR (04/13/2024 8:19 AM EST) Protime 25.7(H) 10.6 - 13.9 sec LAB COAGULATION METHOD 04/13/2024 12:08 PM EST [facility] INR 2.0 LAB COAGULATION METHOD 04/13/2024 12:08 PM EST [facility] Blood Venous blood specimen / Unknown Venipuncture / Unknown 04/13/2024 8:19 AM EST 04/13/2024 11:25 AM EST Juan Antonio Mckeon MD LAB BLOOD ORDERABLES [facility] 299 [place] [address], documented in this encounter Visit Diagnoses Diagnosis 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
--- OUTSIDE RECORDS SUMMARY | 2024-05-13 23:40 | XMS_ITS | Encounter Summary ---
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 Social History Tobacco [...] Description 07/12/2024 1:10 PM EDT Office Visit [facility] - [facility] [address] [facility] [address] [place] [address] Ana Cristina West NP [address] [place], [place] [phone] documented as of this encounter Procedures Procedure Name Priority Date/Time Associated Diagnosis Comments PROTHROMBIN TIME WITH INR Routine 04/26/2024 7:01 AM EST 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 documented in this encounter Results * (ABNORMAL) Prothrombin time with INR (04/26/2024 7:01 AM EST) Protime 40.0(H) 10.6 - 13.9 sec LAB COAGULATION METHOD 04/26/2024 10:37 AM EST [facility] INR 3.2 LAB COAGULATION METHOD 04/26/2024 10:37 AM EST [facility] Blood Venous blood specimen / Unknown Venipuncture / Unknown 04/26/2024 7:01 AM EST 04/26/2024 9:57 AM EST Juan Antonio Mckeon MD LAB BLOOD ORDERABLES [facility] 299 [place] [address], documented in this encounter Visit Diagnoses Diagnosis 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
--- OUTSIDE RECORDS SUMMARY | 2024-05-13 23:40 | XMS_ITS | Encounter Summary ---
Author Organization [facility] Address [address] [place] [address] Care Team Providers Care Linux Security Administrator Name Role Phone Venkat Chilel MD Primary Care Provider [phone] Encounter Details Date Type Department Care Team (Late st Contact Info) Description 05/01/[address] [facility] - Main Lab 299 [facility] [place] [address] Juan Antonio Mkceon MD [address] [place] [address] Unspecified atrial fibrillation (CMS/HCC) Social History Tobacco [...] 07/12/2024 1:10 PM EDT Office Visit [facility] - [address] [place] [address] Ana Cristina West NP [address] [place], [place] [phone] documented as of this encounter Procedures Procedure Name Priority Date/Time Associated Diagnosis Comments PROTHROMBIN TIME WITH INR Routine 05/01/2024 7:37 AM EST Unspecified atrial fibrillation (CMS/HCC) documented in this encounter Results * (ABNORMAL) Prothrombin time with INR (05/01/2024 7:37 AM EST) Protime 29.2(H) 10.6 - 13.9 sec LAB COAGULATION METHOD 05/01/2024 9:22 AM EST [facility] INR 2.3 LAB COAGULATION METHOD 05/01/2024 9:22 AM EST [facility] Blood Venous blood specimen / Unknown Venipuncture / Unknown 05/01/2024 7:37 AM EST 05/01/2024 8:46 AM EST Juan Antonio Mckeon MD LAB BLOOD ORDERABLES [facility] 299 [place] [address], documented in this encounter Visit Diagnoses Diagnosis Unspecified atrial fibrillation (CMS/HCC) documented in this encounter Care Teams Linux Security Administrator Relationship Specialty Start Date End Date Venkat Chilel MD [address] [place] [address] [address] [place] [facility] [place] [address] PCP - General Internal Medicine 02/03/18 documented as of this encounter
--- OUTSIDE RECORDS SUMMARY | 2024-05-13 23:40 | XMS_ITS | Encounter Summary ---
Author Organization [facility] Address [address] [place] [address] Care Team Providers Care Water Tender Name Role Phone Venkat Chilel MD Primary Care Provider [phone] Encounter Details Date Type Department Care Team (Late st Contact Info) Description 04/20/[address] [facility] - Main Lab 299 [facility] [place] [address] Juan Antonio Mckeon MD [address] [place] [address] Unspecified atrial fibrillation (CMS/HCC) Social History Tobacco [...] Description 07/12/2024 1:10 PM EDT Office Visit [facility] - [address] [place] [phone] Ana Cristina West NP [address] [place], [place] [phone] documented as of this encounter Procedures Procedure Name Priority Date/Time Associated Diagnosis Comments PROTHROMBIN TIME WITH INR Routine 04/20/2024 8:30 AM EST Unspecified atrial fibrillation (CMS/HCC) COMPLETE BLOOD COUNT Routine 04/20/2024 8:30 AM EST Unspecified atrial fibrillation (CMS/HCC) documented in this encounter Results * (ABNORMAL) Prothrombin time with INR (04/20/2024 8:30 AM EST) Protime 41.1(H) 10.6 - 13.9 sec LAB COAGULATION METHOD 04/20/2024 11:48 AM EST [facility] INR 3.3 LAB COAGULATION METHOD 04/20/2024 11:48 AM [facility] Blood Venous blood specimen / Unknown Venipuncture / Unknown 04/20/2024 8:30 AM EST 04/20/2024 11:17 AM EST Juan Antonio Mckeon MD LAB BLOOD ORDERABLES [facility] [address] [place] [address], * (ABNORMAL) Complete blood count (04/20/2024 8:30 AM EST) Pathologist [facility] WBC 8.4 4.8 - 10.8 K/mcL LAB HEMETOLOGY METHOD 04/20/2024 11:50 AM [facility] RBC 3.80(L) 4.50 - 5.50 M/mcL LAB HEMETOLOGY METHOD 04/20/2024 11:50 AM [facility] Hemoglobin 9.9(L) 13.5 - 17.5 g/dL LAB HEMETOLOGY METHOD 04/20/2024 11:50 AM [facility] Hematocrit 32.3(L) 42.0 - 54.0 % LAB HEMETOLOGY METHOD 04/20/2024 11:50 AM [facility] MCV 85.0 79.0 - 98.0 FL LAB HEMETOLOGY METHOD 04/20/2024 11:50 AM [facility] MCH 26.1(L) 27.0 - 32.0 pcg LAB HEMETOLOGY METHOD 04/20/2024 11:50 AM EST [facility] MCHC 30.7(L) 32.0 - 37.0 g/dL LAB HEMETOLOGY METHOD 04/20/2024 11:50 AM [facility] RDW 16.3(H) 11.0 - 15.0 % LAB HEMETOLOGY METHOD 04/20/2024 11:50 AM [facility] Platelets 400 130 - 400 K/mcL LAB HEMETOLOGY METHOD 04/20/2024 11:50 AM [facility] MPV 10.7 7.0 - 11.0 FL LAB HEMETOLOGY METHOD 04/20/2024 11:50 AM [facility] NRBC 0.0 <1.0 % LAB HEMETOLOGY METHOD 04/20/2024 11:50 AM [facility] NRBC Absolute 0.00 <0.10 K/mcL LAB HEMETOLOGY METHOD 04/20/2024 11:50 AM [facility] Blood Venous blood specimen / Unknown Venipuncture / Unknown 04/20/2024 8:30 AM EST 04/20/2024 11:17 AM EST Juan Antonio Mckeon MD LAB BLOOD ORDERABLES [facility] [address] [place] [address], documented in this encounter Visit Diagnoses Diagnosis Unspecified atrial fibrillation (CMS/HCC) documented in this encounter Care Teams Water Tender Relationship Specialty Start Date End Date Venkat Chilel MD [address] [place] [address] Dr [address] 101 [facility] [place] [address] PCP - General Internal Medicine 02/03/18 documented as of this encounter
--- OUTSIDE RECORDS SUMMARY | 2024-05-13 23:40 | XMS_ITS | Encounter Summary ---
Author Organization [facility] Address [address] [place] [address] Care Team Providers Care Tanbark Laborer Name Role Phone Venkat Chilel MD Primary Care Provider [phone] Encounter Details Date Type Department Care Team (Latest Contact Info) Description 04/24/2024 Lab Requisition [facility] - Main Lab 299 [facility] [place] [address] Juan Antonio Mckeon MD [address] [place] [address] Unspecified atrial fibrillation (CMS/HCC); assisted (current) use of anticoagulants Social History Tobacco [...] 07/12/2024 1:10 PM EDT Office Visit [facility] - [address] 300 [facility] [address] [place] [address] Ana Cristina West NP [address] [place], [place] [phone] documented as of this encounter Procedures Procedure Name Priority Date/Time Associated Diagnosis Comments PROTHROMBIN TIME WITH INR Routine 04/24/2024 8:23 AM EST Unspecified atrial fibrillation (CMS/HCC) 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 documented in this encounter Results * (ABNORMAL) Prothrombin time with INR (04/24/2024 8:23 AM EST) Protime 44.8(H) 10.6 - 13.9 sec LAB COAGULATION METHOD 04/24/2024 11:43 AM EST [facility] INR 3.5 LAB COAGULATION METHOD 04/24/2024 11:43 AM EST [facility] Blood Venous blood specimen / Unknown Venipuncture / Unknown 04/24/2024 8:23 AM EST 04/24/2024 10:16 AM EST Juan Antonio Mckeon MD LAB BLOOD ORDERABLES [facility] [address] [place] [address], documented in this encounter Visit Diagnoses Diagnosis Unspecified atrial fibrillation (CMS/HCC) 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
--- OUTSIDE RECORDS SUMMARY | 2024-05-13 23:40 | XMS_ITS | Encounter Summary ---
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 Social History Tobacco [...] Description 07/12/2024 1:10 PM EDT Office Visit [facility] - [facility] [address] [facility] [address] [place] [address] Ana Cristina West NP [address] [place], [place] [phone] documented as of this encounter Procedures Procedure Name Priority Date/Time Associated Diagnosis Comments PROTHROMBIN TIME WITH INR Routine 03/30/2024 6:33 AM EST hand ii tube bender (current) use of anticoagulants documented in this encounter Results * (ABNORMAL) Prothrombin time with INR (03/30/2024 6:33 AM EST) Protime 39.3(H) 10.6 - 13.9 sec LAB COAGULATION METHOD 03/30/2024 8:40 AM EST [facility] INR 3.1 LAB COAGULATION METHOD 03/30/2024 8:40 AM EST [facility] Blood Venous blood specimen / Unknown Venipuncture / Unknown 03/30/2024 6:33 AM EST 03/30/2024 7:59 AM EST Juan Antonio Mckeon MD LAB BLOOD ORDERABLES [facility] LAB 299 [place] [address], documented in this encounter Visit Diagnoses Diagnosis hand ii 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
--- OUTSIDE RECORDS SUMMARY | 2024-05-13 23:40 | XMS_ITS | Encounter Summary ---
Author Organization [facility] Address [address] [place] [address] Care Team Providers Care Safety And Health Consultant Name Role Phone Venkat Chilel MD Primary Care Provider [phone] Encounter Details Date Type Department Care Team (Late st Contact Info) Description 03/23/2024 Lab Requisition [facility] - Main Lab 299 [facility] [place] [address] Juan Antonio Mckeon MD [address] [place] [address] Unspecified atrial fibrillation (CMS/HCC) Social History Tobacco [...] Description 07/12/2024 1:10 PM EDT Office Visit [facility] - [address] [place] [phone] Ana Cristina West NP [address] [place], [place] [phone] documented as of this encounter Procedures Procedure Name Priority Date/Time Associated Diagnosis Comments PROTHROMBIN TIME WITH INR Routine 03/23/2024 7:33 AM EST Unspecified atrial fibrillation (CMS/HCC) documented in this encounter Results * (ABNORMAL) Prothrombin time with INR (03/23/2024 7:33 AM EST) Protime 32.6(H) 10.6 - 13.9 sec LAB COAGULATION METHOD 03/23/2024 10:57 AM EST [facility] INR 2.6 LAB COAGULATION METHOD 03/23/2024 10:57 AM EST [facility] Blood Venous blood specimen / Unknown Venipuncture / Unknown 03/23/2024 7:33 AM EST 03/23/2024 9:18 AM EST Juan Antonio Mckeon MD LAB BLOOD ORDERABLES [facility] 299 [place] [address], documented in this encounter Visit Diagnoses Diagnosis Unspecified atrial fibrillation (CMS/HCC) documented in this encounter Additional Health Concerns Infection Onset Date Last Indicated Resolved Time Respiratory Rule-Out 04/16/2024 04/15/2024 025 1:31 PM EST documented as of this encounter Care Teams Safety And Health Consultant Relationship Specialty Start Date End Date Venkat Chilel MD [address] [place] [address] Dr Gast[address] [facility] [place] [address] PCP - General Internal Medicine 02/03/18 documented as of this encounter
--- OUTSIDE RECORDS SUMMARY | 2024-05-13 23:40 | XMS_ITS | Encounter Summary ---
Author Organization [facility] Address [address] [place] [address] Care Team Providers Care Operator Prefinish Name Role Phone Venkat Chilel MD Primary Care Provider [phone] Encounter Details Date Type Department Care Team (Late st Contact Info) Description 04/11/2024 Lab Requisition [facility] - Main Lab 299 [facility] [place] [address] Juan Antonio Mckeon MD [address] [place] [address] Unspecified atrial fibrillation (CMS/HCC) Social History Tobacco [...] Description 07/12/2024 1:10 PM EDT Office Visit [facility] - [address] [place] [phone] Ana Cristina West NP [address] [place], [place] [phone] documented as of this encounter Procedures Procedure Name Priority Date/Time Associated Diagnosis Comments PROTHROMBIN TIME WITH INR Routine 04/11/2024 7:45 AM EST Unspecified atrial fibrillation (CMS/HCC) documented in this encounter Results * (ABNORMAL) Prothrombin time with INR (04/11/2024 7:45 AM EST) Protime 30.1(H) 10.6 - 13.9 sec LAB COAGULATION METHOD 04/11/2024 10:12 AM EST [facility] INR 2.4 LAB COAGULATION METHOD 04/11/2024 10:12 AM EST [facility] Blood Venous blood specimen / Unknown Venipuncture / Unknown 04/11/2024 7:45 AM EST 04/11/2024 9:42 AM EST Juan Antonio Mckeon MD LAB BLOOD ORDERABLES [facility] LAB 299 [place] [address], documented in this encounter Visit Diagnoses Diagnosis Unspecified atrial fibrillation (CMS/HCC) documented in this encounter Additional Health Concerns Infection Onset Date Last Indicated Resolved Time Respiratory Rule-Out 04/16/2024 04/15/2024 025 1:31 PM EST documented as of this encounter Care Teams Operator Prefinish Relationship Specialty Start Date End Date Venkat Chilel MD [address] [place] [address] Dr Gastel[address] [facility] [place] [address] PCP - General Internal Medicine 02/03/18 documented as of this encounter
--- OUTSIDE RECORDS SUMMARY | 2024-05-13 23:40 | XMS_ITS | Encounter Summary ---
Author Organization [facility] Address [address] [place] [address] Care Team Providers Care Travel Services Professional Name Role Phone Venkat Chilel MD Primary Care Provider [phone] Encounter Details Date Type Department Care Team (Late st Contact Info) Description 02/12/2024 Lab Requisition [facility] - Main Lab 299 [facility] [place] [address] Juan Antonio Mckeon MD [address] [place] [address] Osteomyelitis, unspecified (CMS/[facility]) Social History Tobacco Use Types Packs/Day Years [...] Description 07/12/2024 1:10 PM EDT Office Visit [facility] - [facility] [address] [facility] [address] [place] [phone] Ana Cristina West NP [address] [place], [place] [phone] documented as of this encounter Procedures Procedure Name Priority Date/Time Associated Diagnosis Comments TRAVEL PHLEBOTOMY FEE Routine 02/12/2024 7:23 AM EDT Osteomyelitis, unspecified (CMS/HCC) CBC WITH AUTO DIFFERENTIAL Routine 02/12/2024 7:23 AM EDT Osteomyelitis, unspecified (CMS/HCC) CREATININE, SERUM Routine 02/12/2024 7:2 3 AM EDT Osteomyelitis, unspecified (CMS/HCC) CBC AND DIFFERENTIAL Routine 02/12/2024 7:23 AM EDT Osteomyelitis, unspecified (CMS/HCC) BUN Routine 02/12/2024 7:23 AM EDT Osteomyelitis, unspecified (CMS/HCC) VANCOMYCIN, TROUGH Routine 02/12/2024 7: 23 AM EDT Osteomyelitis, unspecified (CMS/HCC) documented in this encounter Results * (ABNORMAL) CBC auto differential (02/12/2024 7:23 AM EDT) WBC 6.2 4.8 - 10.8 K/mcL LAB HEMETOLOGY METHOD 02/12/2024 2:06 PM [facility] RBC 4.28(L) 4.50 - 5.50 M/mcL LAB HEMETOLOGY METHOD 02/12/2024 2:06 PM [facility] Hemoglobin 11.7(L) 13.5 - 17.5 g/dL LAB HEMETOLOGY METHOD 02/12/2024 2:06 PM [facility] Hematocrit 37.7(L) 42.0 - 54.0 % LAB HEMETOLOGY METHOD 02/12/2024 2:06 PM [facility] MCV 88.1 79.0 - 98.0 FL LAB HEMETOLOGY METHOD 02/12/2024 2:06 PM [facility] MCH 27.3 27.0 - 32.0 pcg LAB HEMETOLOGY METHOD 02/12/2024 2:06 PM [facility] MCHC 31.0(L) 32.0 - 37.0 g/dL LAB HEMETOLOGY METHOD 02/12/2024 2:06 PM [facility] RDW 17.0(H) 11.0 - 15.0 % LAB HEMETOLOGY METHOD 02/12/2024 2:06 PM [facility] Platelets 189 130 - 400 K/mcL LAB HEMETOLOGY METHOD 02/12/2024 2:06 PM [facility] MPV 11.6(H) 7.0 - 11.0 FL LAB HEMETOLOGY METHOD 02/12/2024 2:06 PM [facility] NRBC 0.0 <1.0 % LAB HEMETOLOGY METHOD 02/12/2024 2:06 PM [facility] NRBC Absolute 0.00 <0.10 K/mcL LAB HEMETOLOGY METHOD 02/12/2024 2:06 PM [facility] Neutrophils Relative 64.2 % LAB HEMETOLOGY METHOD 02/12/2024 2:06 PM [facility] Lymphocytes Relative 20.7 % LAB HEMETOLOGY METHOD 02/12/2024 2:06 PM [facility] Monocytes Relative 7.9 % LAB HEMETOLOGY METHOD 02/12/2024 2:06 PM [facility] Eosinophils Relative 6.3 % LAB HEMETOLOGY METHOD 02/12/2024 2:06 PM [facility] Basophils Relative 0.6 % LAB HEMETOLOGY METHOD 02/12/2024 2:06 PM [facility] Immature Granulocytes Relative 0.3 % LAB HEMETOLOGY METHOD 02/12/2024 2:06 PM [facility] Neutrophils Absolute 3.95 1.50 - 7.00 K/mcL LAB HEMETOLOGY METHOD 02/12/2024 2:06 PM [facility] Lymphocytes Absolute 1.28 1.00 - 5.00 K/mcL LAB HEMETOLOGY METHOD 02/12/2024 2:06 PM EDT [facility] Monocytes Absolute 0.49 0.20 - 1.00 K/[facility] LAB HEMETOLOGY METHOD 02/12/2024 2:06 PM EDT [facility] Eosinophils Absolute 0.39 0.00 - 0.50 K/mcL LAB HEMETOLOGY METHOD 02/12/2024 2:06 PM EDT [facility] Basophils Absolute 0.04 0.00 - 0.20 K/[facility] LAB HEMETOLOGY METHOD 02/12/2024 2:06 PM EDT [facility] Immature Granulocytes Absolute 0.02 0.00 - 0.03 K/[facility] LAB HEMETOLOGY METHOD 02/12/2024 2:06 PM EDT [facility] Blood Venous blood specimen / Unknown Venipuncture / Unknown 02/12/2024 7:23 AM EDT 02/12/2024 9:06 AM EDT Juan Antonio Mckeon MD LAB BLOOD ORDERABLES [facility] [address] [place] [address], * Travel phlebotomy fee (02/12/2024 7:23 AM EDT) [facility] TRAVEL PHLEBOTOMY FEE Completed 02/12/2024 10:01 AM EDT [facility] Blood Venous blood specimen / Unknown Venipuncture / Unknown 02/12/2024 7:23 AM EDT 02/12/2024 9:06 AM EDT Juan Antonio Mckeon MD LAB BLOOD ORDERABLES [facility] [address] [place] [address], [place] [phone] * Vancomycin, trough (02/12/2024 7:23 AM EDT) Vancomycin Trough 10.3 10.0 - 20.0 mcg/mL LAB CHEMISTRY METHOD 02/12/2024 9:46 AM EDT [facility] Blood Venous blood specimen / Unknown Venipuncture / Unknown 02/12/2024 7:23 AM EDT 02/12/2024 9:06 AM EDT Juan Antonio Mckeon MD LAB BLOOD ORDERABLES Performing Organization Address [facility] [place]/ZIP Co de Phone Number [facility] [address] [place] [address], * (ABNORMAL) Creatinine (02/12/2024 7:23 AM EDT) Creatinine 0.64(L) 0.70 - 1.30 mg/dL LAB CHEMISTRY METHOD 02/12/2024 9:46 AM EDT [facility] eGFR 99 >=60 mL/min/1. 73m2 LAB CHEMISTRY METHOD 02/12/2024 9:46 AM EDT [facility] Comment:Calculation based on the??Chronic Kidney Disease Epidemiology Collaboration (CKD-EPI) equation refit??without adjustment for race. Blood Venous blood specimen / Unknown Venipuncture / Unknown 02/12/2024 7:23 AM EDT 02/12/2024 9:06 AM EDT Juan Antonio Mckeon MD LAB BLOOD ORDERABLES [facility] [address] [place] [address], * BUN (02/12/2024 7:23 AM EDT) BUN 12 5 - 25 mg/dL LAB CHEMISTRY METHOD 02/12/2024 9:46 AM EDT [facility] Blood Venous blood specimen / Unknown Venipuncture / Unknown 02/12/2024 7:23 AM EDT 02/12/2024 9:06 AM EDT Juan Antonio Mckeon MD LAB BLOOD ORDERABLES [facility] [address] [place] [address], documented in this encounter Visit Diagnoses Diagnosis Osteomyelitis, unspecified (CMS/HCC) documented in this encounter Additional Health Concerns Infection Onset Date Last Indicated Resolved Time Respiratory Rule-Out 04/16/2024 04/15/2024 025 1:31 PM EST documented as of this encounter Care Teams Travel Services Professional Relationship Specialty Start Date End Date Venkat Chilel MD [address] [place] [address] [address] [facility] [place] [address] PCP - General Internal Medicine 02/03/18 documented as of this encounter
--- OUTSIDE RECORDS SUMMARY | 2024-05-13 23:40 | XMS_ITS | Encounter Summary ---
Author Organization [facility] Address [address] [place] [address] Care Team Providers Care Systems Software Manager Name Role Phone Venkat Chilel MD Primary Care Provider [phone] Encounter Details Date Type Department Care Team (Latest Contact Info) Description 02/18/[address] 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 documented in this encounter Results * (ABNORMAL) Prothrombin time with INR (02/18/2024 6:20 AM EST) Protime 28.9(H) 10.6 - 13.9 sec LAB COAGULATION METHOD 02/18/2024 8:40 AM EST [facility] INR 2.3 LAB COAGULATION METHOD 02/18/2024 8:40 AM EST [facility] Blood Venous blood specimen / Unknown Venipuncture / Unknown 02/18/2024 6:20 AM EST 02/18/2024 7:52 AM EST Juan Antonio Mckeon MD LAB BLOOD ORDERABLES [facility] [address] [place] [address], documented in this encounter Visit Diagnoses 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
--- OUTSIDE RECORDS SUMMARY | 2024-05-13 23:40 | XMS_ITS | Encounter Summary ---
Author Organization [facility] Address [address] [place] [address] Care Team Providers Care Diesel Inspector Name Role Phone Venkat Chilel MD Primary Care Provider [phone] Encounter Details Date Type Department Care Team (Late st Contact Info) Description 04/03/2024 Lab Requisition [facility] - Main Lab 299 [facility] [place] [address] Juan Antonio Mckeon MD [address] [place] [address] Unspecified atrial fibrillation (CMS/HCC) Social History Tobacco [...] Description 07/12/2024 1:10 PM EDT Office Visit [facility] - [address] [place] [phone] Ana Cristina West NP [address] [place], [place] [phone] documented as of this encounter Procedures Procedure Name Priority Date/Time Associated Diagnosis Comments PROTHROMBIN TIME WITH INR Routine 04/03/2024 6:45 AM EST Unspecified atrial fibrillation (CMS/HCC) documented in this encounter Results * (ABNORMAL) Prothrombin time with INR (04/03/2024 6:45 AM EST) Protime 39.5(H) 10.6 - 13.9 sec LAB COAGULATION METHOD 04/03/2024 9:50 AM EST [facility] INR 3.1 LAB COAGULATION METHOD 04/03/2024 9:50 AM EST [facility] Blood Venous blood specimen / Unknown Venipuncture / Unknown 04/03/2024 6:45 AM EST 04/03/2024 9:23 AM EST Juan Antonio Mckeon MD LAB BLOOD ORDERABLES [facility] [address] [place] [address], documented in this encounter Visit Diagnoses Diagnosis Unspecified atrial fibrillation (CMS/HCC) documented in this encounter Additional Health Concerns Infection Onset Date Last Indicated Resolved Time Respiratory Rule-Out 04/16/2024 04/15/2024 025 1:31 PM EST documented as of this encounter Care Teams Diesel Inspector Relationship Specialty Start Date End Date Venkat Chilel MD [address] [place] [address] [address] [facility] [place] [address] PCP - General Internal Medicine 02/03/18 documented as of this encounter
--- NOTE | 2024-05-14 00:19 | ED.FALL ---
HPI - Fall General Chief Complaint: Fall Stated Complaint: fall, no obvious deformity confused at baseline Time Seen by Provider: 05/13/24 23:47 History of Present Illness ED Provider: Hay Robb MD HPI Narrative: 73 Male who has advanced dementia chronic severe neuropathy comes from half-way after they felt he inadvertently rolled off his bed which is approximately 2-1/2 feet high. The patient is on warfarin the staff did not notice any injuries change in behavior or vomiting. accompanies him at bedside feels he is acting normally she said he does not feel much pain below the neck due to chronic neuropathy and he himself complains of no pain or injuries at this time Related Data Home Medications ?Medication ?Instructions ?Recorded ?Confirmed metoprolol tartrate 25 mg tablet 25 mg PO BID 02/05/20 09/03/23 [id number] 300 mcg-K 60 1 tab PO DAILY 02/05/20 09/03/23 mcg-lycop 600 mcg-lutein 300 mcg tablet (Centrum Silver Ultra Men's) acetaminophen 325 mg tablet 325 mg PO Q6H PRN Pain, Moderate 09/30/21 09/03/23 ascorbic acid (vitamin C) 500 mg 500 mg PO DAILY 03/08/23 09/03/23 tablet cholecalciferol (vitamin D3) 50 50 mcg PO DAILY 03/08/23 09/03/23 mcg (2,000 unit) capsule colesevelam 625 mg tablet 1,875 mg PO DAILY 03/08/23 09/03/23 omeprazole 20 mg capsule,delayed 20 mg PO DAILY@0630 03/08/23 09/03/23 release baclofen 10 mg tablet 20 mg PO TID 09/03/23 09/03/23 bisacodyl 10 mg rectal suppository 10 mg CO DAILY PRN Constipation 09/03/23 09/03/23 furosemide 20 mg tablet 40 mg PO DAILY 09/03/23 09/03/23 gabapentin 100 mg capsule 200 mg PO TID 09/03/23 09/03/23 ipratropium 0.5 mg-albuterol 3 mg 3 ml inhalation Q12H PRN SOB 09/03/23 09/03/23 (2.5 mg base)/3 mL nebulization soln ipratropium 0.5 mg-albuterol 3 mg 3 ml inhalation Q12H PRN Shortness 09/03/23 09/03/23 (2.5 mg base)/3 mL nebulization Of Breath Or Wheezing soln loratadine 10 mg tablet 10 mg PO DAILY PRN PRURITUS 09/03/23 09/03/23 magnesium hydroxide 400 mg/5 mL 30 ml PO BEDTIME PRN Constipation 09/03/23 09/03/23 oral suspension (Milk of Magnesia) melatonin 5 mg tablet 5 mg PO BEDTIME sleep aid 09/03/23 09/03/23 sodium phosphates 19 gram-7 118 ml CO DAILY PRN Constipation 09/03/23 09/03/23 gram/118 mL enema (Fleet Enema) tramadol 50 mg tablet 50 mg PO Q12H PRN mod-sev pain 09/03/23 09/03/23 warfarin 4 mg tablet 8 mg PO TH@1800 09/03/23 09/03/23 warfarin 7.5 mg tablet 7.5 mg PO SUMOTUWEFRSA@1800 09/03/23 09/03/23 Previous Rx's ?Medication ?Instructions ?Recorded bilateral custom AFO #1 ea 04/14/21 compress.stocking,knee,reg,lrg #12 ea 09/30/21 lisinopril 10 mg tablet 10 mg PO DAILY 90 days #90 tabs 09/15/22 Allergies Allergy/AdvReac Type Severity Reaction Status Date / Time Nstksmn-CKZ-QjC Reductase Allergy Intermediate MUSCULAR Verified 05/13/24 22:58 Inhibitor PAIN [[id number] REDUCTASE INHIBITOR] atorvastatin Allergy Unknown UNKNOWN Verified 05/13/24 22:58 pravastatin Allergy Unknown UNKNOWN Verified 05/13/24 22:58 simvastatin Allergy Unknown UNKNOWN Verified 05/13/24 22:58 [facility] Past Medical History Medical History Osteoarthritis Hx of deep venous thrombosis Personal history of COVID-19 (~03/2023) Slow to wake up after anesthesia Back abscess Hypertension Radicular low back pain Bilateral hand numbness Impacted cerumen of right ear Peripheral neuropathy Chronic idiopathic thrombocytopenia Iron deficiency anemia Carpal tunnel syndrome Rotator cuff tear Thrombocytopenia Cognitive decline Depression GERD (gastroesophageal reflux disease) Hypercholesterolemia Hypertension Paroxysmal atrial fibrillation Impaired fasting glucose Surgical History Colon cancer Lumbar disc disease H/O colonoscopy S/P left rotator cuff repair H/O lateral meniscus repair of right knee S/P IVC filter History of neck surgery History of laminectomy History of cardiac radiofrequency ablation History of neck surgery History of carpal tunnel release H/O repair of rotator cuff History of knee replacement procedure of right knee History of left knee replacement History of appendectomy History of cholecystectomy History of partial colectomy History of right hip replacement Family History Family History Father No problems noted. Mother Diabetes Social History Social History Household Members: Spouse Housing: House Are you a primary career manager to a significant other at home: No Do you presently have visiting nurse or other home services: Yes (Mauricio LARA) Alcohol intake: never Comment: bed bound Patient Tobacco Use Status: Never used Tobacco e-Cigarette/Vaping Use: Never Used Second Hand Smoke Exposure: No Advance Directives Date on File: 03/09/23 service: No Current occupational status: retired Cognitive needs: Yes (walker) Hearing needs: Yes Vision needs: Yes Physical Exam Vital Signs: Vital Signs: Last Vital Signs Temp 98 F 05/14/24 02:28 Pulse 57 05/14/24 02:28 Resp 16 05/14/24 02:28 BP 114/73 05/14/24 02:28 Pulse Ox 96 05/14/24 02:28 O2 Del Method Room Air 05/14/24 02:28 BMI result Body Mass Index 32.4 Const: Other: EXAM: Gen: Alert, awake, well appearing, well hydrated. Head: Atraumatic Eyes: Anicteric, Normal conjunctiva. ENT: Moist mucosa, no pallor. Neck: Supple. Respiratory: Breathing comfortably, No distress.Clear to auscultation bilaterally, symmetric chest expansion, No wheeze, rales, ronchi. Cardiovascular: Regular rate and rhythm. No murmurs or rub. Well perfused periphery, warm extremities. No edema. Abdominal: Soft, no objective distension. No palpable masses or obvious organomegaly. No focal tenderness, no guarding, no rebound tenderness or other peritoneal findings. : No flank tenderness. Neuro: Alert. Gross movement of all extremities intact. Vital signs: See flowsheet Medical Decision Making Medical Decision Making MDM Narrative: 73-year-old male with advanced dementia on warfarin. Low mechanism fall from bed no external signs of bruising or other injury. Given the warfarin think it is reasonable to exclude intracranial bleed otherwise I do not see any indication for further testing. Radiology Impression Discussion of test interpretation with radiology: I have reviewed the radiologist's reading. Radiologist Impression: no ICH Discharge Plan Discharge Clinical Impression: Fall Patient Disposition: Home, Self-Care Instructions: Fall Prevention (ED) Additional Instructions: DISCHARGE DIAGNOSES: Fall from bed no identifiable traumatic injuries HISTORY OF PRESENTATION: fall from bed EMERGENCY DEPARTMENT COURSE,TESTS, TREATMENTS: While in the ED today you were evaluated comprehensively with no identified signs of traumatic injury. CT head was performed to exclude occult traumatic brain injury there was none identified DISCHARGE MEDICATIONS: [We have made no changes to your regular medication regimen] FOLLOW-UP: Call your primary or general physician soon as possible to discuss your symptoms, your ED visit and to discuss follow up plans have your primary doctor follow-up and/ or the long term facility physician examined you thoroughly tomorrow to be sure there are no signs of late developing bruising or other injury INSTRUCTIONS & RETURN PRECAUTIONS: If any symptoms change first call your primary physician, if it is after-hours your primary doctors office should have a provider fire prevention research engineer you can speak with. If the symptoms are severe or very concerning to you then call 911 or return to the ED. Hay Robb MD Emergency Physician [facility] Prescriptions: No Action (DME) bilateral custom AFO See Rx Instructions .Route .MEDSUPPLY Qty: 1 0RF Rx Instructions: As directed ipratropium-albuterol 0.5 mg-3 mg(2.5 mg base)/3 mL solution for nebulization 3 ml inhalation Q12H PRN (Reason: SOB) warfarin 7.5 mg Tablet 7.5 mg PO SUMOTUWEFRSA@1800 warfarin 4 mg Tablet 8 mg PO TH@1800 baclofen 10 mg tablet 20 mg PO TID bisacodyl 10 mg Suppository 10 mg CO DAILY PRN (Reason: Constipation) Rx Instructions: Use if no results from milk of magnesia and no BM. furosemide 20 mg tablet 40 mg PO DAILY gabapentin 100 mg capsule 200 mg PO TID magnesium hydroxide [Milk of Magnesia] 400 mg/5 mL Suspension 30 ml PO BEDTIME PRN (Reason: Constipation) Fleet Enema 19-7 gram/118 mL Enema 118 ml CO DAILY PRN (Reason: Constipation) loratadine 10 mg Tablet 10 mg PO DAILY PRN (Reason: PRURITUS) melatonin 5 mg Tablet 5 mg PO BEDTIME tramadol 50 mg tablet 50 mg PO Q12H PRN (Reason: mod-sev pain) ipratropium-albuterol 0.5 mg-3 mg(2.5 mg base)/3 mL Solution For Nebulization 3 ml INHALATION Q12H PRN (Reason: Shortness Of Breath Or Wheezing) ascorbic acid (vitamin C) 500 mg tablet 500 mg PO DAILY omeprazole 20 mg capsule,delayed release(DR/EC) 20 mg PO DAILY@0630 cholecalciferol (vitamin D3) 50 mcg (2,000 unit) Capsule 50 mcg PO DAILY colesevelam 625 mg tablet 1,875 mg PO DAILY metoprolol tartrate 25 mg tablet 25 mg PO BID Centrum Silver Ultra Men's 300-600-300 mcg tablet 1 tab PO DAILY acetaminophen 325 mg tablet 325 mg PO Q6H PRN (Reason: Pain, Moderate) (DME) compress.stocking,knee,reg,lrg Misc See Rx Instructions .Route Qty: 12 1RF Rx Instructions: As directed 20-30 mm HG lisinopril 10 mg tablet 10 mg PO DAILY 90 Days Qty: 90 3RF Interventions: ED Discharge Assessment Last Done: 05/14/24 02:28 Discharge Date/Time: 05/14/24 02:32 Print Language: [place]ese
[2024-05-14 01:48] VITALS: BP 114/73; PULSE 57; RESP 16; TEMP 36.6; O2SAT 96
[2024-05-14 02:28] VITALS: BP 114/73; PULSE 57; RESP 16; TEMP 36.6; O2SAT 96
== END 2024-05-14 02:32 | disposition home or self-care (01) ==
PROVIDERS: Emergency Provider Emergency Medicine; PCP Internal Medicine
DX: F03.90 Unspecified dementia, unspecified severity, without behavioral disturbance, psychotic disturbance, mood disturbance, and anxiety (principal); Z91.81 History of falling; I10 Essential (primary) hypertension; E78.00 Pure hypercholesterolemia, unspecified; D50.9 Iron deficiency anemia, unspecified; I48.0 Paroxysmal atrial fibrillation; Z79.01 Long term (current) use of anticoagulants
CPT/HCPCS: 70450; 99284

== ENCOUNTER → 2024-05-14 00:02 | Outpatient (BNV) | payer MEDICARE, MEDICAID, SELFPAY | PROVIDERS: Emergency Provider Emergency Medicine; PCP Internal Medicine; Visit Provider Radiology Diagnostic Radiology | DX: J32.9 Chronic sinusitis, unspecified (principal) | CPT/HCPCS: 70450 ==

== ENCOUNTER 2024-07-06 12:49 | Inpatient (IN) | payer MEDICARE, MEDICAID, SELFPAY ==
[2024-07-06] VITALS (11 sets, daily range): BP systolic 94–124; BP diastolic 58–79; PULSE 64–110; RESP 16–18; TEMP 37.1–37.9; O2SAT 94–99; BMI 26.2
--- NOTE | ~2024-07-06 | XR_ITS ---
EXAMINATION: XR CALCANEUS, RIGHT CLINICAL INFORMATION: ? osteo COMPARISON: 09/02/2023. TECHNIQUE: Lateral and axial views of the right calcaneus were obtained. FINDINGS: No fracture or dislocation. No permeative bony change or focal osteopenia identified. Calcaneus appears intact. Unusually prominent spur along the plantar posterior calcaneal margin. Arthritic changes in the subtalar joints and intertalar joints. Normal alignment. There is soft tissue swelling and subcutaneous gas dorsomedial to the calcaneus and dorsal to the talus. Diffuse soft tissue vascular calcifications. XR/XR calcaneus RT min 2V IMPRESSION: 1. Subcutaneous gas dorsal and medial to the calcaneus and talus with associated soft tissue swelling. 2. No radiographic evidence of osteomyelitis. 3. Unusually prominent spur along the posterior plantar calcaneal surface. 4. Degenerative changes throughout the intertarsal joints and subtalar joints. 5. Diffuse soft tissue vascular calcifications. Electronically signed by: Quan Adams MD 07/06/2024 02:39 PM EDT
--- NOTE | ~2024-07-06 | XR_ITS ---
EXAMINATION: XR FEMUR, RIGHT CLINICAL INFORMATION: leg contracture, COMPARISON: None available. TECHNIQUE: AP and lateral views of the right femur were obtained. FINDINGS: Metallic prosthesis with an acetabular and femoral component well-seated in the osseous structures. Questionable mild loosening in the intertrochanter region. No acute cortical disruption. No periosteal bone reaction. XR/XR femur RT 2V IMPRESSION: Questionable loosening in the intramedullary segment of the right hip prosthesis. Electronically signed by: Syed Gambino MD 07/07/2024 12:47 PM EDT
--- NOTE | 2024-07-06 13:23 | ECG_ITS ---
Test Reason : SEPSIS Blood Pressure : */* mmHG Vent. Rate : 88 BPM Atrial Rate : 88 BPM P-R Int : 140 ms QRS Dur : 96 ms QT Int : 362 ms P-R-T Axes : 50 0 31 degrees QTcB Int : 438 ms Sinus rhythm with Premature atrial complexes Otherwise normal ECG When compared with ECG of 08-Mar-2023 09:41, Premature atrial complexes are now Present Referred By: Maged Cao Electronically Signed By: ALANA METZGER MD
[2024-07-06] MEDS: SODIUM CHLORIDE 2628 ML IV (13:33)
[2024-07-06 13:34] LABS: MANUAL DIFF FLAG NO
[2024-07-06] MEDS: Piperacillin Sodium/Tazobactam 3.375 GM in 0.9 % Sodium Chloride 50 ML IV ×2 (13:37→20:37)
[2024-07-06 13:38] LABS: Basophils Percent Auto 0.1 % (0-2); Eosinophils Percent Auto 0.3 % (0-4); Hematocrit 32.6 % (42.0-52.0); Imm Gran Pct Auto 0.7 % (0.0-0.4); Lymphocytes Percent Auto 7.2 % (20-40); Mean Corpuscular HGB Conc 33.7 g/dl (31.0-36.0); Mean Corpuscular Hemoglobin 28.1 pg (27.0-33.0); Mean Corpuscular Volume 83.4 fL (80.0-98.0); Mean Platelet Volume 10.3 fL (9.4-12.4); Monocytes Absolute Auto 0.7 X10*3/uL (0.1-1.2); Monocytes Percent Auto 4.7 % (2-11); Neutrophils Absolute Auto 12.6 x10*3/uL (2.0-8.3); Platelet Count 199 X10*3/uL (160-400); Red Blood Count 3.91 X10*6/uL (4.60-5.80); Red Cell Distribution Width 17.1 % (11.0-16.0); White Blood Count 14.5 X10*3/uL (4.8-10.8)
[2024-07-06] MEDS: vancomycin HCL 1,500 MG in 0.9 % Sodium Chloride 500 ML 333.33 MG IV (13:42)
--- NOTE | 2024-07-06 13:51 | ED.GENADULT ---
HPI - General Adult General Chief complaint: Skin/Abscess/Foreign Body Stated complaint: Right leg wound from SnF Time Seen by Provider: 07/06/24 12:55 Source: patient, family, RN notes reviewed and old records reviewed Mode of arrival: EMS Limitations: altered mental status History of Present Illness ED Provider: Nash HPI narrative: 73-year-old male with past medical history significant for peripheral vascular disease, depression, Alzheimer's dementia, DVT on warfarin, GERD, depression, hypertension, paroxysmal AFib, nonhealing wound to his right lower extremity presents for evaluation of osteomyelitis. ? I received a phone call from staff at the patient's nursing facility, at [facility], the patient has had a fever for the last few days. He was receiving Tylenol. He has been on cephalexin 500 mg q.6 hours since yesterday for a wound to the right heel The patient is confused at baseline and offers no complaints. Per his who is bedside, the patient has seemed confused 2 days ago and was sleeping all day yesterday He has a history of recurrent osteomyelitis of the right lower extremity and occasions in the left lower extremity. Per staff at this facility, the patient apparently had an outpatient x-ray which confirmed osteomyelitis of the right heel Related Data Home Medications ?Medication ?Instructions ?Recorded ?Confirmed metoprolol tartrate 25 mg tablet 25 mg PO BID 02/05/20 09/03/23 [id number] 300 mcg-K 60 1 tab PO DAILY 02/05/20 09/03/23 mcg-lycop 600 mcg-lutein 300 mcg tablet (Centrum Silver Ultra Men's) acetaminophen 325 mg tablet 325 mg PO Q6H PRN Pain, Moderate 09/30/21 09/03/23 ascorbic acid (vitamin C) 500 mg 500 mg PO DAILY 03/08/23 09/03/23 tablet cholecalciferol (vitamin D3) 50 50 mcg PO DAILY 03/08/23 09/03/23 mcg (2,000 unit) capsule colesevelam 625 mg tablet 1,875 mg PO DAILY 03/08/23 09/03/23 omeprazole 20 mg capsule,delayed 20 mg PO DAILY@0630 03/08/23 09/03/23 release baclofen 10 mg tablet 20 mg PO TID 09/03/23 09/03/23 bisacodyl 10 mg rectal suppository 10 mg NJ DAILY PRN Constipation 09/03/23 09/03/23 furosemide 20 mg tablet 40 mg PO DAILY 09/03/23 09/03/23 gabapentin 100 mg capsule 200 mg PO TID 09/03/23 09/03/23 ipratropium 0.5 mg-albuterol 3 mg 3 ml inhalation Q12H PRN SOB 09/03/23 09/03/23 (2.5 mg base)/3 mL nebulization soln ipratropium 0.5 mg-albuterol 3 mg 3 ml inhalation Q12H PRN Shortness 09/03/23 09/03/23 (2.5 mg base)/3 mL nebulization Of Breath Or Wheezing soln loratadine 10 mg tablet 10 mg PO DAILY PRN PRURITUS 09/03/23 09/03/23 magnesium hydroxide 400 mg/5 mL 30 ml PO BEDTIME PRN Constipation 09/03/23 09/03/23 oral suspension (Milk of Magnesia) melatonin 5 mg tablet 5 mg PO BEDTIME sleep aid 09/03/23 09/03/23 sodium phosphates 19 gram-7 118 ml [place] DAILY PRN Constipation 09/03/23 09/03/23 gram/118 mL enema (Fleet Enema) tramadol 50 mg tablet 50 mg PO Q12H PRN mod-sev pain 09/03/23 09/03/23 warfarin 4 mg tablet 8 mg PO TH@1800 09/03/23 09/03/23 warfarin 7.5 mg tablet 7.5 mg PO SUMOTUWEFRSA@1800 09/03/23 09/03/23 Previous Rx's ?Medication ?Instructions ?Recorded bilateral custom AFO #1 ea 04/14/21 compress.stocking,knee,reg,lrg #12 ea 09/30/21 lisinopril 10 mg tablet 10 mg PO DAILY 90 days #90 tabs 09/15/22 Allergies Allergy/AdvReac Type Severity Reaction Status Date / Time Zqeuhvh-ORL-FwQ Reductase Allergy Intermediate MUSCULAR Verified 07/06/24 13:03 Inhibitor PAIN [[id number] REDUCTASE INHIBITOR] atorvastatin Allergy Unknown UNKNOWN Verified 07/06/24 13:03 pravastatin Allergy Unknown UNKNOWN Verified 07/06/24 13:03 simvastatin Allergy Unknown UNKNOWN Verified 07/06/24 13:03 Review of Systems Constitutional: Constitutional: Denies body ache(s), Reports chills, Reports fever(s) and Denies headache(s) ENT: Denies headache(s) Cardiovascular: Cardiovascular: Denies chest pain and Denies dyspnea Respiratory: Respiratory: Denies cough and Denies dyspnea Gastrointestinal: Gastrointestinal: Denies abdominal pain, Denies nausea and Denies vomiting Musculoskeletal: Musculoskeletal: Denies back pain Integumentary/Breasts: Skin/Breast: Reports non-healing lesions, Reports erythema and Reports wounds Neurologic: Denies headache(s) Psychiatric: Psychiatric: Denies anxiety [facility] Past Medical History Medical History Osteoarthritis Hx of deep venous thrombosis Personal history of COVID-19 (~03/2023) Slow to wake up after anesthesia Back abscess Hypertension Radicular low back pain Bilateral hand numbness Impacted cerumen of right ear Peripheral neuropathy Chronic idiopathic thrombocytopenia Iron deficiency anemia Carpal tunnel syndrome Rotator cuff tear Thrombocytopenia Cognitive decline Depression GERD (gastroesophageal reflux disease) Hypercholesterolemia Hypertension Paroxysmal atrial fibrillation Impaired fasting glucose Surgical History Colon cancer Lumbar disc disease H/O colonoscopy S/P left rotator cuff repair H/O lateral meniscus repair of right knee S/P IVC filter History of neck surgery History of laminectomy History of cardiac radiofrequency ablation History of neck surgery History of carpal tunnel release H/O repair of rotator cuff History of knee replacement procedure of right knee History of left knee replacement History of appendectomy History of cholecystectomy History of partial colectomy History of right hip replacement Family History Family History Father No problems noted. Mother Diabetes Social History Social History Household Members: Spouse Housing: House Are you a primary director of health care marketing to a significant other at home: No Do you presently have visiting nurse or other home services: Yes (Mauricio LARA) Alcohol intake: never Comment: bed bound Patient Tobacco Use Status: Never used Tobacco Smoked in Last 30 Days: No e-Cigarette/Vaping Use: Never Used Second Hand Smoke Exposure: No Use of substances other than those prescribed or required for medical reasons: No Advance Directives: Yes Advance Directives on File: Yes Advance Directives Date on File: 03/09/23 service: No Current occupational status: retired Cognitive needs: Yes (walker) Hearing needs: Yes Vision needs: Yes Physical Exam ED Vital Signs: Vital Signs - 24 hr 07/06/24 13:01 07/06/24 13:04 07/06/24 14:00 Temperature 100.1 F Pulse Rate 96 93 92 Respiratory Rate 16 16 18 Blood Pressure 94/59 L 114/75 Pulse Oximetry 95 94 98 Oxygen Delivery Method Room Air Room Air 07/06/24 14:28 Temperature 98.9 F Pulse Rate 92 Respiratory Rate 18 Blood Pressure 122/73 Pulse Oximetry 97 Oxygen Delivery Method Room Air BMI result Body Mass Index 26.2 Const General: comfortable, no acute distress, alert and awake Nutritional Appearance: well nourished HENCT Head: Yes normocephalic and Yes atraumatic Eyes Eyelids: Yes eyelids normal Conjunctivae: conjunctivae normal Sclerae: sclerae normal Corneas: corneas normal Pupils: Equal, round and reactive pupils present EOM: EOMs intact bilaterally Neck Neck: Yes full ROM Resp Effort & Inspection: normal respiratory effort, able to speak in complete sentences, no audible wheezes and not labored Auscultation: clear to auscultation bilaterally Cardio Rate: regular rate Rhythm: regular rhythm GI Inspection: No distended Palpation (GI): Soft to palpation, not firm, nontender, no guarding and not rigid Skin Other: Patient has a chronic wound to the right heel with nonhealing lesion. He has surrounding erythema extending up his right calf. There is foul-smelling drainage from the area. No tenderness to palpation. General skin exam: elasticity normal Neuro Cranial nerves: Yes Equal, round and reactive pupils present and Yes Bilaterally intact EOM present Course Reevaluation(s) Reevaluation #1: Patient's x-ray does show subcutaneous gas. I do not feel this is consistent with necrotizing fasciitis but rather due to chronic, open wound. Lactate is within normal limits, patient's vital signs are all currently stable. We will admit the patient for nonhealing wound with cellulitis Time: 15:10 Medications Administered Discontinued Medications Generic Name Dose Route Start Last Admin Trade Name Freq PRN Reason Stop Dose Admin Vancomycin HCl 1,500 mg/ 500 mls @ 333.333 mls/hr 07/06/24 13:23 07/06/24 13:42 Sodium Chloride IV 07/06/24 14:52 333.33 mls/hr ONCE ONE Administration Piperacillin Sod/Tazobactam 50 mls @ 100 mls/hr 07/06/24 13:23 07/06/24 14:18 Sod 3.375 gm/ Sodium Chloride IV 07/06/24 13:52 Infused ONCE ONE Infusion Sodium Chloride 2,628 mls @ 2,628 mls/hr 07/06/24 13:23 07/06/24 13:33 Ns 30 ml/kg infuse over 1 hr (2628 ml) 07/06/24 14:22 2,628 mls/hr IV Administration .Q1H STA Medical Decision Making Medical Decision Making MDM Narrative: 73-year-old male presents for evaluation of a nonhealing wound to his right heel. Per his shelter, he has had a fever for the last few days, he has not been coughing, his abdominal exam is benign, he is currently at his mental baseline but did seem confused 2 days ago likely due to his infection. A sepsis protocol was started. The patient received IV fluids due to soft blood pressure. He received 30 cc/kilogram, she was vancomycin and Zosyn for likely sepsis due to osteomyelitis of the right heel. Plan for labs, x-ray and likely admission Differential Diagnosis Differential Diagnoses: The differential diagnosis associated with the presentation includes Sepsis Osteomyelitis Bacteremia Cellulitis Admission/Observation Consideration of admission/observation: Escalation of care including admission/observation considered Lab Data [facility] Lab Attestation statement: I reviewed the patient's lab results. Leukocytosis to 14.5 consistent with known infection. There is an associated left shift. No significant chemistry abnormalities warranting intervention 07/06/24 13:28 07/06/24 13:28 Labs: Lab Results 07/06/24 07/06/24 07/06/24 Range/Units 13:28 13:29 13:36 WBC 14.5 H (4.8-10.8) X10*3/uL RBC 3.91 L (4.60-5.80) X10*6/uL Hgb 11.0 L (14.0-18.0) g/dl Hct 32.6 L (42.0-52.0) % MCV 83.4 (80.0-98.0) fL MCH 28.1 (27.0-33.0) pg MCHC 33.7 (31.0-36.0) g/dl RDW 17.1 H (11.0-16.0) % Plt Count 199 (160-400) X10*3/uL MPV 10.3 (9.4-12.4) fL Immature Gran % (Auto) 0.7 H (0.0-0.4) % Neut % (Auto) 87.0 H (45-73) % Lymph % (Auto) 7.2 L (20-40) % [place] % (Auto) 4.7 (2-11) % Eos % (Auto) 0.3 (0-4) % Baso % (Auto) 0.1 (0-2) % Lymph # (Auto) 1.0 L (1.2-4.9) X10*3/uL [place] # (Auto) 0.7 (0.1-1.2) X10*3/uL Eos # (Auto) 0.0 (0.0-0.4) X10*3/uL Baso # (Auto) 0.0 (0.0-0.2) X10*3/uL Abs Immat Gran (auto) 0.10 H (0.00-0.03) X10*3/uL Absolute Neuts (auto) 12.6 H (2.0-8.3) x10*3/uL Absolute Nucleated RBC 0.000 (0.0-0.012) X10*3/uL Nucleated RBC % (auto) 0.0 (0.0-0.2) /100WBC ESR 64 H (0-15) MM/HR Sodium 137 (135-145) mmol/L Potassium 3.7 (3.3-5.1) mmol/L Chloride 106 (96-108) mmol/L Carbon Dioxide 22 (22-29) mmol/L Anion Gap 13 (12-20) BUN 18 H (9-16) mg/dL Creatinine 0.73 (0.5-1.4) mg/dL Estim Creat Clear Calc 95.9 Estimated GFR > 60 Random Glucose 125 H (60-115) mg/dL Lactic Acid 1.2 (0.5-2.0) mmol/L Calcium 8.4 (8.4-10.2) mg/dL Total Bilirubin 0.7 (0.0-1.0) mg/dL AST 33 (5-37) U/L ALT 20 (0-40) U/L Alkaline Phosphatase 97 (39-117) U/L C-Reactive Protein 29.85 H (< or = 0.50) mg/dL Total Protein 7.0 (6.5-8.0) g/dL Albumin 2.8 L (3.5-5.0) g/dL Lipase 17 (8-78) U/L Influenza Type A (PCR) NEGATIVE (Negative) Influenza Type B (PCR) NEGATIVE (Negative) RSV RNA Qual (PCR) NEGATIVE (Negative) SARS-CoV-2 RNA (RT-PCR) NEGATIVE (Negative) Discharge Plan Discharge Clinical Impression: Cellulitis of heel, right Patient Disposition: Admitted As Inpatient Print Language: Romanian
[2024-07-06 13:57] LABS: Lactic Acid 1.2 mmol/L (0.5-2.0)
[2024-07-06 14:05] LABS: Alanine Aminotransferase 20 U/L (0-40); Albumin Level 2.8 g/dL (3.5-5.0); Anion Gap 13 (12-20); Aspartate Amino Transferase 33 U/L (5-37); Bilirubin Total 0.7 mg/dL (0.0-1.0); Blood Urea Nitrogen 18 mg/dL (9-16); Calcium 8.4 mg/dL (8.4-10.2); Carbon Dioxide 22 mmol/L (22-29); Chloride 106 mmol/L (96-108); Creatinine Clr Calc Pharmacy 95.9; Estimated Glomerular Filt Rate > 60; Glucose Random 125 mg/dL (60-115); Lipase 17 U/L (8-78); Potassium 3.7 mmol/L (3.3-5.1); Sodium 137 mmol/L (135-145)
[2024-07-06 14:15] LABS: Alkaline Phosphatase 97 U/L (39-117)
[2024-07-06 14:21] LABS: Influenza A PCR NEGATIVE (Negative); Influenza B PCR NEGATIVE (Negative); Resp Syncy Virus RNA Qual PCR NEGATIVE (Negative); SARS COV2 PCR INHOUSE NEGATIVE (Negative)
[2024-07-06 14:23] LABS: C Reactive Protein 29.85 mg/dL (< or = 0.50)
--- NOTE | 2024-07-06 14:34 | PC.NURSE ---
Pt presents to ED from SNF for fever and osteomyletitis of right foot (pt has extensive hx of this). Pt is alert, confused at baseline from dementia, bed bound. Breathing even and unlabored, skin flushed. Soiled brief and boots removed. Pt has wound to bottom of right foot and wound to coccyx area (old and covered). NSR on bedside monitor. IVs placed and orders followed. at bedside at this time.
[2024-07-06 14:46] LABS: Erythrocyte Sedimentation Rate 64 MM/HR (0-15)
--- NOTE | 2024-07-06 15:55 | P.HPHOSP_ITS ---
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 He has advanced dementia at baseline and unable to provide meaningful HPI, history obtained from skilled nursing record, ED record and talking to . He has a chronic and recurrent wounds of the feet, he has developped an ulcer of the right heel which has been worsening see pic and was brought to the ED for further evaluation. Xray show 1. Subcutaneous gas dorsal and medial to the calcaneus and talus with associated soft tissue swelling. 2. No radiographic evidence of osteomyelitis. CRP 29.85 no fever and doesn't meet sepsis criteria. He is giving Zosyn and vanco in the ED. Vascular surgery consultation is being requested. Review of Systems 2 Review of Systems: Gen: no fever Resp: no sob, no cough CV: no chest, no VALADEZ, no leg edema GI: No n/v, no abd pain Neuro:confused Skin: see picture [facility] Medical History Osteoarthritis Hx of deep venous thrombosis Personal history of COVID-19 (~03/2023) Slow to wake up after anesthesia Back abscess Hypertension Radicular low back pain Bilateral hand numbness Impacted cerumen of right ear Peripheral neuropathy Chronic idiopathic thrombocytopenia Iron deficiency anemia Carpal tunnel syndrome Rotator cuff tear Thrombocytopenia Cognitive decline Depression GERD (gastroesophageal reflux disease) Hypercholesterolemia Hypertension Paroxysmal atrial fibrillation Impaired fasting glucose Family History Father No problems noted. Mother Diabetes Surgical History Colon cancer Lumbar disc disease H/O colonoscopy S/P left rotator cuff repair H/O lateral meniscus repair of right knee S/P IVC filter History of neck surgery History of laminectomy History of cardiac radiofrequency ablation History of neck surgery History of carpal tunnel release H/O repair of rotator cuff History of knee replacement procedure of right knee History of left knee replacement History of appendectomy History of cholecystectomy History of partial colectomy History of right hip replacement Social History Household Members: Spouse Housing: House Are you a primary spiritual care coordinator to a significant other at home: No Do you presently have visiting nurse or other home services: Yes (Mauricio LARA) Alcohol intake: never Comment: bed bound Patient Tobacco Use Status: Never used Tobacco Smoked in Last 30 Days: No e-Cigarette/Vaping Use: Never Used Second Hand Smoke Exposure: No Use of substances other than those prescribed or required for medical reasons: No Advance Directives: Yes Advance Directives on File: Yes Advance Directives Date on File: 03/09/23 service: No Current occupational status: retired Cognitive needs: Yes (walker) Hearing needs: Yes Vision needs: Yes Meds Allergies Allergy/AdvReac Type Severity Reaction Status Date / Time Zjkavpn-UHS-AiP Reductase Allergy Intermediate MUSCULAR Verified 07/06/24 13:03 Inhibitor PAIN [[id number] REDUCTASE INHIBITOR] atorvastatin Allergy Unknown UNKNOWN Verified 07/06/24 13:03 pravastatin Allergy Unknown UNKNOWN Verified 07/06/24 13:03 simvastatin Allergy Unknown UNKNOWN Verified 07/06/24 13:03 Active Medications: Current Medications Acetaminophen (Acetaminophen 325 Mg Tablet) 650 mg PO Q6H PRN PRN Reason: Pain, Mild 1-3,fever,headache Calcium Carbonate (Calcium Carbonate 750 Mg Tab.Chew) 750 mg PO Q4H PRN PRN Reason: Heartburn Piperacillin Sod/Tazobactam (Sod 3.375 gm/ Sodium Chloride) 50 mls @ 100 mls/hr IV Q6H [facility] Magnesium Hydroxide (Milk Of Magnesia 30 Ml Oral.Susp) 30 ml PO DAILY PRN PRN Reason: Constipation Melatonin (Melatonin 3 Mg Tablet) 6 mg PO BEDTIME PRN PRN Reason: Insomnia Ondansetron HCl (Ondansetron Hcl 4 Mg/2 Ml Vial) 4 mg IVPUSH Q8H PRN PRN Reason: Nausea and Vomiting Sodium Chloride (0.9 % Sodium Chloride Flush 3 Ml Syringe) [facility] ?Medication ?Instructions ?Recorded ?Confirmed ?Last Taken ?Type metoprolol tartrate 25 mg tablet 12.5 mg PO BID 02/05/20 07/06/24 09/01/23 History naxuictz-ye-rxqas 300 mcg-K 60 1 tab PO DAILY 02/05/20 07/06/24 09/01/23 History mcg-lycop 600 mcg-lutein 300 mcg tablet (Centrum Silver Ultra Men's) acetaminophen 325 mg tablet 650 mg PO Q4H PRN Pain, Moderate 09/30/21 07/06/24 09/01/23 History ascorbic acid (vitamin C) 500 mg 500 mg PO DAILY 03/08/23 07/06/24 09/01/23 History tablet cholecalciferol (vitamin D3) 50 50 mcg PO DAILY 03/08/23 07/06/24 09/01/23 History mcg (2,000 unit) capsule colesevelam 625 mg tablet 1,875 mg PO DAILY 03/08/23 07/06/24 09/01/23 History omeprazole 20 mg capsule,delayed 20 mg PO DAILY@0630 03/08/23 07/06/24 09/01/23 History release baclofen 10 mg tablet 20 mg PO TID 09/03/23 07/06/24 09/01/23 History furosemide 20 mg tablet 20 mg PO DAILY 09/03/23 07/06/24 Unknown History gabapentin 100 mg capsule 200 mg PO TID 09/03/23 07/06/24 09/01/23 History ipratropium 0.5 mg-albuterol 3 mg 3 ml inhalation Q12H PRN SOB 09/03/23 07/06/24 09/01/23 History (2.5 mg base)/3 mL nebulization soln loratadine 10 mg tablet 10 mg PO DAILY PRN PRURITUS 09/03/23 07/06/24 Unknown History melatonin 5 mg tablet 5 mg PO BEDTIME sleep aid 09/03/23 07/06/24 09/01/23 History tramadol 50 mg tablet 50 mg PO Q12H PRN Severe Pain 09/03/23 07/06/24 09/01/23 History (Scale Score 7-10) warfarin 7.5 mg tablet 7.5 mg PO DAILY 09/03/23 07/06/24 09/01/23 History cephalexin 500 mg capsule 500 mg PO QID 07/06/24 07/06/24 Unknown History polyethylene glycol 3350 17 17 g PO DAILY 07/06/24 07/06/24 Unknown History gram/dose oral powder (Miralax) trazodone 50 mg tablet 25 mg PO Q8H PRN Anxiety/agitation 07/06/24 07/06/24 Unknown History trazodone 50 mg tablet 50 mg PO BEDTIME 07/06/24 07/06/24 Unknown History Physical Exam 2 Vital Signs and Narrative: Vital Signs: Last Vital Signs Temp 98.7 F 07/06/24 15:44 Pulse 85 07/06/24 15:52 Resp 18 07/06/24 15:52 BP 123/74 07/06/24 15:52 Pulse Ox 98 07/06/24 15:44 O2 Del Method Room Air 07/06/24 15:44 BMI result Body Mass Index 26.2 Const: Other: Constitutional: Alert, in no distress, overweight. Mental Status: Oriented to person and name only Eyes: Pupils are equal, round and reactive to light. Ear, Nose and Throat: Oropharynx clear, mucous membranes moist. Ears and nose without eformities. Trachea midline. Respiratory: Clear to auscultation. No wheezing, rales or rhonchi. Cardiovascular: S1 S2 regular. No murmurs, rubs or gallops. Gastrointestinal: Abdomen soft, non-tender, non-distended. Normal bowel sounds.? Neurologic: Cranial nerves II-XII grossly intact. No focal neurological deficits. Moves all extremities spontaneously.? Skin: right heel purulent drainage, and the foot is erythematous .? Musculoskeletal: No cyanosis or clubbing. Psychiatric: Normal mood and affect? Results Labs 07/06/24 13:28 07/07/24 06:50 Labs: Laboratory Results - last 24 hr 07/06/24 07/06/24 07/06/24 13:28 13:29 13:36 MCV 83.4 MCH 28.1 MCHC 33.7 RDW 17.1 H Plt Count 199 MPV 10.3 Immature Gran % (Auto) 0.7 H Neut % (Auto) 87.0 H Lymph % (Auto) 7.2 L [place] % (Auto) 4.7 Eos % (Auto) 0.3 Baso % (Auto) 0.1 Lymph # (Auto) 1.0 L [place] # (Auto) 0.7 Eos # (Auto) 0.0 Baso # (Auto) 0.0 Abs Immat Gran (auto) 0.10 H Absolute Neuts (auto) 12.6 H Absolute Nucleated RBC 0.000 Nucleated RBC % (auto) 0.0 ESR 64 H PT INR Anion Gap 13 Estim Creat Clear Calc 95.9 Estimated GFR > 60 Random Glucose 125 H Lactic Acid 1.2 Calcium 8.4 Total Bilirubin 0.7 AST 33 ALT 20 Alkaline Phosphatase 97 C-Reactive Protein 29.85 H Total Protein 7.0 Albumin 2.8 L Lipase 17 Influenza Type A (PCR) NEGATIVE Influenza Type B (PCR) NEGATIVE RSV RNA Qual (PCR) NEGATIVE SARS-CoV-2 RNA (RT-PCR) NEGATIVE 07/06/24 15:31 MCV MCH MCHC RDW Plt Count MPV Immature Gran % (Auto) Neut % (Auto) Lymph % (Auto) [place] % (Auto) Eos % (Auto) Baso % (Auto) Lymph # (Auto) [place] # (Auto) Eos # (Auto) Baso # (Auto) Abs Immat Gran (auto) Absolute Neuts (auto) Absolute Nucleated RBC Nucleated RBC % (auto) ESR PT 23.0 H INR 2.0 H Anion Gap Estim Creat Clear Calc Estimated GFR Random Glucose Lactic Acid Calcium Total Bilirubin AST ALT Alkaline Phosphatase C-Reactive Protein Total Protein Albumin Lipase Influenza Type A (PCR) Influenza Type B (PCR) RSV RNA Qual (PCR) SARS-CoV-2 RNA (RT-PCR) Imaging Radiologist's Impressions: Impressions Calcaneus X-Ray 07/06/24 13:23 IMPRESSION: 1. Subcutaneous gas dorsal and medial to the calcaneus and talus with associated soft tissue swelling. 2. No radiographic evidence of osteomyelitis. 3. Unusually prominent spur along the posterior plantar calcaneal surface. 4. Degenerative changes throughout the intertarsal joints and subtalar joints. 5. Diffuse soft tissue vascular calcifications. 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 Pt will be admitted to the hospital for treatment with IV Abx Right Heel ulcer, abscess and cellulitis extending to the leg, h/o OM of the right foot and completed IV Abx about a year ago Vascular surgery consult for likely debridment and I and D IV Zosyn and Vanco started 07/06 In the past was unable to do MRI d/t ontracted body, will consider CT as alternative follow cultures Paroxysmal AFib Continue metoprolol Continue warfarin, INR 2 HTN resume outpatient med after med rec GERD PPI DNR/DNI DVT Prophylaxis: On Warfarin Quality Stroke Does the patient have a stroke diagnosis?: No VTE Prior VTE?: No VTE Risk Level:: Medical - moderate - high VTE Device Contraindication: Treatment Not Indicated VTE Drug Contraindication: N/A - Med Ordered
[2024-07-06] MEDS: Acetaminophen 325 MG TABLET 650 MG PO (16:22)
--- NOTE | 2024-07-06 16:33 | PC.NURSE ---
Pt pulling at wires, trying to get out of bed. Did pull out IV in left arm, replaced in left AC by this RN. Plan for sitter at bedside for redirection.
--- NOTE | 2024-07-06 16:47 | PHA.MEDREC ---
Addendum entered by Mahogany Roberts RPh 07/06/24 17:18: reviewed by [facility]. Original Note: Pharmacy Consult ? Medication Reconciliation Pharmacy has completed the medication reconciliation. [facility] to confirm med list.
--- NOTE | 2024-07-06 16:52 | PHA.PROG ---
Admission Date/Time: July 06, 2024 15:47 Indication: SKIN Weight in k.6 kg Adjusted body weight in K.6 Reading body weight in K.6 Obesity Dosing Indication % IBW: 26.2 Serum Creatinine - Last 168 Hours 07/06/24 13:28 Creatinine 0.73 Estimated CrCl and GFR - Last 168 Hours 07/06/24 13:28 Estim Creat Clear Calc 95.9 Estimated GFR > 60 Vancomycin Loading Dose: 1500 MG Current Vancomycin Dosing Regimen: 1250 Q12 Vancomycin Monitoring using AUC goal of 400 - 600 range with trough as surrogate marker: 595 Date and Time for next Vancomycin Level to be drawn: 07/07 @1999 Pharmacist Comments on Vancomycin Plan: LOAD OF 1500 GIVEN IN ED. Vancomycin dosing will take advantage of [employer] as a clinical decision support tool that uses Bayesian modeling to calculate individual patient's pharmacokinetic parameters and forecast the patient's drug concentration time course with the target goal AUC 24 range of 400 - 600 mg/L/hr.
--- NOTE | 2024-07-06 17:01 | PC.NURSE ---
Pt swallows pills whole with no issues. Medicated for fever
[2024-07-06] MEDS: 0.9 % Sodium Chloride Flush 3 ML SYRINGE IVFLUSH (17:35)
--- NOTE | 2024-07-06 17:40 | PC.NURSE ---
Attempted male purewick for urine incontinence, unsuccessful. Due to anatomy and contracted legs, unable to work. Pt incontinent of urine, cleaned and full bed change done.
--- NOTE | 2024-07-06 18:29 | PC.NURSE ---
report given to overflow RN
--- NOTE | 2024-07-06 18:36 | PM.EVENT ---
Event Note Date of Service: 07/06/24 Event Note: Full consult to follow. Briefly 73-year-old gentleman with prior history of traumatic cervical spinal cord injury developed a right heel ulcer. This was opened at bedside and nearly 20 cc of purulent material was expressed from that heal. Sterile dressing was applied. He was actually seen back in August of 2023 regarding this and at that time it appeared to be more of a pressure ulcer. This time it is an actual purulent infection going down to calcaneus. It is unclear if this gentleman is ambulatory. We will have to better assess his functional status. In addition he does appear to have a significant contracture of that leg as well. The concern here is BKA versus AKA. Will follow up tomorrow. Thank you for allowing us to assist in his care. Time Spent With Patient Time: Total time managing care of this patient today ____ minutes.
[2024-07-06] MEDS: Warfarin Sodium 7.5 MG TABLET PO (20:38)
[2024-07-06] MEDS: Metoprolol Tartrate 12.5 MG HALFTAB PO (20:38)
[2024-07-06] MEDS: traZODone HCL 50 MG TABLET PO (20:38)
[2024-07-06] MEDS: Gabapentin 100 MG CAPSULE 200 MG PO (20:38)
[2024-07-06] MEDS: Baclofen 20 MG TABLET PO (21:42)
[2024-07-06] MEDS: vancomycin HCL 1,250 MG in 0.9 % Sodium Chloride 250 ML 166.67 MG IV (23:24)
[2024-07-07] VITALS (8 sets, daily range): BP systolic 103–121; BP diastolic 54–71; PULSE 72–83; RESP 16–18; TEMP 36.1–37.2; O2SAT 94–99; BMI 26.2
[2024-07-07] MEDS: 0.9 % Sodium Chloride Flush 3 ML SYRINGE IVFLUSH ×4 (00:11→20:01)
[2024-07-07] MEDS: Piperacillin Sodium/Tazobactam 3.375 GM in 0.9 % Sodium Chloride 50 ML IV ×4 (02:53→20:00)
--- NOTE | 2024-07-07 04:42 | PC.NURSE ---
Assumed care of patient. . Patient sleeping overnight , VSS.
[2024-07-07] MEDS: Omeprazole 20 MG CAPSULE.DR PO (05:45)
[2024-07-07 07:34] LABS: INTERNATIONAL NORM RATIO 2.2 (0.9-1.1); Prothrombin Time 25.6 SEC (10.9-12.4)
[2024-07-07 07:45] LABS: Alanine Aminotransferase 15 U/L (0-40); Albumin Level 2.4 g/dL (3.5-5.0); Alkaline Phosphatase 112 U/L (39-117); Anion Gap 11 (12-20); Aspartate Amino Transferase 25 U/L (5-37); Bilirubin Total 0.5 mg/dL (0.0-1.0); Blood Urea Nitrogen 12 mg/dL (9-16); Carbon Dioxide 23 mmol/L (22-29); Chloride 111 mmol/L (96-108); Creatinine Clr Calc Pharmacy 104.5; Estimated Glomerular Filt Rate > 60; Glucose Random 111 mg/dL (60-115); Potassium 3.6 mmol/L (3.3-5.1); Sodium 141 mmol/L (135-145); Total Protein 6.1 g/dL (6.5-8.0)
[2024-07-07] MEDS: Gabapentin 100 MG CAPSULE 200 MG PO ×3 (08:57→20:01)
[2024-07-07] MEDS: Metoprolol Tartrate 12.5 MG HALFTAB PO ×2 (08:57→20:01)
[2024-07-07] MEDS: Cholecalciferol (Vitamin D3) 25 MCG TABLET 50 MCG PO (08:58)
[2024-07-07] MEDS: Multivitamin TABLET 1 TAB PO (08:58)
[2024-07-07] MEDS: Furosemide 20 MG TABLET PO (08:59)
--- NOTE | 2024-07-07 09:07 | HO.PM.IMPN ---
Subjective Subjective Date of Service: 07/07/24 Interval History: f/u on right heel ulcer, abscess and possible acute OM Physical Exam Vital Signs: Vital Signs: Last Vital Signs Temp 98.3 F 07/07/24 07:47 Pulse 78 07/07/24 07:47 Resp 18 07/07/24 07:47 BP 103/64 07/07/24 08:59 Pulse Ox 94 07/07/24 07:47 O2 Del Method Room Air 07/07/24 07:47 BMI result Body Mass Index 26.2 Const: Other: alert, confused at baseline cv rrr s1s2 lung cta abd nt, nd ext:see pic in h and p Objective Data Active Medications Acetaminophen (Acetaminophen 325 Mg Tablet) 650 mg PO Q6H PRN PRN Reason: Pain, Mild 1-3,fever,headache Last Admin: 07/06/24 16:22 Dose: 650 mg Documented By: SRINI Albuterol/Ipratropium (Albuterol/Iprat 2.5/0.5mg 3 Ml Ampul.Neb) 3 ml INHALE Q12H PRN PRN Reason: Shortness of Breath Ascorbic Acid (Ascorbic Acid 500 Mg Tablet) 500 mg PO DAILY [facility] Baclofen (Baclofen 20 Mg Tablet) 20 mg PO TID [facility] Last Admin: 07/06/24 21:42 Dose: 20 mg Documented By: ANA Calcium Carbonate (Calcium Carbonate 750 Mg Tab.Chew) 750 mg PO Q4H PRN PRN Reason: Heartburn Cholestyramine Resin (Cholestyramine (With Sugar) 4 Gm Powd.Pack) 4 gm PO TID [facility] Furosemide (Furosemide 20 Mg Tablet) 20 mg PO DAILY [facility]; Protocol Last Admin: 07/07/24 08:59 Dose: 20 mg Documented By: ALLYN Gabapentin (Gabapentin 100 Mg Capsule) 200 mg PO TID [facility] Last Admin: 07/07/24 08:57 Dose: 200 mg Documented By: ALLYN Piperacillin Sod/Tazobactam (Sod 3.375 gm/ Sodium Chloride) 50 mls @ 100 mls/hr IV Q6H [facility] Last Admin: 07/07/24 08:59 Dose: 100 mls/hr Documented By: ALLYN Vancomycin HCl 1,250 mg/ (Sodium Chloride) 250 mls @ 166.667 mls/hr IV Q12H [facility] Last Infusion: 07/07/24 03:37 Dose: Infused Documented By: ANA Loratadine (Loratadine 10 Mg Tablet) 10 mg PO DAILY PRN PRN Reason: PRURITUS Magnesium Hydroxide (Milk Of Magnesia 30 Ml Oral.Susp) 30 ml PO DAILY PRN PRN Reason: Constipation Melatonin (Melatonin 3 Mg Tablet) 6 mg PO BEDTIME PRN PRN Reason: Insomnia Metoprolol Tartrate (Metoprolol Tartrate 12.5 Mg Halftab) 12.5 mg PO BID [facility]; Protocol Last Admin: 07/07/24 08:57 Dose: 12.5 mg Documented By: ALLYN Multivitamins/Vitamin C (Multivitamin Tablet) 1 tab PO DAILY [facility] Last Admin: 07/07/24 08:58 Dose: 1 tab Documented By: ALLYN Omeprazole (Omeprazole 20 Mg Capsule.Dr) 20 mg PO DAILY@0630 [facility] Last Admin: 07/07/24 05:45 Dose: 20 mg Documented By: ANA Ondansetron HCl (Ondansetron Hcl 4 Mg/2 Ml Vial) 4 mg IVPUSH Q8H PRN PRN Reason: Nausea and Vomiting Pharmacy Consult (Consult Rx Vancomycin Dosing) 1 each MISCELLANE DAILY PRN PRN Reason: Consult order Polyethylene Glycol (Polyethylene Glycol 3350 17 Gm Powd.Pack) 17 gm PO DAILY [facility] Last Admin: 07/07/24 08:59 Dose: 17 gm Documented By: ALLYN Sodium Chloride (0.9 % Sodium Chloride Flush 3 Ml Syringe) 3 ml IVFLUSH QSHIFT [facility] Last Admin: 07/07/24 09:03 Dose: 3 ml Documented By: ALLYN Tramadol HCl (Tramadol Hcl 50 Mg Tablet) 50 mg PO Q12H PRN PRN Reason: Severe Pain (Scale Score 7-10) Trazodone HCl (Trazodone Hcl 25 Mg Halftab) 25 mg PO Q8H PRN PRN Reason: Anxiety/agitation Trazodone HCl (Trazodone Hcl 50 Mg Tablet) 50 mg PO BEDTIME [facility] Last Admin: 07/06/24 20:38 Dose: 50 mg Documented By: ANA Vitamin D (Cholecalciferol (Vitamin D3) 25 Mcg Tablet) 50 mcg PO DAILY [facility] Last Admin: 07/07/24 08:58 Dose: 50 mcg Documented By: ALLYN Warfarin Sodium (Warfarin Sodium 7.5 Mg Tablet) 7.5 mg PO DAILY@1800 [facility] Last Admin: 07/06/24 20:38 Dose: 7.5 mg Documented By: ANA Labs 07/06/24 13:28 07/07/24 06:50 Labs: Laboratory Results - last 24 hr 07/06/24 07/06/24 07/06/24 13:28 13:29 13:36 MCV 83.4 MCH 28.1 MCHC 33.7 RDW 17.1 H Plt Count 199 MPV 10.3 Immature Gran % (Auto) 0.7 H Neut % (Auto) 87.0 H Lymph % (Auto) 7.2 L [place] % (Auto) 4.7 Eos % (Auto) 0.3 Baso % (Auto) 0.1 Lymph # (Auto) 1.0 L [place] # (Auto) 0.7 Eos # (Auto) 0.0 Baso # (Auto) 0.0 Abs Immat Gran (auto) 0.10 H Absolute Neuts (auto) 12.6 H Absolute Nucleated RBC 0.000 Nucleated RBC % (auto) 0.0 ESR 64 H PT INR Anion Gap 13 Estim Creat Clear Calc 95.9 Estimated GFR > 60 Random Glucose 125 H Lactic Acid 1.2 Calcium 8.4 Total Bilirubin 0.7 AST 33 ALT 20 Alkaline Phosphatase 97 C-Reactive Protein 29.85 H Total Protein 7.0 Albumin 2.8 L Lipase 17 Influenza Type A (PCR) NEGATIVE Influenza Type B (PCR) NEGATIVE RSV RNA Qual (PCR) NEGATIVE SARS-CoV-2 RNA (RT-PCR) NEGATIVE 07/06/24 07/07/24 15:31 06:50 MCV MCH MCHC RDW Plt Count MPV Immature Gran % (Auto) Neut % (Auto) Lymph % (Auto) [place] % (Auto) Eos % (Auto) Baso % (Auto) Lymph # (Auto) [place] # (Auto) Eos # (Auto) Baso # (Auto) Abs Immat Gran (auto) Absolute Neuts (auto) Absolute Nucleated RBC Nucleated RBC % (auto) ESR PT 23.0 H 25.6 H INR 2.0 H 2.2 H Anion Gap 11 L Estim Creat Clear Calc 104.5 Estimated GFR > 60 Random Glucose 111 Lactic Acid Calcium 8.0 L Total Bilirubin 0.5 AST 25 ALT 15 Alkaline Phosphatase 112 C-Reactive Protein Total Protein 6.1 L Albumin 2.4 L Lipase Influenza Type A (PCR) Influenza Type B (PCR) RSV RNA Qual (PCR) SARS-CoV-2 RNA (RT-PCR) Assessment and Plan (1) Cellulitis of heel, right: Status: Acute Plan Pt is a 73-year-old male with a PMH significant for?unspecified dementia, paroxysmal AFib on warfarin, HTN, HLD, s/p traumatic injury of spinal cord at T1-T6 level, peripheral neuropathy, hx RLE DVT, and recent TIA who presents to the ED from [facility] for evaluation of worsening right heel abscess/cellulitis. Pt will be admitted to the hospital for treatment with IV Abx Right Heel ulcer, abscess and cellulitis extending to the leg, h/o OM of the right foot and completed IV Abx about a year ago s/p I and D by vascular with gena puss drainage, probably bony involvment and may need AKA or BKA continue IV Zosyn and Vanco started 07/06 In the past was unable to do MRI d/t ontracted body, will consider CT as alternative follow cultures Paroxysmal AFib Continue metoprolol Continue warfarin, INR 2 HTN metoprolol GERD PPI DNR/DNI DVT Prophylaxis: On Warfarin need for inpt: IV Abx for abscess, cellulitis and possible acute osteomylitis Quality Stroke Does the patient have a stroke diagnosis?: No VTE Prior VTE?: No VTE Risk Level:: Medical - moderate - high VTE Device Contraindication: Treatment Not Indicated VTE Drug Contraindication: N/A - Med Ordered
--- NOTE | 2024-07-07 09:32 | PC.NURSE ---
Pt incontinent of copious amounts of liquid stool; provider notified; sample obtained for testing per orders
[2024-07-07] MEDS: Baclofen 20 MG TABLET PO ×3 (10:32→20:00)
[2024-07-07] MEDS: vancomycin HCL 1,250 MG in 0.9 % Sodium Chloride 250 ML 166.67 MG IV (10:32)
[2024-07-07] MEDS: Cholestyramine (With Sugar) 4 GM POWD.PACK PO ×3 (10:32→21:42)
[2024-07-07 11:36] LABS: CDiff Gene PCR NEGATIVE (Negative)
--- NOTE | 2024-07-07 14:05 | MHC.CLN ---
Addendum entered by Nichelle Landa RD 07/07/24 15:52: PATIENT SEEN BY WOUND RN. SKIN WITH STAGE IV PRESSURE INJURY TO RIGHT HEEL AND STAGE IV PRESSURE INJURY TO LEFT ISCHIUM. ENSURE MAX BID APPROPRIATE TO PROMOTE WOUND HEALING. Original Note: NUTRITION DIET=REGULAR. PATIENT WITH CHRONIC AND RECURRING WOUNDS TO FEET. LEFT HEEL WITH OPEN AREA. FOAM TO LEFT BUTTOCK. INCREASED NUTRITION NEEDS DUE TO IMPAIRED SKIN. ADDING ENSURE MAX BID TO PROMOTE SKIN INTEGRITY/WOUND HEALING. SUPPLEMENT PROVIDES 300 KCALS, 60 G PROTEIN. FOLLOW FOR PO INTAKE AND SKIN INTEGRITY. SEE CLINICAL NUTRITION ASSESSMENT 07/07/24.
--- NOTE | 2024-07-07 14:51 | HO.WOUND ---
Wound Consult: Initial 73yr old male admitted to [facility] [place] [facility] [place] - See progress notes and H&P for detailed history.? Wound consult placed for Right Heel and Left Ischium wounds POA.? Patient agreeable to assessment and photo documentation.? Assessed right heel with Rachana PABLO from Vascular Surgery Team. 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 unattached Kenzie wound: ?red swelling and erythema noted Pain: patient reports pain at times Goals of Treatment: ? Durafiber packing every other day - defer to Vascular surgery they are evaluating for amputation Left ischium Etiology: ?Stage 4 Pressure Injury ?Present on Admission Measurements: 2cm x 2.5cm x 3.5cm Wound Bed: probes to bone Drainage / Odor: no drainage noted Edges: ? unattached Kenzie wound: maceration noted - No induration no fluctuance and no warmth noted Pain: denies pain Goals of Treatment: ? Durafiber packing every other day Left heel - redness noted - scar tissue ntoed indicative of previous injury at [facility] for breakdown. Recommend off load with pillows and heel boot protectors. Buttocks red pink blanchable tissue - scattered areas of scar tissue and evidence of previous breakdown. Due to incontinence recommend barrier cream and Q2hr turns. Recommendations: 1. Turn and Reposition every 2 hours and as needed for patient comfort.? Use pillows or wedges to support off loading positions. 2. Off Load all bony prominences with use of pillows and heel boots if needed.? Apply Preventative foams where needed. ? 3. Monitor for incontinence and moisture control, use barrier creams when needed for prevention and treatment. 4. Provide adequate and supplemental nutrition.? 5. Order low air loss mattress. 6. When applicable maintain blood glucose levels per Providers order. Left Heel - Heel Boot Protector applciation - off load heels off of bed surface. Right Heel - Cleanse and irrigate with NS, pat dry. Apply skin prep to periwound, lightly pack wound bed with Durafiber AG fill space cover with dry gauze, ABD pad and Wrap. Change every other day. Sacrum and Coccyx - Off Load Pressure with Q2 hr turns and use of pillows - Cleanse with PH balance spray or wipes, pat dry. ?Apply thin layer of barrier cream to affected area.? Apply twice daily and Reapply thin layer PRN after each episode of incontinence. Left Ischium - Off Load Pressure with Q2 hr turns and use of pillows - Cleanse with NS, pat dry. Apply barrier cream to wound edges. Pack wound bed with Durafiber AG, Cover with dry gauze, ABD pad and Tape. Change every otehr day and PRN. Re-consult wound care Nurse for wound deterioration or wound changes.
--- NOTE | 2024-07-07 16:25 | P.CONGS_ITS ---
<Statement entered by Scotty Disla MD - 07/07/24 17:15> I have seen and evaluated the patient and agree with history, findings, assessment and plan documented by Rachana Cesar PA-c. I had an extensive discussion with the patient's regarding his overall status. Patient will require right above knee amputation. Risks benefits complications of the procedure were discussed in detail with the patient. He understood and would like to move forward. Coumadin will need to be held. History of Present Illness Consult details Consult date: 07/07/24 Narrative: We were consulted on Sean for concerns of a nonhealing heel ulcer. He presented to the ER from the SNF he resides at for concerns of possible osteo from a nonhealing right heel wound. XR outpatient at the SNF did state there was osteo. He was started on Keflex the previous day. He has a medical hx significant for PVD, depression, Alzheimer's, GERD, HTN, paroxysmal Afib, and DVT on Coumadin. He has baseline confusion. He was admitted for nonhealing ulcer and sepsis. XR was negative for osteo. He was previously seen before by our office last year for the nonhealing ulcer and an amputation was suggested. The pt denies any concerns this morning. Review of Systems 2 Constitutional: Constitutional: Reports as per HPI and Denies weakness ENT: Reports Normal hearing present and Denies dizziness Cardiovascular: Cardiovascular: Reports as per HPI, Denies chest pain, Denies chest pain at rest, Denies chest pain with activity, Denies dyspnea and Denies dyspnea on exertion Respiratory: Respiratory: Reports as per HPI, Denies cough, Denies dyspnea and Denies dyspnea on exertion Gastrointestinal: Gastrointestinal: Reports as per HPI, Denies abdominal pain, Denies nausea and Denies vomiting Musculoskeletal: Musculoskeletal: Denies numbness Integumentary/Breasts: Skin/Breast: Reports as per HPI, Denies erythema and Denies wounds Neurologic: Reports Normal hearing present, Denies dizziness, Denies numbness, Denies Sensory deficit (Neuro) and Denies weakness Psychiatric: Psychiatric: Reports no additional psychiatric complaints Endocrine: Endocrine: Reports no additional endocrine complaints [facility] Past Medical History Medical History Osteoarthritis Hx of deep venous thrombosis Personal history of COVID-19 (~03/2023) Slow to wake up after anesthesia Back abscess Hypertension Radicular low back pain Bilateral hand numbness Impacted cerumen of right ear Peripheral neuropathy Chronic idiopathic thrombocytopenia Iron deficiency anemia Carpal tunnel syndrome Rotator cuff tear Thrombocytopenia Cognitive decline Depression GERD (gastroesophageal reflux disease) Hypercholesterolemia Hypertension Paroxysmal atrial fibrillation Impaired fasting glucose Family History Family History Father No problems noted. Mother Diabetes Surgical History Surgical History Colon cancer Lumbar disc disease H/O colonoscopy S/P left rotator cuff repair H/O lateral meniscus repair of right knee S/P IVC filter History of neck surgery History of laminectomy History of cardiac radiofrequency ablation History of neck surgery History of carpal tunnel release H/O repair of rotator cuff History of knee replacement procedure of right knee History of left knee replacement History of appendectomy History of cholecystectomy History of partial colectomy History of right hip replacement Social History Social History Household Members: None Housing: Alf Are you a primary nurse behavioral health care to a significant other at home: No Do you presently have visiting nurse or other home services: Yes (Mauricio LARA) Alcohol intake: never Comment: bed bound Patient Tobacco Use Status: Never used Tobacco e-Cigarette/Vaping Use: Never Used Second Hand Smoke Exposure: No Advance Directives Date on File: 03/09/23 service: No Current occupational status: retired Cognitive needs: Yes (walker) Hearing needs: Yes Vision needs: Yes Meds Allergies Allergy/AdvReac Type Severity Reaction Status Date / Time [id number] Reductase Allergy Intermediate MUSCULAR Verified 07/06/24 13:03 Inhibitor PAIN [[id number] REDUCTASE INHIBITOR] atorvastatin Allergy Unknown UNKNOWN Verified 07/06/24 13:03 pravastatin Allergy Unknown UNKNOWN Verified 07/06/24 13:03 simvastatin Allergy Unknown UNKNOWN Verified 07/06/24 13:03 Active Medications: Current Medications Acetaminophen (Acetaminophen 325 Mg Tablet) 650 mg PO Q6H PRN PRN Reason: Pain, Mild 1-3,fever,headache Last Admin: 07/06/24 16:22 Dose: 650 mg Albuterol/Ipratropium (Albuterol/Iprat 2.5/0.5mg 3 Ml Ampul.Neb) 3 ml INHALE Q12H PRN PRN Reason: Shortness of Breath Ascorbic Acid (Ascorbic Acid 500 Mg Tablet) 500 mg PO DAILY [facility] Last Admin: 07/07/24 10:37 Dose: Not Given Baclofen (Baclofen 20 Mg Tablet) 20 mg PO TID [facility] Last Admin: 07/07/24 14:37 Dose: 20 mg Calcium Carbonate (Calcium Carbonate 750 Mg Tab.Chew) 750 mg PO Q4H PRN PRN Reason: Heartburn Cholestyramine Resin (Cholestyramine (With Sugar) 4 Gm Powd.Pack) 4 gm PO TID [facility] Last Admin: 07/07/24 14:39 Dose: 4 gm Furosemide (Furosemide 20 Mg Tablet) 20 mg PO DAILY [facility]; Protocol Last Admin: 07/07/24 08:59 Dose: 20 mg Gabapentin (Gabapentin 100 Mg Capsule) 200 mg PO TID [facility] Last Admin: 07/07/24 14:37 Dose: 200 mg Piperacillin Sod/Tazobactam (Sod 3.375 gm/ Sodium Chloride) 50 mls @ 100 mls/hr IV Q6H [facility] Last Infusion: 07/07/24 15:32 Dose: Infused Vancomycin HCl 1,250 mg/ (Sodium Chloride) 250 mls @ 166.667 mls/hr IV Q12H [facility] Last Infusion: 07/07/24 12:03 Dose: Infused Loratadine (Loratadine 10 Mg Tablet) 10 mg PO DAILY PRN PRN Reason: PRURITUS Magnesium Hydroxide (Milk Of Magnesia 30 Ml Oral.Susp) 30 ml PO DAILY PRN PRN Reason: Constipation Melatonin (Melatonin 3 Mg Tablet) 6 mg PO BEDTIME PRN PRN Reason: Insomnia Metoprolol Tartrate (Metoprolol Tartrate 12.5 Mg Halftab) 12.5 mg PO BID [facility]; Protocol Last Admin: 07/07/24 08:57 Dose: 12.5 mg Multivitamins/Vitamin C (Multivitamin Tablet) 1 tab PO DAILY [facility] Last Admin: 07/07/24 08:58 Dose: 1 tab Omeprazole (Omeprazole 20 Mg Capsule.Dr) 20 mg PO DAILY@0630 [facility] Last Admin: 07/07/24 05:45 Dose: 20 mg Ondansetron HCl (Ondansetron Hcl 4 Mg/2 Ml Vial) 4 mg IVPUSH Q8H PRN PRN Reason: Nausea and Vomiting Pharmacy Consult (Consult Rx Vancomycin Dosing) 1 each MISCELLANE DAILY PRN PRN Reason: Consult order Polyethylene Glycol (Polyethylene Glycol 3350 17 Gm Powd.Pack) 17 gm PO DAILY [facility] Last Admin: 07/07/24 10:02 Dose: Not Given Sodium Chloride (0.9 % Sodium Chloride Flush 3 Ml Syringe) 3 ml IVFLUSH QSHIFT [facility] Last Admin: 07/07/24 09:03 Dose: 3 ml Tramadol HCl (Tramadol Hcl 50 Mg Tablet) 50 mg PO Q12H PRN PRN Reason: Severe Pain (Scale Score 7-10) Trazodone HCl (Trazodone Hcl 25 Mg Halftab) 25 mg PO Q8H PRN PRN Reason: Anxiety/agitation Trazodone HCl (Trazodone Hcl 50 Mg Tablet) 50 mg PO BEDTIME [facility] Last Admin: 07/06/24 20:38 Dose: 50 mg Vitamin D (Cholecalciferol (Vitamin D3) 25 Mcg Tablet) 50 mcg PO DAILY [facility] Last Admin: 07/07/24 08:58 Dose: 50 mcg Warfarin Sodium (Warfarin Sodium 7.5 Mg Tablet) 7.5 mg PO DAILY@1800 [facility] Last Admin: 07/06/24 20:38 Dose: 7.5 mg Home Medications ?Medication ?Instructions ?Recorded ?Confirmed ?Last Taken ?Type metoprolol tartrate 25 mg tablet 12.5 mg PO BID 02/05/20 07/06/24 09/01/23 History [id number]-ea-[id number] 300 mcg-K 60 1 tab PO DAILY 02/05/20 07/06/24 09/01/23 History mcg-lycop 600 mcg-lutein 300 mcg tablet (Centrum Silver Ultra Men's) acetaminophen 325 mg tablet 650 mg PO Q4H PRN Pain, Moderate 09/30/21 07/06/24 09/01/23 History ascorbic acid (vitamin C) 500 mg 500 mg PO DAILY 03/08/23 07/06/24 09/01/23 History tablet cholecalciferol (vitamin D3) 50 50 mcg PO DAILY 03/08/23 07/06/24 09/01/23 History mcg (2,000 unit) capsule colesevelam 625 mg tablet 1,875 mg PO DAILY 03/08/23 07/06/24 09/01/23 History omeprazole 20 mg capsule,delayed 20 mg PO DAILY@0630 03/08/23 07/06/24 09/01/23 History release baclofen 10 mg tablet 20 mg PO TID 09/03/23 07/06/24 09/01/23 History furosemide 20 mg tablet 20 mg PO DAILY 09/03/23 07/06/24 Unknown History gabapentin 100 mg capsule 200 mg PO TID 09/03/23 07/06/24 09/01/23 History ipratropium 0.5 mg-albuterol 3 mg 3 ml inhalation Q12H PRN SOB 09/03/23 07/06/24 09/01/23 History (2.5 mg base)/3 mL nebulization soln loratadine 10 mg tablet 10 mg PO DAILY PRN PRURITUS 09/03/23 07/06/24 Unknown History melatonin 5 mg tablet 5 mg PO BEDTIME sleep aid 09/03/23 07/06/24 09/01/23 History tramadol 50 mg tablet 50 mg PO Q12H PRN Severe Pain 09/03/23 07/06/24 09/01/23 History (Scale Score 7-10) warfarin 7.5 mg tablet 7.5 mg PO DAILY 09/03/23 07/06/24 09/01/23 History cephalexin 500 mg capsule 500 mg PO QID 07/06/24 07/06/24 Unknown History polyethylene glycol 3350 17 17 g PO DAILY 07/06/24 07/06/24 Unknown History gram/dose oral powder (Miralax) trazodone 50 mg tablet 25 mg PO Q8H PRN Anxiety/agitation 07/06/24 07/06/24 Unknown History trazodone 50 mg tablet 50 mg PO BEDTIME 07/06/24 07/06/24 Unknown History Physical Exam 2 Vital Signs: Vital Signs: Last Vital Signs Temp 98.2 F 07/07/24 15:50 Pulse 83 07/07/24 15:50 Resp 16 07/07/24 15:50 BP 112/71 07/07/24 15:50 Pulse Ox 97 07/07/24 15:50 O2 Del Method Room Air 07/07/24 15:50 BMI result Body Mass Index 26.2 Const: General: comfortable and no acute distress O rientation/consciousness: patient oriented x3 HEENT: Ears: hearing grossly normal bilaterally Resp: Effort & Inspection: normal respiratory effort and able to speak in complete sentences Auscultation: clear to auscultation bilaterally Cardio: Rate: regular rate Rhythm: regular rhythm Heart sounds: S1 normal heart sound present and S2 normal heart sound present Bruits: no abdominal aortic bruits, no carotid bruits, no femoral bruits and no renal bruits GI: Palpation (GI): No Abdominal aortic bruit present Neuro: General: patient oriented x3 Cranial nerves: Yes Normal hearing present Sensory Exam: No Sensory deficit (Neuro) Extrem: Other: Right heel wound: boggy all throughout the wound. Scab easily removed. Able to palpate down to the bone. Surrounding erythema. Faint but palpable DP pulses. Bilateral legs: contracted, unable to extend. Results Labs 07/08/24 06:14 07/07/24 06:50 Labs: Abnormal lab results 07/07/24 Range/Units 06:50 PT 25.6 H (10.9-12.4) SEC INR 2.2 H (0.9-1.1) Chloride 111 H (96-108) mmol/L Anion Gap 11 L (12-20) Calcium 8.0 L (8.4-10.2) mg/dL Total Protein 6.1 L (6.5-8.0) g/dL Albumin 2.4 L (3.5-5.0) g/dL BMP 07/07/24 06:50 Sodium 141 Potassium 3.6 Chloride 111 H Carbon Dioxide 23 BUN 12 Creatinine 0.67 Calcium 8.0 L Liver Function 07/07/24 Range/Units 06:50 Total Bilirubin 0.5 (0.0-1.0) mg/dL AST 25 (5-37) U/L ALT 15 (0-40) U/L Alkaline Phosphatase 112 (39-117) U/L Albumin 2.4 L (3.5-5.0) g/dL All other labs normal. Assessment and Plan (1) Peripheral vascular disease: Status: Acute Plan We were consulted today for Sean, for a nonhealing right heel wound. He was admitted for sepsis and possible osteo of the nonhealing ulcer. He also was found to have pressure ulcers of the buttock and left leg. There was no osteo noted on XR. He was started on Keflex outpatient. He is very confused at baseline. Yeni and Josefa removed the scab, which was partially removed when taking off the bandage. We were able to palpate to the bone. There was surrounding erythema and the whole area was boggy. There was no odor. The pt will need an amputation, an AKA. The pt's legs are significantly contracted and the pt is non-ambulatory. I had an extensive conversation with the /HCP about the ulcer and what our suggestion is, for an AKA. I discussed with her that the wound will not heal and has not healed over >1y. I discussed that what could happen is that he could get more sick/septic or that his whole foot could get infected. The was very upset about the suggestion and I discussed with her that we would not likely be able to do the surgery until Wednesday, if she agreed to it. I also discussed the complications of the surgery which includes bleeding and infection. We would also have to hold his Coumadin. I discussed with her that we will reach back out to her on Wednesday for further discussion and if she had any other questions. For wound care, we will have the dressing change every other day with Alginate, 4x4s, and Kerlix wrap. We will continue to monitor. If there are any questions or concerns, please do not hesitate to reach out to us. Procedures Date of Service Date of Service: 07/08/24
[2024-07-07] MEDS: traZODone HCL 50 MG TABLET PO (20:01)
[2024-07-07 20:42] LABS: Vancomycin Trough 14.4 mcg/mL (10.0-20.0)
[2024-07-07] MEDS: vancomycin HCL 1,000 MG in 0.9 % Sodium Chloride 250 ML 270 MG IV (21:41)
[2024-07-08] MEDS: Piperacillin Sodium/Tazobactam 3.375 GM in 0.9 % Sodium Chloride 50 ML IV ×4 (01:51→19:57)
[2024-07-08 02:48] VITALS: BP 116/59; PULSE 64; RESP 18; TEMP 36; O2SAT 96
[2024-07-08] MEDS: traZODone HCL 25 MG HALFTAB PO (03:05)
[2024-07-08] MEDS: Omeprazole 20 MG CAPSULE.DR PO (05:58)
[2024-07-08 06:51] VITALS: BP 116/61; PULSE 76; RESP 16; TEMP 36.6; O2SAT 99
[2024-07-08 07:18] LABS: Hematocrit 28.4 % (42.0-52.0); Hemoglobin 9.2 g/dl (14.0-18.0); Mean Corpuscular HGB Conc 32.4 g/dl (31.0-36.0); Mean Corpuscular Hemoglobin 27.4 pg (27.0-33.0); Mean Corpuscular Volume 84.5 fL (80.0-98.0); Mean Platelet Volume 10.5 fL (9.4-12.4); Platelet Count 218 X10*3/uL (160-400); Red Blood Count 3.36 X10*6/uL (4.60-5.80); Red Cell Distribution Width 17.2 % (11.0-16.0); White Blood Count 9.3 X10*3/uL (4.8-10.8)
[2024-07-08 07:25] LABS: INTERNATIONAL NORM RATIO 2.3 (0.9-1.1); Prothrombin Time 27.3 SEC (10.9-12.4)
[2024-07-08] MEDS: 0.9 % Sodium Chloride Flush 3 ML SYRINGE IVFLUSH ×3 (08:12→19:57)
--- NOTE | 2024-07-08 08:32 | P.PNIM_ITS ---
Subjective Subjective Date of Service: 07/08/24 Interval History: f/u on right heel ulcer, abscess and probable acute OM Physical Exam 2 Vital Signs: Vital Signs: Last Vital Signs Temp 98 F 07/08/24 06:51 Pulse 76 07/08/24 06:51 Resp 16 07/08/24 06:51 BP 116/61 07/08/24 06:51 Pulse Ox 99 07/08/24 06:51 O2 Del Method Room Air 07/08/24 06:51 BMI result Body Mass Index 26.2 Const: Other: alert, confused at baseline cv rrr s1s2 lung cta abd nt, nd ext:see pic in h and p Objective Data Active Medications Acetaminophen (Acetaminophen 325 Mg Tablet) 650 mg PO Q6H PRN PRN Reason: Pain, Mild 1-3,fever,headache Last Admin: 07/06/24 16:22 Dose: 650 mg Documented By: SRINI Albuterol/Ipratropium (Albuterol/Iprat 2.5/0.5mg 3 Ml Ampul.Neb) 3 ml INHALE Q12H PRN PRN Reason: Shortness of Breath Ascorbic Acid (Ascorbic Acid 500 Mg Tablet) 500 mg PO DAILY [facility] Last Admin: 07/07/24 10:37 Dose: Not Given Documented By: MAHAMED Non-Admin Reason: given in ED Baclofen (Baclofen 20 Mg Tablet) 20 mg PO TID [facility] Last Admin: 07/07/24 20:00 Dose: 20 mg Documented By: ZAHIDA Calcium Carbonate (Calcium Carbonate 750 Mg Tab.Chew) 750 mg PO Q4H PRN PRN Reason: Heartburn Cholestyramine Resin (Cholestyramine (With Sugar) 4 Gm Powd.Pack) 4 gm PO TID [facility] Last Admin: 07/07/24 21:42 Dose: 4 gm Documented By: ZAHIDA Furosemide (Furosemide 20 Mg Tablet) 20 mg PO DAILY [facility]; Protocol Last Admin: 07/07/24 08:59 Dose: 20 mg Documented By: ALLYN Gabapentin (Gabapentin 100 Mg Capsule) 200 mg PO TID [facility] Last Admin: 07/07/24 20:01 Dose: 200 mg Documented By: ZAHIDA Piperacillin Sod/Tazobactam (Sod 3.375 gm/ Sodium Chloride) 50 mls @ 100 mls/hr IV Q6H [facility] Last Admin: 07/08/24 08:08 Dose: 100 mls/hr Documented By: RUBEN Vancomycin HCl 1,000 mg/ (Sodium Chloride) 270 mls @ 270 mls/hr IV Q12H [facility] Last Infusion: 07/07/24 22:43 Dose: Infused Documented By: ZAHIDA Loratadine (Loratadine 10 Mg Tablet) 10 mg PO DAILY PRN PRN Reason: PRURITUS Magnesium Hydroxide (Milk Of Magnesia 30 Ml Oral.Susp) 30 ml PO DAILY PRN PRN Reason: Constipation Melatonin (Melatonin 3 Mg Tablet) 6 mg PO BEDTIME PRN PRN Reason: Insomnia Metoprolol Tartrate (Metoprolol Tartrate 12.5 Mg Halftab) 12.5 mg PO BID [facility]; Protocol Last Admin: 07/07/24 20:01 Dose: 12.5 mg Documented By: ZAHIDA Multivitamins/Vitamin C (Multivitamin Tablet) 1 tab PO DAILY [facility] Last Admin: 07/07/24 08:58 Dose: 1 tab Documented By: ALLYN Omeprazole (Omeprazole 20 Mg Capsule.Dr) 20 mg PO DAILY@0630 [facility] Last Admin: 07/08/24 05:58 Dose: 20 mg Documented By: ZAHIDA Ondansetron HCl (Ondansetron Hcl 4 Mg/2 Ml Vial) 4 mg IVPUSH Q8H PRN PRN Reason: Nausea and Vomiting Pharmacy Consult (Consult Rx Vancomycin Dosing) 1 each MISCELLANE DAILY PRN PRN Reason: Consult order Polyethylene Glycol (Polyethylene Glycol 3350 17 Gm Powd.Pack) 17 gm PO DAILY [facility] Last Admin: 07/07/24 10:02 Dose: Not Given Documented By: MAHAMED Non-Admin Reason: loose stools Sodium Chloride (0.9 % Sodium Chloride Flush 3 Ml Syringe) 3 ml IVFLUSH QSHIFT [facility] Last Admin: 07/08/24 08:12 Dose: 3 ml Documented By: RUBEN Tramadol HCl (Tramadol Hcl 50 Mg Tablet) 50 mg PO Q12H PRN PRN Reason: Severe Pain (Scale Score 7-10) Trazodone HCl (Trazodone Hcl 25 Mg Halftab) 25 mg PO Q8H PRN PRN Reason: Anxiety/agitation Last Admin: 07/08/24 03:05 Dose: 25 mg Documented By: ZAHIDA Trazodone HCl (Trazodone Hcl 50 Mg Tablet) 50 mg PO BEDTIME [facility] Last Admin: 07/07/24 20:01 Dose: 50 mg Documented By: ZAHIDA Vitamin D (Cholecalciferol (Vitamin D3) 25 Mcg Tablet) 50 mcg PO DAILY [facility] Last Admin: 07/07/24 08:58 Dose: 50 mcg Documented By: APRILEA Labs 07/08/24 06:14 07/07/24 06:50 Labs: Laboratory Results - last 24 hr 07/07/24 07/07/24 07/08/24 09:55 20:09 06:14 MCV 84.5 MCH 27.4 MCHC 32.4 RDW 17.2 H Plt Count 218 MPV 10.5 Absolute Nucleated RBC 0.000 Nucleated RBC % (auto) 0.0 PT 27.3 H INR 2.3 H Vancomycin Trough 14.4 C. difficile Tox B Gene NEGATIVE Microbiology Microbiology Results: Microbiology 07/06/24 13:28 Blood Culture - Preliminary Blood - Venous No growth after 24 hours. 07/06/24 13:28 Blood Culture - Preliminary Blood - Venous No growth after 24 hours. 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 Pt will be admitted to the hospital for treatment with IV Abx Right Heel ulcer, abscess and cellulitis extending to the leg, h/o OM of the right foot and completed IV Abx about a year ago s/p I and D by vascular with gena puss drainage, for AKA or BKA on Wednesday continue IV Zosyn and Vanco started 07/06 In the past was unable to do MRI d/t ontracted body, will consider CT as alternative cultures so far negative Paroxysmal AFib Continue metoprolol Continue warfarin, INR 2 HTN metoprolol GERD PPI DNR/DNI DVT Prophylaxis: On Warfarin need for inpt: IV Abx for abscess, cellulitis and possible acute osteomylitis Quality Stroke Does the patient have a stroke diagnosis?: No VTE Prior VTE?: No VTE Risk Level:: Medical - moderate - high VTE Device Contraindication: Treatment Not Indicated VTE Drug Contraindication: N/A - Med Ordered
[2024-07-08] MEDS: Furosemide 20 MG TABLET PO (08:43)
[2024-07-08] MEDS: Gabapentin 100 MG CAPSULE 200 MG PO ×3 (08:43→19:56)
[2024-07-08] MEDS: Ascorbic Acid 500 MG TABLET PO (08:43)
[2024-07-08] MEDS: Multivitamin TABLET 1 TAB PO (08:43)
[2024-07-08] MEDS: polyethylene glycoL 3350 17 GM POWD.PACK PO (08:44)
[2024-07-08] MEDS: Cholestyramine (With Sugar) 4 GM POWD.PACK PO ×3 (08:44→19:58)
[2024-07-08] MEDS: Metoprolol Tartrate 12.5 MG HALFTAB PO ×2 (08:44→19:56)
[2024-07-08] MEDS: Baclofen 20 MG TABLET PO ×3 (08:44→19:56)
[2024-07-08] MEDS: Cholecalciferol (Vitamin D3) 25 MCG TABLET 50 MCG PO (08:44)
[2024-07-08 09:39] LABS: Creatinine Clr Calc Pharmacy 97.2; Estimated Glomerular Filt Rate > 60
[2024-07-08] MEDS: vancomycin HCL 1,000 MG in 0.9 % Sodium Chloride 250 ML 270 MG IV ×2 (10:02→21:38)
[2024-07-08 15:00] VITALS: BP 130/69; PULSE 75; RESP 18; TEMP 36.8; O2SAT 98
[2024-07-08 19:25] VITALS: BP 113/57; PULSE 80; RESP 18; TEMP 37.1; O2SAT 97
[2024-07-08] MEDS: traZODone HCL 50 MG TABLET PO (19:56)
[2024-07-08 20:30] LABS: Vancomycin Random 14.2 mcg/mL (15-20)
--- NOTE | 2024-07-08 20:34 | HE.PHANOTE ---
RE: VANCO DOSING Trough came back as 14.2 mg/L. Dose is continued as 1 gm q12h, next trough is scheduled for 07/09/24 @1999.
[2024-07-08 23:10] VITALS: BP 133/68; PULSE 72; RESP 18; TEMP 36.8; O2SAT 96
[2024-07-09] VITALS (7 sets, daily range): BP systolic 103–132; BP diastolic 61–73; PULSE 69–77; RESP 16–18; TEMP 36.4–36.8; O2SAT 93–96
[2024-07-09] MEDS: Piperacillin Sodium/Tazobactam 3.375 GM in 0.9 % Sodium Chloride 50 ML IV ×4 (01:58→21:45)
[2024-07-09] MEDS: Omeprazole 20 MG CAPSULE.DR PO (05:33)
[2024-07-09 07:34] LABS: INTERNATIONAL NORM RATIO 2.5 (0.9-1.1); Prothrombin Time 28.7 SEC (10.9-12.4)
[2024-07-09 07:45] LABS: Creatinine Clr Calc Pharmacy 104.5; Estimated Glomerular Filt Rate > 60
[2024-07-09] MEDS: Ascorbic Acid 500 MG TABLET PO (08:57)
[2024-07-09] MEDS: Metoprolol Tartrate 12.5 MG HALFTAB PO ×2 (08:57→21:18)
[2024-07-09] MEDS: Multivitamin TABLET 1 TAB PO (08:57)
[2024-07-09] MEDS: Baclofen 20 MG TABLET PO ×3 (08:57→21:19)
[2024-07-09] MEDS: Gabapentin 100 MG CAPSULE 200 MG PO ×3 (08:57→21:18)
--- NOTE | 2024-07-09 08:58 | P.PNIM_ITS ---
Subjective Subjective Date of Service: 07/09/24 Interval History: f/u on right heel ulcer, abscess and probable acute OM no new isssues, denies pain Physical Exam 2 Vital Signs: Vital Signs: Last Vital Signs Temp 97.6 F 07/09/24 06:41 Pulse 69 07/09/24 06:41 Resp 16 07/09/24 06:41 BP 128/73 07/09/24 06:41 Pulse Ox 96 07/09/24 06:41 O2 Del Method Room Air 07/09/24 06:41 BMI result Body Mass Index 26.2 Const: Other: alert, confused at baseline cv rrr s1s2 lung cta abd nt, nd ext:see pic in h and p Objective Data Active Medications Acetaminophen (Acetaminophen 325 Mg Tablet) 650 mg PO Q6H PRN PRN Reason: Pain, Mild 1-3,fever,headache Last Admin: 07/06/24 16:22 Dose: 650 mg Documented By: SRINI Albuterol/Ipratropium (Albuterol/Iprat 2.5/0.5mg 3 Ml Ampul.Neb) 3 ml INHALE Q12H PRN PRN Reason: Shortness of Breath Ascorbic Acid (Ascorbic Acid 500 Mg Tablet) 500 mg PO DAILY PENDING SALE TO [facility] Last Admin: 07/08/24 08:43 Dose: 500 mg Documented By: RUBEN Baclofen (Baclofen 20 Mg Tablet) 20 mg PO TID PENDING SALE TO [facility] Last Admin: 07/08/24 19:56 Dose: 20 mg Documented By: ZAHIDA Calcium Carbonate (Calcium Carbonate 750 Mg Tab.Chew) 750 mg PO Q4H PRN PRN Reason: Heartburn Cholestyramine Resin (Cholestyramine (With Sugar) 4 Gm Powd.Pack) 4 gm PO TID PENDING SALE TO [facility] Last Admin: 07/08/24 19:58 Dose: 4 gm Documented By: ZAHIDA Furosemide (Furosemide 20 Mg Tablet) 20 mg PO DAILY PENDING SALE TO [facility]; Protocol Last Admin: 07/08/24 08:43 Dose: 20 mg Documented By: RUBEN Gabapentin (Gabapentin 100 Mg Capsule) 200 mg PO TID PENDING SALE TO [facility] Last Admin: 07/08/24 19:56 Dose: 200 mg Documented By: ZAHIDA Piperacillin Sod/Tazobactam (Sod 3.375 gm/ Sodium Chloride) 50 mls @ 100 mls/hr IV Q6H PENDING SALE TO [facility] Last Infusion: 07/09/24 02:33 Dose: Infused Documented By: ZAHIDA Vancomycin HCl 1,000 mg/ (Sodium Chloride) 270 mls @ 270 mls/hr IV Q12H PENDING SALE TO [facility] Last Infusion: 07/08/24 22:38 Dose: Infused Documented By: ZAHIDA Loratadine (Loratadine 10 Mg Tablet) 10 mg PO DAILY PRN PRN Reason: PRURITUS Magnesium Hydroxide (Milk Of Magnesia 30 Ml Oral.Susp) 30 ml PO DAILY PRN PRN Reason: Constipation Melatonin (Melatonin 3 Mg Tablet) 6 mg PO BEDTIME PRN PRN Reason: Insomnia Metoprolol Tartrate (Metoprolol Tartrate 12.5 Mg Halftab) 12.5 mg PO BID PENDING SALE TO [facility]; Protocol Last Admin: 07/08/24 19:56 Dose: 12.5 mg Documented By: ZAHIDA Multivitamins/Vitamin C (Multivitamin Tablet) 1 tab PO DAILY PENDING SALE TO [facility] Last Admin: 07/08/24 08:43 Dose: 1 tab Documented By: RUBEN Omeprazole (Omeprazole 20 Mg Capsule.Dr) 20 mg PO DAILY@0630 PENDING SALE TO [facility] Last Admin: 07/09/24 05:33 Dose: 20 mg Documented By: ZAHIDA Ondansetron HCl (Ondansetron Hcl 4 Mg/2 Ml Vial) 4 mg IVPUSH Q8H PRN PRN Reason: Nausea and Vomiting Pharmacy Consult (Consult Rx Vancomycin Dosing) 1 each MISCELLANE DAILY PRN PRN Reason: Consult order Polyethylene Glycol (Polyethylene Glycol 3350 17 Gm Powd.Pack) 17 gm PO DAILY PENDING SALE TO [facility] Last Admin: 07/08/24 08:44 Dose: 17 gm Documented By: RUBEN Sodium Chloride (0.9 % Sodium Chloride Flush 3 Ml Syringe) 3 ml IVFLUSH QSHIFT PENDING SALE TO [facility] Last Admin: 07/08/24 19:57 Dose: 3 ml Documented By: ZAHIDA Tramadol HCl (Tramadol Hcl 50 Mg Tablet) 50 mg PO Q12H PRN PRN Reason: Severe Pain (Scale Score 7-10) Trazodone HCl (Trazodone Hcl 25 Mg Halftab) 25 mg PO Q8H PRN PRN Reason: Anxiety/agitation Last Admin: 07/08/24 03:05 Dose: 25 mg Documented By: ZAHIDA Trazodone HCl (Trazodone Hcl 50 Mg Tablet) 50 mg PO BEDTIME PENDING SALE TO [facility] Last Admin: 07/08/24 19:56 Dose: 50 mg Documented By: ZAHIDA Vitamin D (Cholecalciferol (Vitamin D3) 25 Mcg Tablet) 50 mcg PO DAILY PENDING SALE TO [facility] Last Admin: 07/08/24 08:44 Dose: 50 mcg Documented By: GRAZIC Labs 07/08/24 06:14 07/09/24 06:34 Labs: Laboratory Results - last 24 hr 07/08/24 07/08/24 07/09/24 09:00 20:11 06:31 Hold Purple Top SEE NOTE SEE NOTE PT INR Estim Creat Clear Calc 97.2 Estimated GFR > 60 Random Vancomycin 14.2 L 07/09/24 06:34 Hold Purple Top PT 28.7 H INR 2.5 H Estim Creat Clear Calc 104.5 Estimated GFR > 60 Random Vancomycin Microbiology Microbiology Results: Microbiology 07/06/24 13:28 Blood Culture - Preliminary Blood - Venous No growth after 48 hours. 07/06/24 13:28 Blood Culture - Preliminary Blood - Venous No growth after 48 hours. 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 Pt will be admitted to the hospital for treatment with IV Abx Right Heel ulcer, abscess and cellulitis extending to the leg, h/o OM of the right foot and completed IV Abx about a year ago s/p I and D by vascular with gena puss drainage, for AKA or BKA on Wednesday continue IV Zosyn and Vanco started 07/06, monitor vanco level In the past was unable to do MRI d/t ontracted body, will consider CT as alternative cultures so far negative Paroxysmal AFib Continue metoprolol Continue warfarin, INR 2, may need vit k for surgery tomorrow HTN metoprolol GERD PPI DNR/DNI DVT Prophylaxis: On Warfarin, holding coumadiin for anticipated surgery need for inpt: IV Abx for abscess, cellulitis and possible acute osteomylitis Quality Stroke Does the patient have a stroke diagnosis?: No VTE Prior VTE?: No VTE Risk Level:: Medical - moderate - high VTE Device Contraindication: Treatment Not Indicated VTE Drug Contraindication: N/A - Med Ordered
[2024-07-09] MEDS: Cholecalciferol (Vitamin D3) 25 MCG TABLET 50 MCG PO (08:59)
[2024-07-09] MEDS: Furosemide 20 MG TABLET PO (08:59)
[2024-07-09] MEDS: polyethylene glycoL 3350 17 GM POWD.PACK PO (08:59)
[2024-07-09 09:04] LABS: MANUAL DIFF FLAG NO
[2024-07-09] MEDS: 0.9 % Sodium Chloride Flush 3 ML SYRINGE IVFLUSH ×2 (09:04→15:20)
[2024-07-09 09:06] LABS: Basophils Percent Auto 0.1 % (0-2); Eosinophils Absolute Auto 0.2 X10*3/uL (0.0-0.4); Eosinophils Percent Auto 2.2 % (0-4); Hematocrit 29.3 % (42.0-52.0); Hemoglobin 9.5 g/dl (14.0-18.0); Imm Gran Abs Auto 0.05 X10*3/uL (0.00-0.03); Imm Gran Pct Auto 0.6 % (0.0-0.4); Lymphocytes Percent Auto 11.7 % (20-40); Mean Corpuscular HGB Conc 32.4 g/dl (31.0-36.0); Mean Corpuscular Hemoglobin 27.6 pg (27.0-33.0); Mean Corpuscular Volume 85.2 fL (80.0-98.0); Mean Platelet Volume 10.5 fL (9.4-12.4); Monocytes Absolute Auto 0.6 X10*3/uL (0.1-1.2); Monocytes Percent Auto 6.9 % (2-11); Neutrophils Absolute Auto 6.6 x10*3/uL (2.0-8.3); Neutrophils Percent Auto 78.5 % (45-73); Platelet Count 240 X10*3/uL (160-400); Red Blood Count 3.44 X10*6/uL (4.60-5.80); Red Cell Distribution Width 17.4 % (11.0-16.0); White Blood Count 8.4 X10*3/uL (4.8-10.8)
[2024-07-09] MEDS: Cholestyramine (With Sugar) 4 GM POWD.PACK PO ×3 (09:08→21:26)
[2024-07-09 09:12] LABS: Anion Gap 10 (12-20); Carbon Dioxide 23 mmol/L (22-29); Chloride 113 mmol/L (96-108); Potassium 3.5 mmol/L (3.3-5.1); Sodium 142 mmol/L (135-145)
[2024-07-09] MEDS: vancomycin HCL 1,000 MG in 0.9 % Sodium Chloride 250 ML 270 MG IV ×2 (11:56→22:22)
[2024-07-09] MEDS: Phytonadione (Vit K1) Oral 10 MG/ML AMPUL PO (13:21)
[2024-07-09 20:34] LABS: Vancomycin Random 15.1 mcg/mL (15-20)
--- NOTE | 2024-07-09 20:46 | HE.PHANOTE ---
RE: VANCO DOSING Trough came back as 15.1 mg/L, renal function is stable. Dose is continued at 1000 mg q12h, next trough is scheduled for 07/10/24 @1999.
[2024-07-09] MEDS: traZODone HCL 50 MG TABLET PO (23:26)
[2024-07-10] MEDS: Piperacillin Sodium/Tazobactam 3.375 GM in 0.9 % Sodium Chloride 50 ML IV ×4 (01:43→19:45)
[2024-07-10] MEDS: 0.9 % Sodium Chloride Flush 3 ML SYRINGE IVFLUSH ×4 (01:43→23:56)
[2024-07-10 06:50] VITALS: BP 103/60; PULSE 69; RESP 17; TEMP 36.3; O2SAT 93
[2024-07-10 07:03] LABS: Creatinine Clr Calc Pharmacy 98.6; Estimated Glomerular Filt Rate > 60
[2024-07-10 07:09] LABS: INTERNATIONAL NORM RATIO 1.3 (0.9-1.1); Prothrombin Time 15.6 SEC (10.9-12.4)
--- NOTE | 2024-07-10 07:42 | MHC.SHP ---
Pre-Procedural Eval Section A - 24 Hr Update-Section A only Date of Service: 07/10/24 The patient is an INPATIENT: Yes Changes since office visit: Yes Patient answered all questions The patient has been examined within 24 hours of the surgical procedure. The History & Physical has been completed within 30 days and I have reviewed it.: Yes Section B - Complete if H&P > 30 days Chief Complaint: Left Heel ulcer and cellulitis of the foot Allergies: Allergies Allergy/AdvReac Type Severity Reaction Status Date / Time [id number] Reductase Allergy Intermediate MUSCULAR Verified 07/06/24 13:03 Inhibitor PAIN [[id number] REDUCTASE INHIBITOR] atorvastatin Allergy Unknown UNKNOWN Verified 07/06/24 13:03 pravastatin Allergy Unknown UNKNOWN Verified 07/06/24 13:03 simvastatin Allergy Unknown UNKNOWN Verified 07/06/24 13:03 Plan I have reviewed the history and physical and performed a pertinent physical examination on my patient. No changes have occurred unless specified. Time Spent With Patient Time: Total time managing care of this patient today ____ minutes.
--- NOTE | 2024-07-10 07:50 | HO.PM.IMPN ---
Subjective Subjective Date of Service: 07/10/24 Interval History: f/u on right heel ulcer, abscess and probable acute OM no new isssues, denies pain, INR down to 1.3. For surgery today Physical Exam Vital Signs: Vital Signs: Last Vital Signs Temp 97.3 F 07/10/24 06:50 Pulse 69 07/10/24 06:50 Resp 17 07/10/24 06:50 BP 103/60 07/10/24 06:50 Pulse Ox 93 07/10/24 06:50 O2 Del Method Room Air 07/10/24 06:50 BMI result Body Mass Index 26.2 Const: Other: alert, confused at baseline cv rrr s1s2 lung cta abd nt, nd ext:see pic in h and p Objective Data Active Medications Acetaminophen (Acetaminophen 325 Mg Tablet) 650 mg PO Q6H PRN PRN Reason: Pain, Mild 1-3,fever,headache Last Admin: 07/06/24 16:22 Dose: 650 mg Documented By: SRINI Albuterol/Ipratropium (Albuterol/Iprat 2.5/0.5mg 3 Ml Ampul.Neb) 3 ml INHALE Q12H PRN PRN Reason: Shortness of Breath Ascorbic Acid (Ascorbic Acid 500 Mg Tablet) 500 mg PO DAILY [facility] Last Admin: 07/09/24 08:57 Dose: 500 mg Documented By: IVET Baclofen (Baclofen 20 Mg Tablet) 20 mg PO TID [facility] Last Admin: 07/09/24 21:19 Dose: 20 mg Documented By: MATEO Calcium Carbonate (Calcium Carbonate 750 Mg Tab.Chew) 750 mg PO Q4H PRN PRN Reason: Heartburn Cholestyramine Resin (Cholestyramine (With Sugar) 4 Gm Powd.Pack) 4 gm PO TID [facility] Last Admin: 07/09/24 21:26 Dose: 4 gm Documented By: MATEO Furosemide (Furosemide 20 Mg Tablet) 20 mg PO DAILY [facility]; Protocol Last Admin: 07/09/24 08:59 Dose: 20 mg Documented By: IVET Gabapentin (Gabapentin 100 Mg Capsule) 200 mg PO TID [facility] Last Admin: 07/09/24 21:18 Dose: 200 mg Documented By: MATEO Piperacillin Sod/Tazobactam (Sod 3.375 gm/ Sodium Chloride) 50 mls @ 100 mls/hr IV Q6H [facility] Last Infusion: 07/10/24 02:14 Dose: Infused Documented By: BROOKS Vancomycin HCl 1,000 mg/ (Sodium Chloride) 270 mls @ 270 mls/hr IV Q12H [facility] Last Infusion: 07/09/24 23:56 Dose: Infused Documented By: BROOKS Loratadine (Loratadine 10 Mg Tablet) 10 mg PO DAILY PRN PRN Reason: PRURITUS Magnesium Hydroxide (Milk Of Magnesia 30 Ml Oral.Susp) 30 ml PO DAILY PRN PRN Reason: Constipation Melatonin (Melatonin 3 Mg Tablet) 6 mg PO BEDTIME PRN PRN Reason: Insomnia Metoprolol Tartrate (Metoprolol Tartrate 12.5 Mg Halftab) 12.5 mg PO BID [facility]; Protocol Last Admin: 07/09/24 21:18 Dose: 12.5 mg Documented By: MATEO Multivitamins/Vitamin C (Multivitamin Tablet) 1 tab PO DAILY [facility] Last Admin: 07/09/24 08:57 Dose: 1 tab Documented By: IVET Omeprazole (Omeprazole 20 Mg Capsule.Dr) 20 mg PO DAILY@0630 [facility] Last Admin: 07/10/24 05:41 Dose: Not Given Documented By: MATEO Non-Admin Reason: NPO Ondansetron HCl (Ondansetron Hcl 4 Mg/2 Ml Vial) 4 mg IVPUSH Q8H PRN PRN Reason: Nausea and Vomiting Pharmacy Consult (Consult Rx Vancomycin Dosing) 1 each MISCELLANE DAILY PRN PRN Reason: Consult order Polyethylene Glycol (Polyethylene Glycol 3350 17 Gm Powd.Pack) 17 gm PO DAILY [facility] Last Admin: 07/09/24 08:59 Dose: 17 gm Documented By: IVET Sodium Chloride (0.9 % Sodium Chloride Flush 3 Ml Syringe) 3 ml IVFLUSH QSHIFT [facility] Last Admin: 07/10/24 01:43 Dose: 3 ml Documented By: BROOKS Tramadol HCl (Tramadol Hcl 50 Mg Tablet) 50 mg PO Q12H PRN PRN Reason: Severe Pain (Scale Score 7-10) Trazodone HCl (Trazodone Hcl 25 Mg Halftab) 25 mg PO Q8H PRN PRN Reason: Anxiety/agitation Last Admin: 07/08/24 03:05 Dose: 25 mg Documented By: ODRISM Trazodone HCl (Trazodone Hcl 50 Mg Tablet) 50 mg PO BEDTIME [facility] Last Admin: 07/09/24 23:26 Dose: 50 mg Documented By: PAMR Vitamin D (Cholecalciferol (Vitamin D3) 25 Mcg Tablet) 50 mcg PO DAILY [facility] Last Admin: 07/09/24 08:59 Dose: 50 mcg Documented By: MELTRH Labs 07/09/24 06:31 07/10/24 06:04 Labs: Laboratory Results - last 24 hr 07/09/24 07/09/24 07/09/24 06:31 17:03 19:55 MCV 85.2 MCH 27.6 MCHC 32.4 RDW 17.4 H Plt Count 240 MPV 10.5 Immature Gran % (Auto) 0.6 H Neut % (Auto) 78.5 H Lymph % (Auto) 11.7 L [place] % (Auto) 6.9 Eos % (Auto) 2.2 Baso % (Auto) 0.1 Lymph # (Auto) 1.0 L [place] # (Auto) 0.6 Eos # (Auto) 0.2 Baso # (Auto) 0.0 Abs Immat Gran (auto) 0.05 H Absolute Neuts (auto) 6.6 Absolute Nucleated RBC 0.000 Nucleated RBC % (auto) 0.0 PT INR Anion Gap 10 L Estim Creat Clear Calc Estimated GFR Random Vancomycin 15.1 Blood Type O Negative Antibody Screen NEGATIVE 07/10/24 06:04 MCV MCH MCHC RDW Plt Count MPV Immature Gran % (Auto) Neut % (Auto) Lymph % (Auto) [place] % (Auto) Eos % (Auto) Baso % (Auto) Lymph # (Auto) [place] # (Auto) Eos # (Auto) Baso # (Auto) Abs Immat Gran (auto) Absolute Neuts (auto) Absolute Nucleated RBC Nucleated RBC % (auto) PT 15.6 H D INR 1.3 H Anion Gap Estim Creat Clear Calc 98.6 Estimated GFR > 60 Random Vancomycin Blood Type Antibody Screen Assessment and Plan (1) Cellulitis of heel, right: Status: Acute Plan Pt is a 73-year-old male with a PMH significant for?unspecified dementia, paroxysmal AFib on warfarin, HTN, HLD, 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 Pt will be admitted to the hospital for treatment with IV Abx Right Heel ulcer, abscess and cellulitis extending to the leg, h/o OM of the right foot and completed IV Abx about a year ago s/p I and D by vascular with gena puss drainage, for AKA or BKA today continue IV Zosyn and Vanco started 07/06, monitor vanco level In the past was unable to do MRI d/t ontracted body, will consider CT as alternative cultures so far negative No further testing indicated before surgery, may get routine ECG Paroxysmal AFib Continue metoprolol holding coumadin before surgery, got vit K yesterday HTN metoprolol GERD PPI DNR/DNI DVT Prophylaxis: On Warfarin, holding coumadiin for anticipated surgery need for inpt: IV Abx for abscess, cellulitis and possible acute osteomylitis Quality Stroke Does the patient have a stroke diagnosis?: No VTE Prior VTE?: No VTE Risk Level:: Medical - moderate - high VTE Device Contraindication: Treatment Not Indicated VTE Drug Contraindication: N/A - Med Ordered
[2024-07-10 08:12] LABS: Anion Gap 10 (12-20); Carbon Dioxide 22 mmol/L (22-29); Chloride 116 mmol/L (96-108); Potassium 3.5 mmol/L (3.3-5.1); Sodium 144 mmol/L (135-145)
[2024-07-10] MEDS: Metoprolol Tartrate 12.5 MG HALFTAB PO ×2 (08:33→20:11)
--- NOTE | 2024-07-10 11:15 | HO.VASCPN ---
Subjective Subjective Date of Service: 07/10/24 Patient reports: no new complaints Interval history: Complex 73-year-old gentleman with history of traumatic spinal cord injury and nonhealing ulcer of the right lower extremity. This is clearly osteomyelitis and as the wound penetrates down to bone. It is went and boggy as noted on previous exam. He is actually been scheduled for an AKA for today. His INR appropriately came down to 1.3 stable for surgery. Upon discussion with the family concern was of his overall longevity and quality of life. Consideration for hospice care was brought up. Physical Exam Vital Signs: Vital Signs: Last Vital Signs Temp 97.3 F 07/10/24 06:50 Pulse 69 07/10/24 06:50 Resp 17 07/10/24 06:50 BP 103/60 07/10/24 06:50 Pulse Ox 93 07/10/24 06:50 O2 Del Method Room Air 07/10/24 06:50 BMI result Body Mass Index 26.2 Const: General: cooperative, healthy appearing and comfortable Orientation/consciousness: oriented to person, oriented to place and oriented to time HEENT: Head: Yes normal to inspection Neck: Neck: Yes normal visual inspection Carotids: no bruits Chest: Chest palpation & inspection: normal inspection of the chest Resp: Effort & Inspection: normal respiratory effort and able to speak in complete sentences Auscultation: clear to auscultation bilaterally, no crackles, no rales, no rhonchi and no wheezes Cardio: Rate: regular rate Rhythm: regular rhythm Heart sounds: S1 normal heart sound present and S2 normal heart sound present Bruits: no carotid bruits Peripheral pulses: Peripheral pulses 2+ throughout GI: Inspection: Yes normal to inspection Skin: Other: Right heel with boggy foul odor. Can palpate calcaneus Wounds: no wounds Hair: normal Neuro: General: oriented to person, oriented to place and oriented to time Cranial nerves: Yes CN's II-XII intact bilaterally and Yes Normal hearing present Cognition (Neuro): normal cognition Motor exam (neuro): 5/5 motor strength present throughout Extrem: Other: venous exam: No significant superficial varicosities or spider telangiectasias, minimal edema General: No clubbing, No cyanosis and No edema Psych: Appearance: grossly normal Mental Status: mental status grossly normal Speech and movement: Normal speech and movement present Progress Note: A&P Assessment and plan (1) Non-healing wound of right lower extremity: Status: Acute Assessment and Plan: In short the only surgery I would offer this poor gentleman is an above knee amputation. He has a severe nonhealing right heel ulcer that is clearly osteomyelitis. In addition he has severe contracture as well. We did image the thigh and does have an appropriate site for transection. I did have an extensive discussion with the patient's and family at bedside. According to the he did have a lucid interval on Wednesday. He reported that he did not want to live in this condition and wanted to be ?shot in the head?. I had an extensive discussion with his overall care and longevity. At the current time they would like to entertain the possibility of hospice level of care. In addition they were aware that if the amputation was not performed that sepsis may be a big issue for him as this infection would most definitely continue to affect him. We will follow on an as-needed basis. Thank you for allowing us to assist in his care. If there are any questions or concerns please do not hesitate to contact us. Time Spent With Patient Time: Total time managing care of this patient today ____ minutes. Procedures Date of Service Date of Service: 07/10/24 Quality Stroke Does the patient have a stroke diagnosis?: No VTE Prior VTE?: No VTE Risk Level:: Medical - moderate - high VTE Device Contraindication: Treatment Not Indicated VTE Drug Contraindication: N/A - Med Ordered
--- NOTE | 2024-07-10 11:22 | W.PM.OPN ---
Operative Note Operative Note Date of Service: 07/10/24
[2024-07-10 11:49] VITALS: BP 110/62; PULSE 56; RESP 16; TEMP 36.2; O2SAT 95
[2024-07-10] MEDS: vancomycin HCL 1,000 MG in 0.9 % Sodium Chloride 250 ML 270 MG IV ×2 (11:54→22:51)
[2024-07-10] MEDS: Furosemide 20 MG TABLET PO (11:55)
[2024-07-10] MEDS: Cholecalciferol (Vitamin D3) 25 MCG TABLET 50 MCG PO (11:55)
[2024-07-10] MEDS: Baclofen 20 MG TABLET PO ×3 (11:55→20:11)
[2024-07-10] MEDS: Ascorbic Acid 500 MG TABLET PO (11:55)
[2024-07-10] MEDS: Gabapentin 100 MG CAPSULE 200 MG PO ×3 (11:55→20:11)
[2024-07-10] MEDS: Multivitamin TABLET 1 TAB PO (11:55)
--- NOTE | 2024-07-10 13:16 | MHC.CLN ---
NUTRITION DIET=REGULAR. ENSURE MAX BID TO PROMOTE SKIN INTEGRITY/WOUND HEALING. SUPPLEMENT PROVIDES 300 KCALS, 60 G PROTEIN. SKIN WITH STAGE IV WOUND TO RIGHT HEEL AND STAGE IV WOUND TO LEFT ISCHIUM. INTAKE MOST MEALS APPEARS TO BE GOOD. FOLLOW FOR PO INTAKE AND SKIN INTEGRITY/WOUND HEALING.
[2024-07-10] MEDS: Cholestyramine (With Sugar) 4 GM POWD.PACK PO ×2 (14:43→20:11)
[2024-07-10 15:17] VITALS: BP 105/55; PULSE 60; RESP 18; TEMP 36.2; O2SAT 97
--- NOTE | 2024-07-10 15:22 | MHC.CM.PN ---
pt not medically ready for dc per rounds pts plan is to return to [facility]
[2024-07-10 19:47] VITALS: BP 105/59; PULSE 65; RESP 18; TEMP 36.3; O2SAT 96
[2024-07-10] MEDS: traZODone HCL 50 MG TABLET PO (20:11)
[2024-07-10 20:16] LABS: Vancomycin Random 17.7 mcg/mL (15-20)
[2024-07-11] VITALS: BP 109/60; PULSE 64; RESP 18; TEMP 36.3; O2SAT 94
[2024-07-11] MEDS: Piperacillin Sodium/Tazobactam 3.375 GM in 0.9 % Sodium Chloride 50 ML IV ×4 (02:09→19:53)
[2024-07-11 03:36] VITALS: BP 118/61; PULSE 61; RESP 16; TEMP 36.2; O2SAT 96
[2024-07-11] MEDS: Omeprazole 20 MG CAPSULE.DR PO (06:17)
[2024-07-11 07:00] VITALS: BP 124/73; PULSE 66; RESP 16; TEMP 36.9; O2SAT 95
[2024-07-11 07:15] LABS: Creatinine Clr Calc Pharmacy 101.5; Estimated Glomerular Filt Rate > 60
[2024-07-11] MEDS: 0.9 % Sodium Chloride Flush 3 ML SYRINGE IVFLUSH ×3 (08:14→19:54)
[2024-07-11] MEDS: Baclofen 20 MG TABLET PO ×3 (08:52→19:54)
[2024-07-11] MEDS: polyethylene glycoL 3350 17 GM POWD.PACK PO (08:52)
[2024-07-11] MEDS: Cholecalciferol (Vitamin D3) 25 MCG TABLET 50 MCG PO (08:52)
[2024-07-11] MEDS: Furosemide 20 MG TABLET PO (08:52)
[2024-07-11] MEDS: Ascorbic Acid 500 MG TABLET PO (08:52)
[2024-07-11] MEDS: Gabapentin 100 MG CAPSULE 200 MG PO ×3 (08:52→19:54)
[2024-07-11] MEDS: Multivitamin TABLET 1 TAB PO (08:52)
[2024-07-11] MEDS: Metoprolol Tartrate 12.5 MG HALFTAB PO ×2 (08:52→19:54)
[2024-07-11] MEDS: Cholestyramine (With Sugar) 4 GM POWD.PACK PO ×3 (10:23→19:53)
[2024-07-11] MEDS: vancomycin HCL 1,000 MG in 0.9 % Sodium Chloride 250 ML 270 MG IV (10:23)
[2024-07-11 10:54] LABS: INTERNATIONAL NORM RATIO 1.1 (0.9-1.1); Prothrombin Time 13.2 SEC (10.9-12.4)
[2024-07-11 12:00] VITALS: BP 120/68; PULSE 62; RESP 16; TEMP 36.9; O2SAT 95
--- NOTE | 2024-07-11 14:01 | HO.PM.IMPN ---
Subjective Subjective Date of Service: 07/11/24 Interval History: right heel ulcer, abscess and probable acute OM Review of Systems no new isssues, denies pain Physical Exam Vital Signs: Vital Signs: Last Vital Signs Temp 98.5 F 07/11/24 12:00 Pulse 62 07/11/24 12:00 Resp 16 07/11/24 12:00 BP 120/68 07/11/24 12:00 Pulse Ox 95 07/11/24 12:00 O2 Del Method Room Air 07/11/24 12:00 BMI result Body Mass Index 26.2 alert, confused at baseline cv rrr s1s2 lung cta abd nt, nd ext:see pic in h and p Objective Data Active Medications Acetaminophen (Acetaminophen 325 Mg Tablet) 650 mg PO Q6H PRN PRN Reason: Pain, Mild 1-3,fever,headache Last Admin: 07/06/24 16:22 Dose: 650 mg Documented By: SRINI Albuterol/Ipratropium (Albuterol/Iprat 2.5/0.5mg 3 Ml Ampul.Neb) 3 ml INHALE Q12H PRN PRN Reason: Shortness of Breath Ascorbic Acid (Ascorbic Acid 500 Mg Tablet) 500 mg PO DAILY COUNTS INCLUDE 234 BEDS AT THE [facility] Last Admin: 07/11/24 08:52 Dose: 500 mg Documented By: JADE Baclofen (Baclofen 20 Mg Tablet) 20 mg PO TID COUNTS INCLUDE 234 BEDS AT THE [facility] Last Admin: 07/11/24 08:52 Dose: 20 mg Documented By: JADE Calcium Carbonate (Calcium Carbonate 750 Mg Tab.Chew) 750 mg PO Q4H PRN PRN Reason: Heartburn Cholestyramine Resin (Cholestyramine (With Sugar) 4 Gm Powd.Pack) 4 gm PO TID COUNTS INCLUDE 234 BEDS AT THE [facility] Last Admin: 07/11/24 10:23 Dose: 4 gm Documented By: JADE Furosemide (Furosemide 20 Mg Tablet) 20 mg PO DAILY COUNTS INCLUDE 234 BEDS AT THE [facility]; Protocol Last Admin: 07/11/24 08:52 Dose: 20 mg Documented By: JADE Gabapentin (Gabapentin 100 Mg Capsule) 200 mg PO TID COUNTS INCLUDE 234 BEDS AT THE [facility] Last Admin: 07/11/24 08:52 Dose: 200 mg Documented By: JADE Piperacillin Sod/Tazobactam (Sod 3.375 gm/ Sodium Chloride) 50 mls @ 100 mls/hr IV Q6H COUNTS INCLUDE 234 BEDS AT THE [facility] Last Infusion: 07/11/24 08:51 Dose: Infused Documented By: JADE Vancomycin HCl 1,000 mg/ (Sodium Chloride) 270 mls @ 270 mls/hr IV Q12H COUNTS INCLUDE 234 BEDS AT THE [facility] Last Infusion: 07/11/24 12:08 Dose: Infused Documented By: JADE Loratadine (Loratadine 10 Mg Tablet) 10 mg PO DAILY PRN PRN Reason: PRURITUS Magnesium Hydroxide (Milk Of Magnesia 30 Ml Oral.Susp) 30 ml PO DAILY PRN PRN Reason: Constipation Melatonin (Melatonin 3 Mg Tablet) 6 mg PO BEDTIME PRN PRN Reason: Insomnia Metoprolol Tartrate (Metoprolol Tartrate 12.5 Mg Halftab) 12.5 mg PO BID COUNTS INCLUDE 234 BEDS AT THE [facility]; Protocol Last Admin: 07/11/24 08:52 Dose: 12.5 mg Documented By: JADE Multivitamins/Vitamin C (Multivitamin Tablet) 1 tab PO DAILY COUNTS INCLUDE 234 BEDS AT THE [facility] Last Admin: 07/11/24 08:52 Dose: 1 tab Documented By: JADE Omeprazole (Omeprazole 20 Mg Capsule.Dr) 20 mg PO DAILY@0630 COUNTS INCLUDE 234 BEDS AT THE [facility] Last Admin: 07/11/24 06:17 Dose: 20 mg Documented By: BROOKS Ondansetron HCl (Ondansetron Hcl 4 Mg/2 Ml Vial) 4 mg IVPUSH Q8H PRN PRN Reason: Nausea and Vomiting Pharmacy Consult (Consult Rx Vancomycin Dosing) 1 each MISCELLANE DAILY PRN PRN Reason: Consult order Polyethylene Glycol (Polyethylene Glycol 3350 17 Gm Powd.Pack) 17 gm PO DAILY COUNTS INCLUDE 234 BEDS AT THE [facility] Last Admin: 07/11/24 08:52 Dose: 17 gm Documented By: JADE Sodium Chloride (0.9 % Sodium Chloride Flush 3 Ml Syringe) 3 ml IVFLUSH QSHIFT COUNTS INCLUDE 234 BEDS AT THE [facility] Last Admin: 07/11/24 08:14 Dose: 3 ml Documented By: JADE Tramadol HCl (Tramadol Hcl 50 Mg Tablet) 50 mg PO Q12H PRN PRN Reason: Severe Pain (Scale Score 7-10) Trazodone HCl (Trazodone Hcl 25 Mg Halftab) 25 mg PO Q8H PRN PRN Reason: Anxiety/agitation Last Admin: 07/08/24 03:05 Dose: 25 mg Documented By: ZAHIDA Trazodone HCl (Trazodone Hcl 50 Mg Tablet) 50 mg PO BEDTIME COUNTS INCLUDE 234 BEDS AT THE [facility] Last Admin: 07/10/24 20:11 Dose: 50 mg Documented By: BROOKS Vitamin D (Cholecalciferol (Vitamin D3) 25 Mcg Tablet) 50 mcg PO DAILY COUNTS INCLUDE 234 BEDS AT THE [facility] Last Admin: 07/11/24 08:52 Dose: 50 mcg Documented By: JADE Labs 07/09/24 06:31 07/11/24 06:16 Labs: Laboratory Results - last 24 hr 07/10/24 07/11/24 07/11/24 19:56 06:16 10:22 PT 13.2 H INR 1.1 Estim Creat Clear Calc 101.5 Estimated GFR > 60 Random Vancomycin 17.7 Assessment and Plan (1) Cellulitis of heel, right: Status: Acute Plan 73-year-old male with a PMH significant for?unspecified dementia, paroxysmal AFib on warfarin, HTN, HLD, 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 Pt will be admitted to the hospital for treatment with IV Abx Right Heel ulcer, abscess and cellulitis extending to the leg, h/o OM of the right foot and completed IV Abx about a year ago s/p I and D by vascular with gena puss drainage, for AKA or BKA today continue IV Zosyn and Vanco started 07/06, monitor vanco level In the past was unable to do MRI d/t ontracted body, will consider CT as alternative cultures so far negative patient d/w Nig[place] in detail -patient /family : they declined surgery and decided for hospice care(please see vascular note from 07/10/24). Paroxysmal AFib Continue metoprolol holding coumadin before surgery, got vit K yesterday HTN metoprolol GERD PPI DNR/DNI DVT Prophylaxis: On Warfarin, holding coumadiin for anticipated surgery need for inpt: IV Abx for abscess, cellulitis and possible acute osteomylitis Quality Stroke Does the patient have a stroke diagnosis?: No VTE Prior VTE?: No VTE Risk Level:: Medical - moderate - high VTE Device Contraindication: Treatment Not Indicated VTE Drug Contraindication: N/A - Med Ordered
[2024-07-11 14:45] VITALS: BP 118/63; PULSE 65; RESP 18; TEMP 37; O2SAT 95
--- NOTE | 2024-07-11 15:28 | MHC.CM.PN ---
ordered a hospice informational meeting. [facility] hospice met with the patient and family. They have decided to accept hospice services. The Patient is LTC at [facility]. They have been notified that the patient will return on hospice. The plan is to discharge the patient from [facility] morning. [facility] will start the services on , late am. Patient will transport via BLS.
[2024-07-11] MEDS: Warfarin Sodium 7.5 MG TABLET PO (18:04)
[2024-07-11 19:37] VITALS: BP 102/57; PULSE 67; RESP 18; TEMP 37.1; O2SAT 95
[2024-07-11] MEDS: traZODone HCL 50 MG TABLET PO (19:54)
[2024-07-11 20:19] LABS: Vancomycin Random 17.3 mcg/mL (15-20)
[2024-07-11] MEDS: vancomycin HCL 750 MG in 0.9 % Sodium Chloride 250 ML 265 MG IV (21:33)
[2024-07-12] VITALS (7 sets, daily range): BP systolic 108–144; BP diastolic 53–79; PULSE 56–65; RESP 16–20; TEMP 36.3–36.8; O2SAT 94–97
[2024-07-12] MEDS: Melatonin 3 MG TABLET 6 MG PO (00:11)
[2024-07-12] MEDS: Piperacillin Sodium/Tazobactam 3.375 GM in 0.9 % Sodium Chloride 50 ML IV (01:30)
[2024-07-12] MEDS: Omeprazole 20 MG CAPSULE.DR PO (05:38)
[2024-07-12 07:37] LABS: INTERNATIONAL NORM RATIO 1.1 (0.9-1.1); Prothrombin Time 12.8 SEC (10.9-12.4)
[2024-07-12 07:53] LABS: Creatinine Clr Calc Pharmacy 95.9; Estimated Glomerular Filt Rate > 60
[2024-07-12] MEDS: Cholestyramine (With Sugar) 4 GM POWD.PACK PO ×3 (07:53→20:14)
[2024-07-12] MEDS: Metoprolol Tartrate 12.5 MG HALFTAB PO ×2 (07:53→20:14)
[2024-07-12] MEDS: polyethylene glycoL 3350 17 GM POWD.PACK PO (07:53)
[2024-07-12] MEDS: Furosemide 20 MG TABLET PO (07:53)
[2024-07-12] MEDS: Gabapentin 100 MG CAPSULE 200 MG PO ×3 (07:53→20:15)
[2024-07-12] MEDS: Baclofen 20 MG TABLET PO ×3 (07:53→20:15)
[2024-07-12] MEDS: Multivitamin TABLET 1 TAB PO (07:54)
[2024-07-12] MEDS: Ascorbic Acid 500 MG TABLET PO (07:54)
[2024-07-12] MEDS: Cholecalciferol (Vitamin D3) 25 MCG TABLET 50 MCG PO (07:54)
[2024-07-12] MEDS: Doxycycline Monohydrate 100 MG CAPSULE PO ×2 (07:54→20:15)
[2024-07-12] MEDS: Amoxicillin/Potassium Clav 875 MG TABLET PO ×2 (07:54→20:14)
--- NOTE | 2024-07-12 07:58 | P.DS_ITS ---
DS: Providers Provider Date of Service: 07/13/24 Date of admission: 07/06/24 15:47 Date of discharge: 07/13/24 Primary care physician: SOPHIA Lynn Consults: 07/06/24 15:50 Consult to Vascular Surgery Routine Consulting Provider: [facility] Reason for consultation: left heel ulcer Has provider been notified: No 07/07/24 10:22 Consult to Wound Care Routine Reason for consultation: right heel wound and tunneling wound left buttocks Attending physician on discharge: Oscar Borja Discharging clinician: Oscar Borja DS: Diagnosis Discharge Diagnosis (1) Cellulitis of heel, right: Status: Acute DS: Summary Hospital Course Hospital Course: hpi:73 year-old male with a PMH significant for?unspecified dementia, paroxysmal AFib on warfarin, HTN, HLD, 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 He has advanced dementia at baseline and unable to provide meaningful HPI, history obtained from senior care record, ED record and talking to . He has a chronic and recurrent wounds of the feet, he has developped an ulcer of the right heel which has been worsening see pic and was brought to the ED for further evaluation. Xray show 1. Subcutaneous gas dorsal and medial to the calcaneus and talus with associated soft tissue swelling. 2. No radiographic evidence of osteomyelitis. CRP 29.85 no fever and doesn't meet sepsis criteria. He is giving Zosyn and vanco in the ED. Vascular surgery consultation is being requested. 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, peripheral neuropathy, hx RLE DVT, and recent TIA who presents to the ED from [facility] for evaluation of worsening right heel abscess/cellulitis- patient started on iv antibiotics ,blood cultures sent ,also vascular surgery consulted -s/p I and D by vascular with gena puss drainage and recomended for aka considering severe nonhealing right heel ulcer and probable osteomyelitis,patient has severe contracture as well-above is discussed with patient in detailed length including worsening infection , deterioration of patient condition ,sepsis and antibiotics alone will be suboptimal for above - patient decided for hospice care ,seen by Id also:given po antibiotics (doxycycline/augmentin ) for 10 days . Above management discussed with the patient in detail length, staff present during conversation. plan: Family decided for hospice care. Complete p.o. doxycycline 100 mg b.i.d. as well as Augmentin 875 p.o. b.i.d. for 10 days Assessment and plan coordination time spent 40 minute. Time Attestation Total time managing care of this patient today: 40 mintues. Discharge Coordination Time (in mins): 40 min Quality: Safe Use of Opioids Does Pt have an Active Cancer Diagnosis on the Problem List?: No Quality: Stroke Does the patient have a stroke diagnosis?: No Physical Exam Vital Signs: Vital Signs: Last Vital Signs Temp 98.1 F 07/12/24 07:35 Pulse 59 07/12/24 07:35 Resp 16 07/12/24 07:35 BP 123/72 07/12/24 07:35 Pulse Ox 95 07/12/24 07:35 O2 Del Method Room Air 07/12/24 07:35 BMI result Body Mass Index 26.2 alert, confused at baseline cv rrr s1s2 lung cta abd nt, nd ext:see pic in h and p DS: Data Data Completed and Pending Completed studies during hospitalization [Text1]: Procedures Insertion of Infusion Device into Superior Vena Cava, Percutaneous Approach (09/02/23) Ultrasonography of Superior Vena Cava, Guidance (09/02/23) Labs on day of discharge: Laboratory Results - last 24 hr 07/11/24 07/11/24 07/12/24 10:22 19:51 07:10 Hold Purple Top SEE NOTE PT 13.2 H 12.8 H INR 1.1 1.1 Creatinine 0.73 Estim Creat Clear Calc 95.9 Estimated GFR > 60 Random Vancomycin 17.3 Imaging Chest x-ray: Radiologist's impression: ITS Impressions Calcaneus X-Ray 07/06/24 13:23 IMPRESSION: 1. Subcutaneous gas dorsal and medial to the calcaneus and talus with associated soft tissue swelling. 2. No radiographic evidence of osteomyelitis. 3. Unusually prominent spur along the posterior plantar calcaneal surface. 4. Degenerative changes throughout the intertarsal joints and subtalar joints. 5. Diffuse soft tissue vascular calcifications. Femur X-Ray 07/07/24 12:30 IMPRESSION: Questionable loosening in the intramedullary segment of the right hip prosthesis. Discharge Plan Discharge Anticipated Discharge Date/Time: 07/12/24 07:47 Patient Disposition: Xfer SNF Discharge Diagnosis: right heel ulcer, abscess and probable acute OM Referrals: pepper lawson [Other] - 1 Week Yeni Zamorano FNP [Primary Care Provider] - 1 Week Discharge Medications: New doxycycline monohydrate 100 mg Capsule 100 mg PO Q12H Qty: 20 0RF amoxicillin-pot clavulanate 875-125 mg Tablet 1 tab PO Q12H Qty: 20 0RF Continued (DME) bilateral custom AFO See Rx Instructions .Route .MEDSUPPLY Qty: 1 0RF Rx Instructions: As directed ipratropium-albuterol 0.5 mg-3 mg(2.5 mg base)/3 mL solution for nebulization 3 ml inhalation Q12H PRN (Reason: SOB) warfarin 7.5 mg Tablet 7.5 mg PO DAILY baclofen 10 mg tablet 20 mg PO TID furosemide 20 mg tablet 20 mg PO DAILY gabapentin 100 mg capsule 200 mg PO TID loratadine 10 mg Tablet 10 mg PO DAILY PRN (Reason: PRURITUS) melatonin 5 mg Tablet 5 mg PO BEDTIME tramadol 50 mg tablet 50 mg PO Q12H PRN (Reason: Severe Pain (Scale Score 7-10)) trazodone 50 mg tablet 25 mg PO Q8H PRN (Reason: Anxiety/agitation) Rx Instructions: End date 08/24/24 trazodone 50 mg tablet 50 mg PO BEDTIME polyethylene glycol 3350 [Miralax] 17 gram/dose Powder 17 g PO DAILY Rx Instructions: Mix 17 gm in 6-8 oz of fluid ascorbic acid (vitamin C) 500 mg tablet 500 mg PO DAILY omeprazole 20 mg capsule,delayed release(DR/EC) 20 mg PO DAILY@0630 cholecalciferol (vitamin D3) 50 mcg (2,000 unit) Capsule 50 mcg PO DAILY colesevelam 625 mg tablet 1,875 mg PO DAILY metoprolol tartrate 25 mg tablet 12.5 mg PO BID Centrum Silver Ultra Men's 300-600-300 mcg tablet 1 tab PO DAILY acetaminophen 325 mg tablet 650 mg PO Q4H MDD 3 gm/24 h PRN (Reason: Pain, Moderate) (DME) compress.stocking,knee,reg,lrg Misc See Rx Instructions .Route Qty: 12 1RF Rx Instructions: As directed 20-30 mm HG Held cephalexin 500 mg Capsule 500 mg PO QID Hold Instructions: Resume on 07/25/24. 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, peripheral neuropathy, hx RLE DVT, and recent TIA who presents to the ED from [facility] for evaluation of worsening right heel abscess/cellulitis-patient started on iv antibiotics ,blood cultures sent ,also vascular surgery consulted -s/p I and D by vascular with gena puss drainage and recomended for aka considering severe nonhealing right heel ulcer and probable osteomyelitis,patient has severe contracture as well-above is discussed with patient in detailed length including worsening infection , deterioration of patient condition ,sepsis and antibiotics alone will be suboptimal for above - patient decided for hospice care ,given po antibiotics (doxycycline/augmentin ) for 10 days . Health Concerns: as above. Plan of Treatment: as above Assessment: as above. Patient Instructions: Hospice Care (GEN)
[2024-07-12] MEDS: 0.9 % Sodium Chloride Flush 3 ML SYRINGE IVFLUSH ×3 (07:59→20:15)
--- NOTE | 2024-07-12 09:48 | MHC.CM.PN ---
pt being dcd today to [facility] family and facility are in agreement hospice notified and will contact facility to coordinate services
--- NOTE | 2024-07-12 10:28 | P.CDIM_ITS ---
PROVIDER RESPONSE TEXT: To clarify, the appropriate diagnosis supported by the clinical indicators: Pressure Injury Stage 4 right heel: present on admission QUERY TEXT: PHYSICIAN'S DOCUMENTATION REQUEST Date of Query: 07/10/2024 08:46 AM EDT Patient Name: Sean Arrington Admit Date: 07/06/2024 Dear Surjit Awan MD, A review of the medical record indicates additional documentation may be needed. Please review below and update the documentation accordingly. Clinical Indicators: Wound care consultation notes 07/07/24 - Pressure injury right heel, Stage 4 - Present on admission. Red moist tissue with necrotic areas - probes to bone. Durafiber packing every other day. Based on the above, could you please provide further information regarding the ulcer/wound/injury: Pressure Injury Stage 4 right heel possible, suspected, probable etc. Other specifics to the ulcer Other (explain) Clinically unable to determine (explain) Thank you, Alanna Rios, CCS, CDIS Use of terms such as suspected, likely, concern for, or probable (associated with a specific diagnosi s that is being evaluated, monitored, or treated as if it exists) are acceptable and can be coded in the inpatient se tting, when documented at the time of discharge. Please use your independent medical judgment in providing your response. THIS QUERY IS PART OF THE PERMANENT MEDICAL RECORD
--- NOTE | 2024-07-12 10:28 | P.CDIM_ITS ---
PROVIDER RESPONSE TEXT: To clarify, the appropriate diagnosis supported by the clinical indicators: Sepsis is/was present: present QUERY TEXT: PHYSICIAN'S DOCUMENTATION REQUEST Date of Query: 07/10/2024 08:57 AM EDT Patient Name: Sean Arrington Admit Date: 07/06/2024 Dear Surjit Awan MD, A review of the medical record indicates additional documentation may be needed. Please review below and update the documentation accordingly. Documentation on progress note dated 07/07/24 included the diagnosis of sepsis. The patient's infectious clinical indicators include: Vascular consultation note dated 07/07/24 - Consulted for nonhealing right heel wound, admitted for Se psis and possible osteo of the nonhealing ulcer. Discussed with patient that the wound will not heal and has not healed over 1 year. Discussed what could happen is that he could be more sick/septic or that his whole foot could get inf ected. H&P - No radiographic evidence of osteomyelitis. CRP 29.85, no fever and doesn't meet sepsis criteria. He was given Zosyn and Vanco in the ED. WBC 14.5 Temp 100.1 HR 96 LA 1.2 Sepsis Systemic manifestations of infection, with 2 or more SIRS criteria which include: Fever > 100.4?F or hypothermia < 96.8?F Leukocytosis - WBC > 12,000 or leukopenia, WBC < 4,000, or > 10% bands Tachycardia- > 90 beats/minute Tachypnea- RR > 20 breaths/minute or PaCO2 < 32mmHg Consistency and clarity of a noted diagnosis documented within the medical record: Sepsis is/was present possible, probable, suspected, resolved etc. After study Sepsis has been ruled out Other (explain) Clinically unable to determine (explain) Thank you, Alanna Rios, CCS, CDIS Use of terms such as suspected, likely, concern for, or probable (associated with a specific diagnosi s that is being evaluated, monitored, or treated as if it exists) are acceptable and can be coded in the inpatient se tting, when documented at the time of discharge. Please use your independent medical judgment in providing your response. THIS QUERY IS PART OF THE PERMANENT MEDICAL RECORD
--- NOTE | 2024-07-12 14:28 | MHC.CLN ---
F/U PATIENT SCHEDULED FOR DISCHARGE TODAY. HAD BEEN NPO THIS AM. DIET ORDER CHANGED BY MD TO 2 GRAM SODIUM. PATIENT WITH USUALLY GOOD PO INTAKE. ADD ENSURE MAX BID TO PROMOTE SKIN INTEGRITY.
--- NOTE | 2024-07-12 16:03 | HO.PM.IMPN ---
Subjective Subjective Date of Service: 07/12/24 Interval History: foot cellulitis Review of Systems similar Review of Systems: Yes all other systems are reviewed and are negative Physical Exam Vital Signs: Vital Signs: Last Vital Signs Temp 98.2 F 07/12/24 15:24 Pulse 61 07/12/24 15:24 Resp 16 07/12/24 15:24 BP 129/71 07/12/24 15:24 Pulse Ox 97 07/12/24 15:24 O2 Del Method Room Air 07/12/24 15:24 BMI result Body Mass Index 26.2 alert, confused at baseline cv rrr s1s2 lung cta abd nt, nd ext:see pic in h and p Objective Data Active Medications Acetaminophen (Acetaminophen 325 Mg Tablet) 650 mg PO Q6H PRN PRN Reason: Pain, Mild 1-3,fever,headache Last Admin: 07/06/24 16:22 Dose: 650 mg Documented By: SRINI Albuterol/Ipratropium (Albuterol/Iprat 2.5/0.5mg 3 Ml Ampul.Neb) 3 ml INHALE Q12H PRN PRN Reason: Shortness of Breath Amoxicillin/Clavulanate Potassium (Amoxicillin/Potassium Clav 875 Mg Tablet) 875 mg PO Q12H [facility] Last Admin: 07/12/24 07:54 Dose: 875 mg Documented By: AZIZA Ascorbic Acid (Ascorbic Acid 500 Mg Tablet) 500 mg PO DAILY [facility] Last Admin: 07/12/24 07:54 Dose: 500 mg Documented By: AZIZA Baclofen (Baclofen 20 Mg Tablet) 20 mg PO TID [facility] Last Admin: 07/12/24 15:21 Dose: 20 mg Documented By: ROMEO Calcium Carbonate (Calcium Carbonate 750 Mg Tab.Chew) 750 mg PO Q4H PRN PRN Reason: Heartburn Cholestyramine Resin (Cholestyramine (With Sugar) 4 Gm Powd.Pack) 4 gm PO TID [facility] Last Admin: 07/12/24 15:21 Dose: 4 gm Documented By: ROMEO Doxycycline Monohydrate (Doxycycline Monohydrate 100 Mg Capsule) 100 mg PO Q12H [facility] Last Admin: 07/12/24 07:54 Dose: 100 mg Documented By: AZIZA Furosemide (Furosemide 20 Mg Tablet) 20 mg PO DAILY [facility]; Protocol Last Admin: 07/12/24 07:53 Dose: 20 mg Documented By: AZIZA Gabapentin (Gabapentin 100 Mg Capsule) 200 mg PO TID [facility] Last Admin: 07/12/24 15:21 Dose: 200 mg Documented By: ROMEO Loratadine (Loratadine 10 Mg Tablet) 10 mg PO DAILY PRN PRN Reason: PRURITUS Magnesium Hydroxide (Milk Of Magnesia 30 Ml Oral.Susp) 30 ml PO DAILY PRN PRN Reason: Constipation Melatonin (Melatonin 3 Mg Tablet) 6 mg PO BEDTIME PRN PRN Reason: Insomnia Last Admin: 07/12/24 00:11 Dose: 6 mg Documented By: AMERICA Metoprolol Tartrate (Metoprolol Tartrate 12.5 Mg Halftab) 12.5 mg PO BID [facility]; Protocol Last Admin: 07/12/24 07:53 Dose: 12.5 mg Documented By: AZIZA Multivitamins/Vitamin C (Multivitamin Tablet) 1 tab PO DAILY [facility] Last Admin: 07/12/24 07:54 Dose: 1 tab Documented By: AZIZA Omeprazole (Omeprazole 20 Mg Capsule.Dr) 20 mg PO DAILY@0630 [facility] Last Admin: 07/12/24 05:38 Dose: 20 mg Documented By: AMERICA Ondansetron HCl (Ondansetron Hcl 4 Mg/2 Ml Vial) 4 mg IVPUSH Q8H PRN PRN Reason: Nausea and Vomiting Polyethylene Glycol (Polyethylene Glycol 3350 17 Gm Powd.Pack) 17 gm PO DAILY [facility] Last Admin: 07/12/24 07:53 Dose: 17 gm Documented By: AZIZA Sodium Chloride (0.9 % Sodium Chloride Flush 3 Ml Syringe) 3 ml IVFLUSH QSHIFT [facility] Last Admin: 07/12/24 15:21 Dose: 3 ml Documented By: ROMEO Tramadol HCl (Tramadol Hcl 50 Mg Tablet) 50 mg PO Q12H PRN PRN Reason: Severe Pain (Scale Score 7-10) Trazodone HCl (Trazodone Hcl 25 Mg Halftab) 25 mg PO Q8H PRN PRN Reason: Anxiety/agitation Last Admin: 07/08/24 03:05 Dose: 25 mg Documented By: AUGUSTINRISGail Trazodone HCl (Trazodone Hcl 50 Mg Tablet) 50 mg PO BEDTIME [facility] Last Admin: 07/11/24 19:54 Dose: 50 mg Documented By: AMERICA Vitamin D (Cholecalciferol (Vitamin D3) 25 Mcg Tablet) 50 mcg PO DAILY [facility] Last Admin: 07/12/24 07:54 Dose: 50 mcg Documented By: AZIZA Warfarin Sodium (Warfarin Sodium 7.5 Mg Tablet) 7.5 mg PO DAILY@1800 [facility] Last Admin: 07/11/24 18:04 Dose: 7.5 mg Documented By: JADE Labs 07/09/24 06:31 07/12/24 07:10 Labs: Laboratory Results - last 24 hr 07/11/24 07/12/24 19:51 07:10 Hold Purple Top SEE NOTE PT 12.8 H INR 1.1 Estim Creat Clear Calc 95.9 Estimated GFR > 60 Random Vancomycin 17.3 Microbiology Microbiology Results: Microbiology 07/06/24 13:28 Blood Culture - Final Blood - Venous No growth after 5 days. 07/06/24 13:28 Blood Culture - Final Blood - Venous No growth after 5 days. 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 Pt will be admitted to the hospital for treatment with IV Abx Right Heel ulcer, abscess and cellulitis extending to the leg, h/o OM of the right foot and completed IV Abx about a year ago s/p I and D by vascular with gena puss drainage, for AKA or BKA today continue IV Zosyn and Vanco started 07/06, monitor vanco level In the past was unable to do MRI d/t ontracted body, will consider CT as alternative cultures so far negative patient d/w Nighat in detail -patient /family : they declined surgery and decided for hospice care(please see vascular note from 07/10/24). his wants Id input for above. Paroxysmal AFib Continue metoprolol holding coumadin before surgery, got vit K yesterday HTN metoprolol GERD PPI DNR/DNI DVT Prophylaxis: On Warfarin, holding coumadiin for anticipated surgery need for inpt: IV Abx for abscess, cellulitis and possible acute osteomylitis Quality Stroke Does the patient have a stroke diagnosis?: No VTE Prior VTE?: No VTE Risk Level:: Medical - moderate - high VTE Device Contraindication: Treatment Not Indicated VTE Drug Contraindication: N/A - Med Ordered
[2024-07-12] MEDS: Warfarin Sodium 7.5 MG TABLET PO (17:50)
[2024-07-12] MEDS: traZODone HCL 50 MG TABLET PO (20:15)
--- NOTE | 2024-07-12 23:44 | P.CNID_ITS ---
History of Present Illness Data of Consult Service Date: 07/12/24 Requesting physician: Oscar Borja Primary Care Provider: SOPHIA Lynn HPI Reason for consult: fever of unknown origin He presents from facility with low grade temperature for couple days Temperature here is maximum 100.2 He cant give good history due to Alzheimers. Review of Systems 2 Review of Systems: Yes all other systems are reviewed and are negative [facility] Past Medical History Medical History (Updated 07/12/24 @ 23:48 by Cynthia Kessler MD) Fever Osteoarthritis Hx of deep venous thrombosis Personal history of COVID-19 (~03/2023) Slow to wake up after anesthesia Back abscess Hypertension Radicular low back pain Bilateral hand numbness Impacted cerumen of right ear Peripheral neuropathy Chronic idiopathic thrombocytopenia Iron deficiency anemia Carpal tunnel syndrome Rotator cuff tear Thrombocytopenia Cognitive decline Depression GERD (gastroesophageal reflux disease) Hypercholesterolemia Hypertension Paroxysmal atrial fibrillation Impaired fasting glucose Family History Family History Father No problems noted. Mother Diabetes Family history: reviewed and not pertinent Surgical History Surgical History Colon cancer Lumbar disc disease H/O colonoscopy S/P left rotator cuff repair H/O lateral meniscus repair of right knee S/P IVC filter History of neck surgery History of laminectomy History of cardiac radiofrequency ablation History of neck surgery History of carpal tunnel release H/O repair of rotator cuff History of knee replacement procedure of right knee History of left knee replacement History of appendectomy History of cholecystectomy History of partial colectomy History of right hip replacement Social History Social History Household Members: None Housing: Residential Are you a primary healthcare prof to a significant other at home: No Do you presently have visiting nurse or other home services: Yes (Mauricio LARA) Alcohol intake: never Comment: non ambulatory Patient Tobacco Use Status: Never used Tobacco e-Cigarette/Vaping Use: Never Used Second Hand Smoke Exposure: No Advance Directives Date on File: 03/09/23 service: No Current occupational status: retired Cognitive needs: Yes (walker) Hearing needs: Yes Vision needs: Yes Meds Allergies Allergy/AdvReac Type Severity Reaction Status Date / Time Hufeept-URG-VhH Reductase Allergy Intermediate MUSCULAR Verified 07/06/24 13:03 Inhibitor PAIN [[id number]-VBT REDUCTASE INHIBITOR] atorvastatin Allergy Unknown UNKNOWN Verified 07/06/24 13:03 pravastatin Allergy Unknown UNKNOWN Verified 07/06/24 13:03 simvastatin Allergy Unknown UNKNOWN Verified 07/06/24 13:03 Active Medications: Current Medications Acetaminophen (Acetaminophen 325 Mg Tablet) 650 mg PO Q6H PRN PRN Reason: Pain, Mild 1-3,fever,headache Last Admin: 07/06/24 16:22 Dose: 650 mg Albuterol/Ipratropium (Albuterol/Iprat 2.5/0.5mg 3 Ml Ampul.Neb) 3 ml INHALE Q12H PRN PRN Reason: Shortness of Breath Amoxicillin/Clavulanate Potassium (Amoxicillin/Potassium Clav 875 Mg Tablet) 875 mg PO Q12H PENDING SALE TO [facility] Last Admin: 07/12/24 20:14 Dose: 875 mg Ascorbic Acid (Ascorbic Acid 500 Mg Tablet) 500 mg PO DAILY PENDING SALE TO [facility] Last Admin: 07/12/24 07:54 Dose: 500 mg Baclofen (Baclofen 20 Mg Tablet) 20 mg PO TID PENDING SALE TO [facility] Last Admin: 07/12/24 20:15 Dose: 20 mg Calcium Carbonate (Calcium Carbonate 750 Mg Tab.Chew) 750 mg PO Q4H PRN PRN Reason: Heartburn Cholestyramine Resin (Cholestyramine (With Sugar) 4 Gm Powd.Pack) 4 gm PO TID PENDING SALE TO [facility] Last Admin: 07/12/24 20:14 Dose: 4 gm Doxycycline Monohydrate (Doxycycline Monohydrate 100 Mg Capsule) 100 mg PO Q12H PENDING SALE TO [facility] Last Admin: 07/12/24 20:15 Dose: 100 mg Furosemide (Furosemide 20 Mg Tablet) 20 mg PO DAILY PENDING SALE TO [facility]; Protocol Last Admin: 07/12/24 07:53 Dose: 20 mg Gabapentin (Gabapentin 100 Mg Capsule) 200 mg PO TID PENDING SALE TO [facility] Last Admin: 07/12/24 20:15 Dose: 200 mg Loratadine (Loratadine 10 Mg Tablet) 10 mg PO DAILY PRN PRN Reason: PRURITUS Magnesium Hydroxide (Milk Of Magnesia 30 Ml Oral.Susp) 30 ml PO DAILY PRN PRN Reason: Constipation Melatonin (Melatonin 3 Mg Tablet) 6 mg PO BEDTIME PRN PRN Reason: Insomnia Last Admin: 07/12/24 00:11 Dose: 6 mg Metoprolol Tartrate (Metoprolol Tartrate 12.5 Mg Halftab) 12.5 mg PO BID PENDING SALE TO [facility]; Protocol Last Admin: 07/12/24 20:14 Dose: 12.5 mg Multivitamins/Vitamin C (Multivitamin Tablet) 1 tab PO DAILY PENDING SALE TO [facility] Last Admin: 07/12/24 07:54 Dose: 1 tab Omeprazole (Omeprazole 20 Mg Capsule.Dr) 20 mg PO DAILY@0630 PENDING SALE TO [facility] Last Admin: 07/12/24 05:38 Dose: 20 mg Ondansetron HCl (Ondansetron Hcl 4 Mg/2 Ml Vial) 4 mg IVPUSH Q8H PRN PRN Reason: Nausea and Vomiting Polyethylene Glycol (Polyethylene Glycol 3350 17 Gm Powd.Pack) 17 gm PO DAILY PENDING SALE TO [facility] Last Admin: 07/12/24 07:53 Dose: 17 gm Sodium Chloride (0.9 % Sodium Chloride Flush 3 Ml Syringe) 3 ml IVFLUSH QSHIFT PENDING SALE TO [facility] Last Admin: 07/12/24 20:15 Dose: 3 ml Tramadol HCl (Tramadol Hcl 50 Mg Tablet) 50 mg PO Q12H PRN PRN Reason: Severe Pain (Scale Score 7-10) Trazodone HCl (Trazodone Hcl 25 Mg Halftab) 25 mg PO Q8H PRN PRN Reason: Anxiety/agitation Last Admin: 07/08/24 03:05 Dose: 25 mg Trazodone HCl (Trazodone Hcl 50 Mg Tablet) 50 mg PO BEDTIME PENDING SALE TO [facility] Last Admin: 07/12/24 20:15 Dose: 50 mg Vitamin D (Cholecalciferol (Vitamin D3) 25 Mcg Tablet) 50 mcg PO DAILY PENDING SALE TO [facility] Last Admin: 07/12/24 07:54 Dose: 50 mcg Warfarin Sodium (Warfarin Sodium 7.5 Mg Tablet) 7.5 mg PO DAILY@1800 PENDING SALE TO [facility] Last Admin: 07/12/24 17:50 Dose: 7.5 mg Home Medications ?Medication ?Instructions ?Recorded ?Confirmed ?Last Taken ?Type metoprolol tartrate 25 mg tablet 12.5 mg PO BID 02/05/20 07/06/24 09/01/23 History [id number]-jx-spkcg 300 mcg-K 60 1 tab PO DAILY 02/05/20 07/06/24 09/01/23 History mcg-lycop 600 mcg-lutein 300 mcg tablet (Centrum Silver Ultra Men's) acetaminophen 325 mg tablet 650 mg PO Q4H PRN Pain, Moderate 09/30/21 07/06/24 09/01/23 History ascorbic acid (vitamin C) 500 mg 500 mg PO DAILY 03/08/23 07/06/24 09/01/23 History tablet cholecalciferol (vitamin D3) 50 50 mcg PO DAILY 03/08/23 07/06/24 09/01/23 History mcg (2,000 unit) capsule colesevelam 625 mg tablet 1,875 mg PO DAILY 03/08/23 07/06/24 09/01/23 History omeprazole 20 mg capsule,delayed 20 mg PO DAILY@0630 03/08/23 07/06/24 09/01/23 History release baclofen 10 mg tablet 20 mg PO TID 09/03/23 07/06/24 09/01/23 History furosemide 20 mg tablet 20 mg PO DAILY 09/03/23 07/06/24 Unknown History gabapentin 100 mg capsule 200 mg PO TID 09/03/23 07/06/24 09/01/23 History ipratropium 0.5 mg-albuterol 3 mg 3 ml inhalation Q12H PRN SOB 09/03/23 07/06/24 09/01/23 History (2.5 mg base)/3 mL nebulization soln loratadine 10 mg tablet 10 mg PO DAILY PRN PRURITUS 09/03/23 07/06/24 Unknown History melatonin 5 mg tablet 5 mg PO BEDTIME sleep aid 09/03/23 07/06/24 09/01/23 History tramadol 50 mg tablet 50 mg PO Q12H PRN Severe Pain 09/03/23 07/06/24 09/01/23 History (Scale Score 7-10) warfarin 7.5 mg tablet 7.5 mg PO DAILY 09/03/23 07/06/24 09/01/23 History cephalexin 500 mg capsule 500 mg PO QID 07/06/24 07/06/24 Unknown History polyethylene glycol 3350 17 17 g PO DAILY 07/06/24 07/06/24 Unknown History gram/dose oral powder (Miralax) trazodone 50 mg tablet 25 mg PO Q8H PRN Anxiety/agitation 07/06/24 07/06/24 Unknown History trazodone 50 mg tablet 50 mg PO BEDTIME 07/06/24 07/06/24 Unknown History Physical Exam 2 Vital Signs: Vital Signs: Last Vital Signs Temp 97.4 F 07/12/24 19:32 Pulse 62 07/12/24 19:32 Resp 20 07/12/24 19:32 BP 116/66 07/12/24 19:32 Pulse Ox 96 07/12/24 19:32 O2 Del Method Room Air 07/12/24 19:32 BMI result Body Mass Index 26.2 Const: General: cooperative HEENT: Head: Yes normal to inspection Face and sinus: Yes normal facial exam Mouth: Normal oral and palatal mucosa present Teeth and gingiva: d entition normal Eyes: General: appearance normal, both eyes and all related structures P upils: Equal, round and reactive pupils present Resp: Effort & Inspection: normal respiratory effort Cardio: Rate: regular rate Rhythm: regular rhythm GI: Palpation (GI): Soft to palpation and nontender : General: Yes no CVA tenderness Back/Spine/Pelvis: Back: no CVA tenderness Skin: General skin exam: no rashes or lesions noted Neuro: General: moves all extremities Cranial nerves: Yes Equal, round and reactive pupils present Extrem: Other: right heel abrasion,slt cellulitis possible,no deep ulcer Psych: Appearance: grossly normal Results Labs 07/09/24 06:31 07/12/24 07:10 Labs: BMP 07/12/24 07:10 Creatinine 0.73 Microbiology Microbiology Results: Microbiology 07/06/24 13:28 Blood - Venous Blood Culture - Final No growth after 5 days. 07/06/24 13:28 Blood - Venous Blood Culture - Final No growth after 5 days. Assessment and Plan (1) Fever: Status: Acute Plan Heel has had chronic wound,likely some element chronic OM. It doesnt look to be necessarily source of fever Can treat cellulitis with Augmentin and Doxycycline for 10 days.
[2024-07-13 03:58] VITALS: BP 145/83; PULSE 62; RESP 16; TEMP 37; O2SAT 98
[2024-07-13] MEDS: Omeprazole 20 MG CAPSULE.DR PO (05:57)
[2024-07-13 06:46] LABS: Creatinine Clr Calc Pharmacy 118.7; Estimated Glomerular Filt Rate > 60
[2024-07-13 07:05] LABS: INTERNATIONAL NORM RATIO 1.1 (0.9-1.1); Prothrombin Time 13.1 SEC (10.9-12.4)
[2024-07-13 07:31] VITALS: BP 130/70; PULSE 61; RESP 14; TEMP 36.4; O2SAT 96
[2024-07-13] MEDS: Amoxicillin/Potassium Clav 875 MG TABLET PO (08:43)
[2024-07-13] MEDS: Doxycycline Monohydrate 100 MG CAPSULE PO (08:43)
[2024-07-13] MEDS: Cholecalciferol (Vitamin D3) 25 MCG TABLET 50 MCG PO (08:43)
[2024-07-13] MEDS: Metoprolol Tartrate 12.5 MG HALFTAB PO (08:43)
[2024-07-13] MEDS: 0.9 % Sodium Chloride Flush 3 ML SYRINGE IVFLUSH (08:43)
[2024-07-13 08:44] VITALS: BP 130/70
[2024-07-13] MEDS: Furosemide 20 MG TABLET PO (08:44)
[2024-07-13] MEDS: Baclofen 20 MG TABLET PO (08:44)
[2024-07-13] MEDS: Gabapentin 100 MG CAPSULE 200 MG PO (08:44)
[2024-07-13] MEDS: Ascorbic Acid 500 MG TABLET PO (08:44)
[2024-07-13] MEDS: Multivitamin TABLET 1 TAB PO (08:44)
[2024-07-13] MEDS: polyethylene glycoL 3350 17 GM POWD.PACK PO (08:45)
[2024-07-13] MEDS: Cholestyramine (With Sugar) 4 GM POWD.PACK PO (08:45)
--- NOTE | 2024-07-13 11:21 | MHC.CM.PN ---
Addendum entered by Margot Randall 07/13/24 11:32: FINAL IMM DELIVERED Original Note: DP: PT HAS BEEN CLEARED FOR DC BACK TO [facility] TO RESUME LTC AND WITH NEW [facility] FOR HOSPICE CARE. [facility]RAY UPDATED AND IN AGREEMENT WITH PLAN. HOSPICE UPDATED.CENTER AWARE. BLS TRANSPORT BOOKED FOR 12:30 PM VIA [facility].
[2024-07-13 12:00] VITALS: BP 130/67; PULSE 66; RESP 14; TEMP 36.5; O2SAT 97
--- NOTE | 2024-07-14 11:14 | P.CDIM_ITS ---
PROVIDER RESPONSE TEXT: To clarify, the appropriate diagnosis supported by the clinical indicators: Pressure injury left Ischium Stage 4: present QUERY TEXT: PHYSICIAN'S DOCUMENTATION REQUEST Date of Query: 07/12/2024 07:32 AM EDT Patient Name: Sean Arrington Admit Date: 07/06/2024 Dear Oscar Borja MD, A review of the medical record indicates additional documentation may be needed. Please review below and update the documentation accordingly. Clinical Indicators: Wound care notes07/07/24 - Pressure Injury Stage 4 left Ischium, Present on Arrival Probes to bone. Durafiber packing every other day. Based on the above, could you please provide further information regarding the ulcer/wound/injury: Pressure injury left Ischium Stage 4 suspected, possible, etc. Other specified Other (explain) Clinically unable to determine (explain) Thank you, Alanna Rios, CCS, CDIS Use of terms such as suspected, likely, concern for, or probable (associated with a specific diagnosi s that is being evaluated, monitored, or treated as if it exists) are acceptable and can be coded in the inpatient se tting, when documented at the time of discharge. Please use your independent medical judgment in providing your response. THIS QUERY IS PART OF THE PERMANENT MEDICAL RECORD
== END 2024-07-13 12:51 | disposition skilled nursing facility (03) | DRG 871 ==
LOC: HO.ED 15:09 → HO.EDOVER 15:55 → HO.S3 07-07 07:46
PROVIDERS: Physician Assistant; Admitting Provider Internal Medicine; Emergency Provider Emergency Medicine; PCP Nurse Practitioner Family; Visit Provider Internal Medicine
DX: A41.9 Sepsis, unspecified organism (principal); L89.324 Pressure ulcer of left buttock, stage 4; L89.614 Pressure ulcer of right heel, stage 4; L03.115 Cellulitis of right lower limb; L02.611 Cutaneous abscess of right foot; M86.171 Other acute osteomyelitis, right ankle and foot; K21.9 Gastro-esophageal reflux disease without esophagitis; I48.0 Paroxysmal atrial fibrillation; I10 Essential (primary) hypertension; Z66 Do not resuscitate; G30.9 Alzheimer's disease, unspecified; F02.80 Dementia in other diseases classified elsewhere, unspecified severity, without behavioral disturbance, psychotic disturbance, mood disturbance, and anxiety; G62.9 Polyneuropathy, unspecified; Z20.822 Contact with and (suspected) exposure to COVID-19; Z86.718 Personal history of other venous thrombosis and embolism; Z79.01 Long term (current) use of anticoagulants; Z79.899 Other long term (current) drug therapy
CPT/HCPCS: 0241U; 36415; 73552; 73650; 80051; 80053; 80202; 82565; 83605; 83690; 85025; 85027; 85610; 85652; 86140; 86850; 86900; 86901; 87040; 87493; 93005; 99285; J2543; J3370; J3371

== ENCOUNTER → 2024-07-06 13:23 | Outpatient (BNV) | payer MEDICARE, MEDICAID, SELFPAY | PROVIDERS: Admitting Provider Internal Medicine; Emergency Provider Emergency Medicine; PCP Nurse Practitioner Family; Visit Provider Internal Medicine Cardiovascular Disease | DX: I49.1 Atrial premature depolarization (principal) | CPT/HCPCS: 93010 ==

== ENCOUNTER → 2024-07-06 13:23 | Outpatient (BNV) | payer MEDICARE, MEDICAID, SELFPAY | PROVIDERS: Emergency Provider Emergency Medicine; PCP Nurse Practitioner Family; Visit Provider Radiology Diagnostic Radiology | DX: R22.41 Localized swelling, mass and lump, right lower limb (principal) | CPT/HCPCS: 73650 ==

== ENCOUNTER 2024-07-06 15:47 | Outpatient (BNV) | payer MEDICARE, MEDICAID, SELFPAY | END 2024-07-07 12:30 | PROVIDERS: Admitting Provider Internal Medicine; Emergency Provider Emergency Medicine; PCP Nurse Practitioner Family; Visit Provider Radiology Diagnostic Radiology | DX: Z96.641 Presence of right artificial hip joint (principal); M24.551 Contracture, right hip | CPT/HCPCS: 73552 ==

== ENCOUNTER → 2024-07-06 15:47 | Outpatient (BNV) | payer MEDICARE, MEDICAID, SELFPAY | PROVIDERS: Admitting Provider Internal Medicine; Emergency Provider Emergency Medicine; PCP Nurse Practitioner Family; Visit Provider Surgery Vascular Surgery | DX: I73.9 Peripheral vascular disease, unspecified (principal) | CPT/HCPCS: 99222; 99499 ==

== ENCOUNTER → 2024-07-06 15:47 | Outpatient (BNV) | payer MEDICARE, MEDICAID, SELFPAY | PROVIDERS: Admitting Provider Internal Medicine; Emergency Provider Emergency Medicine; PCP Nurse Practitioner Family; Visit Provider Internal Medicine | DX: L03.115 Cellulitis of right lower limb (principal) | CPT/HCPCS: 99232 ==

== ENCOUNTER → 2024-07-06 15:47 | Outpatient (BNV) | payer MEDICARE, MEDICAID, SELFPAY | PROVIDERS: Admitting Provider Internal Medicine; Emergency Provider Emergency Medicine; PCP Nurse Practitioner Family; Visit Provider Internal Medicine | DX: R50.9 Fever, unspecified (principal) | CPT/HCPCS: 99222 ==